=== PATIENT | female | born 1965 | race African-American/Black ===

== ENCOUNTER 2018-02-03 11:15 | Outpatient (RCR) | payer MEDICAID, SELFPAY | END 2018-02-03 19:00 | disposition home or self-care (01) | LOC: PT 11:15 | PROVIDERS: Family Provider Family Medicine; PCP Family Medicine | DX: M17.0 Bilateral primary osteoarthritis of knee (principal) ==

== ENCOUNTER → 2019-03-26 11:33 | Outpatient (CLI) | payer MEDICAID, SELFPAY ==
[2019-03-26 10:36] VITALS: BMI 48.2
[2019-03-26 13:12] LABS: T4 Free Direct 1.53 ng/dL (0.76-1.46)
[2019-03-28 11:30] LABS: Thyroid Peroxidase AB > 600 IU/mL (0-34)
== END ==
PROVIDERS: Family Provider Family Medicine; PCP Family Medicine; Referring Provider Internal Medicine Endocrinology, Diabetes & Metabolism; Visit Provider Internal Medicine Endocrinology, Diabetes & Metabolism
DX: E03.9 Hypothyroidism, unspecified (principal)
CPT/HCPCS: 36415; 84439; 84443; 86376

== ENCOUNTER → 2019-05-05 10:05 | Outpatient (CLI) | payer MEDICAID, SELFPAY ==
[2019-03-26 10:36] VITALS: BMI 48.2
--- NOTE | 2019-05-05 10:11 | ECHOCS_ITS ---
Reason For Study: MURMUR Procedure This was a 2D Doppler, Color Flow transthoracic echocardiogram. The study was technically difficult. Due to body habitus and inability to ambulate, Exam performed in supine position. Contrast injection was performed. Exam performed in department. Left Ventricle Normal size and thickness. The estimated ejection fraction is 65 %. Stage 1 diastolic dysfunction. No regional wall motion abnormalities noted. Right Ventricle Normal size and thickness. Normal systolic function. Atria Normal left atrium. Normal right atrium. Normal atrial septum. Mitral Valve The mitral valve is structurally normal. No prolapse or stenosis seen. Tricuspid Valve Normal tricuspid valve. Trivial tricuspid valve insufficiency. Right ventricular systolic pressure estimated to be 47 mmHg. Moderate pulmonary hypertension. Aortic Valve Normal aortic valve. Trisinus/trileaflet aortic valve. Pulmonic Valve The pulmonic valve is not well visualized. Great Vessels Normal aortic root. Normal arch. Normal inferior vena cava. No collapse of the inferior vena cava. Pericardium/Pleural No pericardial effusion. Medication 22 gauge I.V. with prn adaptor inserted into right arm. Diluted definity 2.0ml given slow IV push to enhance endocardial definition. MMode/2D Measurements & Calculations LVIDd: 4.3 cm IVSd: 1.0 cm Ao root diam: 2.5 cm LVIDs: 2.6 cm LVPWd: 1.00 cm RVDd: 2.8 cm FS: 39.7 % LAV(MOD-bp): 51.8 ml LA A4 area: 13.9 cm2 LA dimension(2D): 3.2 cm LAV(MOD-bp) Indexed: 21.9 ml/m2 LAV(MOD-sp2): 47.1 ml LAV(MOD-sp4): 42.0 ml RA A4 area: 10.1 cm2 Time Measurements MV dec time: 0.16 sec Doppler Measurements & Calculations MV E max todd: 95.7 cm/sec Lat Peak E' Todd: 11.2 cm/sec Med Peak E' Todd: 10.4 cm/sec MV A max todd: 127.6 cm/sec E/E' lat: 8.6 E/E' med: 9.2 MV E/A: 0.75 Ao V2 max: 150.3 cm/sec LV V1 max: 120.2 cm/sec PA V2 max: 128.9 cm/sec Ao max P.0 mmHg LV V1 max P.8 mmHg TR max todd: 323.7 cm/sec TR max P.9 mmHg Interpretation Summary The estimated ejection fraction is 65 %. Stage 1 diastolic dysfunction. Trivial tricuspid valve insufficiency. Right ventricular systolic pressure estimated to be 47 mmHg, but may be over estimated. Consider right heart cath to confirm pulmonary HTN. Moderate pulmonary hypertension. The study was technically difficult. Contrast injection was performed. There is no comparison study available. Ordering Physician: Arun Stringer Referring Physician: Arun Stringer Performed By: Felicity Perez, KRISTEN, RVT
== END ==
PROVIDERS: Family Provider Family Medicine; PCP Family Medicine; Referring Provider Family Medicine; Visit Provider Family Medicine
DX: R01.1 Cardiac murmur, unspecified (principal)
CPT/HCPCS: 93306; Q9957; A4216; C8929

== ENCOUNTER → 2019-08-27 10:22 | Outpatient (CLI) | payer MEDICAID, SELFPAY ==
[2019-03-26 10:36] VITALS: BMI 48.2
[2019-08-27 12:14] LABS: T4 Free Direct 1.39 ng/dL (0.76-1.46); Thyroid Stim Hormone (TSH) 2.99 uIU/mL (0.358-3.74)
== END ==
PROVIDERS: PCP Family Medicine; Referring Provider Internal Medicine Endocrinology, Diabetes & Metabolism; Visit Provider Internal Medicine Endocrinology, Diabetes & Metabolism
DX: E03.9 Hypothyroidism, unspecified (principal)
CPT/HCPCS: 36415; 84439; 84443

== ENCOUNTER → 2021-10-30 | Outpatient (CLI) | payer MEDICAID, SELFPAY ==
[2021-10-30 12:55] LABS: T4 Free Direct 1.34 ng/dL (0.76-1.46); Thyroid Stim Hormone (TSH) 3.16 uIU/mL (0.358-3.74)
== END | disposition home or self-care (01) ==
LOC: BIMLAB 11:36
PROVIDERS: PCP Family Medicine; Visit Provider Internal Medicine Endocrinology, Diabetes & Metabolism
DX: E03.9 Hypothyroidism, unspecified (principal)
CPT/HCPCS: 36415; 84439; 84443

== ENCOUNTER → 2021-12-04 | Outpatient (CLI) | payer MEDICAID, SELFPAY ==
[2021-12-04 12:18] LABS: Absolute Lymphocyte Count 2.73 X10^3/uL (0.83-4.51); Absolute Neutrophil Count 3.8 X10^3/uL (2.0-7.7); Basophil# 0.02 X10^3/uL; Basophil% 0.2 % (0-1); Eosinophil# 1.11 X10^3/uL; Eosinophils% 13.4 % (0-5); Hemoglobin 12.7 g/dL (12.0-15.0); Lymphocyte # 2.73 X10^3/ul (0.83-4.51); Mean Corp Hgb Conc 32.6 g/dL (32-36); Mean Corpuscular Volume 95.1 fL (81-99); Mean Platelet Vol. 10.5 fl (6.2-12.0); Monocyte# 0.59 X10^3/uL; Monocyte% 7.1 % (0-10); NRBC Flagged by Analyzer 0 % (0-5); Neutrophil # 3.81 X10^3/uL (2.7-7.7); Neutrophil % 46.1 % (47-70); Platelet Count 298 K/mm3 (150-450); RBC Distribution Width CV 14.3 % (11.6-14.6); RBC Distribution Width SD 50.2 fl (35.1-43.9); White Blood Count 8.3 K/mm3 (4.4-11.0)
[2021-12-04 13:09] LABS: ALB/GLOB Ratio 0.7 RATIO (0.9-2.4); AST(SGOT) 17 U/L (15-37); Alanine Aminotransfer ALT/SGPT 21 U/L (13-56); Albumin, Serum 3.5 g/dL (3.2-5.0); Alkaline Phosphatase 98 U/L (45-117); Anion Gap 6 (5-15); BUN 17 mg/dL (7-18); BUN/Creat Ratio 14.8 RATIO (10-20); Calcium,Total 9.6 mg/dL (8.5-10.1); Chloride 109 mmol/L (98-107); Cholesterol 156 mg/dL (200); Creatinine, Serum 1.15 mg/dL (0.55-1.02); EST Glomerular Filtration Rate 51 mL/min (>60); Est Glom Filt Rate - Afr Amer 62 mL/min (>60); Globulin 5.1 g/dL (2.2-4.2); Glucose 92 mg/dL (74-106); High Density Lipoprotein 44 mg/dL; Potassium 4.1 mmol/L (3.5-5.1); Protein, Total 8.6 g/dL (6.4-8.2); Sodium Level 141 mmol/L (136-145); Triglycerides 68 mg/dL; Very Low Density Lipoprotein 14 mg/dL (5-40)
== END | disposition home or self-care (01) ==
LOC: BIMLAB 10:12
PROVIDERS: PCP Internal Medicine; Referring Provider Internal Medicine; Visit Provider Internal Medicine
DX: I10 Essential (primary) hypertension (principal)
CPT/HCPCS: 36415; 80053; 80061; 85025

== ENCOUNTER → 2021-12-24 | Outpatient (CLI) | payer MEDICAID, SELFPAY ==
--- NOTE | 2021-12-24 12:19 | US_ITS ---
EXAM: US LEFT UPPER EXTREMITY NON-VASCULAR, COMPLETE CLINICAL INDICATION: Left Upper Extremity- 3 LUMPS ON ELBOW TECHNIQUE: Real-time ultrasound scan of the left upper extremity with image documentation. This report was created using [employer] report [employer] technology. COMPARISON: None. FINDINGS: SOFT TISSUES: Ultrasound images of the soft tissues of the left elbow demonstrate 3 soft tissue nodules measuring 1.2, 0.9 and 0.9 cm located within subcutaneous tissues. Lesions contain no significant vascularity. No foreign body. US/Ext Non Vasc Limited/Soft Tiss IMPRESSION: Nonspecific soft tissue nodules of the elbow which may represent lipomas. Electronically Signed: Kiet Reynoso MD at 9:32 EDT ,
== END | disposition home or self-care (01) ==
LOC: US 12:18
PROVIDERS: PCP Internal Medicine; Referring Provider Internal Medicine; Visit Provider Internal Medicine
DX: R60.0 Localized edema (principal)
CPT/HCPCS: 76882

== ENCOUNTER → 2022-05-17 | Outpatient (CLI) | payer MEDICAID, SELFPAY ==
--- NOTE | 2022-05-17 09:56 | BI_ITS ---
MAMMOGRAPHY - BILATERAL SCREENING REASON FOR EXAM: Female, 57 years old. Routine annual screening examination. PERTINENT HISTORY: Non-contributory. TECHNIQUE: Digital bilateral breast ed (3D mammographic acquisition) in the CC and MLO projections. 2-D mediolateral oblique (MLO) and craniocaudad (CC) views of both breasts were obtained. CAD: Full Field Digital Mammography with Computer Added Detection was performed. COMPARISON: Comparison is made with prior study dated 01/10/2017 and 10/03/2015. FINDINGS: Breast Composition: The breasts are almost entirely fatty. There are no dominant masses or suspicious calcifications. Small benign-appearing bilateral axillary lymph nodes. No other significant abnormalities are identified. There has been no significant change since the prior study. BI/SCRN MAMM (CAD)W/ED BILAT IMPRESSION: Stable bilateral screening mammogram. Yearly follow-up mammogram recommended. (A) ASSESSMENT CATEGORY: BIRADS Category 2: Benign. A letter regarding these results will be sent to the patient by the facility within 30 days. Approximately 10% of breast cancers are not detected by mammography. A normal mammogram should not delay biopsy of a clinically suspicious abnormality. [id number] Electronically Signed: Malachi Vela MD at 10:55 EST ,
== END | disposition home or self-care (01) ==
LOC: OPBI 09:55
PROVIDERS: PCP Internal Medicine; Referring Provider Internal Medicine; Visit Provider Internal Medicine
DX: Z12.31 Encounter for screening mammogram for malignant neoplasm of breast (principal)
CPT/HCPCS: 77063; 77067

== ENCOUNTER → 2022-09-13 | Outpatient (CLI) | payer MEDICAID, SELFPAY ==
[2022-09-13 12:38] LABS: Absolute Lymphocyte Count 2.46 X10^3/uL (0.83-4.51); Absolute Neutrophil Count 3.9 X10^3/uL (2.0-7.7); Basophil# 0.02 X10^3/uL; Basophil% 0.3 % (0-1); Eosinophil# 0.74 X10^3/uL; Eosinophils% 9.4 % (0-5); Hematocrit 39.6 % (37-47); Hemoglobin 12.4 g/dL (12.0-15.0); Lymphocyte # 2.46 X10^3/ul (0.83-4.51); Lymphocyte % 31.3 % (19-41); Mean Corp Hgb Conc 31.3 g/dL (32-36); Mean Corpuscular Hgb 29.6 pg (27.0-32.0); Mean Corpuscular Volume 94.5 fL (81-99); Mean Platelet Vol. 10.4 fl (6.2-12.0); Monocyte# 0.71 X10^3/uL; NRBC Flagged by Analyzer 0 % (0-5); Neutrophil # 3.92 X10^3/uL (2.7-7.7); Neutrophil % 49.9 % (47-70); Platelet Count 300 K/mm3 (150-450); RBC Distribution Width CV 14.2 % (11.6-14.6); RBC Distribution Width SD 49.3 fl (35.1-43.9); Red Blood Count 4.19 M/mm3 (4.2-5.4); White Blood Count 7.9 K/mm3 (4.4-11.0)
[2022-09-13 13:14] LABS: ALB/GLOB Ratio 0.6 RATIO (0.9-2.4); AST(SGOT) 23 U/L (15-37); Alanine Aminotransfer ALT/SGPT 27 U/L (13-56); Albumin, Serum 3.1 g/dL (3.2-5.0); Alkaline Phosphatase 90 U/L (45-117); Anion Gap 8 (5-15); BUN 12 mg/dL (7-18); BUN/Creat Ratio 10.5 RATIO (10-20); Calcium,Total 9.3 mg/dL (8.5-10.1); Chloride 108 mmol/L (98-107); Cholesterol 132 mg/dL (200); Creatinine, Serum 1.14 mg/dL (0.55-1.02); EST Glomerular Filtration Rate 52 mL/min (>60); Est Glom Filt Rate - Afr Amer 63 mL/min (>60); Globulin 5.5 g/dL (2.2-4.2); Glucose 104 mg/dL (74-106); High Density Lipoprotein 39 mg/dL; Protein, Total 8.6 g/dL (6.4-8.2); Sodium Level 139 mmol/L (136-145); Triglycerides 65 mg/dL; Very Low Density Lipoprotein 13 mg/dL (5-40)
== END | disposition home or self-care (01) ==
LOC: BIMLAB 09:51
PROVIDERS: PCP Internal Medicine; Visit Provider Internal Medicine
DX: I10 Essential (primary) hypertension (principal); E03.9 Hypothyroidism, unspecified
CPT/HCPCS: 36415; 80053; 80061; 84443; 85025

== ENCOUNTER → 2023-06-16 | Outpatient (CLI) | payer OTHER, SELFPAY ==
--- OUTSIDE RECORDS SUMMARY | 2023-06-16 11:42 | XMS RPT_ITS | CCD ---
Author Name Unknown Address [address] [place] [address] Organization [facility] Care Team Providers Care Glue Drier Operator Name Role Phone Arun Stringer DO Primary Care Provider Allergies Allergy Classification Reported Allergen(s) Allergy Type Date of Onset Reaction(s) Facility (1 source) Acetaminophen / Codeine Drug Allergy 4 Other: See Comments [facility] Medications Current Medications Medication Drug Class(es) Dates Sig (Normalized) Sig (Original) ibuprofen 800 mg oral tablet (2 sources) Nonsteroidal Anti-inflammatory Drug Start: 09-26-2021 End: 10-26-2021 take 1 tablet by mouth every eight hours as needed ibuprofen (MOTRIN) 800 mg tablet Take 1 tablet by mouth every 8 hours as needed for pain. 90 tablet 1 09/26/2021 10/26/2021 Active Completed/Discontinued Medications Medication Drug Class(es) Dates Sig (Normalized) Sig (Original) amLODIPine 10 mg oral tablet (1 source) Dihydropyridine Calcium Channel Son take 10 mg by mouth once daily AMLODIPINE BESYLATE (AMLODIPINE ORAL) Take 10 mg by mouth once daily. 0 Active Problems Active Problems Problem Classification Problem Date Documented Date Episodic/Chronic Acquired foot deformities (1 source) Hammer toe; Translations: [Other hammer toe(s) (acquired), right foot] Chronic Acquired foot deformities (2 sources) Talipes planus; Translations: [Flat foot [pes planus] (acquired), right foot] Onset: 01-25-2015 Episodic Anxiety disorders (1 source) Anxiety; Translations: [Anxiety disorder, unspecified] 11-08-2013 Chronic Disorders of lipid metabolism (1 source) Dyslipidemia; Translations: [Hyperlipidemia, unspecified] Onset: 11-08-2013 12-09-2013 Chronic Essential hypertension (1 source) Hypertensive disorder; Translations: [Essential (primary) hypertension] 11-08-2013 Chronic Osteoarthritis (1 source) Osteoarthritis; Translations: [Unspecified osteoarthritis, unspecified site] Onset: 07-07-2013 04-09-2021 Chronic Other diseases of veins and lymphatics (1 source) Vascular insufficiency; Translations: [Venous insufficiency (chronic) (peripheral)] Episodic Other nutritional; endocrine; and metabolic disorders (1 source) Morbid obesity; Translations: [Morbid (severe) obesity due to excess calories] Onset: 11-08-2013 12-09-2013 Chronic Thyroid disorders (1 source) Hypothyroidism; Translations: [Hypothyroidism, unspecified] 11-08-2013 Chronic Unclassified (1 source) NO SHOW Onset: 08-03-2013 08-03-2013 Past or Other Problems Problem Classification Problem Date Documented Da te Episodic/Chronic Blindness and vision defects (1 source) Amblyopia of left eye; Translations: [Unspecified amblyopia, left eye] Onset: 07-07-2013 04-09-2021 Episodic Results Test Name Value Interpretation Reference Range Facil ity Encounters Encounter Date Encounter Type Care Provider Facility Start: 09-26-2021 End: 09-26-2021 Patient encounter procedure Kenneth Hubbard Work Phone: Podiatry Plan of Treatment Date Care Activity Detail Author Start: 12-13-2021 Influenza vaccination INFLUENZA (Sea son Ended) [facility] Start: 07-14-2021 COVID-19 VACCINE (4 - Booster for Moderna series) COVID-19 VACCINE (4 - Booster for Moderna series) [facility] Start: 11-08-2018 LIPID SCREEN LIPID SCREEN [facility] Start: 07-09-2016 DIABETES SCREEN DIABETES SCREEN [facility] Start: 2013 SHINGRIX VACCINE (1 of 2) SHINGRIX V ACCINE (1 of 2) [facility] Start: 03-09-2009 PAP TESTING PAP TESTING [facility] Start: 2008 COLOGUARD (FIT-DNA) COLOGUARD (FIT-D NA) [facility] Start: 2008 Colonoscopy COLONOSCOPY [facility] Start: 2008 COLORECTAL CANCER SCREENING COLORECTAL CANCER SCREENING [facility] Start: [address] COLONOGRAPHY [facility] Start: 2008 FECAL OCCULT BLOOD FECAL OCCULT BLOO D [facility] Start: 2008 SIGMOIDOSCOPY SIGMOIDOSCOPY [facility] Start: 2003 Mammography MAMMOGRAM [facility] Start: 1993 HPV TESTING HPV TESTING [facility] Start: 1982 Urine microalbumin profile DTAP,TDAP ,TD (1 - Tdap) [facility] Start: 1981 ANNUAL PCP TEAM PATIENT RESOURCE COORDINATOR BARTOLOME DISEASE VISIT ANNUAL PCP TEAM CHRONIC DISEASE VISIT [facility] Start: 1981 BP CONTROLLED (<130/80) BP CONTROLLE D (<130/80) [facility] Start: 1981 HEPATITIS C SCREENING HEPATITIS C SC REENING [facility] Start: 1981 HIV SCREENING HIV SCREENING [facility] Start: 1975 Adult depression scr eening assessment DEPRESSION SCREENING [facility] Payers Date Payer Category [place]ayer Medicaid [place] [id number] 2021-Present [phone] [address] [place] [address] Medicaid [id number] Social History Date Type Detail Facility [facility] Start: 09-26-2021 Alcohol intake Current non-dr project officer of alcohol (finding) [facility] Start: 1965 Sex Assigned At Not on file [facility] Start: 09-16-2021 End: 09-26-2021 Exposure to SARS-CoV-2 (event) Not sure [facility] Progress note 09-26-2021 Note Date & Type Note Facility 09-26-2021 Note HNO ID: [id number] Author: Kenneth Hubbard Service: ? Author Type: Physician Type: Progress Notes Filed: 09/26/2021 12:18 PM Note Text: Initial Podiatric Office Visit: Chief Complaint: This 56 year old female who presents with chief complaint:swelling of b/l feet and deformity of b/l 2nd toe HPI Patient presents to clinic for evaluation of b/l feet. Her primary complaint is deformity of b/l 2nd toe. She states the toes started to deviate laterally about one year ago when her daughter stepped on her toe. She states that she heard a crunch but she never had pain because she was on pain medication for pain related to recent knee surgery. Patient now has pain in her toes, especially with a lot of walking. She also reports swelling in her foot. PAIN EVALUATION 09/26/2021 1120 Pain Level: 7 Pain Location: Toe Description: Stabbing Duration Amount of Time: 1 Duration Units: Years Frequency: Intermittent Intervention/Comfort measure: Reposition;Relaxation No results found for: HBA1C PCP: Arun Stringer DO PAST MEDICAL HISTORY Diagnosis Date - Anxiety - HTN (hypertension) - Hypothyroidism Current Outpatient Medications Medication Sig - ibuprofen (MOTRIN) 800 mg tablet Take 1 tablet by mouth every 6 hours as needed. - diazepam (VALIUM) 5 mg tablet Take 5 mg by mouth once daily. - AMLODIPINE BESYLATE (AMLODIPINE ORAL) Take 10 mg by mouth once daily. - levothyroxine (LEVOXYL) 100 mcg tablet Take 1 tablet by mouth once daily. Take on empty stomach. For Thyroid. (Patient taking differently: Take 150 mcg by mouth once daily. Take on empty stomach. For Thyroid. ) - losartan 100 mg tablet Take 1 tablet by mouth once daily. - hydrochlorothiazide (HYDRODIURIL, ESIDRIX) 25 mg tablet Take 25 mg by mouth once daily. (Patient not taking: Reported on 09/26/2021 ) No current facility-administered medications for this visit. ALLERGIES Allergen Reactions - Acetaminophen-Codei* Other: See Comments Ears ring PAST SURGICAL HISTORY Procedure Laterality Date - DELIVERY ONLY 04/14/1998 , low transverse - DELIVERY ONLY 04/14/2004 , low transverse - DELIVERY ONLY 04/14/2013 , low transverse - TOTAL KNEE REPLACEMENT Bilateral June,November 2020 FAMILY HISTORY Problem Relation Age of Onset - Diabetes Mother - Stroke Father - Hypertension Sister - Hypertension Sister Social History Tobacco Use - Smoking status: Never Smoker - Smokeless tobacco: Never Used Substance Use Topics - Alcohol use: No - Drug use: No REVIEW OF SYSTEMS GENERAL: Negative for Malaise, significant weight loss, fever RESPIRATORY: Negative for cough, wheezing and shortness of breath CARDIOVASCULAR: Negative for chest pain, leg swelling and palpitations GI: Negative for abdominal discomfort, blood in stools or black stools and change in bowel habits : Negative for dysuria, frequency and incontinence MUSCULOSKELETAL: Negative for joint pain or swelling, back pain, and muscle pain. SKIN: Negative for lesions, rash, and itching. HEMATOLOGY/LYMPHOLOGY Negative for prolonged bleeding, bruising easily, and swollen nodes. ENDOCRINE: Negative for cold or heat intolerance, polyuria, polydipsia and goiter. NEURO: negative Physical Exam: Constitutional: Pt is a well developed 56 year old female who is alert, oriented and cooperative Eyes: Following during examination. No redness or drainage. Respiratory: RR normal and nonlabored. Even breathing. No evidence of distress or shortness of breath. Psychology: Patient is engaged during conversation. Normal affect and mood. Does not appear depressed or anxious during encounter. Vascular: Dorsalis pedis and posterior tibial pulses palpable as b/l Capillary Fill time < 5 seconds to digits 1-5 b/l Skin temperature warm to warm proximal to distal b/l Hair growth present to digits + swelling of b/l feet Neurological: intact light touch/epicritic sensation b/l intact protective sensation no significant neurological deficits Dermatological: Nails 1-5 b/l appear normal. Webspaces clean and dry 1-4 b/l. Skin appears well hydrated and supple. good color, texture, turgor. No open lesions present. No callosities present. Musculoskeletal/Orthopaedic: Patient has no pain to palpation of b/l feet Foot type is pronated structurally Hammertoes present to 2-5 b/l with lateral deviation of b/l 2nd dipj AJ ROM is decreased with knee extended and flexed 1st MPJ is full when loaded and no pain or crepitus are noted with ROM. MTJ, STJ are full and free of pain and crepitus. +5/5 muscle strength dorsiflexion, plantarflexion, inversion, eversion b/l Radiographs: ordered ASSESSMENT: (M21.41, M21.42) Pes planus of both feet (primary encounter diagnosis) (M20.41, M20.42) Hammer toes of both feet (I87.2) Venous insufficiency PLAN: 1. History and physical examina (more content not included)... [facility] Progress note 09-26-2021 Note Date & Type Note Facility 09-26-2021 Note HNO ID: [id number] Author: Wendy Zhao RN Service: ? Author Type: ? Type: Progress Notes Filed: 09/26/2021 12:18 PM Note Text: AMB ROOMING INTAKE FLOWSHEET DATA Risk Screening Do you have concerns about personal safety or safety in the home?: No Pain Pain Level: 7 Pain Location: Toe Description: Stabbing Duration Amount of Time: 1 Duration Units: Years Frequency: Intermittent Intervention/Comfort measure: Reposition, Relaxation Patient presents with: Right 2nd Toe - New Patient, Pain Left 2nd Toe - New Patient, Pain Patient c/o pain to B/L 2nd toes. [facility] History of Present illness Narrative 09-26-2021 Kenneth Gordonsachin - 09/26/2021 11:39 AM EDTTmichelle Zhao RN - 09/26/2021 11:19 AM EDT Note Date & Type Note Facility 09-26-2021 History of Presen t illness Narrative Initial Podiatric Office Visit: Chief Complaint: This 56 year old female who presents with chief complaint:swelling of b/l feet and deformity of b/l 2nd toe HPI Patient presents to clinic for evaluation of b/l feet. Her primary complaint is deformity of b/l 2nd toe. She states the toes started to deviate laterally about one year ago when her daughter stepped on her toe. She states that she heard a crunch but she never had pain because she was on pain medication for pain related to recent knee surgery. Patient now has pain in her toes, especially with a lot of walking. She also reports swelling in her foot. PAIN EVALUATION 09/26/2021 1120 Pain Level: 7 Pain Location: Toe Description: Stabbing Duration Amount of Time: 1 Duration Units: Years Frequency: Intermittent Intervention/Comfort measure: Reposition;Relaxation No results found for: HBA1C PCP: Arun Stringer DO PAST MEDICAL HISTORY Diagnosis Date Anxiety HTN (hypertension) Hypothyroidism Current Outpatient Medications Medication Sig ibuprofen (MOTRIN) 800 mg tablet Take 1 tablet by mouth every 6 hours as needed. diazepam (VALIUM) 5 mg tablet Take 5 mg by mouth once daily. AMLODIPINE BESYLATE (AMLODIPINE ORAL) Take 10 mg by mouth once daily. levothyroxine (LEVOXYL) 100 mcg tablet Take 1 tablet by mouth once daily. Take on empty stomach. For Thyroid. (Patient taking differently: Take 150 mcg by mouth once daily. Take on empty stomach. For Thyroid. ) losartan 100 mg tablet Take 1 tablet by mouth once daily. hydrochlorothiazide (HYDRODIURIL, ESIDRIX) 25 mg tablet Take 25 mg by mouth once daily. (Patient not taking: Reported on 09/26/2021 ) No current facility-administered medications for this visit. ALLERGIES Allergen Reactions Acetaminophen-Codei* Other: See Comments Ears ring PAST SURGICAL HISTORY Procedure Laterality Date DELIVERY ONLY 04/14/1998 , low transverse DELIVERY ONLY 04/14/2004 , low transverse DELIVERY ONLY 04/14/2013 , low transverse TOTAL KNEE REPLACEMENT Bilateral June,November 2020 FAMILY HISTORY Problem Relation Age of Onset Diabetes Mother Stroke Father Hypertension Sister Hypertension Sister Social History Tobacco Use Smoking status: Never Smoker Smokeless tobacco: Never Used Substance Use Topics Alcohol use: No Drug use: No REVIEW OF SYSTEMS GENERAL: Negative for Malaise, significant weight loss, fever RESPIRATORY: Negative for cough, wheezing and shortness of breath CARDIOVASCULAR: Negative for chest pain, leg swelling and palpitations GI: Negative for abdominal discomfort, blood in stools or black stools and change in bowel habits : Negative for dysuria, frequency and incontinence MUSCULOSKELETAL: Negative for joint pain or swelling, back pain, and muscle pain. SKIN: Negative for lesions, rash, and itching. HEMATOLOGY/LYMPHOLOGY Negative for prolonged bleeding, bruising easily, and swollen nodes. ENDOCRINE: Negative for cold or heat intolerance, polyuria, polydipsia and goiter. NEURO: negative Physical Exam: Constitutional: Pt is a well developed 56 year old female who is alert, oriented and cooperative Eyes: Following during examination. No redness or drainage. Respiratory: RR normal and nonlabored. Even breathing. No evidence of distress or shortness of breath. Psychology: Patient is engaged during conversation. Normal affect and mood. Does not appear depressed or anxious during encounter. Vascular: Dorsalis pedis and posterior tibial pulses palpable as b/l Capillary Fill time < 5 seconds to digits 1-5 b/l Skin temperature warm to warm proximal to distal b/l Hair growth present to digits + swelling of b/l feet Neurological: intact light touch/epicritic sensation b/l intact protective sensation no significant neurological deficits Dermatological: Nails 1-5 b/l appear normal. Webspaces clean and dry 1-4 b/l. Skin appears well hydrated and supple. good color, texture, turgor. No open lesions present. No callosities present. Musculoskeletal/Orthopaedic: Patient has no pain to palpation of b/l feet Foot type is pronated structurally Hammertoes present to 2-5 b/l with lateral deviation of b/l 2nd dipj AJ ROM is decreased with knee extended and flexed 1st MPJ is full when loaded and no pain or crepitus are noted with ROM. MTJ, STJ are full and free of pain and crepitus. +5/5 muscle strength dorsiflexion, plantarflexion, inversion, eversion b/l Radiographs: ordered ASSESSMENT: (M21.41, M21.42) Pes planus of both feet (primary encounter diagnosis) (M20.41, M20.42) Hammer toes of both feet (I87.2) Venous insufficiency PLAN: 1. History and physical examination performed. 2. Reviewed xrays of b/l feet from 2014. She had hammertoe of b/l feet back in 2014. Will repeat xrays today. 3. Discussed flatfoot. Will order custom orthotics. Unfortuantely, her flatfoot seems rigid so the use of afo could lead to rubbing and creation of sores. For this reason, will order custom orthotics. 4. rx compression stockings. 5. Gel toe cap was dispensed for hammertoe 6. Could consider hammertoe correction but given severe edema, she would be at high risk of slow healing so for this reason, will treat conservatively for now Kenneth Hubbard DPM Podiatry [address] [facility] [address] Dept: [phone] Dept AMB ROOMING INTAKE FLOWSHEET DATA Risk Screening Do you have concerns about personal safety or safety in the home?: No Pain Pain Level: 7 Pain Location: Toe Description: Stabbing Duration Amount of Time: 1 Duration Units: Years Frequency: Intermittent Intervention/Comfort measure: Reposition, Relaxation Patient presents with: Right 2nd Toe - New Patient, Pain Left 2nd Toe - New Patient, Pain Patient c/o pain to B/L 2nd toes. documented in this encounter [facility] Evaluation note Note Date & Type Note Facility documented in this encounter [facility] Summary Purpose Family History No Family History Records Found Advance Directives No Advanced Directives Records Found Additional Source Comments Source Comments (unrecognize d section and content) In the event this informatio n is protected by the Federal Confidentiality of Alcohol and Drug Abuse Patient Records regulations: The Federal rules restrict any use of the information to criminally investigate or prosecute any alcohol or drug abuse patient.[facility] Reason for Visit (unrecogniz ed section and content) Care Teams (unrecognized sec tion and content) INFORMATION SOURCE (unrecogn ized section and content) FOR RECORDS PERTAINING TO PATIENTS WHO ARE OR HAVE BEEN ENROLLED IN A CHEMICAL DEPENDENCY/SUBSTANCEABUSE PROGRAM, SOME INFORMATION MAY BE OMITTED. This clinical summary was aggregated from multiple sources. Caution should be exercised in using it in the provision of clinical care. This summary normalizes information from multiple sources, and as a consequence, information in this document may materially change the coding, format and clinical context of patient data. In addition, data may be omitted in some cases. CLINICAL DECISIONS SHOULD BE BASED ON THE PRIMARY CLINICAL RECORDS. [facility] [email or web address] [facility]. provides no warranty or guarantee of the accuracy or completeness of information in this document.
[2023-06-16 12:48] LABS: Absolute Lymphocyte Count 2.64 X10^3/uL (0.83-4.51); Absolute Neutrophil Count 3.6 X10^3/uL (2.0-7.7); Basophil# 0.03 X10^3/uL; Basophil% 0.4 % (0-1); Eosinophil# 0.73 X10^3/uL; Eosinophils% 9.6 % (0-5); Hematocrit 40.6 % (37-47); Hemoglobin 13.1 g/dL (12.0-15.0); Lymphocyte # 2.64 X10^3/ul (0.83-4.51); Lymphocyte % 34.6 % (19-41); Mean Corp Hgb Conc 32.3 g/dL (32-36); Mean Corpuscular Hgb 29.4 pg (27.0-32.0); Mean Platelet Vol. 10.2 fl (6.2-12.0); Monocyte# 0.63 X10^3/uL; Monocyte% 8.3 % (0-10); NRBC Flagged by Analyzer 0 % (0-5); Neutrophil # 3.57 X10^3/uL (2.7-7.7); Neutrophil % 46.8 % (47-70); Platelet Count 358 K/mm3 (150-450); RBC Distribution Width CV 14.3 % (11.6-14.6); RBC Distribution Width SD 48.2 fl (35.1-43.9); Red Blood Count 4.46 M/mm3 (4.2-5.4); White Blood Count 7.6 K/mm3 (4.4-11.0)
[2023-06-16 13:25] LABS: ALB/GLOB Ratio 0.6 RATIO (0.9-2.4); AST(SGOT) 17 U/L (15-37); Alanine Aminotransfer ALT/SGPT 19 U/L (13-56); Albumin, Serum 3.5 g/dL (3.2-5.0); Alkaline Phosphatase 107 U/L (45-117); Anion Gap 7 (5-15); BUN 21 mg/dL (7-18); BUN/Creat Ratio 18.3 RATIO (10-20); Calcium,Total 9.5 mg/dL (8.5-10.1); Chloride 107 mmol/L (98-107); Cholesterol 164 mg/dL (200); Creatinine, Serum 1.15 mg/dL (0.55-1.02); EST Glomerular Filtration Rate 51 mL/min (>60); Est Glom Filt Rate - Afr Amer 62 mL/min (>60); Globulin 5.5 g/dL (2.2-4.2); Glucose 96 mg/dL (74-106); High Density Lipoprotein 45 mg/dL; Potassium 4.2 mmol/L (3.5-5.1); Sodium Level 138 mmol/L (136-145); Triglycerides 72 mg/dL; Very Low Density Lipoprotein 14 mg/dL (5-40)
== END | disposition home or self-care (01) ==
LOC: BIMLAB 11:22
PROVIDERS: PCP Internal Medicine; Visit Provider Internal Medicine
DX: I10 Essential (primary) hypertension (principal); E03.9 Hypothyroidism, unspecified
CPT/HCPCS: 36415; 80053; 80061; 84443; 85025

== ENCOUNTER → 2023-07-17 | Outpatient (CLI) | payer OTHER, SELFPAY ==
--- NOTE | 2023-07-17 08:57 | BI_ITS ---
MAMMOGRAPHY - BILATERAL SCREENING REASON FOR EXAM: Female, 58 years old. Routine annual screening examination. PERTINENT HISTORY: Non-contributory. TECHNIQUE: Digital bilateral breast ed (3D mammographic acquisition) in the CC and MLO projections. 2-D mediolateral oblique (MLO) and craniocaudad (CC) views of both breasts were obtained. CAD: Full Field Digital Mammography with Computer Added Detection was performed. COMPARISON: Comparison is made with prior study dated May 17, 2022 and January 10, 2017. FINDINGS: Breast Composition: The breasts are almost entirely fatty. There are no dominant masses or suspicious calcifications. No other significant abnormalities are identified. There has been no significant change since the prior study. BI/SCRN MAMM (CAD)W/ED BILAT IMPRESSION: Stable bilateral screening mammogram. Yearly follow-up mammogram recommended. (A) ASSESSMENT CATEGORY: BIRADS Category 1: Negative. A letter regarding these results will be sent to the patient by the facility within 30 days. Approximately 10% of breast cancers are not detected by mammography. A normal mammogram should not delay biopsy of a clinically suspicious abnormality. [id number] Electronically Signed: Malachi Vela MD at 10:17 EDT ,
--- NOTE | 2023-07-17 08:57 | BD_ITS ---
STUDY: DUAL ENERGY X-RAY ABSORPTIOMETRY / DXA REASON FOR EXAM: Female, 58 years old. Post Menopausal TECHNIQUE: Bone Mineral Density (BMD) measurements of left forearm was obtained. COMPARISON: None. FINDINGS: Left Forearm: g/cm2 (0.455) / T-score (-2.3) / Z-score (-1.1) BD/Dexa Bone Density Study IMPRESSION: The patient is considered osteopenic as outlined below according to World [employer] (WHO) criteria with a high fracture risk. Reference Information: The T-score is the number of standard deviations above or below the standard which is normal for young adults at their peak bone mineral density. The World Health Organization (WHO) interprets the T-scores as follows: Above -1 Normal bone density Between -1 and -2.5 Osteopenia Equal to / or below -2.5 Osteoporosis As a practical clinical guideline, osteopenia may be graded as follows: Mild -1 through -1.5 Moderate -1.6 through -2.0 Severe -2.1 through -2.4 The Z-score is the number of standard deviations above or below age-matched controls. A Z-score of less than -1.5 would be considered abnormal. References: 1. NIH Osteoporosis and Related Bone Diseases www osteo.org 2. International Society for Clinical Densitometry www iscd.org 3. National Osteoporosis Foundation www nof.org Electronically Signed: Malachi Vela MD at 10:02 EDT ,
== END | disposition home or self-care (01) ==
PROVIDERS: PCP Internal Medicine; Referring Provider Internal Medicine; Visit Provider Internal Medicine
DX: Z12.31 Encounter for screening mammogram for malignant neoplasm of breast (principal); Z78.0 Asymptomatic menopausal state
CPT/HCPCS: 77063; 77067; 77080

== ENCOUNTER → 2023-10-27 | Outpatient (CLI) | payer MEDICAID, SELFPAY ==
[2023-10-27 16:46] LABS: Absolute Lymphocyte Count 2.58 X10^3/uL (0.83-4.51); Absolute Neutrophil Count 3.4 X10^3/uL (2.0-7.7); Basophil# 0.03 X10^3/uL; Basophil% 0.4 % (0-1); Eosinophil# 0.83 X10^3/uL; Eosinophils% 10.9 % (0-5); Hematocrit 37.2 % (37-47); Hemoglobin 11.9 g/dL (12.0-15.0); Lymphocyte # 2.58 X10^3/ul (0.83-4.51); Lymphocyte % 33.8 % (19-41); Mean Corpuscular Hgb 29.6 pg (27.0-32.0); Mean Corpuscular Volume 92.5 fL (81-99); Mean Platelet Vol. 10.3 fl (6.2-12.0); Monocyte% 10.5 % (0-10); NRBC Flagged by Analyzer 0 % (0-5); Neutrophil # 3.38 X10^3/uL (2.7-7.7); Neutrophil % 44.1 % (47-70); Platelet Count 297 K/mm3 (150-450); RBC Distribution Width CV 14.3 % (11.6-14.6); RBC Distribution Width SD 48.5 fl (35.1-43.9); Red Blood Count 4.02 M/mm3 (4.2-5.4); White Blood Count 7.6 K/mm3 (4.4-11.0)
[2023-10-27 17:24] LABS: ALB/GLOB Ratio 0.6 RATIO (0.9-2.4); AST(SGOT) 15 U/L (15-37); Alanine Aminotransfer ALT/SGPT 19 U/L (13-56); Albumin, Serum 3.4 g/dL (3.2-5.0); Alkaline Phosphatase 115 U/L (45-117); Anion Gap 7 (5-15); BUN 17 mg/dL (7-18); Calcium,Total 9.4 mg/dL (8.5-10.1); Chloride 109 mmol/L (98-107); Creatinine, Serum 1.06 mg/dL (0.55-1.02); EST Glomerular Filtration Rate 56 mL/min (>60); Est Glom Filt Rate - Afr Amer 68 mL/min (>60); Globulin 5.3 g/dL (2.2-4.2); Glucose 91 mg/dL (74-106); Protein, Total 8.7 g/dL (6.4-8.2); Sodium Level 140 mmol/L (136-145)
[2023-10-27 17:53] LABS: Vitamin D,25 Hydroxy 30.4 ng/mL
== END | disposition home or self-care (01) ==
LOC: BIMLAB 15:33
PROVIDERS: PCP Internal Medicine; Referring Provider Internal Medicine; Visit Provider Internal Medicine
DX: M85.80 Other specified disorders of bone density and structure, unspecified site (principal); I10 Essential (primary) hypertension
CPT/HCPCS: 36415; 80053; 82306; 83970; 85025

== ENCOUNTER → 2023-12-29 | Outpatient (CLI) | payer MEDICAID, SELFPAY ==
--- NOTE | 2023-12-29 10:22 | VDLE_ITS ---
Reason For Study: RLE Swelling RIGHT CFV is compressible, spontaneous, phasic, competent and demonstrates normal augmentation. FV is compressible, spontaneous, phasic, competent and demonstrates normal augmentation. POP V is compressible, spontaneous, phasic, competent and demonstrates normal augmentation. T/P Trunk is compressible. PTV is compressible. Unable to visualize mid/dist FV and Horacio V. SFJ is competent and measures 0.69 cm. GSV proximal thigh measures 0.42 x 0.43 cm. GSV at knee measures 0.16 x 0.22 cm. GSV is competent throughout. SSV proximal calf is competent and measures 0.38 x 0.33 cm. Procedure This is a venous duplex using B-mode, color flow and spectral Doppler. Exam performed in department. The study was technically difficult due to body habitus. Limited views were obtained. VL/Venous Duplex US, Unilateral Interpretation Summary Deep veins of the right lower extremity are patent and compressible segmentally . There is no evidence of right lower extremity deep vein thrombosis. The right [place] us vein appears patent and compressible segmentally. Negative for reflux Ordering Physician: Marie Lagunas Referring Physician: Harper Genao Performed By: Abdon See RVT
== END | disposition home or self-care (01) ==
LOC: CVS 10:17
PROVIDERS: PCP Internal Medicine; Referring Provider Physician Assistant; Visit Provider Physician Assistant
DX: R60.0 Localized edema (principal); M79.89 Other specified soft tissue disorders
CPT/HCPCS: 93971

== ENCOUNTER 2024-01-05 10:18 | Outpatient (RCR) | payer MEDICAID, SELFPAY ==
--- NOTE | 2024-01-05 18:48 | HP.OTEVAL_ITS ---
Patient's Visit Information Visit Information Visit Information: RONALD HUTCHINS is a 58 year old F, referred to Occupational Therapy by YOCASTA Juarez, with a diagnosis of lymphedema. Date of Evaluation: 01/05/24 Occupational Therapist: Joy Ayoub, ABRIL/Heide, CHT Subjective Subjective: This 58 year old female was seen for OT eval with dx of lymphedema. Pt states she has had swelling for about 5 years or more. Pt states she had swelling since a right TKR in 2019, she has had swelling. pt states she feels the swelling has been increasing last few months- ankle and calf area. pt states she has been wearing a tubigrip. pt states she started chester that and feels this has helped. pt does state legs are less swollen when she first gets up in the AM. pt would like to know what she can do to mtg. her lymphedema. Lymphedema (Circumferential Measure) Mid-foot: right 24cm left 22cm Ankle: right 32cm left 27cm Lower calf: right 28cm left 26cm Largest calf: right 52cm left 53cm Below knee: right 67cm left 46cm Above knee: right 69cm left 69cm Lower Limb Functional Index Lower Extremity Functional Score: 12 Goals Goal: Patient will demonstrate a 20% reduction in edema by discharge: Yes Goal: Patient will demonstrate adequate knowledge of self-massage by the end of the second week.: Yes Goal: Patient will demonstrate adequate knowledge of skin care and precautions by the end of the first week.: Yes Goal: Patient will select an appropriate compression garment and demonstrate adequate knowledge of correct donning technique, care and wearing schedule by discharge.: Yes Goal: Patient will voice understanding of need to replace compression garment every four to six months by discharge.: Yes Rehabilitation General Assessment: pt demo with increase edema in LE, more proximal to knees- with tissue folds more excessive on right vs left, tissue folds soft supple vs fibrotic tissue. noted right foot pitting edema- did not arrive with tubigrip on. pt states she is unable to put compression socks on and since her knee tao jhonatan she is less active. pt demo need for skilled OT services 2-4 visits to ed pt and family ex. on life long lymphedema mtg, and use of compression alternatives ( Velcro closure compression garment ) 20-30 mmHg, skin care and exercise to stimulate lymph fluid circulation. pt and spouse demo understanding- pt did ask about pumps for her legs- ed, pt that she would still need to perform lymph stimulation above to get fluid circulating as to not push fluid into abdomen region. pt and pts spouse demo understanding. pt to return for further ed. on life long mtg of lymphedema. pt demo understanding and agree to POC. Both agree to initiate getting up and walking every 45 min for (about 10 min) walk to kitchen for drink and back to recliner- or walk to bathroom and back to recliner to increase mobility and circulation. pt also given handout of lymph stim ex. that can be performed laying, sitting or standing. pt agree and demo understanding of POC. Rehabilitation Potential: Questionable Anticipated Interventions Anticipated Interventions: Education re Diagnosis, Education re Life-long lymphedema Management, Education re Self-Bandaging Techniques, Education re Skin Care and Precautions, Education re Self Massage Techniques, Education re Correct Donning Tech,Care&Wearing Sched Comp Garments, Caregiver Training and Home Program Visit Plan Frequency: 1-2x /Week Duration: 2-4 Weeks TEXT: Thank you for the opportunity to evaluate your patient. For Medicare and Medicare HMO plans, please review the plan of care and approve it. It will need to be FAXED BACK to us at [phone] for Medicare purposes. Please let me know if there are questions or concerns regarding this plan of care. Physician Signature: Date:
== END 2024-01-05 19:00 | disposition home or self-care (01) ==
LOC: OT 10:18
PROVIDERS: PCP Internal Medicine; Referring Provider Physician Assistant; Visit Provider Physician Assistant
DX: I89.0 Lymphedema, not elsewhere classified (principal)
CPT/HCPCS: 97165; 97166

== ENCOUNTER → 2024-04-30 | Outpatient (CLI) | payer MEDICAID, SELFPAY ==
[2024-04-30 12:03] LABS: Absolute Lymphocyte Count 2.33 X10^3/uL (0.83-4.51); Absolute Neutrophil Count 3.1 X10^3/uL (2.0-7.7); Basophil# 0.03 X10^3/uL; Basophil% 0.4 % (0-1); Eosinophil# 1.07 X10^3/uL; Eosinophils% 14.7 % (0-5); Hematocrit 40.2 % (37-47); Hemoglobin 12.6 g/dL (12.0-15.0); Lymphocyte # 2.33 X10^3/ul (0.83-4.51); Lymphocyte % 31.9 % (19-41); Mean Corp Hgb Conc 31.3 g/dL (32-36); Mean Corpuscular Hgb 29.2 pg (27.0-32.0); Mean Corpuscular Volume 93.3 fL (81-99); Mean Platelet Vol. 10.2 fl (6.2-12.0); Monocyte# 0.74 X10^3/uL; Monocyte% 10.1 % (0-10); NRBC Flagged by Analyzer 0 % (0-5); Neutrophil # 3.12 X10^3/uL (2.7-7.7); Neutrophil % 42.8 % (47-70); Platelet Count 338 K/mm3 (150-450); RBC Distribution Width CV 15.3 % (11.6-14.6); RBC Distribution Width SD 52.5 fl (35.1-43.9); Red Blood Count 4.31 M/mm3 (4.2-5.4); White Blood Count 7.3 K/mm3 (4.4-11.0)
[2024-04-30 12:35] LABS: ALB/GLOB Ratio 0.7 RATIO (0.9-2.4); AST(SGOT) 20 U/L (15-37); Alanine Aminotransfer ALT/SGPT 17 U/L (13-56); Albumin, Serum 3.4 g/dL (3.2-5.0); Alkaline Phosphatase 93 U/L (45-117); Anion Gap 9 (5-15); BUN 21 mg/dL (7-18); BUN/Creat Ratio 16.4 RATIO (10-20); Calcium,Total 9.5 mg/dL (8.5-10.1); Chloride 109 mmol/L (98-107); Creatinine, Serum 1.28 mg/dL (0.55-1.02); EST Glomerular Filtration Rate 45 mL/min (>60); Est Glom Filt Rate - Afr Amer 55 mL/min (>60); Globulin 5.1 g/dL (2.2-4.2); Glucose 95 mg/dL (74-106); Potassium 4.3 mmol/L (3.5-5.1); Protein, Total 8.5 g/dL (6.4-8.2); Sodium Level 140 mmol/L (136-145)
== END | disposition home or self-care (01) ==
LOC: BIMLAB 10:25
PROVIDERS: PCP Internal Medicine; Referring Provider Internal Medicine; Visit Provider Internal Medicine
DX: I10 Essential (primary) hypertension (principal); E03.9 Hypothyroidism, unspecified
CPT/HCPCS: 36415; 80053; 84443; 85025

== ENCOUNTER → 2024-07-26 | Outpatient (CLI) | payer MEDICAID, SELFPAY ==
--- NOTE | 2024-07-26 10:58 | BI_ITS ---
EXAM: SCRN MAMM (CAD)W/ED BILAT DATE: 07/26/2024 CLINICAL HISTORY: F, Age 59 y/o , BREAST CANCER SCREENING BREAST CANCER RISK ASSESSMENT: Has not been calculated. TECHNIQUE: Bilateral screening digital breast tomosynthesis with 2D and 3D images. Computer aided detection. COMPARISON: Prior exam(s) dated 07/17/2023 and 05/17/2022. FINDINGS: TISSUE DENSITY: The breast tissue is almost entirely fatty. Bilateral Breast Mammographic Findings: There are no suspicious masses, suspicious microcalcifications, architectural distortion or secondary sign of malignancy identified in either breast. Benign round microcalcifications are seen in the breast. BI/SCRN MAMM (CAD)W/ED BILAT IMPRESSION: Right Breast: BIRADS 2 BENIGN FINDING. Left Breast: BIRADS 2 BENIGN FINDING. OVERALL FINAL ASSESSMENT: BIRADS 2 BENIGN FINDING RECOMMENDATION: Routine annual follow-up in 1 Year A letter with findings and recommendations will be mailed to the patient. Reading Location: [id number]
== END | disposition home or self-care (01) ==
LOC: OPBI 10:57
PROVIDERS: PCP Internal Medicine; Referring Provider Internal Medicine; Visit Provider Internal Medicine
DX: Z12.31 Encounter for screening mammogram for malignant neoplasm of breast (principal)
CPT/HCPCS: 77063; 77067

== ENCOUNTER → 2024-12-15 | Outpatient (CLI) | payer MEDICAID, SELFPAY ==
[2024-12-15 13:07] LABS: Hematocrit 35.8 % (37-47); Hemoglobin 11.8 g/dL (12.0-15.0); Immature Granulocytes Count 0.020 X10^3/uL (0.0-0.0); Mean Corp Hgb Conc 33.0 g/dL (32-36); Mean Corpuscular Volume 92.0 fL (81-99); Mean Platelet Vol. 10.3 fl (6.2-12.0); NRBC Flagged by Analyzer 0 % (0-5); Platelet Count 303 K/mm3 (150-450); RBC Distribution Width CV 13.9 % (11.6-14.6); RBC Distribution Width SD 47.6 fl (35.1-43.9); Red Blood Count 3.89 M/mm3 (4.2-5.4); White Blood Count 7.3 K/mm3 (4.4-11.0)
[2024-12-15 14:46] LABS: Cholesterol 130 mg/dL (<=200); Low Density Lipoprotein Calc. 78 mg/dL; Triglycerides 48 mg/dL; Very Low Density Lipoprotein 10 mg/dL (5-40); Vitamin D,25 Hydroxy 23.1 ng/mL (30-100); cholesterol:hdl ratio screen 3.10
[2024-12-15 15:53] LABS: AST(SGOT) 25 U/L (<=31); Alanine Aminotransfer ALT/SGPT 20 U/L (<=34); Albumin, Serum 3.8 g/dL (3.4-4.8); Alkaline Phosphatase 82 U/L (35-104); Anion Gap 15 (5-15); BUN 20 mg/dL (4-19); BUN/Creat Ratio 18.2 RATIO (10-20); Calcium,Total 9.4 mg/dL (7.6-11.0); Carbon Dioxide 19.9 mmol/L (21.0-32.0); Chloride 105 mmol/L (98-108); Globulin 4.3 g/dL (2.2-4.2); Glucose 76 mg/dL (70-99); Potassium 4.5 mmol/L (3.3-5.1)
== END | disposition home or self-care (01) ==
LOC: LAB 11:59
PROVIDERS: PCP Internal Medicine; Referring Provider Internal Medicine; Visit Provider Internal Medicine
DX: I10 Essential (primary) hypertension (principal); E03.9 Hypothyroidism, unspecified; M85.80 Other specified disorders of bone density and structure, unspecified site
CPT/HCPCS: 36415; 80053; 80061; 82306; 84443; 85025

== ENCOUNTER → 2025-01-14 | Outpatient (CLI) | payer MEDICAID, SELFPAY ==
--- OUTSIDE RECORDS SUMMARY | 2025-01-14 19:58 | XMS RPT_ITS | CCD ---
Author Organization [facility] Care Team Providers Care See Wheeler Name Role Phone Arun Stringer DO Primary Care Provider Dr. Arun Stringer Primary Care Provider [phone] Dr. Arun Stringer Referring Provider Dr. Fernandez Zabala Attending Provider [phone] Harper Genao Attending Provider [phone] Chadwick, Dr. Saleem Primary Care Provider 1(33 0) Chadwick, Dr. Saleem Attending Provider [phone] Dr. Harper Genao Referring Provider [phone] Dr. Harper Genao Primary Care Provider 1(33 0) Dr. Harper Genao Attending Provider [phone] Dr. Harper Genao Referring Provider [phone] Dr. Harper Genao Primary Care Provider 1(33 0) Dr. Harper Genao Attending Provider [phone] Dr. Harper Genao Referring Provider [phone] Dr. Harper Genao Primary Care Provider 1(33 0) Dr. Harper Genao Attending Provider [phone] Chadwick, Dr. Saleem Referring Provider [phone] Dr. Fernandez Zabala Attending Provider Dr. Harper Genao MD Primary Care Provider Chadwick MELGOZA, Dr. Saleem Attending Provider 1(33 0) Chadwick MELGOZA, Dr. Saleem Referring Provider 1(33 0) King ABAD, Dr. Presley Attending Provider Sherly MELGOZA, Kilo Merida Unavailable Harper Genao MD Primary Care Provider [phone] Chadwick MELGOZA, Dr. Saleem Primary Care Provider Chadwick MELGOZA, Dr. Saleem Referring Provider 1(33 0) Chadwick MELGOZA, Dr. Saleem Attending Provider 1(33 0) Filemon CHAMBERLAINCMckenna Attending Provider [phone] SANDHYA, BABS Attending Unavailable SANDHYA, BABS Referring Unavailable OLEGHE, EFEWONGBE B Primary Care Unavailable SANDHYA, BABS Referring Unavailable OLEGHE, EFEWONGBE B Primary Care Unavailable JOSE C COSME Attending Unavailable SANDHYA, BABS Referring Unavailable OLEGHE, EFEWONGBE B Primary Care Unavailable JOSE C COSME Referring Unavailable OLEGHE, EFEWONGBE B Primary Care Unavailable JOSE C COSME Attending Unavailable SANDHYA, BABS Referring Unavailable OLEGHE, EFEWONGBE B Primary Care Unavailable SANDHYA, BABS Attending Unavailable OLEGHE, EFEWONGBE B Primary Care Unavailable SANDHYA, BABS Referring Unavailable OLEGHE, EFEWONGBE B Primary Care Unavailable SANDHYA, BABS Referring Unavailable OLEGHE, EFEWONGBE B Primary Care Unavailable Chadwick MELGOZA, Dr. Saleem Primary Care Provider Dr. Harper Genao MD Referring Provider 1(33 0) Chadwick MELGOZA, Dr. Saleem Attending Provider 1(33 0) Oleghe, Efewongbe Primary Care Unavailable Lagunas, Marie Attending Unavailable Lagunas, Marie Referring Unavailable Oleghe, Efewongbe Primary Care Unavailable Lagunas, Marie Attending Unavailable Lagunas, Marie Referring Unavailable Oleghe, Efewongbe Primary Care Unavailable Oleghe, Efewongbe Referring Unavailable Oleghe, Efewongbe Attending Unavailable Oleghe, Efewongbe Attending Unavailable Oleghe, Efewongbe Referring Unavailable Oleghe, Efewongbe Primary Care Unavailable Oleghe, Efewongbe Primary Care Unavailable Wallace Lawson Referring Unavailable Wallace Lawson Attending Unavailable Oleghe, Efewongbe Primary Care Unavailable Oleghe, Efewongbe Referring Unavailable Oleghe, Efewongbe Attending Unavailable Oleghe, Efewongbe Primary Care Unavailable Oleghe, Efewongbe Referring Unavailable Kilo Dubois Attending Unavailable Oleghe, Efewongbe Primary Care Unavailable Oleghe, Efewongbe Referring Unavailable Oleghe, Efewongbe Attending Unavailable Oleghe, Efewongbe Primary Care Unavailable Harrison Leiva Attending Unavailable Bebo Marie Referring Unavailable Oleghe, Efewongbe Referring Unavailable Fernandez Zabala Attending Unavailable Oleghe, Efewongbe Primary Care Unavailable Mckenna Colbert Attending Unavailable Oleghe, Efewongbe Primary Care Unavailable Oleghe, Efewongbe Referring Unavailable Oleghe, Efewongbe Attending Unavailable Oleghe, Efewongbe Primary Care Unavailable Oleghe, Efewongbe Referring Unavailable Oleghe, Efewongbe Primary Care Unavailable Oleghe, Efewongbe Referring Unavailable LagunasReji marrison Attending Unavailable Oleghe, Efewongbe Attending Unavailable Oleghe, Efewongbe Primary Care Unavailable Oleghe, Efewongbe Referring Unavailable Allergies Allergy Classification Reported Allergen(s) Allergy Type Date of Onset Reaction(s) Facility (13 sources) Acetaminophen / Codeine; Translations: [ACETAMINOPHEN-CO DEINE] Drug Allergy 4 Other: See Comments [facility] (11 sources) Acetaminophen Drug Allergy 2 [facility] (11 sources) Codeine Drug Allergy 2 [facility] (1 source) Acetaminophen Drug Allergy 5 [facility] (1 source) Codeine Drug Allergy 5 [facility] Medications Current Medications Medication Drug Class(es) Dates Sig (Normalized) Sig (Original) alendronic acid 70 mg oral tablet (15 sources) Bisphosphonate Start: 024 take 1 tablet by mouth every week Alendronate (Fosamax) 70 mg tablet Active 70 mg PO EVERY WEEK 03 05January 26, 2024 12:00am amLODIPine 10 mg oral tablet (20 sources) Dihydropyridine Calcium Channel Son Start: 019 End: take 1 tablet by mouth once daily Amlodipine 10 mg tablet Active 0 .ROUTE .COMPLEX 90 December 15, 2024 4:38pm take 1 tablet by mouth daily Comment on above: Take 10 mg by mouth once daily. Calcium (6 sources) Phosphate Binder, Calcium Start: take 1 tablet by mouth twice daily calcium ilv-[id number]-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 60 tablet 3 10/05/2024 Active carboxymethylcellulose sodium 5 mg/ml ophthalmic solution (2 sources) Start: Carboxymethylcellulose Sodium (Refresh Tears) 0.5 % drops Active 1 NMA OPHTHALMIC THREE TIMES A DAY December 15, 2024 12:00am cholecalciferol 0.05 mg oral capsule (12 sources) Vitamin D Start: take 1 capsule by mouth once daily Cholecalciferol (Vitamin D3) 50 mcg (2,000 unit) capsule Active 50 ug PO daily December 16, 2024 12:00am Start: 04-15-2019 take 1 capsule by [facility] every week cholecalciferol, Vitamin D3, (VITAMIN D3) 1,250 mcg (50,000 unit) cap capsule 1 cap(s) orally once a week for 56 days 04/15/2019 Active diclofenac sodium 0.01 mg/mg topical gel (11 sources) Nonsteroidal Anti-inflammatory Drug Start: 04-30-2024 End: 09-22-2024 apply 2 g topically four times daily as needed for pain Diclofenac Sodium 1 % gel Active 2 g TOPICAL 4 times daily as needed for Knee Pain 100 3 September 22, 2024 4:55pm Start: 04-30-2024 End: 04-30-2024 Diclofenac Sodium 1 % gel Di scontinued TOPICAL 4 times daily April 30, 2024 1:00am April 30, 2024 12:47pm escitalopram 10 mg oral tablet (20 sources) Serotonin Reuptake Inhibitor Start: 12-04-2021 End: 12-15-2024 take 1 tablet by mouth once daily Escitalopram Oxalate 10 mg tablet Active 10 mg PO DAILY 90 December 15, 2024 4:38pm etodolac 500 mg oral tablet (3 sources) Nonsteroidal Anti-inflammatory Drug Start: 12-15-2024 take 1 tablet by mouth twice daily as needed Etodolac 500 mg tablet Active 500 mg PO TWICE A DAY as needed December 15, 2024 12:00am Start: 11-05-2024 take 1 tablet by cora th twice daily Etodolac 500 mg tablet Take 1 tablet by mouth two times a day. 60 tablet 11/05/2024 Active ferrous sulfate 325 mg oral tablet (1 source) Start: 12-16-2024 take 1 tablet by mouth every other day Ferrous Sulfate 325 mg (65 mg iron) tablet Active 325 mg PO every other day December 16, 2024 12:00am fluticasone propionate 0.05 mg/actuat metered dose nasal spray (12 sources) Corticosteroid Start: 01-08-2022 End: 10-30-2023 Fluticasone Propionate 50 mcg/actuation spray,suspension Active 1 NMA INTRANASAL TWICE A DAY 16 October 30, 2023 11:43am administer into each nostril Start: 01-08-2022 take 1 spray(s) nasa l route twice daily Fluticasone Propionate Active 1 SPRAY INTRANASAL TWICE A DAY January 08, 2022 12:00am administer into each nostril hydroxychloroquine sulfate 200 mg oral tablet (11 sources) Antimalarial, Antirheumatic Agent Start: 09-30-2024 take 1 tablet by mouth twice daily Hydroxychloroquine 200 mg tablet Active 200 mg PO TWICE A DAY October 08, 2024 12:00am losartan potassium 100 mg oral tablet (20 sources) Angiotensin 2 Receptor Son Start: 11-08-2013 End: 12-15-2024 take 1 tablet by mouth once daily Losartan 100 mg tablet Active 0 .ROUTE .COMPLEX 90 December 15, 2024 4:38pm take 1 tablet by mouth once daily Comment on above: Take 1 tablet by cora th once daily. tirzepatide, weight loss (ZEPBOUND) 10 mg/0.5 mL solution (11 sources) inject 10 mg by subcutaneous injection every week tirzepatide, weight loss (ZEPBOUND) 10 mg/0.5 mL solution Inject 10 mg subcutaneously one time a week. Active Walker (Ultra-Light Rollator) misc (20 sources) Start: 09-12-2023 Walker (Ultra-Light Rollator) misc Active 0 .Route 1 September 12, 2023 8:49am Osteoarthritis of both knees Debility Bilateral primary osteoarthritis of knee Other malaise As directed Start: 09-12-2023 Walker (Ultra- Light Rollator) misc Active 0 .Route September 12, 2023 8:49am As directed Start: 09-12-2023 End: 09-12-2023 Walker (Ultra-Light Rollator ) misc Discontinued 0 .Route 1 September 12, 2023 8:48am September 12, 2023 8:49am Osteoarthritis of both knees Debility Bilateral primary osteoarthritis of knee Other malaise As directed Start: 09-12-2023 End: 09-12-2023 Walker (Ultra-Light Rollator ) misc Discontinued 0 .Route September 12, 2023 8:48am September 12, 2023 8:49am As directed Start: 06-19-2023 End: 09-12-2023 Walker (Ultra-Light Rollator ) misc Discontinued 0 .Route 1 June 19, 2023 1:36pm September 12, 2023 8:48am Osteoarthritis of both knees Bilateral primary osteoarthritis of knee As directed Start: 06-19-2023 End: 09-12-2023 Walker (Ultra-Light Rollator ) misc Discontinued 0 .Route June 19, 2023 1:36pm September 12, 2023 8:48am As directed Start: 06-19-2023 Walker (Ultra- Light Rollator) misc Active 0 .Route June 19, 2023 1:36pm As directed Start: 06-19-2023 Walker (Ultra- Light Rollator) misc Active 0 .Route June 19, 2023 12:36pm As directed Start: 06-16-2023 End: 06-19-2023 Walker (Ultra-Light Rollator ) misc Discontinued 0 .Route 1 June 16, 2023 1:00am March 7th, 2024 1:36pm Osteoarthritis of both knees Bilateral primary osteoarthritis of knee As directed Start: 06-16-2023 End: 06-19-2023 Walker (Ultra-Light Rollator ) misc Discontinued 0 .Route 1 June 16, 2023 1:00am June 19, 2023 1:36pm As directed Start: 06-16-2023 End: 06-19-2023 Walker (Ultra-Light Rollator ) misc Discontinued 0 .Route 1 June 16, 2023 12:00am June 19, 2023 12:36pm As directed Completed/Discontinued Medications Medication Drug Class(es) Dates Sig (Normalized) Sig (Original) acetaminophen 325 mg oral tablet (8 sources) Start: 04-22-2022 End: 10-08-2024 take 1 tablet by mouth once as needed Acetaminophen (Tylenol) 325 mg tablet Discontinued 325 mg PO ONCE as needed April 22, 2022 1:00am October 08, 2024 10:36am [id number] actuat albuterol 0.09 mg/actuat metered dose inhaler (7 sources) beta2-Adrenergic Agonist Start: 09-16-2022 End: 10-22-2022 Albuterol Sulfate 90 mcg/actuation HFA aerosol inhaler Discontinued 2 NMA INHALATION EVERY 6 HOURS as needed for shortness of breath or wheezing 8.5 2 September 16, 2022 12:00am October 22, 2022 10:59am Start: 09-16-2022 End: 10-22-2022 take 1 puff(s) by inhalation every six hours Albuterol Sulfate Discontinued 2 PUFF INHALATION EVERY 6 HOURS 8.5 September 16, 2022 12:00am October 22, 2022 10:59am benzonatate 100 mg oral capsule (7 sources) Non-narcotic Antitussive Start: 09-13-2022 End: 10-22-2022 Benzonatate 100 mg capsule Discontinued 100 mg PO 2 to 3 times per day as needed for cough 90 0 September 13, 2022 12:00am October 22, 2022 10:59am buprenorphine 0.15 mg buccal film (11 sources) Partial Opioid Agonist Start: 03-26-2019 End: 12-04-2021 Buprenorphine Hcl (Belbuca) 150 mcg film Discontinued 150 ug BUCCAL Q12H March 26, 2019 1:00am December 04, 2021 9:17am Circaids/Juxta lite 30 - 40 mmHg (4 sources) Start: 11-20-2023 End: 12-03-2023 Circaids/Juxta lite 30 - 40 mmHg Discontinued 0 .Route .MEDSUPPLY 2 3 November 20, 2023 12:00am December 03, 2023 9:55am Venous insufficiency of both lower extremities Venous insufficiency (chronic) (peripheral) As directed Start: 11-20-2023 End: 12-03-2023 Circaids/Juxta lite 30 - 40 mmHg Discontinued 0 .Route .MEDSUPPLY 2 November 20, 2023 12:00am December 03, 2023 9:55am As directed Compress.Stocking,Knee,Reg,L rg misc (4 sources) Start: 10-27-2023 End: 12-03-2023 Compress.Stocking,Knee,Reg,L rg misc Discontinued 0 .MEDSUPPLY 2 1 October 27, 2023 12:00am December 03, 2023 9:49am Venous insufficiency (chronic) (peripheral) wear daily for venous insufficiency 20-30 mmHg Start: 10-27-2023 End: 12-03-2023 Compress.Stocking,Knee,Reg,L rg misc Discontinued 0 .MEDSUPPLY 2 October 27, 2023 12:00am December 03, 2023 9:49am wear daily for venous insufficiency 20-30 mmHg 1 ml denosumab 60 mg/ml prefilled syringe (4 sources) RANK Ligand Inhibitor Start: 10-27-2023 End: 01-26-2024 Denosumab (Prolia) 60 mg/mL syringe Discontinued 60 mg SC every 6 months 1 2 October 27, 2023 12:00am January 26, 2024 10:04am diazePAM 10 mg oral tablet (12 sources) Benzodiazepine Start: 12-04-2021 End: 10-27-2023 take 1 tablet by mouth at bedtime as needed Diazepam 10 mg tablet Discontinued 10 mg PO AT BEDTIME as needed December 04, 2021 12:00am October 27, 2023 2:53pm End: 09-23-2024 take 1 tablet by mouth once daily diazepam (VALIUM) 5 mg tablet Take 5 mg by mouth once daily. 09/23/2024 Discontinued Comment on above: Take 5 mg by mouth o nce daily. fluconazole 150 mg oral tablet (2 sources) Azole Antifungal Start : 10-08 End: 12-15 Fluconazole 150 mg tablet Discontinued 150 mg PO Every 3 Days 2 0 October 08, 2024 12:00am December 15, 2024 10:38am Candidal vulvovaginitis Acute candidiasis of vulva and vagina may repeat second dose 72 hrs after first dose if symptoms persist hydroCHLOROthiazide 25 mg oral tablet (2 sources) Thiazide Diuretic End: 09-23 take 1 tablet by mouth once daily hydrochlorothiazide (HYDRODIURIL, ESIDRIX) 25 mg tablet Take 25 mg by mouth once daily. 09/23/2024 Discontinued Comment on above: Take 25 mg by mouth once daily. hydrocortisone 25 mg/ml topical cream (6 sources) Corticosteroid Start : 06-15 End: 10-26 Hydrocortisone 2.5 % cream with perineal applicator Discontinued 1 NMA RC 2 to 4 times per day as needed for hemorrhoids 30 June 16, 2023 1:00am October 27, 2023 2:54pm ibuprofen 800 mg oral tablet (20 sources) Nonsteroidal Anti-inflammatory Drug Start : 01-08 End: 10-26 take 1 tablet by mouth once daily as needed Ibuprofen 800 mg tablet Discontinued 800 mg PO DAILY as needed January 08, 2022 11:05am October 27, 2023 3:13pm Start: 12-04-2021 End: 01-08-2022 take 1 tablet by mouth every eight hours Ibuprofen 800 mg tablet Discontinued 800 mg PO Q8H December 04, 2021 12:00am January 08, 2022 11:06am Start: 09-26-2021 End: 10-26-2021 take 1 tablet by mouth every eight hours as needed ibuprofen (MOTRIN) 800 mg tablet Take 1 tablet by mouth every 8 hours as needed for pain. 90 tablet 1 09/26/2021 10/26/2021 Active Start: 07-17-2015 End: 11-05-2024 take 1 tablet by mouth every six hours as needed ibuprofen (MOTRIN) 800 mg tablet Indications: Pes planus of both feet , Posterior tibial tendinitis of left leg , Posterior tibial tendinitis, right , Plantar fasciitis, bilateral Take 1 tablet by mouth every 6 hours as needed. 40 tablet 1 07/17/2015 11/05/2024 Discontinued (Course of therapy completed) Comment on above: Take 1 tablet by cora th every 8 hours as needed for pain. Take 1 tablet by cora th every 6 hours as needed. levothyroxine sodium 0.15 mg oral tablet (20 sources) l-Thyroxine Start: 3 End: take 1 tablet by mouth once daily Levothyroxine 150 mcg tablet Discontinued 150 ug PO DAILY 90 2 December 26, 2023 9:40am July 19, 2024 9:44am Start: 03-26-2019 End: 03-26-2019 take 1 capsule by mouth once daily Levothyroxine 100 mcg capsule Discontinued 100 ug PO DAILY March 26, 2019 1:00am March 26, 2019 2:56pm Start: 03-26-2019 End: 04-17-2022 take 1 capsule by mouth once daily Levothyroxine 150 mcg capsule Discontinued 150 ug PO DAILY 30 5 April 16, 2022 10:11am April 17, 2022 1:37pm Start: 11-08-2013 take 1 tablet by cora once daily for thyroid dysfunction levothyroxine (LEVOXYL) 100 mcg tablet Indications: Hypothyroidism Take 1 tablet by mouth once daily. Take on empty stomach. For Thyroid. 30 tablet 3 11/08/2013 Active Comment on above: Take 1 tablet by cora once daily. Take on empty stomach. For Thyroid. meloxicam 15 mg oral tablet (20 sources) Nonsteroidal Anti-inflammatory Drug Start: 4 End: take 1 tablet by mouth once daily as needed for pain Meloxicam 15 mg tablet Discontinued 15 mg PO DAILY as needed for pain 60 1 December 03, 2023 4:54pm October 08, 2024 10:37am Start: 10-27-2023 End: 10-27-2023 take 1 tablet by mouth twice daily Meloxicam 15 mg tablet Discontinued 15 mg PO TWICE A DAY October 27, 2023 12:00am October 27, 2023 3:14pm Start: 03-26-2019 End: 10-30-2021 take 15 mg by mouth once daily Meloxicam Discontinued 15 MG PO DAILY March 26, 2019 1:00am October 30, 2021 10:14am Start: 03-26-2019 End: 10-30-2021 take 15 mg by mouth once daily Meloxicam Discontinued 15 MG PO DAILY March 26, 2019 12:00am October 30, 2021 9:14am Meloxicam 15 mg tablet,disintegrating (4 sources) Start: 03-26-2019 End: 10-30-2021 take 1 tablet by mouth once daily Meloxicam 15 mg tablet,disintegrating Discontinued 15 mg PO DAILY March 26, 2019 1:00am October 30, 2021 10:14am Nirmatrelvir-Ritonavir (Paxlovid) 300 mg (150 mg x 2)-100 mg tablets,dose pack (4 sources) Start: 06-17-2024 End: 07-19-2024 Nirmatrelvir-Ritonavir (Paxlovid) 300 mg (150 mg x 2)-100 mg tablets,dose pack Discontinued 0 PO .COMPLEX 30 June 17, 2024 1:00am July 19, 2024 9:43am take TWO 150 mg tablets of nirmatrelvir with ONE 100 mg tablet of ritonavir twice daily for 5 days PO Start: 06-17-2024 End: 07-19-2024 Nirmatrelvir-Ritonavir (Paxl ovid) 300 mg (150 mg x 2)-100 mg tablets,dose pack Discontinued 0 PO .COMPLEX 30 June 17, 2024 1:00am July 19, 2024 9:43am take TWO 150 mg tablets of nirmatrelvir with ONE 100 mg tablet of ritonavir twice daily for 5 days PO predniSONE 10 mg oral tablet (14 sources) Start: 09-29-2024 End: 10-21-2024 take 2 tablets by mouth once daily, then take 1 tablet by mouth once daily, then take 0.5 tablet by mouth once daily predniSONE (DELTASONE) 10 mg tablet Take 2 tablets by mouth once daily for 7 days, THEN 1 tablet once daily for 7 days, THEN 0.5 tablets once daily for 7 days. 25 tablet 09/29/2024 09/30/2024 Discontinued Start: 09-13-2022 End: 10-22-2022 take 2 tablets by mouth once daily Prednisone 20 mg tablet Discontinued 40 mg PO DAILY 10 September 13, 2022 12:00am October 22, 2022 10:59am Start: 09-13-2022 End: 10-22-2022 take 40 mg by mouth once daily Prednisone Discontinued 40 MG PO DAILY September 13, 2022 12:00am October 22, 2022 10:59am Tirzepatide (Mounjaro) 10 mg/0.5 mL pen injector (3 sources) Start: 10-08-2024 End: 12-15-2024 Tirzepatide (Mounjaro) 10 mg /0.5 mL pen injector Discontinued 10 mg SC EVERY WEEK October 08, 2024 12:00am December 15, 2024 10:38am Start: 10-08-2024 Tirzepatide (M ounjaro) 10 mg/0.5 mL pen injector Active 10 mg SC EVERY WEEK October 08, 2024 12:00am Problems Active Problems Problem Classification Problem Date Documented Da te Episodic/Chronic Acquired foot deformities (1 source) Hammer toe; Translations: [Other hammer toe(s) (acquired), right foot] Chronic Anxiety disorders (20 sources) Anxiety; Translations: [Anxiety disorder, unspecified] 11-08-2013 Chronic Chronic kidney disease (5 sources) Chronic kidney disease; Translations: [Chronic kidney disease, unspecified] 06-25-2023 Chronic Chronic obstructive pulmonary disease and bronchiectasis (8 sources) Bronchitis; Translations: [Bronchitis, not specified as acute or chronic] 09-13-2022 Episodic Disorders of lipid metabolism (12 sources) Dyslipidemia; Translations: [Hyperlipidemia, unspecified] Onset: 11-08-2013 12-09-2013 Chronic Essential hypertension (20 sources) Hypertensive disorder; Translations: [Essential (primary) hypertension] Onset: 12-24-2024 11-08-2013 Chronic Hemorrhoids (8 sources) Hemorrhoids; Translations: [Unspecified hemorrhoids] 06-16-2023 Episodic Immunizations and screening for infectious disease (2 sources) Rheumatoid factor positive; Translations: [Other specified abnormal immunological findings in serum] 09-30-2024 Episodic Inflammation; infection of eye (except that caused by tuberculosis or sexually transmitteddisease) (1 source) Unspecified keratoconjunctivitis , left eye; Translations: [Keratoconjunctiviti s of left eye] Onset: 09-23-2024 Episodic Malaise and fatigue (6 sources) Asthenia; Translations: [Other malaise] 06-16-2023 Episodic Mycoses (4 sources) Candidal vulvovaginitis; Translations: [Candidal vulvovaginitis] 10-08-2024 Episodic Nutritional deficiencies (2 sources) Vitamin D deficiency; Translations: [Vitamin D deficiency, unspecified] Onset: 10-05-2024 10-05-2024 Chronic Osteoarthritis (20 sources) Osteoarthritis; Translations: [Unspecified osteoarthritis, unspecified site] Onset: 07-07-2013 04-09-2021 Chronic Osteoporosis (9 sources) Osteoporosis; Translations: [Age-related osteoporosis without current pathological fracture] Onset: 09-23-2024 09-23-2024 Chronic Other aftercare (1 source) Drug therapy finding; Translations: [Other adjunct faculty for medical terminology (current) drug therapy] 09-30-2024 Episodic Other bone disease and musculoskeletal deformities (4 sources) Osteopenia; Translations: [Other specified disorders of bone density and structure, unspecified site] 01-26-2024 Episodic Other bone disease and musculoskeletal deformities (1 source) Other specified disorders of bone density and structure, unspecified site; Translations: [Other specified disorders of bone density and structure, unspecified site] Onset: 12-15-2024 Episodic Other connective tissue disease (1 source) Artificial knee joint present; Translations: [Presence of artificial knee joint, bilateral] 10-05-2024 Chronic Other connective tissue disease (1 source) Presence of artificial knee joint, bilateral; Translations: [Presence of artificial knee joint, bilateral] Onset: 10-05-2024 Chronic Other connective tissue disease (2 sources) Hypermobility syndrome; Translations: [Hypermobility syndrome] 09-23-2024 Episodic Other connective tissue disease (1 source) Hypermobility syndrome; Translations: [Hypermobility syndrome] Onset: 09-30-2024 Episodic Other diseases of veins and lymphatics (4 sources) Lymphedema; Translations: [Lymphedema, not elsewhere classified] 12-03-2023 Chronic Other diseases of veins and lymphatics (1 source) Lymphedema, not elsewhere classified; Translations: [Lymphedema, not elsewhere classified] Onset: 06-09-2024 Chronic Other diseases of veins and lymphatics (1 source) Vascular insufficiency; Translations: [Venous insufficiency (chronic) (peripheral)] Episodic Other diseases of veins and lymphatics (10 sources) Venous insufficiency of leg; Translations: [Venous insufficiency (chronic) (peripheral)] 12-04-2021 Episodic Other diseases of veins and lymphatics (2 sources) Venous insufficiency (chronic) (peripheral); Translations: [Venous (peripheral) insufficiency, unspecified] Episodic Other eye disorders (1 source) Dry eyes; Translations: [Dry eye syndrome of left lacrimal gland] 09-23-2024 Episodic Other hematologic conditions (5 sources) Increased globulin; Translations: [Abnormality of globulin] 06-25-2023 Episodic Other injuries and conditions due to external causes (7 sources) H/O: fracture; Translations: [Personal history of (healed) traumatic fracture] 09-30-2024 Episodic Other injuries and conditions due to external causes (1 source) Personal history of (healed) traumatic fracture; Translations: [History of patellar fracture] Onset: 10-05-2024 Episodic Other nervous system disorders (4 sources) Chronic pain; Translations: [Other chronic pain] 01-26-2024 Chronic Other nervous system disorders (1 source) Other chronic pain; Translations: [Other chronic pain] Onset: 01-26-2024 Chronic Other non-traumatic joint disorders (6 sources) Ankle pain; Translations: [Pain in left ankle and joints of left foot] 06-16-2023 Episodic Other non-traumatic joint disorders (2 sources) Pain in left ankle and joints of left foot; Translations: [Pain in joint, ankle and foot] 06-16-2023 Episodic Other non-traumatic joint disorders (8 sources) Multiple joint pain; Translations: [Pain in unspecified joint] 09-23-2024 Episodic Other non-traumatic joint disorders (1 source) Pain in unspecified joint; Translations: [Pain in joint, multiple sites] Onset: 09-30-2024 Episodic Other nutritional; endocrine; and metabolic disorders (20 sources) Morbid obesity; Translations: [Morbid (severe) obesity due to excess calories] Onset: 11-08-2013 12-09-2013 Chronic Other nutritional; endocrine; and metabolic disorders (4 sources) Morbid (severe) obesity due to excess calories; Translations: [Morbid obesity] Onset: 12-09-2013 Chronic Other skin disorders (10 sources) Localized swelling of left upper limb; Translations: [Localized swelling, mass and lump, left upper limb] 12-04-2021 Episodic Other skin disorders (2 sources) Localized swelling, mass and lump, left upper limb; Translations: [Localized superficial swelling, mass, or lump] Episodic Other upper respiratory infections (8 sources) Sinusitis; Translations: [Chronic sinusitis, unspecified] 09-13-2022 Chronic Residual codes; unclassified (6 sources) Hypersomnia; Translations: [Hypersomnia, unspecified] 04-30-2024 Chronic Residual codes; unclassified (4 sources) Bilateral lower limb edema; Translations: [Localized edema] 12-03-2023 Episodic Residual codes; unclassified (4 sources) Lipedema; Translations: [Edema, unspecified] 12-03-2023 Episodic Residual codes; unclassified (1 source) Postmenopausal state; Translations: [Asymptomatic menopausal state] 09-30-2024 Episodic Rheumatoid arthritis and related disease (1 source) Jaccoud's syndrome; 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], unspecified site] 09-30-2024 Chronic Systemic lupus erythematosus and connective tissue disorders (1 source) Lupus erythematosus overlap syndrome; Translations: [Other forms of systemic lupus erythematosus] 09-30-2024 Chronic Thyroid disorders (20 sources) Hypothyroidism; Translations: [Hypothyroidism, unspecified] Onset: 12-15-2024 11-08-2013 Chronic Unclassified (12 sources) NO SHOW Onset: 08-03-2013 08-03-2013 Unclassified (1 source) Drug therapy finding 09-30-2024 Past or Other Problems Problem Classification Problem Date Documented Da te Episodic/Chronic Acquired foot deformities (13 sources) Talipes planus; Translations: [Flat foot [pes planus] (acquired), right foot] Onset: 01-25-2015 Episodic Blindness and vision defects (12 sources) Amblyopia of left eye; Translations: [Unspecified amblyopia, left eye] Onset: 07-07-2013 04-09-2021 Episodic Other screening for suspected conditions (not mental disorders or infectious disease) (9 sources) Patient encounter status; Translations: [Encounter for screening for malignant neoplasm of colon] Onset: 07-30-2024 04-22-2022 Episodic Residual codes; unclassified (5 sources) Localized edema; Translations: [Lipedema of lower extremity] Onset: 01-26-2024 02-06-2024 Episodic Results Test Name Value Interpretation Reference Range Facility Absolute lymphocyte countOrd ered By: Harper Genao on 12-15-2024 Lymphocytes Auto (Unsp spec) [#/Vol] 2.51 10*3/uL 0.83-4.51 [facility] Absolute neutrophil countOrd ered By: venessa Genao on 12-15-2024 Neutrophils (Bld) [#/Vol] 3.4 10*3/uL 2.0-7.7 [facility] Anion gap in Serum or Plasma Ordered By: Harper Genao on 12-15-2024 Anion gap [Moles/Vol] 15 mmol/L 5-15 [facility] Automated lymphocyte count a s percentage of total leukocytesOrdered By: Harper Genao on 12-15-2024 Lymphocytes/100 WBC Auto (Unsp spec) 34.4 % 19-41 [facility] BUN/creatinine ratioOrdered By: venessa Genao on 12-15-2024 Urea nitrogen/Creatinine [Mass ratio] 18.2 mg/mg 10-20 [facility] Basophil percentageOrdered B y: Harper Genao on 12-15-2024 Basophils/100 WBC (Bld) 0.4 % 0-1 [facility] Bilirubin, totalOrdered By: Harper Genao on 12-15-2024 Bilirubin [Mass/Vol] 0.30 mg/dL 0.00-1.[address] [facility] CBC W/Diff, Automatedon Absolute Lymph 2.51 X10 3/uL Normal 0.83-4.51 [facility] Comment on above: Performed By: #### L 506.1001, L100.0100, L501.9520, L500.4050, L500.4100 #### [facility] [address] [place], [place], [id number] Absolute Neut 3.4 X10 3/uL Normal 2.0-7.7 [facility] Comment on above: Performed By: #### L 506.1001, L100.0100, L501.9520, L500.4050, L500.4100 #### [facility] [address] [place], [address] Basophils/100 WBC (Bld) 0.4 % Normal 0-1 [facility] Comment on above: Performed By: #### L 506.1001, L100.0100, L501.9520, L500.4050, L500.4100 #### [facility] [address] [place], [address] Eosinophils/100 WBC (Bld) 8.0 % High 0-5 [facility] Comment on above: Performed By: #### L 506.1001, L100.0100, L501.9520, L500.4050, L500.4100 #### [facility] [address] [place], [address] Erythrocyte distribution width (RBC) [Ratio] 13.9 % Normal 11.6-14.6 [facility] Comment on above: Performed By: #### L 506.1001, L100.0100, L501.9520, L500.4050, L500.4100 #### [facility] [address] [place], [address] Hematocrit (Bld) [Volume fraction] 35.8 % Low 37-47 [facility] Comment on above: Performed By: #### L 506.1001, L100.0100, L501.9520, L500.4050, L500.4100 #### [facility] [address] [place], [address] Hemoglobin (Bld) [Mass/Vol] 11.8 g/dL Low 12.0-15.0 [facility] Comment on above: Performed By: #### L 506.1001, L100.0100, L501.9520, L500.4050, L500.4100 #### [facility] [address] [place], [address] IG% 0.300 Normal 0.0-0.9 [facility] Comment on above: Result Comment: IG% - Immature Granulocytes (promyelocytes, myelocytes and metamyelocytes) > 1% indicates that a LEFT SHIFT is Present. Performed By: #### L 506.1001, L100.0100, L501.9520, L500.4050, L500.4100 #### [facility] [address] [place], [address] Lymphocytes/100 WBC (Bld) 34.4 % Normal 19-41 [facility] Comment on above: Performed By: #### L 506.1001, L100.0100, L501.9520, L500.4050, L500.4100 #### [facility] [address] [place], [address] MCH (RBC) [Entitic mass] 30.3 pg Normal 27.0-32.0 [facility] Comment on above: Performed By: #### L 506.1001, L100.0100, L501.9520, L500.4050, L500.4100 #### [facility] [address] [place], [address] MCHC (RBC) [Mass/Vol] 33.0 g/dL Normal 32-36 [facility] Comment on above: Performed By: #### L 506.1001, L100.0100, L501.9520, L500.4050, L500.4100 #### [facility] [address] [place], [address] MCV (RBC) [Entitic vol] 92.0 fL Normal 81-99 [facility] Comment on above: Performed By: #### L 506.1001, L100.0100, L501.9520, L500.4050, L500.4100 #### [facility] [address] [place], [address] Monocytes/100 WBC (Bld) 10.8 % High 0-10 [facility] Comment on above: Performed By: #### L 506.1001, L100.0100, L501.9520, L500.4050, L500.4100 #### [facility] [address] [place], [address] Neutrophils/100 WBC (Bld) 46.1 % Low 47-70 [facility] Comment on above: Performed By: #### L 506.1001, L100.0100, L501.9520, L500.4050, L500.4100 #### [facility] [address] [place], [address] Nucleated RBC (Bld) [#/Vol] 0 10*3/uL Normal 0-5 [facility] Comment on above: Performed By: #### L 506.1001, L100.0100, L501.9520, L500.4050, L500.4100 #### [facility] [address] [place], [address] Platelet mean volume (Bld) [Entitic vol] 10.3 fL Normal 6.2-12.0 [facility] Comment on above: Performed By: #### L 506.1001, L100.0100, L501.9520, L500.4050, L500.4100 #### [facility] [address] [place], [address] Platelets (Bld) [#/Vol] 303 10*3/uL Normal 150-450 [facility] Comment on above: Performed By: #### L 506.1001, L100.0100, L501.9520, L500.4050, L500.4100 #### [facility] [address] [place], [address] RBC (Bld) [#/Vol] 3.89 10*6/uL Low 4.2-5.4 [facility] Comment on above: Performed By: #### L 506.1001, L100.0100, L501.9520, L500.4050, L500.4100 #### [facility] [address] [place], [place], [id number] RDW SD 47.6 fl High 35.1-43.9 [facility] Comment on above: Performed By: #### L 506.1001, L100.0100, L501.9520, L500.4050, L500.4100 #### [facility] [address] [place], [place], [id number] WBC (Bld) [#/Vol] 7.3 10*3/uL Normal 4.4-11.0 [facility] Comment on above: Performed By: #### L 506.1001, L100.0100, L501.9520, L500.4050, L500.4100 #### [facility] [address] [place], [place], [id number] Calculated very low density lipoprotein (VLDL) cholesterol measurementOrdered By: Harper Genao on 12-15-2024 Calculated very low density lipoprotein (VLDL) cholesterol measurement 10 mg/dL 5-40 [facility] Carbon dioxide, total [Moles /volume] in Central venous bloodOrdered By: Harper Genao on 12-15-2024 CO2 [Moles/Vol] 19.9 mmol/L Low 21.0-32.0 [facility] Chloride assayOrdered By: Crystal Genao on 12-15-2024 Chloride [Moles/Vol] 105 mmol/L 98-[address] [facility] Comprehensive Metabolic Prof ilon 12-15-2024 Albumin [Mass/Vol] 3.8 g/dL Normal 3.4-4.8 [facility] Comment on above: Performed By: #### L 506.1001, L100.0100, L501.9520, L500.4050, L500.4100 ####[facility] [address] [place], [address] Albumin/Globulin [Mass ratio] 0.9 {ratio} Normal 0.9-2.4 [facility] Comment on above: Performed By: #### L 506.1001, L100.0100, L501.9520, L500.4050, L500.4100 ####[facility] [address] [place], [address] ALK PHOS 82 U/L Normal 35-104 [facility] Comment on above: Performed By: #### L 506.1001, L100.0100, L501.9520, L500.4050, L500.4100 ####[facility] [address] [place], [address] ALT [Catalytic activity/Vol] 20 U/L Normal <=34 [facility] Comment on above: Performed By: #### L 506.1001, L100.0100, L501.9520, L500.4050, L500.4100 ####[facility] [address] [place], [address] AST [Catalytic activity/Vol] 25 U/L Normal <=31 [facility] Comment on above: Performed By: #### L 506.1001, L100.0100, L501.9520, L500.4050, L500.4100 ####[facility] [address] [place], [address] Bilirubin [Mass/Vol] 0.30 mg/dL Normal 0.00-1.[address] [facility] Comment on above: Performed By: #### L 506.1001, L100.0100, L501.9520, L500.4050, L500.4100 ####[facility] [address] [place], [address] BUN/CRE 18.2 RATIO Normal 10-20 [facility] Comment on above: Performed By: #### L 506.1001, L100.0100, L501.9520, L500.4050, L500.4100 ####[facility] [address] [place], [address] Calcium [Mass/Vol] 9.4 mg/dL Normal 7.6-11.0 [facility] Comment on above: Performed By: #### L 506.1001, L100.0100, L501.9520, L500.4050, L500.4100 ####[facility] [address] [place], [address] Chloride [Moles/Vol] 105 mmol/L Normal 98-[address] [facility] Comment on above: Performed By: #### L 506.1001, L100.0100, L501.9520, L500.4050, L500.4100 ####[facility] [address] [place], [address] CO2 [Moles/Vol] 19.9 mmol/L Low 21.0-32.0 [facility] Comment on above: Performed By: #### L 506.1001, L100.0100, L501.9520, L500.4050, L500.4100 ####[facility] [address] [place], [address] Creatinine [Mass/Vol] 1.11 mg/dL Normal 0.70-1.20 [facility] Comment on above: Performed By: #### L 506.1001, L100.0100, L501.9520, L500.4050, L500.4100 ####[facility] [address] [place], [address] GAP 15 Normal 5-15 [facility] Comment on above: Performed By: #### L 506.1001, L100.0100, L501.9520, L500.4050, L500.4100 ####[facility] [address] [place], [address] GFR/1.73 sq M.predicted among non-blacks MDRD (S/P/Bld) [Vol rate/Area] 57 mL/min/{1.73_m2} Low >60 [facility] Comment on above: Result Comment: mL/m in/1.73m2 CKD-EPI Creatinine Equation (2020) Performed By: #### L 506.1001, L100.0100, L501.9520, L500.4050, L500.4100 ####[facility] [address] [place], [address] Globulin (S) [Mass/Vol] 4.3 g/dL High 2.2-4.2 [facility] Comment on above: Performed By: #### L 506.1001, L100.0100, L501.9520, L500.4050, L500.4100 ####[facility] [address] [place], [address] Glucose [Mass/Vol] 76 mg/dL Normal 70-99 [facility] Comment on above: Performed By: #### L 506.1001, L100.0100, L501.9520, L500.4050, L500.4100 ####[facility] [address] [place], [address] Potassium [Moles/Vol] 4.5 mmol/L Normal 3.3-5.1 [facility] Comment on above: Performed By: #### L 506.1001, L100.0100, L501.9520, L500.4050, L500.4100 ####[facility] [address] [place], [address] Sodium [Moles/Vol] 140 mmol/L Normal 133-145 [facility] Comment on above: Performed By: #### L 506.1001, L100.0100, L501.9520, L500.4050, L500.4100 ####[facility] [address] [place], [place], [id number] T PROT 8.1 g/dL Normal 5.9-8.4 [facility] Comment on above: Performed By: #### L 506.1001, L100.0100, L501.9520, L500.4050, L500.4100 ####[facility] [address] [place], [address] Urea nitrogen [Mass/Vol] 20 mg/dL High 4-19 [facility] Comment on above: Performed By: #### L 506.1001, L100.0100, L501.9520, L500.4050, L500.4100 ####[facility] [address] [place], [place], [id number] Eosinophil percentageOrdered By: Harper Genao on 12-15-2024 Eosinophils/100 WBC (Bld) 8.0 % High 0-5 [facility] Erythrocyte distribution wid th ratioOrdered By: Harper Genao on 12-15-2024 Erythrocyte distribution width (RBC) [Ratio] 13.9 % 11.6-14.6 [facility] Erythrocyte distribution wid th standard deviationOrdered By: Harper Genao on 12-15-2024 Erythrocyte distribution width (RBC) [Ratio] 47.6 fl High 35.1-43.9 [facility] Glomerular filtration rate ( GFR) estimation/1.73 sq m using serum, plasma, or whole bOrdered By: Harper Genao on 12-15-2024 GFR/1.73 sq M.predicted among non-blacks MDRD (S/P/Bld) [Vol rate/Area] 57 mL/min/{1.73_m2} Low >60 [facility] Comment on above: mL/min/1.73m2 CKD-EP I Creatinine Equation (2020) Hematocrit Auto (Bld) [Volum e fraction]Ordered By: Harper Genao on 12-15-2024 Hematocrit (Bld) [Volume fraction] 35.8 % Low 37-47 [facility] Hemoglobin measurementOrdere d By: Harper Genao on 12-15-2024 Hemoglobin (Bld) [Mass/Vol] 11.8 g/dL Low 12.0-15.0 [facility] Immature granulocytes/100 WB C Auto (Bld)Ordered By: Harper Genao on 12-15-2024 Immature granulocytes/100 WBC (Bld) 0.300 % 0.0-0.9 [facility] Comment on above: IG% - Immature Granu locytes (promyelocytes, myelocytes and metamyelocytes) > 1% indicates that a LEFT SHIFT is Present. Internal Medicine Office Vis itoelliot 12-15-2024 Internal Medicine Office Visit [facility] [address] [place] [address] [place] [address] OFFICE VISIT Date of Service: 12/15/24 MR#: [id number] Acct: [id number] Name: RONALD HUTCHINS Rep #: [id number] : 1965 Provider: Dr. 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 Accompanied by: Is patient in pain?: No Allergies acetaminophen (From Tylenol-Codeine #3) Allergy (Intermediate, Verified 12/15/24 10:15) makes ears eing codeine (From Tylenol-Codeine #3) Allergy (Intermediate, Verified 12/15/24 10:15) makes ears eing Medications ???Medication ???Instructions ???Recorded ???Confirmed ???Type walker (Ultra-Light Rollator misc) #1 ea 09/12/23 12/15/24 Rx fluticasone propionate 50 1 spray intranasal BID #16 grams 0 10/30/23 12/15/24 Rx mcg/actuation nasal spray,suspension alendronate 70 mg tablet (Fosamax) 70 mg PO QWEEK #20 tabs 01/26/24 12/15/24 Rx levothyroxine 150 mcg tablet 150 mcg PO DAILY #90 tabs 07/19/24 12/15/24 Rx amlodipine 10 mg tablet See Rx Instructions .Route 5 12/15/24 Rx .COMPLEX #90 tabs losartan 100 mg tablet See Rx Instructions .Route 5 12/15/24 Rx .COMPLEX #90 tabs diclofenac sodium 1 % topical gel 2 g topical 4XD PRN Knee Pain #10 0 09/22/24 12/15/24 Rx grams escitalopram oxalate 10 mg tablet 10 mg PO DAILY #90 TABLETS 12/15/24 Rx hydroxychloroquine 200 mg tablet 200 mg PO BID 10/08/24 12/15/24 Hi story carboxymethylcellulose sodium 0.5 1 drp ophthalmic (eye) TID 12/15/24 History % eye drops (Refresh Tears) etodolac 500 mg tablet 500 mg PO BID PRN 12/15/24 5 History PFSH Medical History Hypersomnolence History of thyroid disease History of hypertension History of arthritis Chronic pain Osteopenia Elevated serum globulin level CKD (chronic kidney disease) Debility Hemorrhoids Left ankle pain Sinusitis Bronchitis Osteoarthritis of knees, bilateral Health care maintenance Colon cancer screening Generalized anxiety disorder Venous insufficiency of both lower extremities Hypertension Localized swelling of left upper extremity Morbid obesity Anxiety Benign essential hypertension Arthritis Hypothyroidism (acquired) Surgical History History of bilateral knee replacement History of Family History Father Heart disease Hypertension Sister Thyroid disorder Mother Diabetes Daughter ADHD Social History housing: assisted Smoking Status: Never smoker alcohol intake: never substance use type: does not use what type of physical activity do you participate in: bicycling frequency: 1-2 times per week additional social history: history of denies aspirin use and ibuprofen use, denies vaping, marijuana and edible use. denies family history of blood clots. HPI HPI Chief Complaint: Follow-up chronic conditions Details: RONALD HUTCHINS, is a 59-year-old female presenting with chronic condition management and prescription medication review. She reports a prior recommendation for a sleep study to evaluate potential obstructive sleep apnea, which was ordered in April; however, she has not yet received a call to schedule it and intends to follow up on the scheduling. The patient discussed her experience with compounding pharmacies for medication management but expressed concerns regarding the reliability of compounded medications. Referring to her prescription medication management, she is particularly considering alternatives such as Mounjaro or Zepbound for weight management, contingent upon insurance coverage. Currently at a BMI 57.9. High clinical suspicion for sleep apnea and as above, plans to get sleep study scheduled. History of hypertension, blood pressure today at 128/82 mmHg. Currently on losartan and amlodipine which she reports compliance with. Also history of anxiety and depression currently on Lexapro. Continues to find it helpful. Other chronic medical conditions are stable. Attestation: Documentation on this patient encounter was supported u (more content not included)... Normal [facility] LDL calc ser/plasOrdered By: Harper Genao on 12-15-2024 Cholesterol in LDL [Mass/Vol] 78 mg/dL [facility] Comment on above: Zijuehiysw=280-215 m g/dL & Higher Vlwe=171 mg/dL or greaterFriedwald Equation for LDL-C Laboratory - Chemistry and C hemistry - challengeOrdered By: Harper Genao on 12-15-2024 AST [Catalytic activity/Vol] 25 U/L <32 [facility] Lipid Profileon 12-15-2024 CHOL:HDL 3.10 Normal [facility] Comment on above: Performed By: #### L 506.1001, L100.0100, L501.9520, L500.4050, L500.4100 #### [facility] [address] [place], [address] Cholesterol [Mass/Vol] 130 mg/dL Normal <=200 [facility] Comment on above: Result Comment: Chol esterol level, Desirable <200 mg/dL Borderline high cholesterol 200-239 mg/dL High cholesterol >=240 mg/dL Recommendations of the NCEP Adult Treatment Panel for the following risk-cutoff thresholds for the [place] population. Performed By: #### L 506.1001, L100.0100, L501.9520, L500.4050, L500.4100 #### [facility] [address] [place], [address] Cholesterol in HDL [Mass/Vol] 42 mg/dL Normal [facility] Comment on above: Result Comment: Natalie onal Cholesterol Education Program (NCEP) guidelines: <40 mg/dL: Low HDL-cholesterol (major risk factor for CHD) >= 60 mg/dL: High HDL-cholesterol (negative risk factor for CHD) HDL-cholesterol is affected by a number of factors, e.g. smoking, exercise, hormones, sex and age. Performed By: #### L 506.1001, L100.0100, L501.9520, L500.4050, L500.4100 #### [facility] [address] [place], [address] Cholesterol in LDL [Mass/Vol] 78 mg/dL Normal [facility] Comment on above: Result Comment: Bord ovgdee=469-759 mg/dL Higher Xruc=541 mg/dL or greater Friedwald Equation for LDL-C Performed By: #### L 506.1001, L100.0100, L501.9520, L500.4050, L500.4100 #### [facility] [address] [place], [address] Cholesterol in VLDL [Mass/Vol] 10 mg/dL Normal 5-40 [facility] Comment on above: Performed By: #### L 506.1001, L100.0100, L501.9520, L500.4050, L500.4100 #### [facility] [address] [place], [place], [id number] Triglyceride [Mass/Vol] 48 mg/dL Normal [facility] Comment on above: Result Comment: The drugs N-Acetylcysteine and Metamizole may falsely depress this assay. Normal range: <150 mg/dL Borderline High: 150-199 mg/dL High: 200-499 mg/dL Very High: >500 mg/dL Performed By: #### L 506.1001, L100.0100, L501.9520, L500.4050, L500.4100 #### [facility] [address] [place], [place], [id number] MCV (mean corpuscular volume ) determinationOrdered By: Harper Genao on 12-15-2024 MCV (RBC) [Entitic vol] 92.0 fL 81-99 [facility] Mean corpuscular hemoglobin (MCH) determinationOrdered By: Harper Genao on 12-15-2024 MCH (RBC) [Entitic mass] 30.3 pg 27.0-32.0 [facility] Mean corpuscular hemoglobin concentration (MCHC) determinationOrdered By: Harper Genao on 12-15-2024 MCHC (RBC) [Mass/Vol] 33.0 g/dL 32-36 [facility] Mean platelet volume determi nationOrdered By: Harper Genao on 12-15-2024 Platelet mean volume (Bld) [Entitic vol] 10.3 fL 6.2-12.0 [facility] Monocyte percentageOrdered B y: Efvenessa Genao on 12-15-2024 Monocytes/100 WBC (Bld) 10.8 % High 0-10 [facility] Neutrophil percentageOrdered By: Harper Genao on 12-15-2024 Neutrophils/100 WBC (Bld) 46.1 % Low 47-70 [facility] Nucleated red blood cell per centageOrdered By: Harper Genao on 12-15-2024 Nucleated RBC/100 WBC (Bld) [Ratio] 0 % 0-5 [facility] Platelet countOrdered By: Crystal Genao on 12-15-2024 Platelets (Bld) [#/Vol] 303 10*3/uL 150-450 [facility] Potassium measurement (mass/ volume)Ordered By: Harper Genao on 12-15-2024 Potassium (Unsp spec) [Mass/Vol] 4.5 mmol/L 3.3-5.1 [facility] RBC Auto (Bld) [#/Vol]Ordere d By: Harper Genao on 12-15-2024 RBC (Bld) [#/Vol] 3.89 10*6/uL Low 4.2-5.4 [facility] Screening total cholesterol/ high density lipoprotein (HDL) cholesterol ratioOrdered By: Harper Genao on 12-15-2024 Cholesterol.total/Choles terol in HDL [Mass ratio] 3.10 {ratio} [facility] Serum creatinine measurement (mass/volume)Ordered By: Harper Genao on 12-15-2024 Creatinine [Mass/Vol] 1.11 mg/dL 0.70-1.20 [facility] Serum globulin measurementOr dered By: Harper Genao on 12-15-2024 Globulin (S) [Mass/Vol] 4.3 g/dL High 2.2-4.2 [facility] Serum glucose measurement (m ass/volume)Ordered By: Harper Genao on 12-15-2024 Glucose [Mass/Vol] 76 mg/dL 70-99 [facility] Serum or plasma alanine parker otransferase (ALT) measurementOrdered By: Harper Genao on 12-15-2024 ALT [Catalytic activity/Vol] 20 U/L <35 [facility] Serum or plasma albumin rachael urement (mass/volume)Ordered By: Harper Genao on 12-15-2024 Albumin [Mass/Vol] 3.8 g/dL 3.4-4.8 [facility] Serum or plasma albumin/glob ulin mass ratioOrdered By: Harper Genao on 12-15-2024 Albumin/Globulin [Mass ratio] 0.9 {ratio} 0.9-2.4 [facility] Serum or plasma alkaline stephie sphatase measurementOrdered By: Harper Genao on 12-15-2024 ALP [Catalytic activity/Vol] 82 U/L 35-104 [facility] Serum or plasma calcium rachael urement (mass/volume)Ordered By: Harper Genao on 12-15-2024 Calcium [Mass/Vol] 9.4 mg/dL 7.6-11.0 [facility] Serum or plasma cholesterol in HDL measurement (mass/volume)Ordered By: Harper Genao on 12-15-2024 Cholesterol in HDL [Mass/Vol] 42 mg/dL >40 [facility] Comment on above: National Cholesterol Education Program (NCEP) guidelines:<40 mg/dL: Low HDL-cholesterol (major risk factor for CHD)>= 60 mg/dL: High HDL-cholesterol (negative risk factor for CHD)HDL-cholesterol is affected by a number of factors, e.g. smoking, exercise, hormones, sex and age. Serum or plasma cholesterol measurement (mass/volume)Ordered By: Harper Genao on 12-15-2024 Cholesterol [Mass/Vol] 130 mg/dL <201 [facility] Comment on above: Cholesterol level, D esirable <200 mg/dLBorderline high cholesterol 200-239 mg/dLHigh cholesterol >=240 mg/dLRecommendations of the NCEP Adult Treatment Panel for the following risk-cutoff thresholds for the [place] population. Serum or plasma urea nitroge n measurement (mass/volume)Ordered By: Harper Genao on 12-15-2024 Urea nitrogen [Mass/Vol] 20 mg/dL High 4-19 [facility] Sodium levelOrdered By: Michael Genao on 12-15-2024 Sodium [Moles/Vol] 140 mmol/L 133-145 [facility] TSH DL <= 0.005 mIU/L QnOrde red By: Harper Genao on 12-15-2024 TSH Qn 3.790 uIU/mL 0.300-4.200 [facility] Thyroid Stim Hormone (TSH)on 12-15-2024 TSH 3.790 uIU/mL Normal 0.300-4.200 [facility] Comment on above: Performed By: #### L 506.1001, L100.0100, L501.9520, L500.4050, L500.4100 #### [facility] [address] [place], [place], [address] Total proteinOrdered By: Isaac joelpeggy Genao on 12-15-2024 Protein [Mass/Vol] 8.1 g/dL 5.9-8.4 [facility] Triglycerides measurementOrd ered By: Harper Genao on 12-15-2024 Triglyceride [Mass/Vol] 48 mg/dL <199 [facility] Comment on above: The drugs N-Acetylcy steine and Metamizole may falsely depress this assay. Normal range: <150 mg/dLBorderline High: 150-199 mg/dLHigh: 200-499 mg/dLVery High: >500 mg/dL Vitamin D,25 Hydroxyon 12-15 Vitamin D 25-OH 23.1 ng/mL Low 30-100 [facility] Comment on above: Result Comment: Aster min D Status Deficiency: <20 ng/mL (50nmol/L) Insufficiency: 20-30 ng/mL (50-75 nmol/L) Sufficiency: 30-100 ng/mL (75-250 nmol/L) Toxicity: >100 ng/mL (>250 nmol/L) Performed By: #### L 506.1001, L100.0100, L501.9520, L500.4050, L500.4100 #### [facility] [address] [place], [place], [id number] White blood cell (WBC) count Ordered By: Harper Genao on 12-15-2024 WBC (Bld) [#/Vol] 7.3 10*3/uL 4.4-11.0 [facility] CNOVon 11-05-2024 CNOV [facility] RONALD HUTCHINS ([id number]) 1965 F Date Time Provider Department 11/05/24 10:30 AM JOSE C COSMEWS During your visit today, we recorded the following information about you: Janet Brigitte DANO Aquino 11/05/2024 10:34 AM Signed AMB ROOMING INTAKE FLOWSHEET DATA Pain Pain Level: 6 Pain Location: Knee-Left Description: Sharp Duration Amount of Time: (ongoing) Frequency: Intermittent Intervention/Comfort measure: Medication Jose C Cosme V, DO 11/05/2024 10:34 AM Signed Subjective The patient is a 59-year-old female with a history of left knee pain, presenting for follow-up. Knee Pain: - Reports improvement in pain, but notes that medication wears off quickly, leading to recurrent pain throughout the day. - Experiences stiffness in the morning, making it difficult to get moving. - Continues to walk despite the pain. - Previously took Motrin 800 mg, but discontinued due to concerns about liver health. Musculoskeletal: (+) knee pain, (+) morning knee stiffness Objective Last menstrual period 05/15/2013. General: No acute distress. Labs: - Laboratory results: - Normal renal function - Normal liver function Imaging: - (Today) Knee X-ray: - Healing fracture near the patellar tendon insertion - Persistent arthritic changes and bone spurs under the patella - Knee X-ray: - Visible fracture line under the patella prior to healing Assessment AND Plan 1. History of patellar fracture (Z87.81) - Recent X-ray demonstrates healing of patellar fracture; persistent pain likely due to underlying patellar osteophytes. - Start etodolac 500 mg PO daily; discussed risks and benefits, including GI irritation, renal and hepatic effects, and importance of taking with food and adequate hydration; patient expressed understanding. - Advised daily low-resistance stationary cycling (start with 5 minutes, increase as tolerated) to improve mobility and reduce stiffness; explained rationale and patient expressed understanding. - Discussed physical therapy as an option if pain persists despite current measures. - Follow-up PRN based on symptom progression or if additional intervention is needed. Recording using adRise software for draft documentation of the visit was discussed with the patient/authorized employer relations representative; all questions welcomed and answered. Patient/authorized employer relations representative agreed to proceed Referring Provider: BABS ARTHUR [[id number]] Allergies As of Date: 11/05/2024 Noted Allergy Reaction ACETAMINOPHEN-CODEINE 07/07/2013 14 - Other: See Comments Comments: Ears ring Date Reviewed: 11/05/2024 Reviewed by: Brigitte Gonzales MA - Fully Assessed Reason for Visit: follw up left patella fx [Other] Primary Visit Diagnosis:History of patellar fracture [Z87.81] Order(s):Etodolac 500 mg tabletTake 1 tablet by mouth two times a day.Disp: 60 tabletRfl: 0 Prescriptions as of 11/05/2024 - Etodolac 500 mg tablet Take 1 tablet by mouth two times a day. - calcium iai-ody-Q6-Zn-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 - hydrOXYchloroQUINE (PLAQUENIL) 200 mg tablet Take 1 tablet by mouth two times a day. - tirzepatide, weight loss (ZEPBOUND) 10 mg/0.5 mL solution Inject 10 mg subcutaneously one time a week. - alendronate (FOSAMAX) 70 mg tablet Take 1 tablet by mouth one time a week. - cholecalciferol, Vitamin D3, (VITAMIN D3) 1,250 mcg (50,000 unit) cap capsule 1 cap(s) orally once a week for 56 days - escitalopram oxalate (LEXAPRO) 10 mg tablet Take 1 tablet by mouth once daily. - AMLODIPINE BESYLATE (AMLODIPINE ORAL) Take 10 mg by mouth once daily. - levothyroxine (LEVOXYL) 100 mcg tablet Take 1 tablet by mouth once daily. Take on empty stomach. For Thyroid. - losartan 100 mg tablet Take 1 tablet by mouth once daily. Problem List As Of Date 11/05/2024 Noted Resolved HTN (hypertension) [I10] Anxiety [F41.9] Hypothyroidism [E03.9] Amblyopia of left eye [H53.002] 07/07/2013 OA (osteoarthritis) [M19.90] 07/07/2013 NO SHOW [[id number]] 08/03/2013 Routine gynecological examination [Z01.419] 11/08/2013 Dyslipidemia [E78.5] 11/08/2013 Morbid obesity (HCC) [E66.01] 11/08/2013 Pes planus of both feet [M21.41, M21.42] 01/25/2015 Prescriptions ordered this encounter Disp Refills Start End ETODOLAC 500 MG TABLET 60 t* 0 11/05/2024 Route: PO Sig: Take 1 tablet by mouth two times a day. Medications Discontinued During This Encounter Prescriptions - ibuprofen (MOTRIN) 800 mg tablet (Discontinued) Take 1 tablet by mouth every 6 hours as needed. Encounter Status:Closed by JOSE C COSEM V on 11/05/24 [facility] XR KNEE 2V AP/LAT LTon 11-05 XR KNEE 2V AP/LAT LT * * *Final Report* * * DATE OF EXAM: Nov 05 2024 10:13AM WRX [id number] - XR KNEE 2V AP/LAT LT / PROCEDURE REASON: History of patellar fracture * * * * Physician Interpretation * * * * PROCEDURE: Left knee INDICATION: History of patellar fracture .PT STATES LEFT KNEE PATELLA FX FOLLOW UP TECHNIQUE: XR KNEE 2V AP/LAT LT COMPARISON: 09/23/2024 FINDINGS/ IMPRESSION: The total knee arthroplasty remains in satisfactory position. Stable position of the minimally displaced inferior pole patellar fracture. No acute fracture or joint effusion. Disaster Recovery Coordinator: ULISESB Transcribe Date/Time: Nov 10 2024 10:00A Dictated by : ANDRES ALFRED MD This examination was interpreted and the report reviewed and electronically signed by: ANDRES ALFRED MD on Nov 10 2024 10:02AM EST [id number] [facility] CNPSteffi 10-11-2024 CNPN Telephone (ORTHWS) RONALD HUTCHINS ([id number]) 1965 F Date Time Provider Department 10/11/24 JOSE C COSME V ORTHWS During your visit today, we recorded the following information about you: Mary Goyal MA 10/11/2024 1:54 PM Signed Andreas, Pharmacist calling from [facility] pharmacy and wanting to know if you could change patient's Rx to Calcium and Vitamin D instead of the Calcium Citrate? Jose C Cosme V, DO 10/11/2024 2:47 PM Signed Rx sent to [facility] pharmacy Jose C Cosme DO Allergies As of Date: 10/11/2024 Noted Allergy Reaction ACETAMINOPHEN-CODEINE 07/07/2013 14 - Other: See Comments Comments: Ears ring Date Reviewed: 10/05/2024 Reviewed by: Mary Goyal MA - Fully Assessed Reason for Visit: Med Change Request [3823] Prescriptions as of 10/11/2024 - calcium bkw-jwu-M5-Zn-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 - hydrOXYchloroQUINE (PLAQUENIL) 200 mg tablet Take 1 tablet by mouth two times a day. - predniSONE (DELTASONE) 10 mg tablet Take 2 tablets by mouth once daily for 7 days, THEN 1 tablet once daily for 7 days, THEN 0.5 tablets once daily for 7 days. - tirzepatide, weight loss (ZEPBOUND) 10 mg/0.5 mL solution Inject 10 mg subcutaneously one time a week. - alendronate (FOSAMAX) 70 mg tablet Take 1 tablet by mouth one time a week. - cholecalciferol, Vitamin D3, (VITAMIN D3) 1,250 mcg (50,000 unit) cap capsule 1 cap(s) orally once a week for 56 days - escitalopram oxalate (LEXAPRO) 10 mg tablet Take 1 tablet by mouth once daily. - ibuprofen (MOTRIN) 800 mg tablet Take 1 tablet by mouth every 6 hours as needed. - AMLODIPINE BESYLATE (AMLODIPINE ORAL) Take 10 mg by mouth once daily. - levothyroxine (LEVOXYL) 100 mcg tablet Take 1 tablet by mouth once daily. Take on empty stomach. For Thyroid. - losartan 100 mg tablet Take 1 tablet by mouth once daily. Problem List As Of Date 10/11/2024 Noted Resolved HTN (hypertension) [I10] Anxiety [F41.9] Hypothyroidism [E03.9] Amblyopia of left eye [H53.002] 07/07/2013 OA (osteoarthritis) [M19.90] 07/07/2013 NO SHOW [[id number]] 08/03/2013 Routine gynecological examination [Z01.419] 11/08/2013 Dyslipidemia [E78.5] 11/08/2013 Morbid obesity (HCC) [E66.01] 11/08/2013 Pes planus of both feet [M21.41, M21.42] 01/25/2015 Encounter Status:Closed by JOSE C COSME V on 10/11/24 Normal [facility] Internal Medicine Office Vis itoelliot 10-08-2024 Internal Medicine Office Visit [facility] [address] [place], [place] [address] OFFICE VISIT Date of Service: 10/08/24 MR#: [id number] Acct: [id number] Name: RONALD HUTCHINS Rep #: [id number] : 1965 Provider: BRYCE ordonez Age/Sex: 59/F Location: [facility] Status: Signed Intake Vital Signs 07/19/24 09:34 10/08/24 08:40 10/08/24 10:30 Height 5 ft 3 in 5 ft 3 in 5 ft 3 in Weight: 335 lb BMI 59.3 BP 135/76 H 143/78 H Blood Pressure Location Rt brachial Rt brachial Position Sitting Sitting Respiration 18 Pulse 83 83 Pulse Source Monitor Monitor Temp 97.8 F Temp Source Temporal Pulse Oximetry (%) 96 94 Oxygen Delivery Method room air room air Intake Visit Reasons: ACUTE YEAST INFECTION Chief Complaint: ACUTE YEAST INFECTION Is patient in pain?: No Allergies acetaminophen (From Tylenol-Codeine #3) Allergy (Intermediate, Verified 10/08/24 10:29) makes ears eing codeine (From Tylenol-Codeine #3) Allergy (Intermediate, Verified 10/08/24 10:29) makes ears eing Medications ???Medication ???Instructions ???Recorded ???Confirmed ???Type walker (Ultra-Light Rollator misc) #1 ea 09/12/23 10/08/24 Rx fluticasone propionate 50 1 spray intranasal BID #16 grams 0 10/30/23 10/08/24 Rx mcg/actuation nasal spray,suspension alendronate 70 mg tablet (Fosamax) 70 mg PO QWEEK #20 tabs 01/26/24 10/08/24 Rx levothyroxine 150 mcg tablet 150 mcg PO DAILY #90 tabs 07/19/24 10/08/24 Rx amlodipine 10 mg tablet See Rx Instructions .Route 5 10/08/24 Rx .COMPLEX #90 tabs losartan 100 mg tablet See Rx Instructions .Route 5 10/08/24 Rx .COMPLEX #90 tabs diclofenac sodium 1 % topical gel 2 g topical 4XD PRN Knee Pain #10 0 09/22/24 10/08/24 Rx grams escitalopram oxalate 10 mg tablet 10 mg PO DAILY #90 TABLETS 10/08/24 Rx fluconazole 150 mg tablet 150 mg PO Q3D 2 doses #2 tabs 09/1310/08/24 Rx hydroxychloroquine 200 mg tablet 200 mg PO BID 10/08/24 10/08/24 Hi story tirzepatide 10 mg/0.5 mL 10 mg subcut QWEEK 10/08/24 History subcutaneous pen injector (Law) Have you fallen in the past year?: No Nurse's Note: pt reports that she has burning with urination. states that she saw her [facility] doctor 2-3 days ago and they tested her urine. report it was positive for yeast. and was told to seek tx with [facility] Medical History Hypersomnolence History of thyroid disease History of hypertension History of arthritis Chronic pain Osteopenia Elevated serum globulin level CKD (chronic kidney disease) Debility Hemorrhoids Left ankle pain Sinusitis Bronchitis Osteoarthritis of knees, bilateral Health care maintenance Colon cancer screening Generalized anxiety disorder Venous insufficiency of both lower extremities Hypertension Localized swelling of left upper extremity Morbid obesity Anxiety Benign essential hypertension Arthritis Hypothyroidism (acquired) Surgical History History of bilateral knee replacement History of Family History Father Heart disease Hypertension Sister Thyroid disorder Mother Diabetes Daughter ADHD Social History (Reviewed 10/08/24 @ 10:39 by YEVGENIY Alfaro housing: assisted Smoking Status: Never smoker alcohol intake: never substance use type: does not use what type of physical activity do you participate in: bicycling frequency: 1-2 times per week additional social history: history of denies aspirin use and ibuprofen use, denies vaping, marijuana and edible use. denies family history of blood clots. HPI HPI Chief Complaint: ACUTE YEAST INFECTION Details: RONALD HUTCHINS, is a 59 F who presents to the office today for concerns of yeast infection. States she was at her bone doctor where they did blood work and urine test and found yeast in her urine. She complains of some burning with urination. Denies any vaginal drainage. ROS Const Constitutional: No body ache, chills, excessive sweating, fatigue, fever(s), frequent falls, headache(s), snoring, weight change, sleep problems, abnormal sleep pattern or change in appetite Eyes Eyes: No blurry vision, change in vision, eye pain or Light sensitivity ENT ENT: No abnormal hearing, ear or mastoid pain, tinnitus, nasal congestion, headache(s), neck pain or sore throat Resp Respiratory: No cough, shortness of breath, snoring or wheezing Cardio Cardiology: No chest pain at rest, chest pain with exertion, excessive sweating, shortness of breath, dyspnea on exertion, lightheadedness, orthopnea or palpitations Gastro GI: No abdominal pain, change in bowel (more content not included)... Normal [facility] 10-05-2024 [facility] Office Visit ([facility] ) LISETRONALD Aquino ([id number]) 1965 F Date Time Provider Department 10/05/24 10:00 AM JOSE C COSME V [facility] During your visit today, we recorded the following information about you: Mary Goyal MA 10/05/2024 10:34 AM Signed Patient presents with: Left Knee Pain: Referred by Babs Arthur AMB ROOMING INTAKE FLOWSHEET DATA Patient denies any pain today. Currently on Prednisone given by Jose C Ulloa V, DO 10/05/2024 10:34 AM Signed Subjective The patient is a 59-year-old female with a history of bilateral TKA, presenting for left knee pain. Left Knee Pain: - Onset several weeks ago. - Described as a little pain, localized to the area beneath the patella. - Denies known trauma. - Able to ambulate with a walker; cautious to avoid falls. - Recent x-ray showed a small crack beneath the patella. - Taking vitamin D 1,000 IU daily. Constitutional: (+) weight loss, (+) increased energy Musculoskeletal: (+) left knee pain Objective Last menstrual period 05/15/2013. General: No acute distress. MSK/Ext: Surgical scars on knees, tenderness over left patella. Labs: - Vitamin D: Low Imaging: - X-ray of the left knee: Subacute fracture involving the patella with intact total knee replacement hardware and no radiographic evidence of loosening. Appears to be healing. Assessment AND Plan 1. History of patellar fracture (Z87.81) - Radiographic evidence of a stress fracture beneath the left patella; no signs of hardware loosening. - Fracture appears to be healing; advised to continue ambulation with a walker and avoid falls to prevent further displacement. - No need for a brace at this time. - Follow-up in 3-4 weeks with repeat X-ray to assess healing progress. 2. Vitamin D deficiency (E55.9) - Current supplementation with Vitamin D 1000 IU daily. - Initiated Calcium Citrate 1000 mg daily, divided into two doses of 500 mg each, to enhance calcium absorption. - Prescription for Calcium Citrate with Vitamin D sent to [facility] in [place]. - Discussed the synergistic role of Vitamin D and calcium in bone health. - Magnesium supplementation discussed; advised that additional magnesium intake is safe and may be beneficial. 3. Morbid obesity (HCC) (E66.01) - Significant impact on joint health and fracture healing. - Discussed the benefits of weight reduction on joint stress and overall health. - Referral note to Dr. Zabala, district court judge, for evaluation and management of weight loss medication. 4. Presence of artificial knee joint, bilateral (Z96.653) - Bilateral total knee arthroplasties performed approximately 5 years ago; current hardware remains intact and stable. - No signs of loosening or malfunction in the prosthetic components. Recording using adRise software for draft documentation of the visit was discussed with the patient/authorized employer relations representative; all questions welcomed and answered. Patient/authorized employer relations representative agreed to proceed Referring Provider: BABS ARTHUR [[id number]] Allergies As of Date: 10/05/2024 Noted Allergy Reaction ACETAMINOPHEN-CODEINE 07/07/2013 14 - Other: See Comments Comments: Ears ring Date Reviewed: 10/05/2024 Reviewed by: Mary Goyal MA - Fully Assessed Reason for Visit: Left Knee Pain [1208] Cmt: Referred by Babs Arthur Primary Visit Diagnosis:Vitamin D deficiency [E55.9] Other Visit Diagnoses:History of patellar fracture [Z87.81] Morbid obesity (HCC) [E66.01] Presence of artificial knee joint, bilateral [Z96.653] Order(s):CONSULT TO ORTHOPAEDICS [9011] Order #: [id number]: 1 calcium trk-flz-K8-Zn-telescope operator-enrique (CALCIUM CITRATE PLUS) 250 mg-40 mg- 125 unit-3.75mg tabTake 1 tablet by mouth two times a day.Disp: 60 tabletRfl: 3 Prescriptions as of 10/05/2024 - calcium luk-gqn-G5-Zn-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 - hydrOXYchloroQUINE (PLAQUENIL) 200 mg tablet Take 1 tablet by mouth two times a day. - predniSONE (DELTASONE) 10 mg tablet Take 2 tablets by mouth once daily for 7 days, THEN 1 tablet once daily for 7 days, THEN 0.5 tablets once daily for 7 days. - tirzepatide, weight loss (ZEPBOUND) 10 mg/0.5 mL solution Inject 10 mg subcutaneously one time a week. - alendronate (FOSAMAX) 70 mg tablet Take 1 tablet by mouth one time a week. - cholecalciferol, Vitamin D3, (VITAMIN D3) 1,250 mcg (50,000 unit) cap capsule 1 cap(s) orally once a week for 56 days - escitalopram oxalate (LEXAPRO) 10 mg tablet Take 1 tablet by mouth once daily. - ibuprofen (MOTRIN) 800 mg tablet Take 1 tablet by mouth every 6 hours as needed. - AMLODIPINE BESYLATE (AMLODIPINE ORAL) Take 10 mg by mouth once daily. - levothyroxine (LEVOXYL) 100 mcg tablet Take 1 tablet by mouth once daily. Take on empty stomach. For Th (more content not included)... Normal [facility] C3 COMPLEMENTon 10-01-2024 Complement C3 [Mass/Vol] 168 mg/dL High 86 - 166 mg/dL [facility] C4 COMPLEMENTon 10-01-2024 Complement C4 [Mass/Vol] 30 mg/dL 13 - 46 mg/dL [facility] Complement C3 [Mass/Vol]on 0 10-01-2024 Interpretation and review of laboratory results Abnormal [facility] Complement C4 [Mass/Vol]on 0 10-01-2024 Interpretation and review of laboratory results Normal [facility] No Panel Informationon 10-01 [facility] C3 SerPl-mCncon 09-30-2024 Complement C3 [Mass/Vol] 168 mg/dL High 86-166 [facility] Comment on above: Order Comment: Speci men Type: BLOOD SPECIMENOrdering Facility: [facility] Address: [address] [place] [address] Performed By: #### 4 485-9, 4498-2 ####[facility] [id number] [address] [place] C4 SerPl-mCncon 09-30-2024 Complement C4 [Mass/Vol] 30 mg/dL Normal 13-46 [facility] Comment on above: Order Comment: Speci men Type: BLOOD SPECIMENOrdering Facility: [facility] Address: [address] [place] [address] Performed By: #### 4 485-9, 4498-2 ####[facility] [id number] [address] [place] CNOVon 09-30-2024 CNOV Office Visit (RHWSTR ) LISETRONALD M ([id number]) 1965 F Date Time Provider Department 09/30/24 2:00 PM BABS ARTHURWSGABRIELA During your visit today, we recorded the following information about you: Pulse Respiration Blood pressure 81/minute 17/minute 132/78 Babs Arthur PA-C 09/30/2024 4:51 PM Addendum We will start 2 medications. Plaquenil (hydroxychloroquine ) - this is a disease modifying medication to treat Rheumatoid arthritis and Lupus. Take 1 tablet twice daily Prednisone - this is a steroid anti-inflammatory pill. We will do a tapering dose as on the bottle over 3 weeks. This will help treat symptoms short term, but not good chcf. Get Eye exam for hydroxychloroquine - please have them fax it to our office. [phone] Schedule follow up in 2 months. BONE MINERAL DENSITY PATIENT INSTRUCTIONS Bone mineral density testing measures the amount of calcium in certain parts of your bones. This information determines how strong your bones are. The test is used to detect osteoporosis, a disease in which the bone's mineral content and density are low, increasing a person's risk of fractures. The lumbar spine (lower back) and the hip are the skeletal sites usually examined. For the test, remember that: 1. You cannot take this test if you are . 2. Eat a normal diet on the day of the test. 3. Take your medications as you normally would. 4. DO NOT take calcium supplements (such as Tums) for 24 hours before the test. 5. On the day of the test, leave valuables (jewelry or credit cards) at home. 6. The test should be performed prior to oral, rectal or IV contrast studies, or at least 7 days after any of these studies. For the test, you may be asked to wear a hospital gown. You will lie on your back, on a padded table, in a comfortable position. Generally, you can resume your usual activities immediately. Babs Arthur PA-C 09/30/2024 4:51 PM Signed Rheumatology FOLLOW UP VISIT Date of Service: 09/30/2024 Patient: Ronald Hutchins Medical Record: [id number] Primary Care Physician: Harper Genao MD Last Rheumatology visit: None at [facility] History of Present Illness Ronald Hutchins is a 59 year old Black female who presents on 09/30/2024 for an in-person visit for evaluation of Follow Up. She is currently taking hydroxychloroquine sulfate, ibuprofen, prednisone. Ronald reports a current pain level of 6 (Ankle-Right). She describes the pain as Sharp, Aching. The pain is Continuous . Ronald is both RF - 715 (09/23/2024) and CCP - 275 (09/23/2024) positive. Her most recent UDAY was positive (09/23/2024). Rheum history: - Patient presented 09/23/2024 with 1 year of worsening joint pain in the right ankle bilateral elbows left knee. She had bilateral elbow contractures and swelling, wrist and hypermobility, as well as Jaccouds arthropathy. - Labs were notable for rheumatoid factor greater than 650, CCP antibody greater than 250, UDAY antibody + 1:1280 (Cytoplasmic fine speckled), SARAH negative, Sed rate 69, CRP 0.6, - uric acid 8.1, - Vit D 25.5 - CMP with mildly elevated Creat (stable from previously 1.01) - X-ray of foot and ankle show severe degenerative changes including ankylosis in multiple different joints joints. Narrowing of the IP joints. Bilateral elbows show severe degenerative changes. Patient here today to discuss results. is here with her as well. Overall joint pain symptoms persist and are significant. She has not yet started prednisone as via phone call. She is inquiring whether or not she should continue compounded weight loss medications. I advised her to follow-up with her primary care provider regarding these questions. Her is inquiring whether her weight has caused these issues. Pain Evaluation 12/01/2014 01/25/2015 09/26/2021 09/23/2024 09/30/2024 Pain Evaluation Pain Score 8 9 7 6 6 Location Knee-Left Foot-Right Toe -- Ankle-Right Location Comment right ankle, left knee and bilateral elbows Description Aching;Throbbing Burning;Sore;Stabbing; Sharp Stabbing Sharp Sharp;Aching Duration (#) 3 5 1 1 Duration (Timeframe) Months Months Years Years Frequency Continuous Intermittent Intermittent Continuous Intervention Medication Reposition;Relaxation Medication Patient-Entered Data No data to review today Review of Systems Completed less than 1 week ago at last office visit Past Medical History PAST MEDICAL HISTORY Diagnosis Date Anxiety HTN (hypertension) Hypothyroidism Past Surgical History PAST SURGICAL HISTORY Procedure Laterality Date DELIVERY ONLY 04/14/1998 , low transverse DELIVERY ONLY 04/14/2004 , low transverse DELIVERY ONLY 04/14/2013 , low transverse TOTAL KNEE REPLACEMENT Bilateral (more content not included)... Normal [facility] RONALD HUTCHINS ([id number]) 1965 F Date Time Provider Department 09/30/24 BABS ARTHUR [facility] During your visit today, we recorded the following information about you: Rosa Isela Gasca RN 09/30/2024 5:03 PM Signed Patient returning phone call by Babs. Per Babs Patient informed of fracture in knee and that ortho consult is ordered. Patient states that she was never aware of fracture. Patient reports understanding for reason of consult and will call to schedule. Rosa Isela Gasca RN Allergies As of Date: 09/30/2024 Noted Allergy Reaction ACETAMINOPHEN-CODEINE 07/07/2013 14 - Other: See Comments Comments: Ears ring Date Reviewed: 09/30/2024 Reviewed by: Rosa Isela Gasca, RN - Fully Assessed Reason for Visit: Results [95] Prescriptions as of 09/30/2024 - hydrOXYchloroQUINE (PLAQUENIL) 200 mg tablet Take 1 tablet by mouth two times a day. - predniSONE (DELTASONE) 10 mg tablet Take 2 tablets by mouth once daily for 7 days, THEN 1 tablet once daily for 7 days, THEN 0.5 tablets once daily for 7 days. - tirzepatide, weight loss (ZEPBOUND) 10 mg/0.5 mL solution Inject 10 mg subcutaneously one time a week. - alendronate (FOSAMAX) 70 mg tablet Take 1 tablet by mouth one time a week. - cholecalciferol, Vitamin D3, (VITAMIN D3) 1,250 mcg (50,000 unit) cap capsule 1 cap(s) orally once a week for 56 days - escitalopram oxalate (LEXAPRO) 10 mg tablet Take 1 tablet by mouth once daily. - ibuprofen (MOTRIN) 800 mg tablet Take 1 tablet by mouth every 6 hours as needed. - AMLODIPINE BESYLATE (AMLODIPINE ORAL) Take 10 mg by mouth once daily. - levothyroxine (LEVOXYL) 100 mcg tablet Take 1 tablet by mouth once daily. Take on empty stomach. For Thyroid. - losartan 100 mg tablet Take 1 tablet by mouth once daily. Problem List As Of Date 09/30/2024 Noted Resolved HTN (hypertension) [I10] Anxiety [F41.9] Hypothyroidism [E03.9] Amblyopia of left eye [H53.002] 07/07/2013 OA (osteoarthritis) [M19.90] 07/07/2013 NO SHOW [136840] 08/03/2013 Routine gynecological examination [Z01.419] 11/08/2013 Dyslipidemia [E78.5] 11/08/2013 Morbid obesity (HCC) [E66.01] 11/08/2013 Pes planus of both feet [M21.41, M21.42] 01/25/2015 Encounter Status:Closed by ROSA ISELA GASCA on 09/30/24 Normal [facility] PROTEIN / CREATININE RATIOon 09-30-2024 Protein/Creatinine (U) [Mass ratio] 0.1 mg/mg NINF - 0.15 mg/mg [facility] Comment on above: Adult Proteinuria Ca tegories: <0.15 mg/mg is considered normal to mildly increased 0.15 - 0.50 mg/mg is considered moderately increased >0.50 mg/mg is considered severely increased KDIGO. (2013). KDIGO 2012 Clinical Practice Guideline for the Evaluation and Management of Chronic Kidney Disease. Official Journal of the International Society of Nephrology, 3(1), 1-150. Prot/Creat Uron 09-30-2024 Protein/Creatinine (U) [Mass ratio] 0.10 mg/mg Normal <0.15 [facility] Comment on above: Order Comment: Speci men Type: URINE SPECIMENOrdering Facility: [facility] Address: [address] [place] [address] Result Comment: Adul t Proteinuria Categories: <0.15 mg/mg is considered normal to mildly increased 0.15 - 0.50 mg/mg is considered moderately increased >0.50 mg/mg is considered severely increased KDIGO. (2013). KDIGO 2012 Clinical Practice Guideline for the Evaluation and Management of Chronic Kidney Disease. Official Journal of the International Society of Nephrology, 3(1), 1-150. Performed By: #### 2 890-2 ####[facility] LABIA [id number] [place] [id number] [place] Protein/Creatinine (U) [Mass ratio]on 09-30-2024 Creatinine (U) [Mass/Vol] 125.4 mg/dL 20.0 - 300.0 mg/dL [facility] Interpretation and review of laboratory results Normal [facility] Protein (U) [Mass/Vol] 13 mg/dL 0 - 20 mg/dL [facility] Creatinine (U) [Mass/Vol] 125.4 mg/dL Normal 20.0-300.0 [facility] Comment on above: Order Comment: Speci men Type: URINE SPECIMENOrdering Facility: [facility] Address: [address] [place] [address] Performed By: #### 2 890-2 ####[facility] LABIA [id number] [place] [id number] [place] Protein (U) [Mass/Vol] 13 mg/dL Normal 0-20 [facility] Comment on above: Order Comment: Speci men Type: URINE SPECIMENOrdering Facility: [facility] Address: [address] [place] [address] Performed By: #### 2 890-2 ####[facility] LABCLIA [id number] [place] [address] [place] Urinalysis complete panel (U )on 09-30-2024 Bacteria uL 7413.4 uL High - 941 uL [facility] Bilirubin Ql (U) Negative Negative [facility] Clarity (Unsp spec) Cloudy Abnormal Clear [facility] Color (U) Yellow Yellow [facility] Epithelial cells LM.HPF (Urine sed) [#/Area] Few /HPF [facility] Glucose Test strip (U) [Mass/Vol] Negative Negative [facility] Hemoglobin Ql (U) Negative Negative [facility] Hyaline casts (Urine sed) [#/Area] 4-10 /LPF Abnormal 0 /LPF [facility] Interpretation and review of laboratory results Abnormal [facility] Ketones Ql (U) Negative Negative [facility] Leukocyte esterase Test strip Ql (U) 2+ Abnormal Negative [facility] Nitrite Ql (U) Negative Negative [facility] pH (U) 6 [pH] NINF - 8.5 [facility] Protein (U) [Mass/Vol] Negative Negative [facility] RBC LM.HPF (Urine sed) [#/Area] 0-2 /HPF 0-2 /HPF [facility] Specific gravity (U) [Rel density] 1.017 1.005 - 1.030 [facility] Urobilinogen Ql (U) 0.2 EU/dL 0.2-1.0 EU/dL [facility] WBC LM.HPF (Urine sed) [#/Area] /[HPF] Abnormal 0-5 /HPF [facility] Rechecked by light microscopy Result rechecked This test was developed and its performance characteristics determined by [facility]'s [employer] [employer] [place] ([facility]). It has not been cleared or approved by the FDA. [facility] is regulated under CLIA as qualified to perform high-complexity testing. This test is used for clinical purposes. It should not be regarded as investigational or for research. [facility] BACTERIA UL 7413.4 uL High Negative [facility] Comment on above: Order Comment: Speci men Type: URINE SPECIMENOrdering Facility: [facility] Address: [address] [place] [address] Performed By: #### 2 4356-8 ####[facility] LABCLIA [id number] [address], [facility] [place] Bilirubin Ql (U) Negative Normal Negative [facility] Comment on above: Order Comment: Speci men Type: URINE SPECIMENOrdering Facility: [facility] Address: [address] [place] [address] Performed By: #### 2 4356-8 ####[facility] LABCLIA [id number] [address], [facility] [place] Clarity (Unsp spec) Cloudy Abnormal Clear [facility] Comment on above: Order Comment: Speci men Type: URINE SPECIMENOrdering Facility: [facility] Address: [address] [place] [address] Performed By: #### 2 4356-8 ####[facility] LABCLIA [id number] [address], [facility] [place] [facility] Color (U) Yellow Normal Yellow [facility] Comment on above: Order Comment: Speci men Type: URINE SPECIMENOrdering Facility: [facility] Address: [address] [place] [address] Performed By: #### 2 4356-8 ####[facility] LABCLIA [id number] [place] [id number] [place] Epithelial cells LM.HPF (Urine sed) [#/Area] Few Normal [facility] Comment on above: Order Comment: Speci men Type: URINE SPECIMENOrdering Facility: [facility] Address: [address] [place] [address] Performed By: #### 2 4356-8 ####[facility] LABCLIA [id number] [address], [facility] [place] Glucose Test strip (U) [Mass/Vol] Negative Normal Negative [facility] Comment on above: Order Comment: Speci men Type: URINE SPECIMENOrdering Facility: [facility] Address: [address] [place] [address] Performed By: #### 2 4356-8 ####[facility] LABCLIA [id number] [address] [place] [address] [place] Hemoglobin Ql (U) Negative Normal Negative [facility] Comment on above: Order Comment: Speci men Type: URINE SPECIMENOrdering Facility: [facility] Address: [address] [place] [address] Performed By: #### 2 4356-8 ####[facility] LABCLIA [id number] [place] [address] [place] Hyaline casts (Urine sed) [#/Area] 4-10 /LPF Abnormal 0 /LPF [facility] Comment on above: Order Comment: Speci men Type: URINE SPECIMENOrdering Facility: [facility] Address: [address] [place] [address] Performed By: #### 2 4356-8 ####[facility] LABCLIA [id number] [place] [address] [place] Ketones Ql (U) Negative Normal Negative [facility] Comment on above: Order Comment: Speci men Type: URINE SPECIMENOrdering Facility: [facility] Address: [address] [place] [address] Performed By: #### 2 4356-8 ####[facility] LABCLIA [id number] [place] [id number] [place] Leukocyte esterase Test strip Ql (U) 2+ Abnormal Negative [facility] Comment on above: Order Comment: Speci men Type: URINE SPECIMENOrdering Facility: [facility] Address: [address] [place] [address] Performed By: #### 2 4356-8 ####[facility] LABCLIA [id number] [place] [id number] [place] Nitrite Ql (U) Negative Normal Negative [facility] Comment on above: Order Comment: Speci men Type: URINE SPECIMENOrdering Facility: [facility] Address: [address] [place] [address] Performed By: #### 2 4356-8 ####[facility] LABIA [id number] [place] [id number] [place] pH (U) 6.0 [pH] Normal <8.5 [facility] Comment on above: Order Comment: Speci men Type: URINE SPECIMENOrdering Facility: [facility] Address: [address] [place] [address] Performed By: #### 2 4356-8 ####[facility] LABIA [id number] [place] [address] [place] Protein (U) [Mass/Vol] Negative Normal Negative [facility] Comment on above: Order Comment: Speci men Type: URINE SPECIMENOrdering Facility: [facility] Address: [address] [place] [address] Performed By: #### 2 4356-8 ####[facility] LABIA [id number] [place] [address] [place] RBC LM.HPF (Urine sed) [#/Area] 0-2 /HPF Normal 0-2 /HPF [facility] Comment on above: Order Comment: Speci men Type: URINE SPECIMENOrdering Facility: [facility] Address: [address] [place] [address] Performed By: #### 2 4356-8 ####[facility] LABIA [id number] [place] [id number] [place] Specific gravity (U) [Rel density] 1.017 Normal 1.005-1.030 [facility] Comment on above: Order Comment: Speci men Type: URINE SPECIMENOrdering Facility: [facility] Address: [address] [place] [address] Performed By: #### 2 4356-8 ####[facility] LABIA [id number] [place] [address] [place] Urobilinogen Ql (U) 0.2 EU/dL Normal 0.2-1.0 EU/dL [facility] Comment on above: Order Comment: Speci men Type: URINE SPECIMENOrdering Facility: [facility] Address: [address] [place] [address] Performed By: #### 2 4356-8 ####[facility] LABIA [id number] [place] [address] [place] WBC LM.HPF (Urine sed) [#/Area] /[HPF] Abnormal 0-5 /HPF [facility] Comment on above: Order Comment: Speci men Type: URINE SPECIMENOrdering Facility: [facility] Address: [address] [place] [address] Performed By: #### 2 4356-8 ####[facility] LABIA [id number] [address] [place] CNPNon 09-28-2024 CNPN Telephone (WSTR) RONALD HUTCHINS ([id number]) 1965 F Date Time Provider Department 09/28/24 BABS ARTHUR [facility] During your visit today, we recorded the following information about you: Brigitte Gonzales MA 09/28/2024 9:13 AM Signed Patient called in stating she is having increased pain in her ankles. She is currently using ice and ibuprofen with a small amount of relief. She is asking if there is something that can be prescribed to help with her pain? Confirmed [facility] in [place]. Babs Arthur PA-C 09/28/2024 2:13 PM Signed Please advise the patient her labs show several markers of autoimmune disease including lupus antibodies and rheumatoid antibodies. Kidney function labs are very mildly elevated. We can review in more detail at our visit. Feel free to offer sooner appointment if available. I need her to do a blood test and a urine test prior to starting the medication below. Please confirm she has no diagnosis of diabetes. If not, then we can prescribe a steroid trial (prednisone). 20 mg daily x 1 week, 10 mg daily x 1 week, then 5 mg daily x 1 week. 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 Vitamin D is also low. Have her start 1000 international unit(s) daily OTC. SAUMYA Rea Amy M, MA 09/28/2024 3:43 PM Signed I called and spoke with the patient. Message from provider given. The patient verbalized understanding and will have lab work completed tomorrow. No sooner appointments available before where patient is already scheduled on 10/14/2024. Patient was added to wait list for sooner appointment should one become available. Rosa Isela Gasca RN 09/29/2024 9:03 AM Signed Patient rescheduled for 09/30/24. Patient aware of urine and blood orders and to have them done. EMBER Everett Kaitlyn, PA-C 09/29/2024 2:29 PM Signed Prescription sent, but prefer labs and urine to be done prior to starting the med. 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 - hydrOXYchloroQUINE (PLAQUENIL) 200 mg tablet Take 1 tablet by mouth two times a day. - predniSONE (DELTASONE) 10 mg tablet Take 2 tablets by mouth once daily for 7 days, THEN 1 tablet once daily for 7 days, THEN 0.5 tablets once daily for 7 days. - tirzepatide, weight loss (ZEPBOUND) 10 mg/0.5 mL solution Inject 10 mg subcutaneously one time a week. - alendronate (FOSAMAX) 70 mg tablet Take 1 tablet by mouth one time a week. - cholecalciferol, Vitamin D3, (VITAMIN D3) 1,250 mcg (50,000 unit) cap capsule 1 cap(s) orally once a week for 56 days - escitalopram oxalate (LEXAPRO) 10 mg tablet Take 1 tablet by mouth once daily. - ibuprofen (MOTRIN) 800 mg tablet Take 1 tablet by mouth every 6 hours as needed. - AMLODIPINE BESYLATE (AMLODIPINE ORAL) Take 10 mg by mouth once daily. - levothyroxine (LEVOXYL) 100 mcg tablet Take 1 tablet by mouth once daily. Take on empty stomach. For Thyroid. - losartan 100 mg tablet Take 1 tablet by mouth once daily. Problem List As Of Date 09/28/2024 Noted Resolved HTN (hypertension) [I10] Anxiety [F41.9] Hypothyroidism [E03.9] Amblyopia of left eye [H53.002] 07/07/2013 OA (osteoarthritis) [M19.90] 07/07/2013 NO SHOW [304659] 08/03/2013 Routine gynecological examination [Z01.419] 11/08/2013 Dyslipidemia [E78.5] 11/08/2013 Morbid obesity (HCC) [E66.01] 11/08/2013 Pes planus of both feet [M21.41, M21.42] 01/25/2015 Prescriptions ordered this encounter Disp Refills Start End PREDNISONE 10 MG TABLET 25 t* 0 09/29/2024 09/30/2024 Route: PO Sig: Take 2 tablets by mouth once daily for 7 days, THEN 1 tablet once daily for 7 days, THEN 0.5 tablets once daily for 7 days. Encounter Status:Closed by BRIGITTE GONZALES on 10/13/24 Normal [facility] 25(OH)D3 SerPl-mCncon 2024 25-hydroxyvitamin D3 [Mass/Vol] 25.5 ng/mL Low 31.0-80.0 [facility] Comment on above: Order Comment: Speci men Type: BLOOD SPECIMENOrdering Facility: [facility] Address: [address] [place] [address] Result Comment: Clas sification of 25 [place] Vitamin D status: Deficiency/Insufficiency: < or = 30 ng/ml. Sufficiency/Optimal Levels: 31-80 ng/mL Toxicity: > 100 ng/mL. Test performed by chemiluminescent immunoassay. Performed By: #### 1 989-3 ####[facility] LABCLIA [id number] [place] [address] [place] 25-hydroxyvitamin D3 [Mass/V ol]on 09-23-2024 Interpretation and review of laboratory results Abnormal [facility] The reference range interval was based on an analysis of samples from healthy adults and may not pertain to children from 0-18 years old. [facility] UDAY BY IFA WITH REFLEXon UDAY PATTERN 2 Nuclear fine speckled Normal [facility] Comment on above: Order Comment: Terry forbes Type: BLOOD SPECIMENOrdering Facility: [facility] Address: [address] [place] [address] Performed By: #### 2 9374-6, 51977-5, 47053-8, 17802-9, 28325-2, 29996-5, 03395-7, 16195-8, 60476-3, ANAIFR ####[facility] LABIA [id number] [place] [address] [place] UDAY TITER 2 1:160 Normal [facility] Comment on above: Order Comment: Terry forbes Type: BLOOD SPECIMENOrdering Facility: [facility] Address: [address] [place] [address] Performed By: #### 2 9374-6, 48350-4, 48241-5, 64359-4, 84397-5, 33048-4, 32513-5, 05519-9, 13173-8, ANAIFR ####[facility] LABCLIA [id number] [place] [address] [place] Nuclear Ab pattern (S) [Interp] Cytoplasmic fine speckled Normal [facility] Comment on above: Order Comment: Speci men Type: BLOOD SPECIMENOrdering Facility: [facility] Address: [address] [place] [address] Performed By: #### 2 9374-6, 77526-3, 88110-3, 92792-8, 67342-7, 15435-3, 26551-7, 21230-8, 47828-2, ANAIFR ####[facility]ENTER[facility] [id number] [place] [address] [place] Nuclear Ab Ql (S) Positive Abnormal Negative [facility] Comment on above: Order Comment: Speci men Type: BLOOD SPECIMENOrdering Facility: [facility] Address: [address] [place] [address] Result Comment: Anti -nuclear antibody test is used as an aid in diagnosis of systemic autoimmune diseases. Where positive and clinically warranted, follow-up using disease-specific testing is recommended. Low positive titers are not uncommon with advanced age, certain chronic infections, and malignancies among others. Test methodology: Indirect fluorescence immunoassay (IFA) using HEp-2 cells. 1:1280 Performed By: #### 2 9374-6, 12144-7, 98096-3, 42226-8, 93326-2, 57223-0, 04976-0, 85279-2, 93066-1, ANAIFR ####[facility] LABIA [id number] [address] [address] [place] CBC W Auto Differential pane l (Bld)on 09-23-2024 Basophils (Bld) [#/Vol] 0.03 10*3/uL [facility] Basophils/100 WBC (Bld) 0.4 % C [facility] Differential cell count method Nom (Bld) Auto [facility] Eosinophils (Bld) [#/Vol] 0.74 10*3/uL High [facility] Eosinophils/100 WBC (Bld) 10.3 % [facility] Erythrocyte distribution width (RBC) [Ratio] 14.6 % 11.5 - 15.0 % [facility] Hematocrit (Bld) [Volume fraction] 37.4 % 36.0 - 46.0 % [facility] Hemoglobin (Bld) [Mass/Vol] 12.1 g/dL 11.5 - 15.5 g/dL [facility] Immature granulocytes (Bld) [#/Vol] [facility] Immature granulocytes/100 WBC (Bld) 0 % [facility] Interpretation and review of laboratory results Abnormal [facility] Lymphocytes (Bld) [#/Vol] 2.43 10*3/uL [facility] Lymphocytes/100 WBC (Bld) 33.9 % [facility] MCH (RBC) [Entitic mass] 29.7 pg 26. 0 - 34.0 pg [facility] MCHC (RBC) [Mass/Vol] 32.4 g/dL 30.5 - 36.0 g/dL [facility] MCV (RBC) [Entitic vol] 91.9 fL 80.0 - 100.0 fL [facility] Monocytes (Bld) [#/Vol] 0.72 10*3/uL [facility] Monocytes/100 WBC (Bld) 10.1 % [facility] Neutrophils (Bld) [#/Vol] 3.24 10*3/uL [facility] Neutrophils/100 WBC (Bld) 45.3 % [facility] Nucleated RBC (Bld) [#/Vol] [facility] Nucleated RBC/100 WBC (Bld) [Ratio] 0 % /100 WBC [facility] Platelet mean volume (Bld) [Entitic vol] 9.9 fL 9.0 - 12.7 fL [facility] Platelets (Bld) [#/Vol] 290 10*3/uL [facility] RBC (Bld) [#/Vol] 4.07 10*6/uL 3.90 - 5.2 0 m/uL [facility] WBC (Bld) [#/Vol] 7.16 10*3/uL [facility] Basophils (Bld) [#/Vol] 0.03 10*3/uL Normal <0.11 [facility] Comment on above: Order Comment: Speci men Type: BLOOD SPECIMENOrdering Facility: [facility] Address: [address] [place] [address] Performed By: #### 5 7021-8 ####[facility] ERWRILIA [id number] [place] [address] [place] Basophils/100 WBC (Bld) 0.4 % Normal [facility] Comment on above: Order Comment: Speci men Type: BLOOD SPECIMENOrdering Facility: [facility] Address: [address] [place] [address] Performed By: #### 5 7021-8 ####[facility] ERA [id number] [place] [address] [place] Differential cell count method Nom (Bld) Auto Normal [facility] Comment on above: Order Comment: Speci men Type: BLOOD SPECIMENOrdering Facility: [facility] Address: [address] [place] [address] Performed By: #### 5 7021-8 ####[facility] CENTERLIA [id number] [place] [address] [place] Eosinophils (Bld) [#/Vol] 0.74 10*3/uL High <0.46 [facility] Comment on above: Order Comment: Speci men Type: BLOOD SPECIMENOrdering Facility: [facility] Address: [address] [place] [address] Performed By: #### 5 7021-8 ####[facility] [id number] [place] [address] [place] Eosinophils/100 WBC (Bld) 10.3 % Normal [facility] Comment on above: Order Comment: Speci men Type: BLOOD SPECIMENOrdering Facility: [facility] Address: [address] [place] [address] Performed By: #### 5 7021-8 ####[facility] ARMANDONCMARY KAY [id number] [place] [address] [place] Erythrocyte distribution width (RBC) [Ratio] 14.6 % Normal 11.5-15.0 [facility] Comment on above: Order Comment: Speci men Type: BLOOD SPECIMENOrdering Facility: [facility] Address: [address] [place] [address] Performed By: #### 5 7021-8 ####[facility] [id number] [place] [address] [place] Hematocrit (Bld) [Volume fraction] 37.4 % Normal 36.0-46.0 [facility] Comment on above: Order Comment: Speci men Type: BLOOD SPECIMENOrdering Facility: [facility] Address: [address] [place] [address] Performed By: #### 5 7021-8 ####[facility] CENTERLIA [id number] [place] [address] [place] Hemoglobin (Bld) [Mass/Vol] 12.1 g/dL Normal 11.5-15.5 [facility] Comment on above: Order Comment: Speci men Type: BLOOD SPECIMENOrdering Facility: [facility] Address: [address] [place] [address] Performed By: #### 5 7021-8 ####[facility] [id number] [place] [address] [place] Immature granulocytes (Bld) [#/Vol] 10*3/uL Normal <0.10 [facility] Comment on above: Order Comment: Speci men Type: BLOOD SPECIMENOrdering Facility: [facility] Address: [address] [place] [address] Performed By: #### 5 7021-8 ####[facility] MARITADYSARTAUGUSTUSLIA [id number] [address] [place] [facility] Immature granulocytes/100 WBC (Bld) 0.0 % Normal [facility] Comment on above: Order Comment: Speci men Type: BLOOD SPECIMENOrdering Facility: [facility] Address: [address] [place] [address] Performed By: #### 5 7021-8 ####[facility] ERA [id number] [place] [address] [place] Lymphocytes (Bld) [#/Vol] 2.43 10*3/uL Normal 1.00-4.00 [facility] Comment on above: Order Comment: Speci men Type: BLOOD SPECIMENOrdering Facility: [facility] Address: [address] [place] [address] Performed By: #### 5 7021-8 ####[facility] [id number] [place] [address] [place] Lymphocytes/100 WBC (Bld) 33.9 % Normal [facility] Comment on above: Order Comment: Speci men Type: BLOOD SPECIMENOrdering Facility: [facility] Address: [address] [place] [address] Performed By: #### 5 7021-8 ####[facility] CENTERLIA [id number] [place] [address] [place] MCH (RBC) [Entitic mass] 29.7 pg Normal 26.0-34.0 [facility] Comment on above: Order Comment: Speci men Type: BLOOD SPECIMENOrdering Facility: [facility] Address: [address] [place] [address] Performed By: #### 5 7021-8 ####[facility] [id number] [place] [address] [place] MCHC (RBC) [Mass/Vol] 32.4 g/dL Normal 30.5-36.0 [facility] Comment on above: Order Comment: Speci men Type: BLOOD SPECIMENOrdering Facility: [facility] Address: [address] [place] [address] Performed By: #### 5 7021-8 ####[facility] MARITADYSARTAUGUSTUSLIA [id number] [place] [address] [place] MCV (RBC) [Entitic vol] 91.9 fL Normal 80.0-100.0 [facility] Comment on above: Order Comment: Speci men Type: BLOOD SPECIMENOrdering Facility: [facility] Address: [address] [place] [address] Performed By: #### 5 7021-8 ####[facility] WALESNCATIFA [id number] [place] [address] [place] Monocytes (Bld) [#/Vol] 0.72 10*3/uL Normal <0.87 [facility] Comment on above: Order Comment: Speci men Type: BLOOD SPECIMENOrdering Facility: [facility] Address: [address] [place] [address] Performed By: #### 5 7021-8 ####[facility]ESAUGUSTUSLIA [id number] [place] [address] [place] Monocytes/100 WBC (Bld) 10.1 % Normal [facility] Comment on above: Order Comment: Speci men Type: BLOOD SPECIMENOrdering Facility: [facility] Address: [address] [place] [address] Performed By: #### 5 7021-8 ####[facility]CL[facility] [id number] [place] [address] [place] Neutrophils (Bld) [#/Vol] 3.24 10*3/uL Normal 1.45-7.50 [facility] Comment on above: Order Comment: Speci men Type: BLOOD SPECIMENOrdering Facility: [facility] Address: [address] [place] [address] Performed By: #### 5 7021-8 ####[facility] [id number] [place] [address] [place] Neutrophils/100 WBC (Bld) 45.3 % Normal [facility] Comment on above: Order Comment: Speci men Type: BLOOD SPECIMENOrdering Facility: [facility] Address: [address] [place] [address] Performed By: #### 5 7021-8 ####[facility] [id number] [place] [address] [place] Nucleated RBC (Bld) [#/Vol] 10*3/uL Normal <0.01 [facility] Comment on above: Order Comment: Speci men Type: BLOOD SPECIMENOrdering Facility: [facility] Address: [address] [place] [address] Performed By: #### 5 7021-8 ####[facility] [id number] [place] [address] [place] Nucleated RBC/100 WBC (Bld) [Ratio] 0.0 /100 WBC Normal [facility] Comment on above: Order Comment: Speci men Type: BLOOD SPECIMENOrdering Facility: [facility] Address: [address] [place] [address] Performed By: #### 5 7021-8 ####[facility] [id number] [place] [address] [place] Platelet mean volume (Bld) [Entitic vol] 9.9 fL Normal 9.0-12.7 [facility] Comment on above: Order Comment: Speci men Type: BLOOD SPECIMENOrdering Facility: [facility] Address: [address] [place] [address] Performed By: #### 5 7021-8 ####[facility] TRANGWNCLIA [id number] [place] [address] [place] Platelets (Bld) [#/Vol] 290 10*3/uL Normal 150-400 [facility] Comment on above: Order Comment: Speci men Type: BLOOD SPECIMENOrdering Facility: [facility] Address: [address] [place], [place] [address] [id number] Performed By: #### 5 7021-8 ####[facility] [id number] [address] RBC (Bld) [#/Vol] 4.07 10*6/uL Normal 3.90-5.20 [facility] Comment on above: Order Comment: Speci men Type: BLOOD SPECIMENOrdering Facility: [facility] Address: [address] [place], [place] [address] Performed By: #### 5 7021-8 ####[facility] [id number] [place] [address] [place] [facility] [place] WBC (Bld) [#/Vol] 7.16 10*3/uL Normal 3.70-11.00 [facility] Comment on above: Order Comment: Speci men Type: BLOOD SPECIMENOrdering Facility: [facility] Address: [address] [place], [place] [address] Performed By: #### 5 7021-8 ####[facility] [id number] [address] [place] CNOVon 09-23-2024 CNOV Office Visit (WSTR ) RONALD HUTCHINS ([id number]) 1965 F Date Time Provider Department 09/23/24 9:00 AM BABS ARTHUR During your visit today, we recorded the following information about you: Pulse Blood pressure Weight Height 96/minute 134/86 148.9 kg 1.651 mo Babs Arthur PA-C 09/23/2024 4:34 PM Signed Rheumatology CONSULTATION Date of Service: 09/23/2024 Patient: Ronald Hutchins Medical Record: [id number] Primary Care Physician: Arun Stringer DO Last Rheumatology visit: None at [facility] Referring Provider: Dr. Genao Ronald Hutchins is here today at request of Dr. Genao specifically for consultation of my opinion in regards to the chief complaint listed below. Correspondence will be shared today via the [employer] electronic health record or through regular mail, where applicable. Recording using adRise software for draft documentation of the visit was discussed with the patient/authorized employer relations representative; all questions welcomed and answered. Patient/authorized employer relations representative agreed to proceed History of Present Illness Ronald Hutchins is a 59-year-old female with a history of osteoarthritis, presenting for evaluation of joint pain. Ronald reports a current pain level of 6 . She describes the pain as Sharp. The pain is Intermittent, and has lasted for 1 Years. Interventions tried include Medication (voltaren gel). She is currently taking ibuprofen. Ronald reports worsening joint pain over the past year, primarily affecting the right ankle, both elbows, and left knee. She describes the right ankle pain as sharp and intermittent, occurring in the mornings, while driving, and during ambulation. The pain began approximately one year ago and is associated with mild swelling. She uses diclofenac gel and 400 mg of ibuprofen as needed for pain relief, which provides temporary relief. She notes that the pain in her right ankle has worsened recently, causing significant stiffness and difficulty ambulating yesterday. She also experiences pain in both elbows, particularly when bending or reaching, such as when putting dishes away. The pain is alleviated temporarily by applying diclofenac gel. Additionally, she reports pain in her left knee, which was replaced in 2019 at [facility]. The right knee, also replaced, feels normal without pain. Ronald experiences morning stiffness lasting approximately one hour, which improves with a shower and movement. Stiffness and pain worsen with prolonged sitting and activity. She also reports occasional paresthesia in her feet during sleep, but denies being diabetic. She denies oral or nasal ulcers, photosensitivity, history of blood clots, Raynaud's phenomenon, unexplained fevers, ocular pain, dry mouth, dyspnea, cough, diarrhea, constipation, back pain, psoriasis, or unintentional weight loss. She notes dry eyes, particularly in the left eye, and plans to schedule an ophthalmology appointment. She denies any family history of rheumatoid arthritis, lupus, Crohn's disease, ulcerative colitis, or psoriasis. Her current medications include losartan, amlodipine, Fosamax, and vitamin D 5000 IU daily. She recently resumed Lexapro after a period of discontinuation due to a lost bottle. She discontinued meloxicam due to concerns about potential renal effects. She denies use of diazepam or hydrochlorothiazide. She is a nonsmoker and denies alcohol or drug use. She is with two adult daughters, one in the and the other studying to be a psychiatrist. 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 She has a history of two first-trimester miscarriages but subsequently had two normal pregnancies. HPI per me: Had arthritis in ankles Had knees replaced, L knee still hurts, R knee feels normal. In the morning she gets a sharp pain when she get's up. 1 year ago she first noticed her R ankle pain. Swelled a little bit. She takes ibuprofen 800 mg The pain limits her ability to get around She also has pain in bilateral elbows. Worse with flexion while doing dishes Voltaren gel helps some. AM Stiffness: 1 hour Pain worsened with activity. Pain Evaluation 09/27/2014 12/01/2014 01/25/2015 09/26/2021 09/23/2024 Pain Evaluation Pain Score 9 8 9 7 6 Location Other: See Comment Knee-Left Foot-Right Toe -- Location Comment bilateral knees right ankle, left knee and bilateral elbows Description Aching Aching;Throbbing Burning;Sore;Stabbing; Sharp Stabbing Sharp Duration (#) 1 3 5 1 1 Duration (Timeframe) Months Months Months Years Years Frequency Continuous Intermittent Intermittent Intervention Medication Medication Reposition;Relaxation Medication Patient-Entered Data None to review Review of Systems Review of Systems CONSTITUTION: Negative for: Fever and Recent weight change HEENT: Negative for: Nosebleeds, Mouth sores, Trouble swallowing (more content not included)... Normal [facility] CRP SerPl-mCncon 09-23-2024 CRP [Mass/Vol] 0.6 mg/dL Normal <0.9 [facility] Comment on above: Order Comment: Speci men Type: BLOOD SPECIMENOrdering Facility: [facility] Address: [address] [place] [address] Performed By: #### 1 988-5, 55587-7 ####[facility] LABCLIA [id number] [place] [address] [place] Calcium.ionized [Moles/Vol]o n 09-23-2024 Calcium.ionized (Bld) [Mass/Vol] 1.24 mmol/L 1.08 - 1.30 mmol/L [facility] Calcium.ionized adjusted to pH 7.4 (Bld) [Moles/Vol] 1.21 mmol/L 1.08 - 1.30 mmol/L [facility] Interpretation and review of laboratory results Normal [facility] Calcium.ionized (Bld) [Mass/Vol] 1.24 mmol/L Normal 1.08-1.30 [facility] Comment on above: Order Comment: Speci men Type: BLOOD SPECIMENOrdering Facility: [facility] Address: [address] [place] [address] Performed By: #### 1 995-0 ####[facility] LABCLIA [id number] [address] [place] Calcium.ionized adjusted to pH 7.4 (Bld) [Moles/Vol] 1.21 mmol/L Normal 1.08-1.30 [facility] Comment on above: Order Comment: Speci men Type: BLOOD SPECIMENOrdering Facility: [facility] Address: [address] [place] [address] Performed By: #### 1 995-0 ####[facility] LABCLIA [id number] [address] [place] Centromere Ab IF Ql (S)on Centromere Ab Qn (S) <0.2 Normal <1.0 [facility] Comment on above: Order Comment: Terry forbes Type: BLOOD SPECIMENOrdering Facility: [facility] Address: [address] [place] [address] Result Comment: Anti -centromere antibody is used as in aid in diagnosis of systemic sclerosis. Clinical correlation is required. Test Methodology: Multiplex flow immunoassay. Performed By: #### 2 9374-6, 69124-9, 22993-0, 33744-7, 32137-5, 09416-9, 15956-4, 55641-1, 82959-4, ANAIFR ####[facility] LABCLIA [id number] [address] STATES [facility] CENTROMERE AB QUAL Negative Normal Negative [facility] Comment on above: Order Comment: Terry forbes Type: BLOOD SPECIMENOrdering Facility: [facility] Address: [address] [place] [address] Performed By: #### 2 9374-6, 94948-8, 45762-2, 38599-9, 45651-3, 10700-4, 38828-8, 72431-2, 61422-3, ANAIFR ####[facility] LABCLIA [id number] [place] [id number] [place] Chromatin Ab Qnon 09-23-2024 CHROMATIN AB QUAL Negative Normal Negative [facility] Comment on above: Order Comment: Speci andrei Type: BLOOD SPECIMENOrdering Facility: [facility] Address: [address] [place] [address] Performed By: #### 2 9374-6, 49831-4, 86837-3, 38987-9, 16677-4, 17195-5, 37118-3, 51154-4, 77196-8, ANAIFR ####[facility] LABCLIA [id number] [address] [address] [place] Chromatin Ab SerPl-aCncon Chromatin Ab Qn 0.4 AI Normal <1.0 [facility] Comment on above: Order Comment: Speci men Type: BLOOD SPECIMENOrdering Facility: [facility] Address: [address] [place] [address] Result Comment: Test Methodology: Multiplex flow immunoassay. Performed By: #### 2 9374-6, 60219-0, 69958-2, 44375-9, 16697-1, 29849-1, 86563-9, 58952-9, 61759-7, ANAIFR ####[facility] LABCLIA [id number] [address] Comprehensive metabolic 2000 panelon 09-23-2024 Albumin [Mass/Vol] 3.8 g/dL Low 3.9 - 4.9 g/dL [facility] ALP [Catalytic activity/Vol] 83 U/L 34 - 123 U/L [facility] ALT [Catalytic activity/Vol] 10 U/L 7 - 38 U/L [facility] Anion gap [Moles/Vol] 16 mmol/L High 8 - 15 mmol/L [facility] AST [Catalytic activity/Vol] 15 U/L 13 - 35 U/L [facility] Bilirubin [Mass/Vol] 0.3 mg/dL 0.2 - 1 .3 mg/dL [facility] Calcium [Mass/Vol] 8.8 mg/dL 8.5 - 10. 2 mg/dL [facility] Chloride [Moles/Vol] 104 mmol/L 98 - 10 7 mmol/L [facility] CO2 [Moles/Vol] 19 mmol/L Low 22 - 30 mmol/L [facility] Creatinine [Mass/Vol] 1.01 mg/dL High 0.58 - 0.96 mg/dL [facility] GFR/1.73 sq M.predicted among non-blacks MDRD (S/P/Bld) [Vol rate/Area] 63 mL/min/{1.73_m2} - PINF [facility] Comment on above: Estimated Glomerular Filtration Rate (eGFR) is calculated using the 2020 CKD-EPI creatinine equation. This equation utilizes serum creatinine, sex, and age as parameters. The creatinine assay has traceable calibration to isotope dilution-mass spectrometry. Refer to KDIGO guidelines for clinical interpretation. In patients with unstable renal function, e.g. those with acute kidney injury, the eGFR may not accurately reflect actual GFR. Glucose [Mass/Vol] 94 mg/dL 74 - 99 mg/dL [facility] Comment on above: The [place] Di[employer] Association (ADA) provides guidance for cutoff values for fasting glucose and random glucose. The ADA defines fasting as no caloric intake for at least 8 hours. Fasting plasma glucose results between 100 to 125 mg/dL indicate increased risk for diabetes (prediabetes). Fasting plasma glucose results greater than or equal to 126 mg/dL meet the criteria for diagnosis of diabetes. In the absence of unequivocal hyperglycemia, results should be confirmed by repeat testing. In a patient with classic symptoms of hyperglycemia or hyperglycemic crisis, random plasma glucose results greater than or equal to 200 mg/dL meet the criteria for diagnosis of diabetes. Reference: Standards of Medical Care in Diabetes 2016, [place] [employer]. Diabetes Care. 2016.39(Suppl 1). Potassium [Moles/Vol] 3.9 mmol/L 3.7 - 5.1 mmol/L [facility] Protein [Mass/Vol] 7.7 g/dL 6.3 - 8.0 g/dL [facility] Sodium [Moles/Vol] 139 mmol/L 136 - 144 mmol/L [facility] Urea nitrogen [Mass/Vol] 18 mg/dL 7 - 21 mg/d L [facility] Albumin [Mass/Vol] 3.8 g/dL Low 3.9-4.9 [facility] Comment on above: Order Comment: Abbiei andrei Type: BLOOD SPECIMENOrdering Facility: [facility] Address: [address] [place] [address] Performed By: #### 2 4323-8, 3083-04 ####[facility] [id number] [place] [address] [place] ALP [Catalytic activity/Vol] 83 U/L Normal 34-123 [facility] Comment on above: Order Comment: Abbiei men Type: BLOOD SPECIMENOrdering Facility: [facility] Address: [address] [place] [address] Performed By: #### 2 4323-8, 3083-04 ####[facility] JOSHUA MILLTOWNCLIA [id number] [place] [address] [place] ALT [Catalytic activity/Vol] 10 U/L Normal 7-38 [facility] Comment on above: Order Comment: Speci men Type: BLOOD SPECIMENOrdering Facility: [facility] Address: [address] [place] [address] Performed By: #### 2 4323-8, 3083-04 ####[facility] MILLTOWNCLIA [id number] [place] [address] [place] Anion gap [Moles/Vol] 16 mmol/L High 8-15 [facility] Comment on above: Order Comment: Speci men Type: BLOOD SPECIMENOrdering Facility: [facility] Address: [address] [place] [address] Performed By: #### 2 4328, 3083-04 ####[facility]ENTER[facility] [id number] [place] [address] [place] AST [Catalytic activity/Vol] 15 U/L Normal 13-35 [facility] Comment on above: Order Comment: Speci men Type: BLOOD SPECIMENOrdering Facility: [facility] Address: [address] [place] [address] Performed By: #### 2 4323-8, 3083-04 ####[facility] MILLTOWNCLIA [id number] [place] [address] [place] Bilirubin [Mass/Vol] 0.3 mg/dL Normal 0.2-1.3 [facility] Comment on above: Order Comment: Speci men Type: BLOOD SPECIMENOrdering Facility: [facility] Address: [address] [place] [address] Performed By: #### 2 4323-8, 3083-04 ####[facility] MILLDYSARTAUGUSTUSLIA [id number] [place] [address] [place] Calcium [Mass/Vol] 8.8 mg/dL Normal 8.5-10.2 [facility] Comment on above: Order Comment: Speci men Type: BLOOD SPECIMENOrdering Facility: [facility] Address: [address] [place] [address] Performed By: #### 2 4323-8, 3084-1 ####[facility] MILLWJESSENIAA [id number] [place] [address] [place] Chloride [Moles/Vol] 104 mmol/L Normal 98-107 [facility] Comment on above: Order Comment: Speci men Type: BLOOD SPECIMENOrdering Facility: [facility] Address: [address] [place] [address] Performed By: #### 2 4323-8, 308-1 ####[facility] [id number] [place] [address] [place] CO2 [Moles/Vol] 19 mmol/L Low 22-30 [facility] Comment on above: Order Comment: Speci men Type: BLOOD SPECIMENOrdering Facility: [facility] Address: [address] [place] [address] Performed By: #### 2 4323-8, 3083-1 ####[facility] ERWAUGUSTUSLIA [id number] [place] [address] [place] Creatinine [Mass/Vol] 1.01 mg/dL High 0.58-0.96 [facility] Comment on above: Order Comment: Speci men Type: BLOOD SPECIMENOrdering Facility: [facility] Address: [address] [place] [address] Performed By: #### 2 4323-8, 3084-1 ####[facility] MILLWNCLIA [id number] [place] [address] [place] Creatinine and Glomerular filtration rate.predicted panel (S/P/Bld) 63 mL/min/1.73m??? Normal >=60 [facility] Comment on above: Order Comment: Terry forbes Type: BLOOD SPECIMENOrdering Facility: [facility] Address: [address] [place] [address] Result Comment: Iad mated Glomerular Filtration Rate (eGFR) is calculated using the 2020 CKD-EPI creatinine equation. This equation utilizes serum creatinine, sex, and age as parameters. The creatinine assay has traceable calibration to isotope dilution-mass spectrometry. Refer to KDIGO guidelines for clinical interpretation. In patients with unstable renal function, e.g. those with acute kidney injury, the eGFR may not accurately reflect actual GFR. Performed By: #### 2 4323-8, 308-1 ####[facility] [id number] [place] [address] [place] Glucose [Mass/Vol] 94 mg/dL Normal 74-99 [facility] Comment on above: Order Comment: Terry forbes Type: BLOOD SPECIMENOrdering Facility: [facility] Address: [address] [place] [address] Result Comment: The [place] Diabetes Association (ADA) provides guidance for cutoff values for fasting glucose and random glucose. The ADA defines fasting as no caloric intake for at least 8 hours. Fasting plasma glucose results between 100 to 125 mg/dL indicate increased risk for diabetes (prediabetes). Fasting plasma glucose results greater than or equal to 126 mg/dL meet the criteria for diagnosis of diabetes. In the absence of unequivocal hyperglycemia, results should be confirmed by repeat testing. In a patient with classic symptoms of hyperglycemia or hyperglycemic crisis, random plasma glucose results greater than or equal to 200 mg/dL meet the criteria for diagnosis of diabetes. Reference: Standards of Medical Care in Diabetes 2016, [place] [employer]. Diabetes Care. 2016.39(Suppl 1). Performed By: #### 2 4323-8, 308-1 ####[facility] [id number] [place] [address] [place] Potassium [Moles/Vol] 3.9 mmol/L Normal 3.7-5.1 [facility] Comment on above: Order Comment: Speci men Type: BLOOD SPECIMENOrdering Facility: [facility] Address: [address] [place] [address] Performed By: #### 2 4323-8, 3083- ####[facility] ARMANDONCATIFA [id number] [place] [address] [place] Protein [Mass/Vol] 7.7 g/dL Normal 6.3-8.0 [facility] Comment on above: Order Comment: Speci men Type: BLOOD SPECIMENOrdering Facility: [facility] Address: [address] [place] [address] Performed By: #### 2 4323-8, 3083-04 ####[facility] [id number] [place] [address] [place] Sodium [Moles/Vol] 139 mmol/L Normal 136-144 [facility] Comment on above: Order Comment: Speci men Type: BLOOD SPECIMENOrdering Facility: [facility] Address: [address] [place] [address] Performed By: #### 2 4323-8, 3083-04 ####[facility] [id number] [place] [address] [place] Urea nitrogen [Mass/Vol] 18 mg/dL Normal 7-21 [facility] Comment on above: Order Comment: Speci men Type: BLOOD SPECIMENOrdering Facility: [facility] Address: [address] [place] [address] Performed By: #### 2 4323-8, 3083-04 ####[facility]CL[facility] [id number] [place] [address] [place] Cyclic citrullinated peptide IgG Qnon 09-23-2024 CCP ANTIBODY IGG QUALITATIVE Positive Abnormal Negative [facility] Comment on above: Order Comment: Speci men Type: BLOOD SPECIMENOrdering Facility: [facility] Address: [address] [place] [address] Performed By: #### 3 3935-8 ####[facility] LABIA [id number] [place] [address] [place] DNA double strand Ab IA Qn ( S)on 09-23-2024 DNA ANTIBODY 61 IU/mL Normal <=200 [facility] Comment on above: Order Comment: Speci men Type: BLOOD SPECIMENOrdering Facility: [facility] Address: [address] [place] [address] Result Comment: Nega tive: <200 IU/mL Equivocal: 201-300 IU/mL Moderate Positive: 301-800 IU/mL Strong Positive: >801 IU/mL Performed By: #### 2 9374-6, 80635-0, 98789-5, 46402-7, 15060-3, 54852-0, 74931-1, 50071-6, 42058-4, ANAIFR ####[facility] [id number] [place] [address] [place] DNA ANTIBODY QUALITATIVE INTERPRETATION Negative Normal Negative [facility] Comment on above: Order Comment: Speci men Type: BLOOD SPECIMENOrdering Facility: [facility] Address: [address] [place] [address] Performed By: #### 2 9374-6, 77219-1, 55151-2, 73273-9, 23936-8, 73116-5, 65384-4, 89675-2, 12434-2, ANAIFR ####[facility] LABIA [id number] [place] [address] [place] SARAH Jo1 Ab Ser-aCncon 2024 Shivani-1 extractable nuclear Ab Qn (S) <0.2 Normal <1.0 [facility] Comment on above: Order Comment: Speci men Type: BLOOD SPECIMENOrdering Facility: [facility] Address: [address] [place] [address] Performed By: #### 2 9374-6, 31494-4, 86641-3, 37283-6, 02892-2, 93945-7, 88015-0, 40570-9, 79699-8, ANAIFR ####[facility] LABIA [id number] [place] [address] [place] SARAH REPORT MANAGER Ab Ser-aCncon 2024 Ribonucleoprotein extractable nuclear Ab Qn (S) <0.2 Normal <1.0 [facility] Comment on above: Order Comment: Speci men Type: BLOOD SPECIMENOrdering Facility: [facility] Address: [address] [place] [address] Performed By: #### 2 9374-6, 34778-3, 33810-3, 53811-1, 19989-1, 34846-9, 31920-8, 62581-3, 34525-0, ANAIFR ####[facility] [id number] [place] [address] [place] Ribonucleoprotein extractable nuclear Ab Qn (S) 0.3 AI Normal <1.0 [facility] Comment on above: Order Comment: Speci men Type: BLOOD SPECIMENOrdering Facility: [facility] Address: [address] [place] [address] Performed By: #### 2 9374-6, 56435-2, 51326-5, 42632-6, 85124-8, 36927-4, 15858-3, 05507-9, 64703-8, ANAIFR ####[facility] [id number] [place] [address] [place] SARAH SM IgG Ser-aCncon 2024 Estrella extractable nuclear IgG Qn (S) <0.2 Normal <1.0 [facility] Comment on above: Order Comment: Speci men Type: BLOOD SPECIMENOrdering Facility: [facility] Address: [address] [place] [address] Performed By: #### 2 9374-6, 94984-1, 96035-2, 39317-5, 54228-1, 92268-5, 26050-4, 26556-0, 34379-3, ANAIFR ####[facility] LABCLIA [id number] [address] [place] SARAH SS-A Ab Ser-aCncon 09-23 Sjogrens syndrome-A extractable nuclear Ab Qn (S) 0.3 AI Normal <1.0 [facility] Comment on above: Order Comment: Speci men Type: BLOOD SPECIMENOrdering Facility: [facility] Address: [address] [place] [address] Result Comment: Test Methodology: Multiplex flow immunoassay. Performed By: #### 2 9374-6, 95673-6, 98589-2, 94795-7, 60877-9, 44573-7, 38041-4, 69987-9, 78831-9, ANAIFR ####[facility] LABCLIA [id number] [address] [place] SARAH SS-B Ab Ser-aCncon 09-23 Sjogrens syndrome-B extractable nuclear Ab Qn (S) <0.2 Normal <1.0 [facility] Comment on above: Order Comment: Speci men Type: BLOOD SPECIMENOrdering Facility: [facility] Address: [address] [place] [address] Result Comment: Anti -SSB (anti-La) antibody is used as an aid in diagnosis of a variety of systemic autoimmune diseases, especially for Sjogren's syndrome and systemic lupus erythematosus. Clinical correlation is required. Test Methodology: Multiplex flow immunoassay. Performed By: #### 2 9374-6, 29041-1, 62527-3, 09183-1, 97685-3, 80047-6, 02755-6, 18920-8, 98881-1, ANAIFR ####[facility] LABCLIA [id number] [place] [address] [place] ESR Westergren method (Bld) [Velocity]on 09-23-2024 ESR (Bld) [Velocity] 69 mm/h High [facility] Interpretation and review of laboratory results Abnormal [facility] ESR (Bld) [Velocity] 69 mm/h High 0-20 [facility] Comment on above: Order Comment: Speci men Type: BLOOD SPECIMENOrdering Facility: [facility] Address: [address] [place] [address] Performed By: #### 4 537-7 ####[facility] LABIA [id number] [place] [address] [place] Shivani-1 extractable nuclear Ab Qn (S)on 09-23-2024 SHIVANI 1 ANTIBODY QUAL Negative Normal Negative [facility] Comment on above: Order Comment: Speci men Type: BLOOD SPECIMENOrdering Facility: [facility] Address: [address] [place] [address] Result Comment: Anti -SHIVANI-1 antibody is used as an aid in diagnosis of polymyositis and dermatomyositis especially with pulmonary involvement. A negative result cannot rule out polymyositis or dermatomyositis. Clinical correlation is required. Test Methodology: Multiplex flow immunoassay. Performed By: #### 2 9374-6, 25298-7, 92847-8, 00242-9, 46359-0, 88346-2, 98799-4, 88403-9, 51182-5, ANAIFR ####[facility] LABCLIA [id number] [place] [address] [place] No Panel InformationOrdered By: Isatu Arenas on 09-23-2024 Interpretation and review of laboratory results Abnormal [facility] Rheumatoid fact SerPl-aCncon 09-23-2024 Rheumatoid factor Qn [IU]/mL High <16 [facility] Comment on above: Order Comment: Speci men Type: BLOOD SPECIMENOrdering Facility: [facility] Address: [address] [place] [address] Performed By: #### 1 988-5, 60307-8 ####[facility] LABCLIA [id number] [place] [address] [place] Ribonucleoprotein extractabl e nuclear Ab Qn (S)on 09-23-2024 ANTI-REPORT MANAGER QUAL Negative Normal Negative [facility] Comment on above: Order Comment: Speci men Type: BLOOD SPECIMENOrdering Facility: [facility] Address: [address] [place] [address] Performed By: #### 2 9374-6, 63155-9, 05786-7, 68407-8, 78631-9, 03897-1, 19376-9, 89075-0, 42133-6, ANAIFR ####[facility] LABIA [id number] [place] [address] [place] RIBOSOMAL REPORT MANAGER QUAL Negative Normal Negative [facility] Comment on above: Order Comment: Speci andrei Type: BLOOD SPECIMENOrdering Facility: [facility] Address: [address] [place] [address] Result Comment: Anti -Ribosomal RNA (Ribosomal P) antibody is used as an aid in diagnosis of systemic autoimmune diseases especially systemic lupus erythematosus and mixed connective tissue disease. Cross-reactivity with Anti-estrella antibody is not uncommon. Clinical correlation is required. Test Methodology: Multiplex flow immunoassay. Performed By: #### 2 9374-6, 62169-0, 49410-9, 87114-9, 25345-7, 24149-3, 60974-3, 55703-1, 19080-1, ANAIFR ####[facility] LABIA [id number] [place] [id number] [place] SCL-70 extractable nuclear I gG IA Qn (S)on 09-23-2024 SCLERODERMA AB QUAL Negative Normal Negative [facility] Comment on above: Order Comment: Speci men Type: BLOOD SPECIMENOrdering Facility: [facility] Address: [address] [place] [address] Performed By: #### 2 9374-6, 31144-4, 42877-9, 86834-9, 20427-5, 39639-9, 87458-8, 99662-8, 21524-7, ANAIFR ####[facility] LABIA [id number] [place] [address] [place] SCLERODERMA IGG AB <0.2 Normal <1.0 [facility] Comment on above: Order Comment: Speci men Type: BLOOD SPECIMENOrdering Facility: [facility] Address: [address] [place] [address] Result Comment: Scl- 70/Scleroderma antibody test is used as an aid in diagnosis of systemic sclerosis especially the diffuse cutaneous form. A negative result cannot rule out systemic sclerosis. The final interpretation should consider clinical picture and other test results such as anti-centromere antibody. Test Methodology: Multiplex flow immunoassay. Performed By: #### 2 9374-6, 83039-8, 47796-5, 83666-7, 65305-5, 94176-7, 02723-4, 56086-8, 64691-9, ANAIFR ####[facility] LABIA [id number] [place] [address] [place] Sjogrens syndrome-A extracta ble nuclear Ab Qn (S)on 09-23-2024 SSA ANTIBODY QUAL Negative Normal Negative [facility] Comment on above: Order Comment: Speci men Type: BLOOD SPECIMENOrdering Facility: [facility] Address: [address] [place] [address] Performed By: #### 2 9374-6, 08596-2, 66764-0, 81541-8, 62280-2, 14890-1, 78045-4, 11401-8, 97120-7, ANAIFR ####[facility] LABIA [id number] [place] [address] [place] Sjogrens syndrome-B extracta ble nuclear Ab Qn (S)on 09-23-2024 SSB ANTIBODY QUAL Negative Normal Negative [facility] Comment on above: Order Comment: Speci men Type: BLOOD SPECIMENOrdering Facility: [facility] Address: [address] [place] [address] Performed By: #### 2 9374-6, 45355-6, 62071-4, 89994-5, 83266-0, 89893-9, 53532-5, 00160-4, 23702-4, ANAIFR ####[facility] LABCLIA [id number] [address] [address] [place] Estrella extractable nuclear Ig G Qn (S)on 09-23-2024 SM ANTIBODY QUAL Negative Normal Negative [facility] Comment on above: Order Comment: Speci men Type: BLOOD SPECIMENOrdering Facility: [facility] Address: [address] [place] [address] Result Comment: Anti -Sm (Estrella) antibody is used as an aid in diagnosis of systemic lupus erythematosus and its presence is associated with renal disease. A negative result cannot rule out systemic lupus erythematosus. Clinical correlation is required. Test Methodology: Multiplex flow immunoassay. Performed By: #### 2 9374-6, 89028-1, 30924-0, 37358-7, 65724-7, 42066-7, 02909-0, 85413-7, 58587-5, ANAIFR ####[facility] LABCLIA [id number] [place] [id number] [place] URIC ACIDOrdered By: Danuta Arenas on 09-23-2024 Urate [Mass/Vol] 8.1 mg/dL High 2.5 - 6.6 mg/dL [facility] Urate [facility] Urate [Mass/Vol] 8.1 mg/dL High 2.5-6.6 [facility] Comment on above: Order Comment: Abbiei men Type: BLOOD SPECIMENOrdering Facility: [facility] Address: [address] [place] [id number] Performed By: #### 2 4323-8, 3084-1 ####[facility] [id number] [place] [address] [place] VITAMIN D 25 HYDROXYon 09-23 25-hydroxyvitamin D3 [Mass/Vol] 25.5 ng/mL Low 31.0 - 80.0 ng/mL [facility] Comment on above: Classification of 25 [place] Vitamin D status: Deficiency/Insufficiency: < or = 30 ng/ml. Sufficiency/Optimal Levels: 31-80 ng/mL Toxicity: > 100 ng/mL. Test performed by chemiluminescent immunoassay. XR ANKLE 3V AP/LAT/OBL RTon 09-23-2024 XR ANKLE 3V AP/LAT/OBL RT * * *Final Report* * * DATE OF EXAM: Sep 23 2024 11:02AM WRX [id number] - XR ANKLE 3V AP/LAT/OBL RT / PROCEDURE REASON: multiple diagnoses * * * * Physician Interpretation * * * * EXAMINATION: XR ANKLE 3V AP/LAT/OBL RT, XR FOOT 3V AP/LAT/OBL GENNY, XR ELBOW 2V AP/LAT LT, XR ELBOW 2V AP/LAT RT TECHNOLOGIST PROVIDED HISTORY: osteoporosis. Chronic joint pain. best images possible due to pt body habitus and poor mobility. Pt unable to stand. CLINICAL INFORMATION: 59 years old Female with Pain in joint, multiple sites Osteoporosis, unspecified osteoporosis type, unspecified pathological fracture presence TECHNIQUE: XR ANKLE 3V AP/LAT/OBL RT, XR FOOT 3V AP/LAT/OBL GENNY, XR ELBOW 2V AP/LAT LT, XR ELBOW 2V AP/LAT RT Laterality: See below. Number of different views (projections): 2 views of each elbow, 3 views of the RIGHT ankle and 3 views of each foot. COMPARISON: Foot radiographs 01/25/2015 RESULT: Right elbow: No acute fracture. Severe degenerative changes with joint space narrowing subchondral sclerosis, subchondral cystic changes and marginal osteophyte formation at the radiocapitellar and ulnotrochlear joints with associated moderate-large joint effusion. Left elbow: No acute fracture. Severe degenerative changes with joint space narrowing subchondral sclerosis, subchondral cystic changes and marginal osteophyte formation at the radiocapitellar and ulnotrochlear joints with associated moderate-large joint effusion. Right ankle and right foot: No acute fracture. Soft tissue swelling about the ankle. Suboptimal positioning of the ankle radiographs. Significant bony hypertrophic changes about the lateral ankle joint with probable ankylosis between the lateral malleolus and the adjacent talus. Moderate degenerative change at the tibiotalar joint and subtalar joints. Moderate-severe degenerative change at the talonavicular joint. Mild-moderate degenerative change calcaneocuboid joint. Mild degenerative change naviculocuneiform joint, 1st CMC joint and 1st MTP joint. Ankylosis of the 2nd and 3rd PIP joints. Nonspecific chronic appearing erosions 5th metatarsal head and and probably at the base of the 4th distal phalanx. Pes planus. Left foot: No acute fracture. Severe pes planus. Moderate-severe degenerative change talonavicular, calcaneocuboid and naviculocuneiform joints. Moderate degenerative change 1st and 2nd TMT joints. Ankylosis of the 2nd PIP joint and partial ankylosis of the 3rd PIP joint. Joint space narrowing with degenerative cystic changes great toe IP joint. Mild degenerative change 1st MTP joint. IMPRESSION: Severe degenerative changes as described. Disaster Recovery Coordinator: NIR Transcribe Date/Time: Sep 29 2024 10:48A Dictated by : NAA ESCALANTE DO This examination was interpreted and the report reviewed and electronically signed by: NAA ESCALANTE DO on Sep 29 2024 11:08AM EST [id number] Normal [facility] XR ELBOW 2V AP/LAT LTon 09-12 XR ELBOW 2V AP/LAT LT * * *Final Report* * * DATE OF EXAM: Sep 23 2024 11:02AM [id number] - XR ELBOW 2V AP/LAT LT / PROCEDURE REASON: multiple diagnoses * * * * Physician Interpretation * * * * EXAMINATION: XR ANKLE 3V AP/LAT/OBL RT, XR FOOT 3V AP/LAT/OBL GENNY, XR ELBOW 2V AP/LAT LT, XR ELBOW 2V AP/LAT RT TECHNOLOGIST PROVIDED HISTORY: osteoporosis. Chronic joint pain. best images possible due to pt body habitus and poor mobility. Pt unable to stand. CLINICAL INFORMATION: 59 years old Female with Pain in joint, multiple sites Osteoporosis, unspecified osteoporosis type, unspecified pathological fracture presence TECHNIQUE: XR ANKLE 3V AP/LAT/OBL RT, XR FOOT 3V AP/LAT/OBL GENNY, XR ELBOW 2V AP/LAT LT, XR ELBOW 2V AP/LAT RT Laterality: See below. Number of different views (projections): 2 views of each elbow, 3 views of the RIGHT ankle and 3 views of each foot. COMPARISON: Foot radiographs 01/25/2015 RESULT: Right elbow: No acute fracture. Severe degenerative changes with joint space narrowing subchondral sclerosis, subchondral cystic changes and marginal osteophyte formation at the radiocapitellar and ulnotrochlear joints with associated moderate-large joint effusion. Left elbow: No acute fracture. Severe degenerative changes with joint space narrowing subchondral sclerosis, subchondral cystic changes and marginal osteophyte formation at the radiocapitellar and ulnotrochlear joints with associated moderate-large joint effusion. Right ankle and right foot: No acute fracture. Soft tissue swelling about the ankle. Suboptimal positioning of the ankle radiographs. Significant bony hypertrophic changes about the lateral ankle joint with probable ankylosis between the lateral malleolus and the adjacent talus. Moderate degenerative change at the tibiotalar joint and subtalar joints. Moderate-severe degenerative change at the talonavicular joint. Mild-moderate degenerative change calcaneocuboid joint. Mild degenerative change naviculocuneiform joint, 1st CMC joint and 1st MTP joint. Ankylosis of the 2nd and 3rd PIP joints. Nonspecific chronic appearing erosions 5th metatarsal head and and probably at the base of the 4th distal phalanx. Pes planus. Left foot: No acute fracture. Severe pes planus. Moderate-severe degenerative change talonavicular, calcaneocuboid and naviculocuneiform joints. Moderate degenerative change 1st and 2nd TMT joints. Ankylosis of the 2nd PIP joint and partial ankylosis of the 3rd PIP joint. Joint space narrowing with degenerative cystic changes great toe IP joint. Mild degenerative change 1st MTP joint. IMPRESSION: Severe degenerative changes as described. Disaster Recovery Coordinator: NIR Transcribe Date/Time: Sep 29 2024 10:48A Dictated by : NAA ESCALANTE DO This examination was interpreted and the report reviewed and electronically signed by: NAA ESCALANTE DO on Sep 29 2024 11:08AM EST [id number] Normal [facility] XR ELBOW 2V AP/LAT RTon 09-12 XR ELBOW 2V AP/LAT RT * * *Final Report* * * DATE OF EXAM: Sep 23 2024 11:02AM [id number] - XR ELBOW 2V AP/LAT RT / PROCEDURE REASON: multiple diagnoses * * * * Physician Interpretation * * * * EXAMINATION: XR ANKLE 3V AP/LAT/OBL RT, XR FOOT 3V AP/LAT/OBL GENNY, XR ELBOW 2V AP/LAT LT, XR ELBOW 2V AP/LAT RT TECHNOLOGIST PROVIDED HISTORY: osteoporosis. Chronic joint pain. best images possible due to pt body habitus and poor mobility. Pt unable to stand. CLINICAL INFORMATION: 59 years old Female with Pain in joint, multiple sites Osteoporosis, unspecified osteoporosis type, unspecified pathological fracture presence TECHNIQUE: XR ANKLE 3V AP/LAT/OBL RT, XR FOOT 3V AP/LAT/OBL GENNY, XR ELBOW 2V AP/LAT LT, XR ELBOW 2V AP/LAT RT Laterality: See below. Number of different views (projections): 2 views of each elbow, 3 views of the RIGHT ankle and 3 views of each foot. COMPARISON: Foot radiographs 01/25/2015 RESULT: Right elbow: No acute fracture. Severe degenerative changes with joint space narrowing subchondral sclerosis, subchondral cystic changes and marginal osteophyte formation at the radiocapitellar and ulnotrochlear joints with associated moderate-large joint effusion. Left elbow: No acute fracture. Severe degenerative changes with joint space narrowing subchondral sclerosis, subchondral cystic changes and marginal osteophyte formation at the radiocapitellar and ulnotrochlear joints with associated moderate-large joint effusion. Right ankle and right foot: No acute fracture. Soft tissue swelling about the ankle. Suboptimal positioning of the ankle radiographs. Significant bony hypertrophic changes about the lateral ankle joint with probable ankylosis between the lateral malleolus and the adjacent talus. Moderate degenerative change at the tibiotalar joint and subtalar joints. Moderate-severe degenerative change at the talonavicular joint. Mild-moderate degenerative change calcaneocuboid joint. Mild degenerative change naviculocuneiform joint, 1st CMC joint and 1st MTP joint. Ankylosis of the 2nd and 3rd PIP joints. Nonspecific chronic appearing erosions 5th metatarsal head and and probably at the base of the 4th distal phalanx. Pes planus. Left foot: No acute fracture. Severe pes planus. Moderate-severe degenerative change talonavicular, calcaneocuboid and naviculocuneiform joints. Moderate degenerative change 1st and 2nd TMT joints. Ankylosis of the 2nd PIP joint and partial ankylosis of the 3rd PIP joint. Joint space narrowing with degenerative cystic changes great toe IP joint. Mild degenerative change 1st MTP joint. IMPRESSION: Severe degenerative changes as described. Disaster Recovery Coordinator: NIR Transcribe Date/Time: Sep 29 2024 10:48A Dictated by : NAA ESCALANTE DO This examination was interpreted and the report reviewed and electronically signed by: NAA ESCALANTE DO on Sep 29 2024 11:08AM EST [id number] Normal [facility] XR FOOT 3V AP/LAT/OBL BILon 09-23-2024 XR FOOT 3V AP/LAT/OBL GENNY * * *Final Report* * * DATE OF EXAM: Sep 23 2024 11:02AM [id number] - XR FOOT 3V AP/LAT/OBL GENNY / PROCEDURE REASON: multiple diagnoses * * * * Physician Interpretation * * * * EXAMINATION: XR ANKLE 3V AP/LAT/OBL RT, XR FOOT 3V AP/LAT/OBL GENNY, XR ELBOW 2V AP/LAT LT, XR ELBOW 2V AP/LAT RT TECHNOLOGIST PROVIDED HISTORY: osteoporosis. Chronic joint pain. best images possible due to pt body habitus and poor mobility. Pt unable to stand. CLINICAL INFORMATION: 59 years old Female with Pain in joint, multiple sites Osteoporosis, unspecified osteoporosis type, unspecified pathological fracture presence TECHNIQUE: XR ANKLE 3V AP/LAT/OBL RT, XR FOOT 3V AP/LAT/OBL GENNY, XR ELBOW 2V AP/LAT LT, XR ELBOW 2V AP/LAT RT Laterality: See below. Number of different views (projections): 2 views of each elbow, 3 views of the RIGHT ankle and 3 views of each foot. COMPARISON: Foot radiographs 01/25/2015 RESULT: Right elbow: No acute fracture. Severe degenerative changes with joint space narrowing subchondral sclerosis, subchondral cystic changes and marginal osteophyte formation at the radiocapitellar and ulnotrochlear joints with associated moderate-large joint effusion. Left elbow: No acute fracture. Severe degenerative changes with joint space narrowing subchondral sclerosis, subchondral cystic changes and marginal osteophyte formation at the radiocapitellar and ulnotrochlear joints with associated moderate-large joint effusion. Right ankle and right foot: No acute fracture. Soft tissue swelling about the ankle. Suboptimal positioning of the ankle radiographs. Significant bony hypertrophic changes about the lateral ankle joint with probable ankylosis between the lateral malleolus and the adjacent talus. Moderate degenerative change at the tibiotalar joint and subtalar joints. Moderate-severe degenerative change at the talonavicular joint. Mild-moderate degenerative change calcaneocuboid joint. Mild degenerative change naviculocuneiform joint, 1st CMC joint and 1st MTP joint. Ankylosis of the 2nd and 3rd PIP joints. Nonspecific chronic appearing erosions 5th metatarsal head and and probably at the base of the 4th distal phalanx. Pes planus. Left foot: No acute fracture. Severe pes planus. Moderate-severe degenerative change talonavicular, calcaneocuboid and naviculocuneiform joints. Moderate degenerative change 1st and 2nd TMT joints. Ankylosis of the 2nd PIP joint and partial ankylosis of the 3rd PIP joint. Joint space narrowing with degenerative cystic changes great toe IP joint. Mild degenerative change 1st MTP joint. IMPRESSION: Severe degenerative changes as described. Disaster Recovery Coordinator: NIR Transcribe Date/Time: Sep 29 2024 10:48A Dictated by : NAA ESCALANTE DO This examination was interpreted and the report reviewed and electronically signed by: NAA ESCALANTE DO on Sep 29 2024 11:08AM EST [id number] Normal [facility] XR KNEE 3V AP/LAT/MERCHANT L Ton 09-23-2024 XR KNEE 3V AP/LAT/MERCHANT LT * * *Final Report* * * DATE OF EXAM: Sep 23 2024 11:02AM [id number] - XR KNEE 3V AP/LAT/MERCHANT LT / PROCEDURE REASON: multiple diagnoses * * * * Physician Interpretation * * * * EXAMINATION: XR KNEE 3V AP/LAT/MERCHANT LT TECHNOLOGIST PROVIDED HISTORY: osteoporosis. Chronic joint pain. best images possible due to pt body habitus and poor mobility. Pt unable to stand. CLINICAL INFORMATION: 59 years old Female with Pain in joint, multiple sites. Osteoporosis, unspecified osteoporosis type, unspecified pathological fracture presence. TECHNIQUE: XR KNEE 3V AP/LAT/MERCHANT LT Laterality: LEFT Number of different views (projections): 3 COMPARISON: Radiographs 09/01/2014 RESULT: Status post LEFT total knee arthroplasty with patellar resurfacing in satisfactory alignment and position new compared to radiographs 09/01/2014. No periprosthetic lucency. Lucency in the lower pole of the patella may represent healing subacute-chronic fracture. No acute fracture identified. Small heterotopic ossification in the distal quadriceps tendon. IMPRESSION: Status post LEFT total knee arthroplasty with probable subacute-chronic healing patellar fracture. Disaster Recovery Coordinator: PSCB Transcribe Date/Time: Sep 29 2024 10:00A Dictated by : NAA ESCALANTE DO This examination was interpreted and the report reviewed and electronically signed by: NAA ESCALANTE DO on Sep 29 2024 10:04AM EST [id number] Normal [facility] cCP IgG SerPl-aCncon 025 Cyclic citrullinated peptide IgG Qn >250 High <20 [facility] Comment on above: Order Comment: Speci men Type: BLOOD SPECIMENOrdering Facility: [facility] Address: [address] [place] [address] Performed By: #### 3 [id number] ####[facility] LABCLIA [id number] [address] Breast imaging reportOrdered By: Tamiko Perez on 07-26-2024 Study report [facility] Imaging Services [address] [place], [place] [id number] SCRN MAMM (CAD)W/ED BILAT MR#: [id number] Acct: [id number] Name: RONALD HUTCHINS Rep #: [id number] : 1965 F 59 From: Josse Perez DO PCP: Dr. Harper Genao MD Status: R EG CLI Study:SCRN MAMM (CAD)W/ED BILAT Date of Exa m: 07/26/24 Exam# [id number] Ordering Dr: Melchor Genao MD EXAM: SCRN MAMM (CAD)W/ED BILAT DATE: 07/26/2024 CLINICAL HISTORY: F, Age 59 y/o , BREAST CANCER SCREENING BREAST CANCER RISK ASSESSMENT: Has not been calculated. TECHNIQUE: Bilateral screening digital breast tomosynthesis with 2D and 3D images. Computeraided detection. COMPARISON: Prior exam(s) dated 07/17/2023 and 05/17/2022. FINDINGS: TISSUE DENSITY: The breast tissue is almost entirely fatty. Bilateral Breast Mammographic Findings: There are no suspicious masses, suspicious microcalcifications, architectural distortion or secondary sign of malignancy identified in either breast. Benign round microcalcifications are seen in the breast. BI/SCRN MAMM (CAD)W/ED BILAT IMPRESSION: Right Breast: BIRADS 2 BENIGN FINDING. Left Breast: BIRADS 2 BENIGN FINDING. OVERALL FINAL ASSESSMENT: BIRADS 2 BENIGN FINDING RECOMMENDATION: Routine annual follow-up in 1 Year A letter with findings and recommendations will be mailed to the patient. Reading Location: [id number] CC: Dr. Harper Genao MD ~ Disaster Recovery Coordinator: Signed [facility] SCRN MAMM (CAD)W/ED BILATo n 07-26-2024 SCRN MAMM (CAD)W/ED BILAT [facility] Imaging Services [address] [place] [id number] SCRN MAMM (CAD)W/ED BILAT MR#: [id number] Acct: [id number] Name: RONALD HUTCHINS Rep #: [id number] : 1965 F 59 From: Tamiko Golver PCP: Dr. Harper Genao MD Status: [facility] Study: SCRN MAMM (CAD)W/ED BILAT Date of Exam: 07/13 08/06 Exam# [id number] Ordering Dr: Harper Genao MD EXAM: SCRN MAMM (CAD)W/ED BILAT DATE: 07/26/2024 CLINICAL HISTORY: F, Age 59 y/o , BREAST CANCER SCREENING BREAST CANCER RISK ASSESSMENT: Has not been calculated. TECHNIQUE: Bilateral screening digital breast tomosynthesis with 2D and 3D images. Computer aided detection. COMPARISON: Prior exam(s) dated 07/17/2023 and 05/17/2022. FINDINGS: TISSUE DENSITY: The breast tissue is almost entirely fatty. Bilateral Breast Mammographic Findings: There are no suspicious masses, suspicious microcalcifications, architectural distortion or secondary sign of malignancy identified in either breast. Benign round microcalcifications are seen in the breast. BI/SCRN MAMM (CAD)W/ED BILAT IMPRESSION: Right Breast: BIRADS 2 BENIGN FINDING. Left Breast: BIRADS 2 BENIGN FINDING. OVERALL FINAL ASSESSMENT: BIRADS 2 BENIGN FINDING RECOMMENDATION: Routine annual follow-up in 1 Year A letter with findings and recommendations will be mailed to the patient. Reading Location: [id number] CC: Dr. Harper Genao MD Disaster Recovery Coordinator: Signed Normal [facility] Endocrinology Visit Reporton 07-19-2024 Endocrinology Visit Report [facility] [address] [place] [address] OFFICE VISIT Date of Service: 07/19/24 MR#: [id number] Acct: [id number] Name: RONALD HUTCHINS Rep #: [id number] : 1965 Provider: Mo Quezada Age/Sex: 59/F [facility] Status: Signed Intake Vital Signs 10/27/23 14:57 04/30/24 09:51 07/19/24 09:34 Height 5 ft 3 in 5 ft 3 in 5 ft 3 in Weight: 335 lb BMI 59.3 BP 135/76 H Blood Pressure Location Rt brachial Position Sitting Pulse 83 Pulse Source Monitor Pulse Oximetry (%) 96 Oxygen Delivery Method room air Intake Visit Reasons: 1 Y FU Chief Complaint: thyroid Is patient in pain?: No Allergies acetaminophen (From Tylenol-Codeine #3) Allergy (Intermediate, Verified 07/19/24 09:47) makes ears eing codeine (From Tylenol-Codeine #3) Allergy (Intermediate, Verified 07/19/24 09:47) makes ears eing Medications ???Medication ???Instructions ???Recorded ???Confirmed ???Type acetaminophen 325 mg tablet 325 mg PO ONCE PRN 04/22/22 History (Tylenol) reji (Ultra-Light Rollator misc) #1 ea 09/12/23 04/30/24 Rx fluticasone propionate 50 1 spray intranasal BID #16 grams 0 10/30/23 07/19/24 Rx mcg/actuation nasal spray,suspension meloxicam 15 mg tablet 15 mg PO DAILY PRN pain #60 tabs 0 12/03/23 07/19/24 Rx alendronate 70 mg tablet (Fosamax) 70 mg PO QWEEK #20 tabs 01/26/24 07/19/24 Rx amlodipine 10 mg tablet See Rx Instructions .Route 4 07/19/24 Rx .COMPLEX #90 tabs losartan 100 mg tablet See Rx Instructions .Route 4 07/19/24 Rx .COMPLEX #90 tabs diclofenac sodium 1 % topical gel 2 g topical 4XD PRN Knee Pain #10 0 04/30/24 07/19/24 Rx grams escitalopram oxalate 10 mg tablet 10 mg PO DAILY #90 TABLETS 07/19/24 Rx levothyroxine 150 mcg tablet 150 mcg PO DAILY #90 tabs 07/19/24 07/19/24 Rx PFSH Medical History Hypersomnolence History of thyroid disease History of hypertension History of arthritis Chronic pain Osteopenia Elevated serum globulin level CKD (chronic kidney disease) Debility Hemorrhoids Left ankle pain Sinusitis Bronchitis Osteoarthritis of knees, bilateral Health care maintenance Colon cancer screening Generalized anxiety disorder Venous insufficiency of both lower extremities Hypertension Localized swelling of left upper extremity Morbid obesity Anxiety Benign essential hypertension Arthritis Hypothyroidism (acquired) Surgical History History of bilateral knee replacement History of Family History Father Heart disease Hypertension Sister Thyroid disorder Mother Diabetes Daughter ADHD Social History housing: assisted Smoking Status: Never smoker alcohol intake: never substance use type: does not use what type of physical activity do you participate in: bicycling frequency: 1-2 times per week additional social history: history of denies aspirin use and ibuprofen use, denies vaping, marijuana and edible use. denies family history of blood clots. HPI HPI Chief Complaint: thyroid Details: RONALD HUTCHINS, is a 59 F who presents to the office today for follow up. She has hypothyroidism and is taking levothyroxine. TSH is 1.9 She complains of ankle pain. Internal medicine is working on getting her into ortho. is concerned she may have sleep apnea. Her morbid obesity is negatively impacting her health. ROS Const Constitutional: No fatigue or weight change ENT ENT: No dizziness/vertigo Cardio Cardiology: No chest pain at rest, chest pain with exertion, shortness of breath or palpitations Musc Musculoskeletal: Positive for joint pain and myalgias Skin Skin: No wounds Endo Endocrine: No fatigue or weight change Exam Const General: cooperative, healthy appearing, comfortable, no acute distress, well developed and not cushingoid Nutritional Appearance: well nourished and obese Orientation: alert, awake and oriented x3 HENMT Head: normal to inspection Ears: hearing grossly normal bilaterally Nose: external nose normal Mouth: oral mucosae normal Eyes General: appearance normal, both eyes and all related structures Alignment and Position: alignment normal Periorbital: periorbital findings normal Eyelids: eyelids normal Conjunctivae: conjunctivae normal Neck Neck: normal visual inspection Neck mass: No Thyroid: thyroid normal (difficult exam) Chest Chest palpation inspection: normal inspection of the chest Resp Effort Inspection: normal respirat (more content not included)... Normal [facility] Absolute neutrophil countOrd ered By: Harper Genao on 04-30-2024 Neutrophils (Bld) [#/Vol] 3.1 10*3/uL 2.0-7.7 [facility] Albumin to globulin ratioOrd ered By: Harper Genao on 04-30-2024 Albumin/Globulin [Mass ratio] 0.7 {ratio} Low 0.9-2.4 [facility] Basophil percentageOrdered B y: Harper Genao on 04-30-2024 Basophils/100 WBC (Bld) 0.4 % 0-1 [facility] Bilirubin, totalOrdered By: Harper Genao on 04-30-2024 Bilirubin [Mass/Vol] 0.40 mg/dL 0.20-1.[address] [facility] Comment on above: For patients on eltr ombopag therapy, use of Dimension [place] TBIL is not recommended. Blood urea nitrogen (BUN)/cr eatinine ratioOrdered By: Harper Genao on 04-30-2024 Urea nitrogen/Creatinine [Mass ratio] 16.4 mg/mg 10-20 [facility] CBC W/Diff, Automatedon - Absolute Lymph 2.33 X10 3/uL Normal 0.83-4.51 [facility] Comment on above: Performed By: #### L 100.0100, L501.9520, L500.4050 #### [facility] [address] [place], [address] Absolute Neut 3.1 X10 3/uL Normal 2.0-7.7 [facility] Comment on above: Performed By: #### L 100.0100, L501.9520, L500.4050 #### [facility] [address] [place], [address] Basophils/100 WBC (Bld) 0.4 % Normal 0-1 [facility] Comment on above: Performed By: #### L 100.0100, L501.9520, L500.4050 #### [facility] [address] [place], [address] Eosinophils/100 WBC (Bld) 14.7 % High 0-5 [facility] Comment on above: Performed By: #### L 100.0100, L501.9520, L500.4050 #### [facility] [address] [place], [address] Erythrocyte distribution width (RBC) [Ratio] 15.3 % High 11.6-14.6 [facility] Comment on above: Performed By: #### L 100.0100, L501.9520, L500.4050 #### [facility] [address] [place], [address] Hematocrit (Bld) [Volume fraction] 40.2 % Normal 37-47 [facility] Comment on above: Performed By: #### L 100.0100, L501.9520, L500.4050 #### [facility] [address] [place], [address] Hemoglobin (Bld) [Mass/Vol] 12.6 g/dL Normal 12.0-15.0 [facility] Comment on above: Performed By: #### L 100.0100, L501.9520, L500.4050 #### [facility] [address] [place], [address] IG% 0.100 Normal 0.0-0.9 [facility] Comment on above: Result Comment: IG% - Immature Granulocytes (promyelocytes, myelocytes and metamyelocytes) > 1% indicates that a LEFT SHIFT is Present. Performed By: #### L 100.0100, L501.9520, L500.4050 #### [facility] [address] [place], [address] Lymphocytes/100 WBC (Bld) 31.9 % Normal 19-41 [facility] Comment on above: Performed By: #### L 100.0100, L501.9520, L500.4050 #### [facility] [address] [place], [address] MCH (RBC) [Entitic mass] 29.2 pg Normal 27.0-32.0 [facility] Comment on above: Performed By: #### L 100.0100, L501.9520, L500.4050 #### [facility] [address] [place], [address] MCHC (RBC) [Mass/Vol] 31.3 g/dL Low 32-36 [facility] Comment on above: Performed By: #### L 100.0100, L501.9520, L500.4050 #### [facility] [address] [place], [address] MCV (RBC) [Entitic vol] 93.3 fL Normal 81-99 [facility] Comment on above: Performed By: #### L 100.0100, L501.9520, L500.4050 #### [facility] [address] [place], [address] Monocytes/100 WBC (Bld) 10.1 % High 0-10 [facility] Comment on above: Performed By: #### L 100.0100, L501.9520, L500.4050 #### [facility] [address] [place], [address] Neutrophils/100 WBC (Bld) 42.8 % Low 47-70 [facility] Comment on above: Performed By: #### L 100.0100, L501.9520, L500.4050 #### [facility] [address] [place], [address] Nucleated RBC (Bld) [#/Vol] 0 10*3/uL Normal 0-5 [facility] Comment on above: Performed By: #### L 100.0100, L501.9520, L500.4050 #### [facility] [address] [place], [address] Platelet mean volume (Bld) [Entitic vol] 10.2 fL Normal 6.2-12.0 [facility] Comment on above: Performed By: #### L 100.0100, L501.9520, L500.4050 #### [facility] [address] [place], [address] Platelets (Bld) [#/Vol] 338 10*3/uL Normal 150-450 [facility] Comment on above: Performed By: #### L 100.0100, L501.9520, L500.4050 #### [facility] [address] [place], [address] RBC (Bld) [#/Vol] 4.31 10*6/uL Normal 4.2-5.4 [facility] Comment on above: Performed By: #### L 100.0100, L501.9520, L500.4050 #### [facility] [address] [place], [address] RDW SD 52.5 fl High 35.1-43.9 [facility] Comment on above: Performed By: #### L 100.0100, L501.9520, L500.4050 #### [facility] [address] [place], [address] WBC (Bld) [#/Vol] 7.3 10*3/uL Normal 4.4-11.0 [facility] Comment on above: Performed By: #### L 100.0100, L501.9520, L500.4050 #### [facility] [address] [place], [address] Carbon dioxide measurementOr dered By: Harper Genao on 04-30-2024 CO2 [Moles/Vol] 22.0 mmol/L 21.0-32.0 [facility] Chloride measurementOrdered By: Harper Genao on 04-30-2024 Chloride [Moles/Vol] 109 mmol/L High 98-[address] [facility] Comprehensive Metabolic Prof ilon 04-30-2024 Albumin [Mass/Vol] 3.4 g/dL Normal 3.2-5.0 [facility] Comment on above: Performed By: #### L 100.0100, L501.9520, L500.4050 #### [facility] [address] [place], [address] Albumin/Globulin [Mass ratio] 0.7 {ratio} Low 0.9-2.4 [facility] Comment on above: Performed By: #### L 100.0100, L501.9520, L500.4050 #### [facility] [address] [place], [address] ALK P 93 U/L Normal 45-117 [facility] Comment on above: Performed By: #### L 100.0100, L501.9520, L500.4050 #### [facility] [address] [place], [address] ALT [Catalytic activity/Vol] 17 U/L Normal 13-56 [facility] Comment on above: Performed By: #### L 100.0100, L501.9520, L500.4050 #### [facility] [address] [place], [address] AST [Catalytic activity/Vol] 20 U/L Normal 15-37 [facility] Comment on above: Performed By: #### L 100.0100, L501.9520, L500.4050 #### [facility] [address] [place], [address] Bilirubin [Mass/Vol] 0.40 mg/dL Normal 0.20-1.[address] [facility] Comment on above: Result Comment: For patients on eltrombopag therapy, use of Dimension [place] TBIL is not recommended. Performed By: #### L 100.0100, L501.9520, L500.4050 #### [facility] [address] [place], [address] BUN/CRE 16.4 RATIO Normal 10-20 [facility] Comment on above: Performed By: #### L 100.0100, L501.9520, L500.4050 #### [facility] [address] [place], [address] CA,Total 9.5 mg/dL Normal 8.5-10.1 [facility] Comment on above: Performed By: #### L 100.0100, L501.9520, L500.4050 #### [facility] [address] [place], [address] Chloride [Moles/Vol] 109 mmol/L High 98-[address] [facility] Comment on above: Performed By: #### L 100.0100, L501.9520, L500.4050 #### [facility] [address] [place], [address] CO2 [Moles/Vol] 22.0 mmol/L Normal 21.0-32.0 [facility] Comment on above: Performed By: #### L 100.0100, L501.9520, L500.4050 #### [facility] [address] [place], [address] Creatinine [Mass/Vol] 1.28 mg/dL High 0.55-1.02 [facility] Comment on above: Result Comment: The validity of the calculated GFR GFRAA in patients over 70 years has not been determined. Clinical correlation is essential. Performed By: #### L 100.0100, L501.9520, L500.4050 #### [facility] [address] [place], [address] EST GFR - AA 55 mL/min Low >60 [facility] Comment on above: Result Comment: Afri can [place] GFR Calc Performed By: #### L 100.0100, L501.9520, L500.4050 #### [facility] [address] [place], [address] GAP 9 Normal 5-15 [facility] Comment on above: Performed By: #### L 100.0100, L501.9520, L500.4050 #### [facility] [address] [place], [address] GFR/1.73 sq M.predicted among non-blacks MDRD (S/P/Bld) [Vol rate/Area] 45 mL/min/{1.73_m2} Low >60 [facility] Comment on above: Result Comment: Non- GFR Calc Performed By: #### L 100.0100, L501.9520, L500.4050 #### [facility] [address] [place], [address] Globulin (S) [Mass/Vol] 5.1 g/dL High 2.2-4.2 [facility] Comment on above: Performed By: #### L 100.0100, L501.9520, L500.4050 #### [facility] [address] [place], [address] Glucose [Mass/Vol] 95 mg/dL Normal 74-106 [facility] Comment on above: Performed By: #### L 100.0100, L501.9520, L500.4050 #### [facility] [address] [place], [address] Potassium [Moles/Vol] 4.3 mmol/L Normal 3.5-5.1 [facility] Comment on above: Performed By: #### L 100.0100, L501.9520, L500.4050 #### [facility] [address] [place], [address] Sodium [Moles/Vol] 140 mmol/L Normal 136-145 [facility] Comment on above: Performed By: #### L 100.0100, L501.9520, L500.4050 #### [facility] [address] [place], [address] T PROT 8.5 g/dL High 6.4-8.2 [facility] Comment on above: Performed By: #### L 100.0100, L501.9520, L500.4050 #### [facility] [address] [place], [address] Urea nitrogen [Mass/Vol] 21 mg/dL High 7-18 [facility] Comment on above: Performed By: #### L 100.0100, L501.9520, L500.4050 #### [facility] [address] [place], [address] Eosinophil percentageOrdered By: Harper Genao on 04-30-2024 Eosinophils/100 WBC (Bld) 14.7 % High 0-5 [facility] Erythrocyte distribution wid th (RBC) [Ratio]Ordered By: Crystalmilliejohnpeggy Echolsstarrmelchor on 04-30-2024 Erythrocyte distribution width (RBC) [Entitic vol] 52.5 fL High 35.1-43.9 [facility] Erythrocyte distribution wid th ratioOrdered By: milliejohnpeggy Echolsstarrmelchor on 04-30-2024 Erythrocyte distribution width (RBC) [Ratio] 15.3 % High 11.6-14.6 [facility] Estimated glomerular filtrat ion rate (GFR) AmericanOrdered By: venessa Genao on 04-30-2024 Estimated GFR (MDRD) Amer 55 mL/min Low >60 [facility] Comment on above: GFR Calc Glomerular filtration rate ( GFR) estimationOrdered By: venessa Genao on 04-30-2024 Estimated GFR (MDRD) Non-Af Amer 45 mL/min Low >60 [facility] Comment on above: Non- GFR Calc Glucose measurementOrdered B y: Crystalmilliejohnpeggy Genao on 04-30-2024 Glucose [Mass/Vol] 95 mg/dL 74-106 [facility] Hematocrit Auto (Bld) [Volum e fraction]Ordered By: Harper Genao on 04-30-2024 Hematocrit (Bld) [Volume fraction] 40.2 % 37-47 [facility] Hemoglobin measurementOrdere d By: Harper Genao on 04-30-2024 Hemoglobin (Bld) [Mass/Vol] 12.6 g/dL 12.0-15.0 [facility] Immature granulocytes/100 WB C Auto (Bld)Ordered By: milliecoatsburgpeggy Genao on 04-30-2024 Immature granulocytes/100 WBC (Bld) 0.100 % 0.0-0.9 [facility] Comment on above: IG% - Immature Granu locytes (promyelocytes, myelocytes and metamyelocytes) > 1% indicates that a LEFT SHIFT is Present. Internal Medicine Office Vis haris 04-30-2024 Internal Medicine Office Visit [facility] [address] [place] [address] [address] [place], [place] [id number] OFFICE VISIT Date of Service: 04/30/24 MR#: [id number] Acct: [id number] Name: RONALD HUTCHINS Rep #: [id number] : 1965 Provider: Dr. Harper rubin MD Age/Sex: 59/F Location: [facility] Status: Signed Intake Vital Signs 01/26/24 09:48 02/06/24 10:22 04/30/24 09:51 Height 5 ft 3 in 5 ft 3 in 5 ft 3 in Weight: 332 lb BMI 58.8 BP 128/62 H Blood Pressure Location Lt brachial Position Sitting Respiration 16 Pulse 108 H Pulse Source Monitor Temp 97.6 F L Temp Source Temporal Pulse Oximetry (%) 98 Oxygen Delivery Method room air Intake Visit Reasons: 3 m fu Chief Complaint: 3m f/u Dentistry Professor Required: No Accompanied by: Is patient in pain?: No Allergies acetaminophen (From Tylenol-Codeine #3) Allergy (Intermediate, Verified 04/30/24 09:41) makes ears eing codeine (From Tylenol-Codeine #3) Allergy (Intermediate, Verified 04/30/24 09:41) makes ears eing Medications ???Medication ???Instructions ???Recorded ???Confirmed ???Type acetaminophen 325 mg tablet 325 mg PO ONCE PRN 04/22/22 04/30/24 History (Tylenol) reji (Ultra-Light Rollator misc) #1 ea 09/12/23 04/30/24 Rx fluticasone propionate 50 1 spray intranasal BID #16 grams 10/30/23 04/30/24 Rx mcg/actuation nasal spray,suspension meloxicam 15 mg tablet 15 mg PO DAILY PRN pain #60 tabs 12/03/23 04/30/24 Rx levothyroxine 150 mcg tablet 150 mcg PO DAILY #90 tabs 12/26/23 04/30/24 Rx alendronate 70 mg tablet (Fosamax) 70 mg PO QWEEK #20 tabs 01/26/24 04/30/24 Rx escitalopram oxalate 10 mg tablet See Rx Instructions .Route 02/27/24 04/30/24 Rx .COMPLEX #90 tabs amlodipine 10 mg tablet See Rx Instructions .Route 03/16/24 04/30/24 Rx .COMPLEX #90 tabs losartan 100 mg tablet See Rx Instructions .Route 03/16/24 04/30/24 Rx .COMPLEX #90 tabs diclofenac sodium 1 % topical gel 2 g topical 4XD PRN Knee Pain #100 04/30/24 04/30/24 Rx grams PFSH Medical History History of thyroid disease History of hypertension History of arthritis Chronic pain Osteopenia Elevated serum globulin level CKD (chronic kidney disease) Debility Hemorrhoids Left ankle pain Sinusitis Bronchitis Osteoarthritis of knees, bilateral Health care maintenance Colon cancer screening Generalized anxiety disorder Venous insufficiency of both lower extremities Hypertension Localized swelling of left upper extremity Morbid obesity Anxiety Benign essential hypertension Arthritis Hypothyroidism (acquired) Surgical History History of bilateral knee replacement History of Family History Father Heart disease Hypertension Sister Thyroid disorder Mother Diabetes Daughter ADHD Social History housing: assisted Smoking Status: Never smoker alcohol intake: never substance use type: does not use what type of physical activity do you participate in: bicycling frequency: 1-2 times per week additional social history: history of denies aspirin use and ibuprofen use, denies vaping, marijuana and edible use. denies family history of blood clots. HPI HPI Chief Complaint: 3m f/u Details: RONALD HUTCHINS, is a 59 F who presents to the office today for follow-up of her chronic conditions. Also has some concerns. She reports intermittent knee pain. History of knee replacement surgery a few years ago. Following exertion, there is more pain and swelling. Topical NSAIDs have been helpful, she would like a refill on diclofenac. Concern for sleep apnea. reports significant daytime somnolence and very loud snoring. Currently at BMI 58.8, history of hypertension. Has not been screened for sleep apnea. Other chronic medical conditions are largely stable. History of hypothyroidism on levothyroxine, no heat or cold intolerance or unintentional weight changes. ROS Const Constitutional: No body ache, chills, excessive sweating, fatigue, fever(s), frequent falls, headache(s), snoring, weakness, weight change or change in appetite Eyes Eyes: No blurry vision, change in vision, bulging eyes, floaters, visual disturbances, eye pain or Light sensitivity ENT ENT: No abnormal hearing, ear or mastoid pain, tinnitus, balance problems, nosebleed/epistaxis, nasal congestion, headache(s), neck pain or sore throat Resp Respiratory: No cough, excessive phlegm production, pain on inspiration, shortness of breath, snoring or wheezing Cardio Cardiology: No chest pain at rest, chest pain with exertion, excessive sweating, dyspnea on exertion, lightheadednes (more content not included)... Normal [facility] - Chemistry and C hemistry - challengeOrdered By: Harper Genao on 04-30-2024 AST [Catalytic activity/Vol] 20 U/L 15-37 [facility] Lymphocytes Auto (Unsp spec) [#/Vol]Ordered By: Harper Genao on 04-30-2024 Lymphocytes (Bld) [#/Vol] 2.33 10*3/uL 0.83-4.51 [facility] Lymphocytes/100 WBC Auto (Un sp spec)Ordered By: Harper Genao on 04-30-2024 Lymphocytes/100 WBC (Bld) 31.9 % 19-41 [facility] MCV (mean corpuscular volume ) determinationOrdered By: Harper Genao on 04-30-2024 MCV (RBC) [Entitic vol] 93.3 fL 81-99 [facility] Mean corpuscular hemoglobin (MCH) determinationOrdered By: Harper Genao on 04-30-2024 MCH (RBC) [Entitic mass] 29.2 pg 27.0-32.0 [facility] Mean corpuscular hemoglobin concentration (MCHC) determinationOrdered By: Harper Genao on 04-30-2024 MCHC (RBC) [Mass/Vol] 31.3 g/dL Low 32-36 [facility] Mean platelet volume determi nationOrdered By: Harper Genao on 04-30-2024 Platelet mean volume (Bld) [Entitic vol] 10.2 fL 6.2-12.0 [facility] Monocyte percentageOrdered B y: Harper Genao on 04-30-2024 Monocytes/100 WBC (Bld) 10.1 % High 0-10 [facility] Neutrophil percentageOrdered By: Harper Genao on 04-30-2024 Neutrophils/100 WBC (Bld) 42.8 % Low 47-70 [facility] Nucleated red blood cell per centageOrdered By: Harper Genao on 04-30-2024 Nucleated RBC/100 WBC (Bld) [Ratio] 0 % 0-5 [facility] Platelet countOrdered By: Crystal Genao on 04-30-2024 Platelets (Bld) [#/Vol] 338 10*3/uL 150-450 [facility] Potassium measurementOrdered By: Harper Genao on 04-30-2024 Potassium [Moles/Vol] 4.3 mmol/L 3.5-5.1 [facility] RBC Auto (Bld) [#/Vol]Ordere d By: Harper Genao on 04-30-2024 RBC (Bld) [#/Vol] 4.31 10*6/uL 4.2-5.4 [facility] Serum anion gap measurementO rdered By: Harper Genao on 04-30-2024 Anion gap [Moles/Vol] 9 mmol/L 5-15 [facility] Serum globulin measurementOr dered By: Harper Genao on 04-30-2024 Globulin (S) [Mass/Vol] 5.1 g/dL High 2.2-4.2 [facility] Serum or plasma alanine parker otransferase (ALT) measurementOrdered By: Harper Genao on 04-30-2024 ALT [Catalytic activity/Vol] 17 U/L 13-56 [facility] Serum or plasma albumin rachael urement (mass/volume)Ordered By: Harper Genao on 04-30-2024 Albumin [Mass/Vol] 3.4 g/dL 3.2-5.0 [facility] Serum or plasma alkaline stephie sphatase measurementOrdered By: Harper Genao on 04-30-2024 ALP [Catalytic activity/Vol] 93 U/L 45-117 [facility] Serum or plasma calcium rachael urement (mass/volume)Ordered By: Harper Genao on 04-30-2024 Calcium [Mass/Vol] 9.5 mg/dL 8.5-10.1 [facility] Serum or plasma creatinine m easurement (mass/volume)Ordered By: Harper Genao on 04-30-2024 Creatinine [Mass/Vol] 1.28 mg/dL High 0.55-1.02 [facility] Comment on above: The validity of the calculated GFR & GFRAA in patients over 70 years has not been determined. Clinical correlation is essential. Serum or plasma urea nitroge n measurement (mass/volume)Ordered By: Harper Genao on 04-30-2024 Urea nitrogen [Mass/Vol] 21 mg/dL High 7-18 [facility] Sodium levelOrdered By: Michael Genao on 04-30-2024 Sodium [Moles/Vol] 140 mmol/L 136-145 [facility] TSH QnOrdered By: Harper Genao on 04-30-2024 Thyroid Stimulating Hormone (TSH) 1.990 uIU/mL 0.358-3.740 [facility] Thyroid Stim Hormone (TSH)on 04-30-2024 TSH 1.990 uIU/mL Normal 0.358-3.740 [facility] Comment on above: Performed By: #### L 100.0100, L501.9520, L500.4050 #### [facility] [address] [place], [address] Total proteinOrdered By: Isaac Genao on 04-30-2024 Protein [Mass/Vol] 8.5 g/dL High 6.4-8.2 [facility] White blood cell (WBC) count Ordered By: Harper Genao on 04-30-2024 WBC (Bld) [#/Vol] 7.3 10*3/uL 4.4-11.0 [facility] Plastic Surgery Visit Report on 02-06-2024 Plastic Surgery Visit Report [facility] [address], [address] [place] [address] OFFICE VISIT Date of Service: 02/06/24 MR#: [id number] Acct: [id number] Name: RONALD HUTCHINS Rep #: [id number] : 1965 Provider: Dr. Kilo Dubois MD Age/Sex: 58/F Location: [facility] Status: Signed Intake Vital Signs 3 01/02/24 10:16 01/26/24 09:48 02/06/24 10:22 Height 5 ft 3 in 5 ft 3 in 5 ft 3 in Weight: 300 lb 323 lb 323 lb BMI 53.1 57.2 57.2 BP 156/82 H 128/84 H 166/79 H Blood Pressure Location Lt brachial Lt brachial Rt radial Position Sitting Sitting Sitting Respiration 16 16 16 Pulse 90 69 83 Pulse Source Monitor Monitor Temp 98.0 F 97 F L 98.0 F Temp Source Temporal Temporal Oral Pulse Oximetry (%) 100 99 96 Oxygen Delivery Method room air room air room air Comment pt uses wheelchair Intake Visit Reasons: LIPEDEMA Chief Complaint: lipedema consult lower legs Accompanied by: Is patient in pain?: No Allergies acetaminophen (From Tylenol-Codeine #3) Allergy (Intermediate, Verified 02/06/24 10:25) makes ears eing codeine (From Tylenol-Codeine #3) Allergy (Intermediate, Verified 02/06/24 10:25) makes ears eing Medications 3 ???Medication ???Instructions ???Recorded ???Confirmed ???Type acetaminophen 325 mg tablet 325 mg PO ONCE PRN 04/22/22 01/26/24 History (Tylenol) escitalopram oxalate 10 mg tablet See Rx Instructions .Route 06/16/23 02/06/24 Rx .COMPLEX #90 tabs walker (Ultra-Light Rollator misc) #1 ea 09/12/23 01/26/24 Rx amlodipine 10 mg tablet See Rx Instructions .Route 10/30/23 02/06/24 Rx .COMPLEX #90 tabs fluticasone propionate 50 1 spray intranasal BID #16 grams 10/30/23 02/06/24 Rx mcg/actuation nasal spray,suspension losartan 100 mg tablet See Rx Instructions .Route 10/30/23 02/06/24 Rx .COMPLEX #90 tabs meloxicam 15 mg tablet 15 mg PO DAILY PRN pain #60 tabs 12/03/23 02/06/24 Rx levothyroxine 150 mcg tablet 150 mcg PO DAILY #90 tabs 12/26/23 02/06/24 Rx alendronate 70 mg tablet (Fosamax) 70 mg PO QWEEK #20 tabs 01/26/24 02/06/24 Rx Have you fallen in the past year?: No Nurse's Note: pt here with for lipedema in lower extremity PFSH Medical History History of thyroid disease History of hypertension History of arthritis Chronic pain Osteopenia Elevated serum globulin level CKD (chronic kidney disease) Debility Hemorrhoids Left ankle pain Sinusitis Bronchitis Osteoarthritis of knees, bilateral Health care maintenance Colon cancer screening Generalized anxiety disorder Venous insufficiency of both lower extremities Hypertension Localized swelling of left upper extremity Morbid obesity Anxiety Benign essential hypertension Arthritis Hypothyroidism (acquired) Surgical History History of bilateral knee replacement History of Family History Father Heart disease Hypertension Sister Thyroid disorder Mother Diabetes Daughter ADHD Social History housing: assisted Smoking Status: Never smoker alcohol intake: never substance use type: does not use what type of physical activity do you participate in: bicycling frequency: 1-2 times per week additional social history: history of denies aspirin use and ibuprofen use, denies vaping, marijuana and edible use. denies family history of blood clots. HPI LIPEDEMA Details: Ronald Hutchins is a delightful 58-year-old female with past medical history of hypertension who presents today for right lower extremity lipedema. She was diagnosed by lipedema through the vascular surgery department here (Dr. Leiva) while he was working her up for lower extremity swelling. He deemed appropriate that she see me for potential treatment. The right lower extremity is what is bothering her particularly, as there is a painful fat deposit around the right knee and distal thigh medially. She recently had venous ultrasound of the right lower extremity by Dr. Leiva and his team and they did not see any thromboses or any significant venous insufficiency. Patient reports that the fat distribution that she currently has has been occurring over the past several years and is worsening around her legs and her knees. She is having trouble cleaning the tissues between the fat deposits because of deep skin folds. She is also reporting that her feet are never swollen. She has tried compression, elevation, and exercises with the physical therapist without any help. She has a history of bilateral knee replacements. She currently ambulates with a walke (more content not included)... Normal [facility] Internal Medicine Office Vis haris 01-26-2024 Internal Medicine Office Visit [facility] [address] [place], [place] [address] OFFICE VISIT Date of Service: 01/26/24 MR#: [id number] Acct: [id number] Name: RONALD HUTCHINS Rep #: [id number] : 1965 Provider: Dr. Harper rubin MD Age/Sex: 58/F Location: [facility] Status: Signed Intake Vital Signs 10/27/23 14:57 01/02/24 10:16 01/26/24 09:48 Height 5 ft 3 in 5 ft 3 in 5 ft 3 in Weight: 323 lb BMI 57.2 BP 128/84 H Blood Pressure Location Lt brachial Position Sitting Respiration 16 Pulse 69 Pulse Source Monitor Temp 97 F L Temp Source Temporal Pulse Oximetry (%) 99 Oxygen Delivery Method room air Intake Visit Reasons: 3 M FU Chief Complaint: Follow-up chronic conditions Dentistry Professor Required: No Accompanied by: Is patient in pain?: No Allergies acetaminophen (From Tylenol-Codeine #3) Allergy (Intermediate, Verified 01/26/24 09:35) makes ears eing codeine (From Tylenol-Codeine #3) Allergy (Intermediate, Verified 01/26/24 09:35) makes ears eing Medications ???Medication ???Instructions ???Recorded ???Confirmed ???Type acetaminophen 325 mg tablet 325 mg PO ONCE PRN 04/22/22 01/26/24 History (Tylenol) escitalopram oxalate 10 mg tablet See Rx Instructions .Route 06/16/23 01/26/24 Rx .COMPLEX #90 tabs walker (Ultra-Light Rollator misc) #1 ea 09/12/23 01/26/24 Rx amlodipine 10 mg tablet See Rx Instructions .Route 10/30/23 01/26/24 Rx .COMPLEX #90 tabs fluticasone propionate 50 1 spray intranasal BID #16 grams 10/30/23 01/26/24 Rx mcg/actuation nasal spray,suspension losartan 100 mg tablet See Rx Instructions .Route 10/30/23 01/26/24 Rx .COMPLEX #90 tabs meloxicam 15 mg tablet 15 mg PO DAILY PRN pain #60 tabs 12/03/23 01/26/24 Rx levothyroxine 150 mcg tablet 150 mcg PO DAILY #90 tabs 12/26/23 01/26/24 Rx alendronate 70 mg tablet (Fosamax) 70 mg PO QWEEK #20 tabs 01/26/24 01/26/24 Rx PFSH Medical History (Updated 01/26/24 @ 12:[address] Harper Genao MD) Chronic pain Osteopenia Elevated serum globulin level CKD (chronic kidney disease) Debility Hemorrhoids Left ankle pain Sinusitis Bronchitis Osteoarthritis of knees, bilateral Health care maintenance Colon cancer screening Generalized anxiety disorder Venous insufficiency of both lower extremities Hypertension Localized swelling of left upper extremity Morbid obesity Anxiety Benign essential hypertension Arthritis Hypothyroidism (acquired) Surgical History History of bilateral knee replacement History of Family History Father Heart disease Hypertension Sister Thyroid disorder Mother Diabetes Daughter ADHD Social History Smoking Status: Never smoker alcohol intake: never substance use type: does not use what type of physical activity do you participate in: bicycling frequency: 1-2 times per week HPI HPI Chief Complaint: Follow-up chronic conditions Details: RONALD HUTCHINS, is a 58 F who presents to the office today for follow-up of her chronic medical conditions. Also has some concerns. Currently at a BMI of 57.2. She would like a medication for weight loss. Has not really tried anything. She is open to a referral. Also history of arthritis. Has been taking meloxicam as needed which she occasionally finds helpful. Not very mobile largely due to pain. She would like to see pain management. History of osteopenia with high fracture risk. Prescription for Prolia was sent however this was not approved by insurance. She would like to try Fosamax. Other chronic medical conditions are stable. ROS Const Constitutional: No body ache, chills, excessive sweating, fatigue, fever(s), frequent falls, headache(s), snoring, weakness or change in appetite Eyes Eyes: No blurry vision, change in vision, floaters, eye pain or Light sensitivity ENT ENT: No abnormal hearing, ear or mastoid pain, tinnitus, balance problems, nasal congestion, headache(s), neck pain or sore throat Resp Respiratory: No cough, excessive phlegm production, pain on inspiration, shortness of breath, snoring or wheezing Cardio Cardiology: No chest pain at rest, chest pain with exertion, excessive sweating, dyspnea on exertion, lightheadedness, orthopnea or palpitations Gastro GI: No abdominal pain, change in bowel habits, constipation, cramping, diarrhea, nausea/dyspepsia or vomiting Genitourinary-Female: No burning urination, painful urination, urinary incontinence or urinary frequency Musc Musculoskeletal: No abnormal gait, joint pain, back pain, limited range of motion, muscle weakness, neck pain or numbness Skin Skin: No dry skin, redness (more content not included)... Normal [facility] OT General Evaluationon 12-14 OT General Evaluation [facility] Occupational Therapy [address] [place] [id number] / REHABILITATION SERVICES INITIAL EVALUATION MR#: [id number] Acct: [id number] Name: RONALD HUTCHINS Rep #: [id number] : 1965 58 From: Joy SAMUELS/MAGDALENO Jaeger Referring Dr.: YOCASTA Juarez Status: REG [facility] Insurance: [facility] Date: SELF PAY INSURANCE Patient's Visit Information Visit Information Visit Information: RONALD HUTCHINS is a 58 year old F, referred to Occupational Therapy by YOCASTA Juarez, with a diagnosis of lymphedema. Date of Evaluation: 01/05/24 Occupational Therapist: ABRIL Malhotra/L, CHT Subjective Subjective: This 58 year old female was seen for OT eval with dx of lymphedema. Pt states she has had swelling for about 5 years or more. Pt states she had swelling since a right TKR in 2019, she has had swelling. pt states she feels the swelling has been increasing last few months- ankle and calf area. pt states she has been wearing a tubigrip. pt states she started chester that and feels this has helped. pt does state legs are less swollen when she first gets up in the AM. pt would like to know what she can do to mtg. her lymphedema. Lymphedema (Circumferential Measure) Mid-foot: right 24cm left 22cm Ankle: right 32cm left 27cm Lower calf: right 28cm left 26cm Largest calf: right 52cm left 53cm Below knee: right 67cm left 46cm Above knee: right 69cm left 69cm Lower Limb Functional Index Lower Extremity Functional Score: 12 Goals Goal: Patient will demonstrate a 20% reduction in edema by discharge: Yes Goal: Patient will demonstrate adequate knowledge of self-massage by the end of the second week.: Yes Goal: Patient will demonstrate adequate knowledge of skin care and precautions by the end of the first week.: Yes Goal: Patient will select an appropriate compression garment and demonstrate adequate knowledge of correct donning technique, care and wearing schedule by discharge.: Yes Goal: Patient will voice understanding of need to replace compression garment every four to six months by discharge.: Yes Rehabilitation General Assessment: pt demo with increase edema in LE, more proximal to knees- with tissue folds more excessive on right vs left, tissue folds soft supple vs fibrotic tissue. noted right foot pitting edema- did not arrive with tubigrip on. pt states she is unable to put compression socks on and since her knee surgery she is less active. pt demo need for skilled OT services 2-4 visits to ed pt and family ex. on life long lymphedema mtg, and use of compression alternatives ( Velcro closure compression garment ) 20-30 mmHg, skin care and exercise to stimulate lymph fluid circulation. pt and spouse demo understanding- pt did ask about pumps for her legs- ed, pt that she would still need to perform lymph stimulation above to get fluid circulating as to not push fluid into abdomen region. pt and pts spouse demo understanding. pt to return for further ed. on life long mtg of lymphedema. pt demo understanding and agree to POC. Both agree to initiate getting up and walking every 45 min for (about 10 min) walk to kitchen for drink and back to recliner- or walk to bathroom and back to recliner to increase mobility and circulation. pt also given handout of lymph stim ex. that can be performed laying, sitting or standing. pt agree and demo understanding of POC. Rehabilitation Potential: Questionable Anticipated Interventions Anticipated Interventions: Education re Diagnosis, Education re Life-long lymphedema Management, Education re Self-Bandaging Techniques, Education re Skin Care and Precautions, Education re Self Massage Techniques, Education re Correct Donning Tech,Care Wearing Sched Comp Garments, Caregiver Training and Home Program Visit Plan Frequency: 1-2x /Week Duration: 2-4 Weeks TEXT: Thank you for the opportunity to evaluate your patient. For Medicare and Medicare HMO plans, please review the plan of care and approve it. It will need to be FAXED BACK to us at [phone] for Medicare purposes. Please let me know if there are questions or concerns regarding this plan of care. Physician Signature: Date:__ 01/05/24 1848 CC: YOCASTA Juarez; Dr. Harper Genao MD MK Signed For Medicare only, by signing this I certify the plan of care. Physicians Signature Date Normal [facility] /Norma 01-02-2024 /[facility] Vascular Surgery [facility] [address] [place] [address] OFFICE VISIT Date of Service: 01/02/24 MR#: [id number] Acct: [id number] Name: RONALD HUTCHINS Rep #: [id number] : 1965 Provider: YOCASTA Juarez Age/Sex: 58/F Location: [facility] Status: Signed Intake Vital Signs 10/27/23 14:57 01/02/24 10:16 Height 5 ft 3 in 5 ft 3 in Weight: 300 lb BMI 53.1 BP 156/82 H Blood Pressure Location Lt brachial Position Sitting Respiration 16 Pulse 90 Pulse Source Monitor Temp 98.0 F Temp Source Temporal Pulse Oximetry (%) 100 Oxygen Delivery Method room air Intake Visit Reasons: 4 W FU Accompanied by: Is patient in pain?: No Allergies acetaminophen (From Tylenol-Codeine #3) Allergy (Intermediate, Verified 01/02/24 10:15) makes ears eing codeine (From Tylenol-Codeine #3) Allergy (Intermediate, Verified 01/02/24 10:15) makes ears eing Medications ???Medication ???Instructions ???Recorded ???Confirmed ???Type acetaminophen 325 mg tablet 325 mg PO ONCE PRN 04/22/22 01/02/24 History (Tylenol) escitalopram oxalate 10 mg tablet See Rx Instructions .Route 06/16/23 01/02/24 Rx .COMPLEX #90 tabs walker (Ultra-Light Rollator misc) #1 ea 09/12/23 01/02/24 Rx denosumab 60 mg/mL subcutaneous 60 mg subcut [id number] #1 mL 10/27/23 01/02/24 Rx syringe (Prolia) amlodipine 10 mg tablet See Rx Instructions .Route 10/30/23 01/02/24 Rx .COMPLEX #90 tabs fluticasone propionate 50 1 spray intranasal BID #16 grams 10/30/23 01/02/24 Rx mcg/actuation nasal spray,suspension losartan 100 mg tablet See Rx Instructions .Route 10/30/23 01/02/24 Rx .COMPLEX #90 tabs meloxicam 15 mg tablet 15 mg PO DAILY PRN pain #60 tabs 12/03/23 01/02/24 Rx levothyroxine 150 mcg tablet 150 mcg PO DAILY #90 tabs 12/26/23 01/02/24 Rx Have you fallen in the past year?: Yes (3 wk ago rolled out of bed) [facility] Osteopenia Elevated serum globulin level CKD (chronic kidney disease) Debility Hemorrhoids Left ankle pain Sinusitis Bronchitis Osteoarthritis of knees, bilateral Health care maintenance Colon cancer screening Generalized anxiety disorder Venous insufficiency of both lower extremities Hypertension Localized swelling of left upper extremity Morbid obesity Anxiety Benign essential hypertension Arthritis Hypothyroidism (acquired) Surgical History History of bilateral knee replacement History of Family History Father Heart disease Hypertension Sister Thyroid disorder Mother Diabetes Daughter ADHD Social History Smoking Status: Never smoker alcohol intake: never substance use type: does not use what type of physical activity do you participate in: bicycling frequency: 1-2 times per week HPI HPI HPI: RONALD HUTCHINS, is a 58 F who presents to the office today for follow-up of lower extremity edema and to discuss recent venous reflux study results. Recall that she has had baseline bilateral lower extremity swelling/growth for many years at least since the 90s after her but possibly before that as well; however she has noticed increased swelling and discomfort/aching pain in her right lower extremity for the last 4 to 5 years particularly after she had a knee replacement. In addition to the discomfort and aching pain she also has significantly limited mobility due to her edema. Her venous study was negative for any reflux. At last office visit, had also referred her to plastic surgery for further evaluation for potential component of lipedema. She reports the office did call her but she has not yet scheduled an appointment. ROS General General: No weight change, appetite, fatigue, colon cancer, breast cancer or weakness HEENT HEENT: No difficulty swallowing, eye injury, eye surgery, swollen glands or hoarseness Endo Endocrine: Yes thyroid disease; No diabetes mellitus, thyroid cancer, Hair loss, heat intolerance or cold intolerance Skin Skin: No rash or changing moles Musc Musculoskeletal: Yes arthritis and rheumatoid arthritis; No back problems, gout or joint pain Cardio Cardiovascular: Yes high blood pressure; No murmur, pacemaker, heart disease, atrial fibrillation, heart attack, heart stent, palpitations, shortness of breat with exertion or chest pain Psych Psychiatric: Yes anxiety; No depression or hearing voices Resp Respiratory: No shortness of breath, No sleep apnea, No cough, No COPD, No asthma, No emphysema and No wheezing Gastro Gastrointestinal: No abdominal pain, No n (more content not included)... Normal [facility] Venous Duplex US, Unilateral on 12-29-2023 Venous Duplex US, Unilateral [facility] Cardiovascular Services [address] [place] [address] Venous Duplex US, Unilateral 12/29/23 1040 MR#: [id number] Acct: [id number] Name: RONALD HUTCHINS Rep #: [id number] : 1965 58 From: Harrison Leiva MD Attending Dr: YOCASTA Juarez Status: REG CLI Ordering Dr: Marie Lagunas Date: 12/29/23 Location: [facility] Sex: F AA Admitted: Reason For Study: RLE Swelling RIGHT CFV is compressible, spontaneous, phasic, competent and demonstrates normal augmentation. FV is compressible, spontaneous, phasic, competent and demonstrates normal augmentation. POP V is compressible, spontaneous, phasic, competent and demonstrates normal augmentation. T/P Trunk is compressible. PTV is compressible. Unable to visualize mid/dist FV and Horacio V. SFJ is competent and measures 0.69 cm. GSV proximal thigh measures 0.42 x 0.43 cm. GSV at knee measures 0.16 x 0.22 cm. GSV is competent throughout. SSV proximal calf is competent and measures 0.38 x 0.33 cm. Procedure This is a venous duplex using B-mode, color flow and spectral Doppler. Exam performed in department. The study was technically difficult due to body habitus. Limited views were obtained. VL/Venous Duplex US, Unilateral Interpretation Summary Deep veins of the right lower extremity are patent and compressible segmentally. There is no evidence of right lower extremity deep vein thrombosis. The right great saphenous vein appears patent and compressible segmentally. Negative for reflux Ordering Physician: Marie Lagunas Referring Physician: Harper Genao Performed By: Abdon See, T 12/29/23 1313 Date Harrison Leiva MD CC: Marie Lagunas PA; Dr. Harper Genao MD Date Dictated: 12/29/23 1040 Date Transcribed: 12/29/23 1313 Disaster Recovery Coordinator: Signed Normal [facility] Absolute lymphocyte countOrd ered By: Harper Genao on 06-16-2023 Lymphocytes Auto (Unsp spec) [#/Vol] 2.64 10*3/uL 0.83-4.51 [facility] Automated lymphocyte count a s percentage of total leukocytesOrdered By: Harper Genao on 06-16-2023 Lymphocytes/100 WBC Auto (Unsp spec) 34.6 % 19-41 [facility] Basophil percentageOrdered B y: Harper Genao on 06-16-2023 Basophils/100 WBC (Bld) 0.4 % 0-1 [facility] Bilirubin [Mass/Vol] 0.50 mg/dL 0.20-1.[address] [facility] Comment on above: For patients on eltr ombopag therapy, use of Dimension [place] TBIL is not recommended. Chloride [Moles/Vol] 107 mmol/L 98-[address] [facility] Cholesterol [Mass/Vol] 164 mg/dL <200 [facility] Comment on above: <200 mg/dL Desirable 200-240 mg/dL Borderline >240 mg/dL High Risk Eosinophils/100 WBC (Bld) 9.6 % 0-5 [facility] Glucose [Mass/Vol] 96 mg/dL 74-106 [facility] Hemoglobin (Bld) [Mass/Vol] 13.1 g/dL 12.0-15.0 [facility] Monocytes/100 WBC (Bld) 8.3 % 0-10 [facility] Neutrophils (Bld) [#/Vol] 3.6 10*3/uL 2.0-7.7 [facility] Neutrophils/100 WBC (Bld) 46.8 % 47-70 [facility] Potassium [Moles/Vol] 4.2 mmol/L 3.5-5.1 [facility] Protein [Mass/Vol] 9.0 g/dL 6.4-8.2 [facility] Sodium [Moles/Vol] 138 mmol/L 136-145 [facility] Triglyceride [Mass/Vol] 72 mg/dL <199 [facility] Comment on above: The drugs N-Acetylcy steine and Metamizole may falsely depress this assay.Serum Triglycerides Reference Interval Normal <150 mg/dL Borderline high 150 - 199 mg/dL High 200 - 499 mg/dL Very High > or = 500 mg/dL WBC (Bld) [#/Vol] 7.6 10*3/uL 4.4-11.0 [facility] Determination of erythrocyte mean corpuscular volume (MCV)Ordered By: Harper Genao on 06-16-2023 MCV (RBC) [Entitic vol] 91.0 fL 81-99 [facility] Erythrocyte distribution wid th ratioOrdered By: [facility] Centerpeggy cEholsmelchor on 06-16-2023 Erythrocyte distribution width (RBC) [Ratio] 14.3 % 11.6-14.6 [facility] Erythrocyte distribution wid th standard deviationOrdered By: [facility] Onesimomelchor on 06-16-2023 Erythrocyte distribution width (RBC) [Entitic vol] 48.2 fL 35.1-43.9 [facility] Hematocrit Auto (Bld) [Volum e fraction]Ordered By: Harper Genao on 06-16-2023 Hematocrit (Bld) [Volume fraction] 40.6 % 37-47 [facility] Immature granulocytes/100 WB C Auto (Bld)Ordered By: [facility] Centerpeggy Genao on 06-16-2023 Immature granulocytes/100 WBC (Bld) 0.300 % 0.0-0.9 [facility] Comment on above: IG% - Immature Granu locytes (promyelocytes, myelocytes and metamyelocytes) > 1% indicates that a LEFT SHIFT is Present. Laboratory - Chemistry and C hemistry - challengeOrdered By: Harper Genao on 06-16-2023 Albumin/Globulin [Mass ratio] 0.6 {ratio} 0.9-2.4 [facility] ALP [Catalytic activity/Vol] 107 U/L 45-117 [facility] ALT [Catalytic activity/Vol] 19 U/L 13-56 [facility] Cholesterol in HDL [Mass/Vol] 45 mg/dL >40 [facility] Comment on above: The drugs N-Acetylcy steine and Metamizole may falsely depress this assay. Reference Range HDL <40 mg/dL Low HDL Cholesterol HDL >or= 60 mg/dL High HDL Cholesterol Cholesterol in LDL [Mass/Vol] 105 mg/dL 0-130 [facility] CO2 [Moles/Vol] 24.0 mmol/L 21.0-32.0 [facility] Globulin (S) [Mass/Vol] 5.5 g/dL 2.2-4.2 [facility] Urea nitrogen/Creatinine [Mass ratio] 18.3 mg/mg 10-20 [facility] Laboratory - Hematology and Cell countsOrdered By: Harper Genao on 06-16-2023 MCH (RBC) [Entitic mass] 29.4 pg 27.0-32.0 [facility] MCHC (RBC) [Mass/Vol] 32.3 g/dL 32-36 [facility] Nucleated RBC/100 WBC (Bld) [Ratio] 0 % 0-5 [facility] Platelet mean volume (Bld) [Entitic vol] 10.2 fL 6.2-12.0 [facility] Platelets (Bld) [#/Vol] 358 10*3/uL 150-450 [facility] No Panel InformationOrdered By: Harper Genao on 06-16-2023 Estimated GFR (MDRD) Amer 62 mL/min >60 [facility] Comment on above: GFR Calc Estimated GFR (MDRD) Non-Af Amer 51 mL/min >60 [facility] Comment on above: Non- GFR Calc VLDL Cholesterol 14 mg/dL 5-40 [facility] RBC Auto (Bld) [#/Vol]Ordere d By: Harper Genao on 06-16-2023 RBC (Bld) [#/Vol] 4.46 10*6/uL 4.2-5.4 [facility] Serum or plasma calcium rachael urement (mass/volume)Ordered By: Harper Genao on 06-16-2023 Calcium [Mass/Vol] 9.5 mg/dL 8.5-10.1 [facility] Serum or plasma creatinine m easurement (mass/volume)Ordered By: Harper Genao on 06-16-2023 Creatinine [Mass/Vol] 1.15 mg/dL 0.55-1.02 [facility] Comment on above: The validity of the calculated GFR & GFRAA in patients over 70 years has not been determined. Clinical correlation is essential. Serum or plasma thyroid stim ulating hormone (TSH) measurement (units/volume)Ordered By: Harper Genao on 06-16-2023 TSH Qn 2.50 uIU/mL 0.358-3.74 [facility] Serum or plasma urea nitroge n measurement (mass/volume)Ordered By: Harper Genao on 06-16-2023 Urea nitrogen [Mass/Vol] 21 mg/dL 7-18 [facility] Thin prep Papanicolaou smear with manual screeningOrdered By: Harper Genao on 06-16-2023 Thin prep Papanicolaou smear with manual screening 3.5 g/dL 3.2-5.0 [facility] Thin prep Papanicolaou smear with manual screening 17 U/L 15-37 [facility] Thin prep Papanicolaou smear with manual screening 7 5-15 [facility] Absolute lymphocyte countOrd ered By: Dr. Genao on 09-13-2022 Lymphocytes Auto (Unsp spec) [#/Vol] 2.46 10*3/uL 0.83-4.51 [facility] Basophil percentageOrdered B y: Dr. Genao on 09-13-2022 Basophils/100 WBC (Bld) 0.3 % 0-1 [facility] Bilirubin [Mass/Vol] 0.40 mg/dL 0.20-1.[address] [facility] Comment on above: For patients on eltr ombopag therapy, use of Dimension [place] TBIL is not recommended. Chloride [Moles/Vol] 108 mmol/L 98-[address] [facility] Cholesterol [Mass/Vol] 132 mg/dL <200 [facility] Comment on above: <200 mg/dL Desirable 200-240 mg/dL Borderline >240 mg/dL High Risk Eosinophils/100 WBC (Bld) 9.4 % 0-5 [facility] Glucose [Mass/Vol] 104 mg/dL 74-106 [facility] Comment on above: Fasting Glucose resu lt from 100 to 125 mg/dL suggests IMPAIRED HOMEOSTASIS per A.D.A. criteria. Neutrophils (Bld) [#/Vol] 3.9 10*3/uL 2.0-7.7 [facility] Neutrophils/100 WBC (Bld) 49.9 % 47-70 [facility] Potassium [Moles/Vol] 4.0 mmol/L 3.5-5.1 [facility] Protein [Mass/Vol] 8.6 g/dL 6.4-8.2 [facility] Sodium [Moles/Vol] 139 mmol/L 136-145 [facility] Triglyceride [Mass/Vol] 65 mg/dL <199 [facility] Comment on above: The drugs N-Acetylcy steine and Metamizole may falsely depress this assay.Serum Triglycerides Reference Interval Normal <150 mg/dL Borderline high 150 - 199 mg/dL High 200 - 499 mg/dL Very High > or = 500 mg/dL WBC (Bld) [#/Vol] 7.9 10*3/uL 4.4-11.0 [facility] Blood erythrocytes count (nu mber/volume)Ordered By: Dr. Genao on 09-13-2022 RBC (Bld) [#/Vol] 4.19 10*6/uL 4.2-5.4 [facility] Blood hemoglobin measurement (mass/volume)Ordered By: Dr. Genao on 09-13-2022 Hemoglobin (Bld) [Mass/Vol] 12.4 g/dL 12.0-15.0 [facility] Blood lymphocytes/100 leukoc ytesOrdered By: Dr. Genao on 09-13-2022 Lymphocytes/100 WBC (Bld) 31.3 % 19-41 [facility] Blood monocytes/100 leukocyt esOrdered By: Dr. Genao on 09-13-2022 Monocytes/100 WBC (Bld) 9.0 % 0-10 [facility] Blood platelet mean volumeOr dered By: Dr. Genao on 09-13-2022 Platelet mean volume (Bld) [Entitic vol] 10.4 fL 6.2-12.0 [facility] Determination of erythrocyte mean corpuscular volume (MCV)Ordered By: Dr. Genao on 09-13-2022 MCV (RBC) [Entitic vol] 94.5 fL 81-99 [facility] Hematocrit Auto (Bld) [Volum e fraction]Ordered By: Dr. Genao on 09-13-2022 Hematocrit (Bld) [Volume fraction] 39.6 % 37-47 [facility] Laboratory - Chemistry and C hemistry - challengeOrdered By: Dr. Genao on 09-13-2022 ALP [Catalytic activity/Vol] 90 U/L 45-117 [facility] ALT [Catalytic activity/Vol] 27 U/L 13-56 [facility] CO2 [Moles/Vol] 23.0 mmol/L 21.0-32.0 [facility] Globulin (S) [Mass/Vol] 5.5 g/dL 2.2-4.2 [facility] Urea nitrogen/Creatinine [Mass ratio] 10.5 mg/mg 10-20 [facility] Laboratory - Hematology and Cell countsOrdered By: Dr. Genao on 09-13-2022 Erythrocyte distribution width (RBC) [Entitic vol] 49.3 fL 35.1-43.9 [facility] Erythrocyte distribution width (RBC) [Ratio] 14.2 % 11.6-14.6 [facility] Immature granulocytes/100 WBC (Bld) 0.100 % 0.0-0.9 [facility] Comment on above: IG% - Immature Granu locytes (promyelocytes, myelocytes and metamyelocytes) > 1% indicates that a LEFT SHIFT is Present. MCH (RBC) [Entitic mass] 29.6 pg 27.0-32.0 [facility] Nucleated RBC/100 WBC (Bld) [Ratio] 0 % 0-5 [facility] Auto (RBC) [Mass/Vol]Or dered By: Dr. Genao on 09-13-2022 MCHC (RBC) [Mass/Vol] 31.3 g/dL 32-36 [facility] No Panel InformationOrdered By: Dr. Genao on 09-13-2022 Estimated GFR (MDRD) Amer 63 mL/min >60 [facility] Comment on above: GFR Calc Estimated GFR (MDRD) Non-Af Amer 52 mL/min >60 [facility] Comment on above: Non- GFR Calc Thyroid Stimulating Hormone (TSH) 1.90 uIU/mL 0.358-3.74 [facility] Platelets bldOrdered By: Dr. Genao on 09-13-2022 Platelets (Bld) [#/Vol] 300 10*3/uL 150-450 [facility] Serum or plasma albumin rachael urement (mass/volume)Ordered By: Dr. Genao on 09-13-2022 Albumin [Mass/Vol] 3.1 g/dL 3.2-5.0 [facility] Serum or plasma albumin/glob ulin mass ratioOrdered By: Dr. Genao on 09-13-2022 Albumin/Globulin [Mass ratio] 0.6 {ratio} 0.9-2.4 [facility] Serum or plasma calcium rachael urement (mass/volume)Ordered By: Dr. Genao on 09-13-2022 Calcium [Mass/Vol] 9.3 mg/dL 8.5-10.1 [facility] Serum or plasma cholesterol in HDL measurement (mass/volume)Ordered By: Dr. Genao on 09-13-2022 Cholesterol in HDL [Mass/Vol] 39 mg/dL >40 [facility] Comment on above: The drugs N-Acetylcy steine and Metamizole may falsely depress this assay. Reference Range HDL <40 mg/dL Low HDL Cholesterol HDL >or= 60 mg/dL High HDL Cholesterol Serum or plasma cholesterol in VLDL measurement (mass/volume)Ordered By: Dr. Genao on 09-13-2022 Cholesterol in VLDL [Mass/Vol] 13 mg/dL 5-40 [facility] Serum or plasma creatinine m easurement (mass/volume)Ordered By: Dr. Genao on 09-13-2022 Creatinine [Mass/Vol] 1.14 mg/dL 0.55-1.02 [facility] Comment on above: The validity of the calculated GFR & GFRAA in patients over 70 years has not been determined. Clinical correlation is essential. Serum or plasma low density lipoprotein (LDL) cholesterol measurement (mass/volume)Ordered By: Dr. Genao on 09-13-2022 Cholesterol in LDL [Mass/Vol] 80 mg/dL 0-130 [facility] Serum or plasma urea nitroge n measurement (mass/volume)Ordered By: Dr. Genao on 09-13-2022 Urea nitrogen [Mass/Vol] 12 mg/dL 7-18 [facility] Thin prep Papanicolaou smear with manual screeningOrdered By: Dr. Genao on 09-13-2022 Thin prep Papanicolaou smear with manual screening 23 U/L 15-37 [facility] Thin prep Papanicolaou smear with manual screening 8 5-15 [facility] Absolute lymphocyte counton 12-04-2021 Lymphocytes Auto (Unsp spec) [#/Vol] 2.73 10*3/uL 0.83-4.51 [facility] Work Phone: Basophil percentageon 2021 Basophils/100 WBC (Bld) 0.2 % 0-1 [facility] Work Phone: Bilirubin [Mass/Vol] 0.40 mg/dL 0.20-1.[address] [facility] Work Phone: Comment on above: For patients on eltr ombopag therapy, use of Dimension [place] TBIL is not recommended. Chloride [Moles/Vol] 109 mmol/L 98-[address] [facility] Work Phone: Cholesterol [Mass/Vol] 156 mg/dL <200 [facility] Work Phone: Comment on above: <200 mg/dL Desirable 200-240 mg/dL Borderline >240 mg/dL High Risk Eosinophils/100 WBC (Bld) 13.4 % 0-5 [facility] Work Phone: Glucose [Mass/Vol] 92 mg/dL 74-106 [facility] Work Phone: Neutrophils (Bld) [#/Vol] 3.8 10*3/uL 2.0-7.7 [facility] Work Phone: Neutrophils/100 WBC (Bld) 46.1 % 47-70 [facility] Work Phone: Potassium [Moles/Vol] 4.1 mmol/L 3.5-5.1 [facility] Work Phone: Protein [Mass/Vol] 8.6 g/dL 6.4-8.2 [facility] Work Phone: Sodium [Moles/Vol] 141 mmol/L 136-145 [facility] Work Phone: Triglyceride [Mass/Vol] 68 mg/dL <199 [facility] Work Phone: Comment on above: The drugs N-Acetylcy steine and Metamizole may falsely depress this assay.Serum Triglycerides Reference Interval Normal <150 mg/dL Borderline high 150 - 199 mg/dL High 200 - 499 mg/dL Very High > or = 500 mg/dL WBC (Bld) [#/Vol] 8.3 10*3/uL 4.4-11.0 [facility] Work Phone: Blood erythrocytes count (nu mber/volume)on 12-04-2021 RBC (Bld) [#/Vol] 4.10 10*6/uL 4.2-5.4 [facility] Work Phone: Blood hemoglobin measurement (mass/volume)on 12-04-2021 Hemoglobin (Bld) [Mass/Vol] 12.7 g/dL 12.0-15.0 [facility] Work Phone: Blood lymphocytes/100 leukoc yteson 12-04-2021 Lymphocytes/100 WBC (Bld) 33.0 % 19-41 [facility] Work Phone: Blood monocytes/100 leukocyt eson 12-04-2021 Monocytes/100 WBC (Bld) 7.1 % 0-10 [facility] Work Phone: [phone] Blood platelet mean volumeon 12-04-2021 Platelet mean volume (Bld) [Entitic vol] 10.5 fL 6.2-12.0 [facility] Work Phone: [phone] Determination of erythrocyte mean corpuscular volume (MCV)on 12-04-2021 MCV (RBC) [Entitic vol] 95.1 fL 81-99 [facility] Work Phone: [phone] Hematocrit Auto (Bld) [Volum e fraction]on 12-04-2021 Hematocrit (Bld) [Volume fraction] 39.0 % 37-47 [facility] Work Phone: [phone] Laboratory - Chemistry and C hemistry - challengeon 12-04-2021 ALP [Catalytic activity/Vol] 98 U/L 45-117 [facility] Work Phone: [phone] ALT [Catalytic activity/Vol] 21 U/L 13-56 [facility] Work Phone: [phone] CO2 [Moles/Vol] 26.0 mmol/L 21.0-32.0 [facility] Work Phone: [phone] Globulin (S) [Mass/Vol] 5.1 g/dL 2.2-4.2 [facility] Work Phone: [phone] Urea nitrogen/Creatinine [Mass ratio] 14.8 mg/mg 10-20 [facility] Work Phone: [phone] Laboratory - Hematology and Cell countson 12-04-2021 Erythrocyte distribution width (RBC) [Entitic vol] 50.2 fL 35.1-43.9 [facility] Work Phone: [phone] Erythrocyte distribution width (RBC) [Ratio] 14.3 % 11.6-14.6 [facility] Work Phone: [phone] Immature granulocytes/100 WBC (Bld) 0.200 % 0.0-0.9 [facility] Work Phone: [phone] Comment on above: IG% - Immature Granu locytes (promyelocytes, myelocytes and metamyelocytes) > 1% indicates that a LEFT SHIFT is Present. MCH (RBC) [Entitic mass] 31.0 pg 27.0-32.0 [facility] Work Phone: [phone] Nucleated RBC/100 WBC (Bld) [Ratio] 0 % 0-5 [facility] Work Phone: [phone] MCHC Auto (RBC) [Mass/Vol]on 12-04-2021 MCHC (RBC) [Mass/Vol] 32.6 g/dL 32-36 [facility] Work Phone: No Panel Informationon 12-04 Estimated GFR (MDRD) Amer 62 mL/min >60 [facility] Work Phone: Comment on above: GFR Calc Estimated GFR (MDRD) Non-Af Amer 51 mL/min >60 [facility] Work Phone: [phone] Comment on above: Non- GFR Calc Platelets bldon 12-04-2021 Platelets (Bld) [#/Vol] 298 10*3/uL 150-450 [facility] Work Phone: [phone] Serum or plasma albumin rachael urement (mass/volume)on 12-04-2021 Albumin [Mass/Vol] 3.5 g/dL 3.2-5.0 [facility] Work Phone: [phone] Serum or plasma albumin/glob ulin mass ratioon 12-04-2021 Albumin/Globulin [Mass ratio] 0.7 {ratio} 0.9-2.4 [facility] Work Phone: [phone] Serum or plasma calcium rachael urement (mass/volume)on 12-04-2021 Calcium [Mass/Vol] 9.6 mg/dL 8.5-10.1 [facility] Work Phone: [phone] Serum or plasma cholesterol in HDL measurement (mass/volume)on 12-04-2021 Cholesterol in HDL [Mass/Vol] 44 mg/dL >40 [facility] Work Phone: [phone] Comment on above: The drugs N-Acetylcy steine and Metamizole may falsely depress this assay. Reference Range HDL <40 mg/dL Low HDL Cholesterol HDL >or= 60 mg/dL High HDL Cholesterol Serum or plasma cholesterol in VLDL measurement (mass/volume)on 12-04-2021 Cholesterol in VLDL [Mass/Vol] 14 mg/dL 5-40 [facility] Work Phone: Serum or plasma creatinine m easurement (mass/volume)on 12-04-2021 Creatinine [Mass/Vol] 1.15 mg/dL 0.55-1.02 [facility] Work Phone: Comment on above: The validity of the calculated GFR & GFRAA in patients over 70 years has not been determined. Clinical correlation is essential. Serum or plasma low density lipoprotein (LDL) cholesterol measurement (mass/volume)on 12-04-2021 Cholesterol in LDL [Mass/Vol] 98 mg/dL 0-130 [facility] Work Phone: Serum or plasma urea nitroge n measurement (mass/volume)on 12-04-2021 Urea nitrogen [Mass/Vol] 17 mg/dL 7-18 [facility] Work Phone: Thin prep Papanicolaou smear with manual screeningon 12-04-2021 Thin prep Papanicolaou smear with manual screening 17 U/L 15-37 [facility] Work Phone: Thin prep Papanicolaou smear with manual screening 6 5-15 [facility] Work Phone: Laboratory - Chemistry and C hemistry - challengeon 10-30-2021 Free T4 [Mass/Vol] 1.34 ng/dL 0.76-1.46 [facility] Work Phone: No Panel Informationon 10-30 Thyroid Stimulating Hormone (TSH) 3.16 uIU/mL 0.358-3.74 [facility] Work Phone: Vital Signs Date Time Vital Sign Value Performing Clinician Arsenio barragan 12-15-2024 10:40-0400 Body height 160.[address] Harper Genao MD Work Phone: [facility] 12-15-2024 10:40-0400 Body mass index (BMI) [Ratio] 57.9 kg/m2 Dr. Harper Genao MD Work Phone: [facility] 12-15-2024 10:40-0400 Body temperature 99.9 [degF] Dr. Harper Genao MD Work Phone: [facility] 12-15-2024 10:40-0400 Body weight 148.[address] Harper Genao MD Work Phone: [facility] 12-15-2024 10:40-0400 Diastolic blood pressure 82 mm[Hg] Dr. Harper Genao MD Work Phone: [facility] 12-15-2024 10:40-0400 Heart rate 76 /min Dr. Harper Genao MD Work Phone: [facility] 12-15-2024 10:40-0400 Respiratory rate 16 /min Dr. Harper Genao MD Work Phone: [facility] 12-15-2024 10:40-0400 SaO2% (BldA) [Mass fraction] 95 % Dr. Harper Genao MD Work Phone: [facility] 12-15-2024 10:40-0400 Systolic blood pressure 128 mm[Hg] Dr. Harper Genao MD Work Phone: [facility] 10-08-2024 10:30-0400 Body height 160.[address] Harper Genao MD Work Phone: [facility] 10-08-2024 10:30-0400 Body temperature 97.8 [degF] Dr. Harper Genao MD Work Phone: [facility] 10-08-2024 10:30-0400 Diastolic blood pressure 78 mm[Hg] Dr. Harper Genao MD Work Phone: [facility] 10-08-2024 10:30-0400 Heart rate 83 /min Dr. Harper Genao MD Work Phone: [facility] 10-08-2024 10:30-0400 Respiratory rate 18 /min Dr. Harper Genao MD Work Phone: [facility] 10-08-2024 10:30-0400 SaO2% (BldA) [Mass fraction] 94 % Dr. Harper Genao MD Work Phone: [facility] 10-08-2024 10:30-0400 Systolic blood pressure 143 mm[Hg] Dr. Harper Genao MD Work Phone: [facility] 09-30-2024 13:58-0400 Diastolic blood pressure 78 mm[Hg] Babs Sandhya PA-C Work Phone: [facility] 09-30-2024 13:58-0400 Heart rate 81 /min Babs Sandhya PA-C Work Phone: [facility] 09-30-2024 13:58-0400 Respiratory rate 17 /min Babs Sandhya PA-C Work Phone: [facility] 09-30-2024 13:58-0400 SaO2% (BldA) [Mass fraction] 99 % Babs Sandhya PA-C Work Phone: [facility] 09-30-2024 13:58-0400 Systolic blood pressure 132 mm[Hg] Babs Sandhya PA-C Work Phone: [facility] 09-23-2024 09:23-0400 Body height 165.1 cm Babs Sandhya PA-C Work Phone: [facility] 09-23-2024 09:23-0400 Body mass index (BMI) [Ratio] 54.62 kg/m2 Babs Sandhya PA-C Work Phone: [facility] 09-23-2024 09:23-0400 Body weight 148.87 kg Babs Sandhya PA-C Work Phone: [facility] 09-23-2024 09:23-0400 Diastolic blood pressure 86 mm[Hg] Babs Sandhya PA-C Work Phone: [facility] 09-23-2024 09:23-0400 Heart rate 96 /min Babs Sandhya PA-C Work Phone: [facility] 09-23-2024 09:23-0400 SaO2% (BldA) [Mass fraction] 100 % Babs Sandhya PA-C Work Phone: [facility] 09-23-2024 09:23-0400 Systolic blood pressure 134 mm[Hg] Babs Sandhya PA-C Work Phone: [facility] 07-19-2024 09:34-0400 Body height 160.[address] Harper Genao MD Work Phone: [facility] 07-19-2024 09:34-0400 Body mass index (BMI) [Ratio] 59.3 kg/m2 Dr. Harper Genao MD Work Phone: [facility] 07-19-2024 09:34-0400 Body weight 151.[address] Harper Genao MD Work Phone: [facility] 07-19-2024 09:34-0400 Diastolic blood pressure 76 mm[Hg] Dr. Harper Genao MD Work Phone: [facility] 07-19-2024 09:34-0400 Heart rate 83 /min Dr. Harper Genao MD Work Phone: [facility] 07-19-2024 09:34-0400 SaO2% (BldA) [Mass fraction] 96 % Dr. Harper Genao MD Work Phone: [facility] 07-19-2024 09:34-0400 Systolic blood pressure 135 mm[Hg] Dr. Harper Genao MD Work Phone: [facility] 04-30-2024 09:51-0500 Body mass index (BMI) [Ratio] 58.8 kg/m2 Dr. Harper Genao MD Work Phone: [facility] 04-30-2024 09:51-0500 Body temperature 97.6 [degF] Dr. Harper Genao MD Work Phone: [facility] 04-30-2024 09:51-0500 Body weight 150.[address] Harper Genao MD Work Phone: [facility] 04-30-2024 09:51-0500 Diastolic blood pressure 62 mm[Hg] Dr. Harper Genao MD Work Phone: [facility] 04-30-2024 09:51-0500 Heart rate 108 /min Dr. Harper Genao MD Work Phone: [facility] 04-30-2024 09:51-0500 Respiratory rate 16 /min Dr. Harper Genao MD Work Phone: [facility] 04-30-2024 09:51-0500 SaO2% (BldA) [Mass fraction] 98 % Dr. Harper Genao MD Work Phone: [facility] 04-30-2024 09:51-0500 Systolic blood pressure 128 mm[Hg] Dr. Harper Genao MD Work Phone: [facility] 06-24-2023 10:54-0400 Body height 160.[address] Harper Genao Work Phone: [facility] 06-24-2023 10:54-0400 Body mass index (BMI) [Ratio] 56.8 kg/m2 Dr. Harper Genao Work Phone: [facility] 06-24-2023 10:54-0400 Body temperature 98.4 [degF] Dr. Harper Genao Work Phone: [facility] 06-24-2023 10:54-0400 Body weight 145.[address] Harper Genao Work Phone: [facility] 06-24-2023 10:54-0400 Diastolic blood pressure 72 mm[Hg] Dr. Harper Genao Work Phone: [facility] 06-24-2023 10:54-0400 Heart rate 70 /min Dr. Harper Genao Work Phone: [facility] 06-24-2023 10:54-0400 Respiratory rate 16 /min Dr. Harper Genao Work Phone: [facility] 06-24-2023 10:54-0400 SaO2% (BldA) [Mass fraction] 96 % Dr. Harper Genao Work Phone: [facility] 06-24-2023 10:54-0400 Systolic blood pressure 118 mm[Hg] Dr. Harper Genao Work Phone: [facility] 06-16-2023 10:55-0500 Body height 160.[address] Harper Genao Work Phone: [facility] 06-16-2023 10:55-0500 Body mass index (BMI) [Ratio] 56.3 kg/m2 Dr. Harper Genao Work Phone: [facility] 06-16-2023 10:55-0500 Body temperature 97 [degF] Dr. Harper Genao Work Phone: [facility] 06-16-2023 10:55-0500 Body weight 144.[address] Harper Genao Work Phone: [facility] 06-16-2023 10:55-0500 Diastolic blood pressure 80 mm[Hg] Dr. Harper Genao Work Phone: [facility] 06-16-2023 10:55-0500 Heart rate 95 /min Dr. Harper Genao Work Phone: [facility] 06-16-2023 10:55-0500 Respiratory rate 16 /min Dr. Harper Genao Work Phone: [facility] 06-16-2023 10:55-0500 SaO2% (BldA) [Mass fraction] 97 % Dr. Harper Genao Work Phone: [facility] 06-16-2023 10:55-0500 Systolic blood pressure 136 mm[Hg] Dr. Harper Genao Work Phone: [facility] 09-13-2022 09:18-0400 Body height 160.[address] Harper Genao Work Phone: [facility] 09-13-2022 09:18-0400 Body mass index (BMI) [Ratio] 61 kg/m2 Dr. Harper Genao Work Phone: [facility] 09-13-2022 09:18-0400 Body temperature 95.1 [degF] Dr. Harper Genao Work Phone: [facility] 09-13-2022 09:18-0400 Body weight 156.[address] Harper Genao Work Phone: [facility] 09-13-2022 09:18-0400 Diastolic blood pressure 76 mm[Hg] Dr. Harper Genao Work Phone: [facility] 09-13-2022 09:18-0400 Heart rate 97 /min Dr. Harper Genao Work Phone: [facility] 09-13-2022 09:18-0400 Respiratory rate 18 /min Dr. Harper Genao Work Phone: [facility] 09-13-2022 09:18-0400 SaO2% (BldA) [Mass fraction] 95 % Dr. Harper Genao Work Phone: [facility] 09-13-2022 09:18-0400 Systolic blood pressure 138 mm[Hg] Dr. Harper Genao Work Phone: [facility] 04-22-2022 09:25-0500 Body height 160.[address] Harper Genao Work Phone: [facility] 04-22-2022 09:25-0500 Body mass index (BMI) [Ratio] 43.5 kg/m2 Dr. Harper Genao Work Phone: [facility] 04-22-2022 09:25-0500 Body temperature 97.6 [degF] Dr. Harper Genao Work Phone: [facility] 04-22-2022 09:25-0500 Body weight 111.[address] Harper Genao Work Phone: [facility] 04-22-2022 09:25-0500 Diastolic blood pressure 84 mm[Hg] Dr. Harper Genao Work Phone: [facility] 04-22-2022 09:25-0500 Heart rate 88 /min Dr. Harper Genao Work Phone: [facility] 04-22-2022 09:25-0500 Respiratory rate 14 /min Dr. Harper Genao Work Phone: [facility] 04-22-2022 09:25-0500 SaO2% (BldA) [Mass fraction] 97 % Dr. Harper Genao Work Phone: [facility] 04-22-2022 09:25-0500 Systolic blood pressure 146 mm[Hg] Dr. Harper Genao Work Phone: [facility] 12-04-2021 09:13-0400 Body height 160.[address] Arun Stringer Work Phone: [facility] Work Phone: 12-04-2021 09:13-0400 Body mass index (BMI) [Ratio] 60.4 kg/m2 Dr. Arun Stringer Work Phone: [facility] Work Phone: 12-04-2021 09:13-0400 Body temperature 98.3 [degF] Dr. Arun Stringer Work Phone: [facility] Work Phone: 12-04-2021 09:13-0400 Body weight 154.[address] Arun Stringer Work Phone: [facility] Work Phone: 12-04-2021 09:13-0400 Diastolic blood pressure 80 mm[Hg] Dr. Arun Stringer Work Phone: [facility] Work Phone: 12-04-2021 09:13-0400 Heart rate 85 /min Dr. Arun Stringer Work Phone: [facility] Work Phone: 12-04-2021 09:13-0400 Respiratory rate 18 /min Dr. Arun Stringer Work Phone: [facility] Work Phone: 12-04-2021 09:13-0400 SaO2% (BldA) [Mass fraction] 100 % Dr. Arun Stringer Work Phone: [facility] Work Phone: 12-04-2021 09:13-0400 Systolic blood pressure 130 mm[Hg] Dr. Arun Stringer Work Phone: [facility] Work Phone: 10-30-2021 10:13-0400 Body height 160.[address] Arun Stringer Work Phone: [facility] Work Phone: 10-30-2021 10:13-0400 Body mass index (BMI) [Ratio] 60.7 kg/m2 Dr. Arun Stringer Work Phone: [facility] Work Phone: 10-30-2021 10:13-0400 Body temperature 96.5 [degF] Dr. Arun Stringer Work Phone: [facility] Work Phone: 10-30-2021 10:13-0400 Body weight 155.[address] Arun Stringer Work Phone: [facility] Work Phone: 10-30-2021 10:13-0400 Diastolic blood pressure 92 mm[Hg] Dr. Arun Stringer Work Phone: [facility] Work Phone: 10-30-2021 10:13-0400 Heart rate 84 /min Dr. Arun Stringer Work Phone: [facility] Work Phone: 10-30-2021 10:13-0400 Respiratory rate 18 /min Dr. Arun tSringer Work Phone: [facility] Work Phone: 10-30-2021 10:13-0400 SaO2% (BldA) [Mass fraction] 97 % Dr. Arun Stringer Work Phone: [facility] Work Phone: 10-30-2021 10:13-0400 Systolic blood pressure 160 mm[Hg] Dr. Arun Stringer Work Phone: [facility] Work Phone: Encounters Encounter Date Encounter Type Care Provider Facility Start: 12-15-2024 End: 12-15-[address] Harper Genao MD Work Phone: -Laboratory Start: 12-15-2024 End: 12-15-[address] Harper Genao MD -Laboratory Work Phone: Start: 12-15-2024 End: 12-15-[address] Harper Genao MD -[facility] Work Phone: Start: 12-15-2024 End: 12-15-[address] Harper Genao MD Work Phone: -[facility] Start: 12-15-2024 End: 12-15-2024 ambulatory Harper Genao Facility:[facility] Start: 11-05-2024 End: 11-05-2024 Patient encounter procedure Jose C Ba SPICER Work Phone: [facility] Comment on above: History of patellar fracture (Primary Dx) Start: 11-05-2024 End: 11-05-2024 ambulatory JOSE C COSME Facility:[facility] Start: 11-05-2024 End: 11-05-2024 Subsequent hospital visit by physician [facility] Work Phone: Radiology Comment on above: History of patellar fracture [Z87.81] Start: 11-02-2024 End: 11-02-2024 Orders Only Jose C Cosme Work Phone: Orthopaedics Comment on above: History of patellar fracture (Primary Dx) Start: 10-11-2024 End: 10-11-2024 Telephone encounter Jose C Ba SPICER Work Phone: Orthopaedics Comment on above: Med Change Request Start: 10-08-2024 End: 10-08-2024 Patient encounter procedure Mckenna WU -[facility] Work Phone: Start: 10-08-2024 End: 10-08-[address] Harper Genao MD Work Phone: -[facility] Start: 10-07-2024 End: 10-07-2024 Follow-up encounter Babs Arthur PA-C Work Phone: Rheumatology Comment on above: Results Start: 10-05-2024 End: 10-05-2024 Patient encounter procedure Jose C Ba SPICER Work Phone: [facility] Comment on above: Vitamin D deficiency (Primary Dx); History of patellar fracture; Morbid obesity (HCC); Presence of artificial knee joint, bilateral Start: 10-05-2024 End: 10-05-2024 ambulatory JOSE C COSME Facility:[facility] Start: 09-30-2024 End: 09-30-2024 ambulatory BABS ARTHUR Facility:[facility] Start: 09-30-2024 End: 09-30-2024 Patient encounter procedure Babs Kingser PA-C Work Phone: Rheumatology Comment on above: Lupus erythematosus overlap syndrome (HCC) (Primary Dx); Rheumatoid factor positive; Cyclic citrullinated peptide (CCP) antibody positive; Jaccoud's arthropathy (HCC); History of patellar fracture; Asymptomatic age-related postmenopausal state; Osteoporosis, unspecified osteoporosis type, unspecified pathological fracture presence; Long-term use of Plaquenil Start: 09-30-2024 End: 09-30-2024 Telephone encounter Babs Arthur PA-C Work Phone: Rheumatology Comment on above: Results Start: 09-30-2024 End: 09-30-2024 ambulatory BABS KINGSER Facility:[facility] Start: 09-28-2024 End: 10-13-2024 Telephone encounter Babs Kingser PA-C Work Phone: Rheumatology Comment on above: Patient Question Start: 09-23-2024 End: 09-23-2024 ambulatory BABS ARTHUR Facility:[facility] Start: 09-23-2024 End: 09-23-2024 Subsequent hospital visit by physician Kendall [facility] Joshua Subramanian Work Phone: Radiology Comment on above: Pain in joint, multi ple sites [M25.50] Start: 09-23-2024 End: 09-23-2024 ambulatory BABS KINGSER Facility:[facility] Start: 09-23-2024 End: 09-23-2024 Patient encounter procedure Babs Sandhya PA-C Work Phone: Rheumatology Comment on above: Pain in joint, multi ple sites (Primary Dx); Hypermobility syndrome; Osteoporosis, unspecified osteoporosis type, unspecified pathological fracture presence; Dry eye of left side; Morbid obesity (HCC) Start: 07-26-2024 End: 07-26-[address] Harper Genao MD Work Phone: [facility] Work Phone: Start: 07-26-2024 End: 07-26-[address] Harper Genao MD -Outpatient Breast Imaging Work Phone: Start: 07-26-2024 End: 07-26-2024 ambulatory Efewongbe Oleghe Facility:[facility] Start: 07-19-2024 End: 07-19-[address] Fernandez Zabala MD -[facility] Work Phone: Start: 07-19-2024 End: 07-19-2024 ambulatory Efewongbe Oleghe Facility:[facility] Start: 04-30-2024 End: 04-30-[address] Harper Genao MD -[facility] Work Phone: Start: 04-30-2024 End: 04-30-2024 ambulatory Efewongbe Oleghe Facility:[facility] Start: 04-30-2024 End: 04-30-2024 ambulatory Efewcoatsburgbe Oleghe Facility:[facility] Start: 03-09-2024 ambulatory Efewongbe Oleghe Facili ty:[facility] Start: 02-06-2024 End: 02-06-2024 ambulatory Efewongbe Oleghe Facility:[facility] Start: 01-26-2024 End: 01-26-2024 ambulatory Efewongbe Oleghe Facility:[facility] Start: 01-05-2024 End: 01-05-2024 [facility] Start: 01-02-2024 End: 01-02-2024 ambulatory Efewongbe Oleghe Facility:[facility] Start: 12-29-2023 ambulatory Efewongbe Oleghe Facili ty:[facility] Start: 12-29-2023 End: 12-29-2023 ambulatory Efewongbe Olee Facility:[facility] Start: 07-17-2023 End: 07-17-[address] Harper Genao Work Phone: [facility] Work Phone: Start: 07-17-2023 End: 07-17-[address] Harper Genao Work Phone: [facility]-Outpatient Bone Densitometry Work Phone: Start: 06-24-2023 End: 06-24-[address] Harper Genao Work Phone: [facility] Work Phone: Start: 06-16-2023 End: 06-16-[address] Harper Genao Work Phone: [facility] Work Phone: Start: 06-16-2023 End: 06-16-2023 Encounter for general adult medical examination without abnormal findings Dr. Harper Genao Work Phone: [facility] Start: 06-16-2023 End: 06-16-[address] Harper Genao Work Phone: [facility] Work Phone: Start: 09-13-2022 End: 09-13-[address] Harper Genao Work Phone: [facility] Work Phone: Start: 09-13-2022 End: 09-13-[address] Harper Genao Work Phone: [facility] Internal Medicine Start: 05-17-2022 End: 05-17-[address] Harper Genao Work Phone: [facility] Work Phone: Start: 05-17-2022 End: 05-17-[address] Harper Genao Work Phone: [facility]-Outpatient Breast Imaging Start: 04-22-[address] Melchor Genao Work Phone: [facility] Start: 04-22-2022 End: 04-22-2022 Encounter for general adult medical examination without abnormal findings Dr. Harper Genao Work Phone: [facility] Start: 04-22-2022 End: 04-22-[address] Harper Genao Work Phone: [facility] Internal Medicine Start: 12-24-2021 End: 12-24-[address] Arun Stringer Work Phone: [facility] Work Phone: Start: 12-24-2021 End: 12-24-[address] Arun Stringer Work Phone: [facility]-Ultrasound, [facility] Start: 12-04-2021 End: 12-04-[address] Arun Stringer Work Phone: [facility] Work Phone: Start: 12-04-2021 End: 12-04-[address] Arun Stringer Work Phone: [facility]-Laboratory, [facility] Start: 12-04-2021 End: 12-04-[address] Arun Stringer Work Phone: [facility] Internal Medicine Start: 10-30-2021 End: 10-30-[address] [facility] Start: 10-30-2021 End: 10-30-[address] Arun Stringer Work Phone: [facility] Endocrinology Start: 09-26-2021 End: 09-26-2021 Patient encounter procedure Kenneth Hubbard Work Phone: Podiatry Comment on above: Pes planus of both f eet (Primary Dx); Hammer toes of both feet; Venous insufficiency Start: 11-08-2013 Patient encounter status Vern Hubbard Work Phone: [facility] Work Phone: Procedures Date Procedure Procedure Detail Performing Clinician Start: 12-15-2024 Vitamin D, 25-hydrox y measurement Dr. Harper Genao MD Work Phone: Comment on above: Vitamin D StatusDefi ciency: <20 ng/mL (50nmol/L)Insufficiency: 20-30 ng/mL (50-75 nmol/L)Sufficiency: 30-100 ng/mL (75-250 nmol/L)Toxicity: >100 ng/mL (>250 nmol/L) Start: 09-30-2024 Follow-up visit Follow Up BABS ARTHUR Start: 07-26-2024 Screening mammography Velma Genao MD Work Phone: Start: 07-17-2023 Dual energy X-ray absorptiometry Dr. Harper Genao Work Phone: Start: 07-17-2023 Screening mammography Velma Genao Work Phone: Start: 05-17-2022 Screening mammography Velma Geano Work Phone: Start: 12-24-[address] Arun Stringer Work Phone: Start: 11-08-2013 Lipid 1996 panel - S rajwinder or Plasma Babs Arthur PA-C Work Phone: History of operative procedure on knee History of bilateral knee replacement Dr. Arun Stringer Work Phone: Comment on above: 2019 History of operative procedure on knee History of knee replacement Dr. Harper Genao MD Work Phone: Plan of Treatment Date Care Activity Detail Author Start: 09-24-2027 Diabetes Screening Diabetes Screenin g [facility] Start: 12-13-2024 Influenza vaccination [facility] Start: 11-24-2024 End: 11-24-2024 Patient encounter procedure 11/24/2024 10:00 AM EDT Office Visit Rheumatology [address] [place] [address] Babs Arthur PA-C [address] [place] [address] 2 MONTH FOLLOW UP Rheumatology Comment on above: 2 MONTH FOLLOW UP Start: 11-05-2024 End: 11-05-2024 Patient encounter procedure 11/05/2024 10:30 AM EDT Office Visit [facility] [place] [address] [place] [address] Jose C Cosme V, DO [address] [facility] [place] [address] Left knee pain [facility] [place] Comment on above: Left knee pain Start: 10-14-2024 End: 10-14-2024 Patient encounter procedure 10/14/2024 10:00 AM EDT Office Visit Rheumatology [address] [place] [address] Babs Arthur PA-C [address] [place] [address] 2 week follow up Rheumatology Comment on above: 2 week follow up Start: 09-23-2024 End: 12-23-2024 UDAY BY IFA WITH REFLEX [facility] Comment on above: Expected: 09/23/2024 , Expires: 12/23/2024 Start: 09-23-2024 End: 12-23-2024 C reactive protein [Mass/volume] in Serum or Plasma [facility] Comment on above: Expected: 09/23/2024 , Expires: 12/23/2024 Start: 09-23-2024 End: 12-23-2024 Cyclic citrullinated peptide IgG Ab [Units/volume] in Serum or Plasma [facility] Comment on above: Expected: 09/23/2024 , Expires: 12/23/2024 Start: 09-23-2024 End: 12-23-2024 Rheumatoid factor [Units/volume] in Serum or Plasma [facility] Comment on above: Expected: 09/23/2024 , Expires: 12/23/2024 Start: 12-14-2023 Covid-19 Vaccine ( season) Covid-19 Vaccine () [facility] Start: 06-16-2023 Patient referral [facility] Work Phone: Start: 2023 RSV Vaccine (1 - Ris k 60-74 years 1-dose series) RSV Vaccine (1 - Risk 60-74 years 1-dose series) [facility] Start: 09-13-2022 Patient referral [facility] Work Phone: Start: 04-22-2022 Patient referral [facility] Work Phone: Start: 12-13-2021 Influenza vaccination INFLUENZ A (Season Ended) [facility] Start: 12-04-2021 Patient referral [facility] Work Phone: Start: 07-14-2021 COVID-19 VACCINE (4 - Booster for Moderna series) COVID-19 VACCINE (4 - Booster for Moderna series) [facility] Start: 11-08-2018 Lipid panel Lipid Screening [facility] Start: 11-08-2018 LIPID SCREEN LIPID SCREEN [facility] Start: 07-09-2016 DIABETES SCREEN DIABETES SCREEN [facility] Start: 2013 Pneumococcal Vaccine : 50+ (1 of 1 - PCV) Pneumococcal Vaccine: 50+ (1 of 1 - PCV) [facility] Start: 2013 SHINGRIX VACCINE (1 of 2) PADILLA GRIX VACCINE (1 of 2) [facility] Start: 03-09-2009 PAP TESTING PAP TESTING [facility] Start: 2008 COLOGUARD (FIT-DNA) COLOGUARD (FIT-D NA) [facility] Start: 2008 Colonoscopy COLONOSCOPY [facility] Start: 2008 COLORECTAL CANCER SCREENING COLORECTAL CANCER SCREENING [facility] Start: [address] COLONOGRAPHY [facility] Start: 2008 FECAL OCCULT BLOOD FECAL OCCULT BLOO D [facility] Start: 2008 Screening for malign ant neoplasm of colon [facility] Start: 2008 SIGMOIDOSCOPY SIGMOIDOSCOPY [facility] Start: 03-09-2007 Screening for malign ant neoplasm of cervix Cervical Cancer Screening [facility] Start: 2003 Mammography MAMMOGRAM [facility] Start: 2003 Screening for malign ant neoplasm of breast Mammogram Screening [facility] Start: 1993 HPV TESTING HPV TESTING [facility] Start: 1982 Urine microalbumin profile [facility] Start: 1981 ANNUAL PCP TEAM GENERAL OFFICE WORKER BARTOLOME DISEASE VISIT ANNUAL PCP TEAM CHRONIC DISEASE VISIT [facility] Start: 1981 BP CONTROLLED (<130/80) BP CON TROLLED (<130/80) [facility] Start: 1981 Depression Screening Depression Scre ening [facility] Start: 1981 HEPATITIS C SCREENING HEPATITIS C [facility] Start: 1981 Hepatitis C screening Hepatitis C [facility] Start: 1981 HIV SCREENING HIV SCREENING [facility] Start: 1981 HIV screening HIV Screening [facility] Start: 1975 Adult depression screening assessment [facility] CBC W Auto Different ial panel - Blood [facility] Comprehensive metabo lic 1999 panel - Serum or Plasma [facility] DXA Bone [Mass/Area] Bone density [facility] Lipid 1996 panel - S rajwinder or Plasma [facility] MG Breast - bilatera l Screening [facility] Patient referral [facility] Work Phone: Polysomnography [facility] Thyroid stimulating hormone measurement [facility] Vitamin D, 25-hydrox y measurement [facility] End: 10-23-2025 XR Ankle - right AP and Lateral and oblique XR ANKLE GENERAL 3V AP/LAT/OBL RIGHT Radiology Routine Pain in joint, multiple sites Osteoporosis, unspecified osteoporosis type, unspecified pathological fracture presence 1 Occurrences starting 09/23/2024 until 10/23/2025 [facility] Work Phone: Comment on above: 1 Occurrences starti ng 09/23/2024 until 10/23/2025 XR Ankle - right AP and Lateral and oblique XR ANKLE GENERAL 3V AP/LAT/OBL RIGHT Radiology Routine Pain in joint, multiple sites Osteoporosis, unspecified osteoporosis type, unspecified pathological fracture presence 09/23/2024 11:02 AM T [facility] End: 10-23-2025 XR Elbow - left AP and Lateral XR ELBOW GENERAL 2V AP/LAT LEFT Radiology Routine Pain in joint, multiple sites Osteoporosis, unspecified osteoporosis type, unspecified pathological fracture presence 1 Occurrences starting 09/23/2024 until 10/23/2025 [facility] Comment on above: 1 Occurrences starti ng 09/23/2024 until 10/23/2025 XR Elbow - left AP a nd Lateral XR ELBOW GENERAL 2V AP/LAT LEFT Radiology Routine Pain in joint, multiple sites Osteoporosis, unspecified osteoporosis type, unspecified pathological fracture presence 09/23/2024 11:02 AM T [facility] End: 10-23-2025 XR Elbow - right AP and Lateral XR ELBOW GENERAL 2V AP/LAT RIGHT Radiology Routine Pain in joint, multiple sites Osteoporosis, unspecified osteoporosis type, unspecified pathological fracture presence 1 Occurrences starting 09/23/2024 until 10/23/2025 [facility] Comment on above: 1 Occurrences starti ng 09/23/2024 until 10/23/2025 XR Elbow - right AP and Lateral XR ELBOW GENERAL 2V AP/LAT RIGHT Radiology Routine Pain in joint, multiple sites Osteoporosis, unspecified osteoporosis type, unspecified pathological fracture presence 09/23/2024 11:02 AM [facility] End: 10-23-2025 XR Foot - bilateral AP and Lateral and oblique XR FOOT GENERAL 3V AP/LAT/OBL BILATERAL Radiology Routine Pain in joint, multiple sites Osteoporosis, unspecified osteoporosis type, unspecified pathological fracture presence 1 Occurrences starting 09/23/2024 until 10/23/2025 [facility] Comment on above: 1 Occurrences starti ng 09/23/2024 until 10/23/2025 XR Foot - bilateral AP and Lateral and oblique XR FOOT GENERAL 3V AP/LAT/OBL BILATERAL Radiology Routine Pain in joint, multiple sites Osteoporosis, unspecified osteoporosis type, unspecified pathological fracture presence 09/23/2024 11:02 AM [facility] End: 12-02-2025 XR Knee - left AP and Lateral XR KNEE LIMITED 2V AP/LAT LEFT Radiology Routine History of patellar fracture 1 Occurrences starting 11/02/2024 until 12/02/2025 [facility] Work Phone: Comment on above: 1 Occurrences starti ng 11/02/2024 until 12/02/2025 XR Knee - left AP an d Lateral XR KNEE LIMITED 2V AP/LAT LEFT Radiology Routine History of patellar fracture 11/05/2024 10:13 AM EDT [facility] Work Phone: End: 10-23-2025 XR Knee AP and Lateral and Merchants XR KNEE POST OP 3V AP/LAT/MERCHANT LEFT Radiology Routine Pain in joint, multiple sites Osteoporosis, unspecified osteoporosis type, unspecified pathological fracture presence 1 Occurrences starting 09/23/2024 until 10/23/2025 [facility] Comment on above: 1 Occurrences starti ng 09/23/2024 until 10/23/2025 XR Knee AP and Later al and Merchants XR KNEE POST OP 3V AP/LAT/MERCHANT LEFT Radiology Routine Pain in joint, multiple sites Osteoporosis, unspecified osteoporosis type, unspecified pathological fracture presence 09/23/2024 11:02 AM EDT [facility] Payers Date Payer Category Payer Self-pay [id number] 2023 Medicaid [facility] [id number] 2021 Medicaid MEDICAID [facility] MEDICAID [id number] 2021-Present [phone] [address] [place] [address] Medicaid [id number] 2016 Medicaid [id number] Unknown [id number] Unknown [id number] Unknown [id number] Unknown [id number] Unknown [id number] Unknown [id number] Unknown [id number] Unknown [id number] Unknown [id number] Unknown [id number] Unknown [id number] Unknown [id number] Unknown [id number] Unknown [id number] Unknown [id number] Social History Date Type Detail Facility Start: 02-06-2024 End: 10-08-2024 Tobacco smoking status [facility] Never smoked tobacco [facility] Start: 09-26-2021 End: 11-05-2024 Alcohol intake Current non-drinker of alcohol (finding) [facility] Start: 1965 Sex Assigned At Not on file [facility] Start: 09-16-2021 End: 09-26-2021 Exposure to SARS-CoV-2 (event) Not sure [facility] Start: 1965 Sex Assigned At Female [facility] Start: 12-04-2021 End: 06-24-2023 Tobacco smoking status NHIS Unknown if ever smoked [facility] Start: 07-30-2024 Sex Female (finding) [facility] Start: 09-27-2014 Tobacco use and exposure Smokeless tobacco non-user [facility] Start: 09-23-2024 End: 11-05-2024 History of Social function [facility] Start: 09-23-2024 End: 11-05-2024 Tobacco use panel [facility] National Score (1-100), lower number is lower risk 60 [facility] Functional Status Date Assessment Result Facility 09-27-2014 Are you deaf, or do you have serious difficulty hearing No 09/27/2014 11:03 AM Brigitte Vidal MA No [facility] 09-27-2014 Are you blind, or do you have serious difficulty seeing, even when wearing glasses No 09/27/2014 11:03 AM Brigitte Vidal MA No [facility] 09-27-2014 Do you have serious difficulty walking or climbing stairs Yes 09/27/2014 11:03 AM Brigitte Vidal MA Yes [facility] 09-27-2014 Do you have difficul ty dressing or bathing No 09/27/2014 11:03 AM Brigitte Vidal MA No [facility] 09-27-2014 Because of a physica l, mental, or emotional condition, do you have difficulty doing errands alone such as visiting a physician's office or shopping No 09/27/2014 11:03 AM Brigitte Vidal MA No [facility] Mental Status Date Assessment Result Facility 09-27-2014 Because of a physica l, mental, or emotional condition, do you have serious difficulty concentrating, remembering, or making decisions No 09/27/2014 11:03 AM EDT Brigitte Gonzales MA No [facility] Clinical Notes 09-26-2021 to 11-05-2024 Jose C Cosme V, DO - 11/05/2024 10:34 AM Brigitte Hadley MA - 11/05/2024 10:13 AM EDTTelephone Encounter - Jose C Cosme V, DO - 10/11/2024 2:47 PM EDT Note Date & Type Note Facility 11-05-2024 Note HNO ID: [id number] Author: JOSE C COSME DO Service: ? Author Type: Physician Type: Progress Notes Filed: 11/05/2024 10:34 Note Text: Subjective The patient is a 59-year-old female with a history of left knee pain, presenting for follow-up. Knee Pain: - Reports improvement in pain, but notes that medication wears off quickly, leading to recurrent pain throughout the day. - Experiences stiffness in the morning, making it difficult to get moving. - Continues to walk despite the pain. - Previously took Motrin 800 mg, but discontinued due to concerns about liver health. Musculoskeletal: (+) knee pain, (+) morning knee stiffness Objective Last menstrual period 05/15/2013. General: No acute distress. Labs: - Laboratory results: - Normal renal function - Normal liver function Imaging: - (Today) Knee X-ray: - Healing fracture near the patellar tendon insertion - Persistent arthritic changes and bone spurs under the patella - Knee X-ray: - Visible fracture line under the patella prior to healing Assessment AND Plan 1. History of patellar fracture (Z87.81) - Recent X-ray demonstrates healing of patellar fracture; persistent pain likely due to underlying patellar osteophytes. - Start etodolac 500 mg PO daily; discussed risks and benefits, including GI irritation, renal and hepatic effects, and importance of taking with food and adequate hydration; patient expressed understanding. - Advised daily low-resistance stationary cycling (start with 5 minutes, increase as tolerated) to improve mobility and reduce stiffness; explained rationale and patient expressed understanding. - Discussed physical therapy as an option if pain persists despite current measures. - Follow-up PRN based on symptom progression or if additional intervention is needed. Recording using ambient [employer] software for draft documentation of the visit was discussed with the patient/authorized employer relations representative; all questions welcomed and answered. Patient/authorized employer relations representative agreed to proceed [facility] 11-05-2024 History of Presen t illness Narrative Subjective The patient is a 59-year-old female with a history of left knee pain, presenting for follow-up. Knee Pain: - Reports improvement in pain, but notes that medication wears off quickly, leading to recurrent pain throughout the day. - Experiences stiffness in the morning, making it difficult to get moving. - Continues to walk despite the pain. - Previously took Motrin 800 mg, but discontinued due to concerns about liver health. Musculoskeletal: (+) knee pain, (+) morning knee stiffness Objective Last menstrual period 05/15/2013. General: No acute distress. Labs: - Laboratory results: - Normal renal function - Normal liver function Imaging: - (Today) Knee X-ray: - Healing fracture near the patellar tendon insertion - Persistent arthritic changes and bone spurs under the patella - Knee X-ray: - Visible fracture line under the patella prior to healing Assessment & Plan 1. History of patellar fracture (Z87.81) - Recent X-ray demonstrates healing of patellar fracture; persistent pain likely due to underlying patellar osteophytes. - Start etodolac 500 mg PO daily; discussed risks and benefits, including GI irritation, renal and hepatic effects, and importance of taking with food and adequate hydration; patient expressed understanding. - Advised daily low-resistance stationary cycling (start with 5 minutes, increase as tolerated) to improve mobility and reduce stiffness; explained rationale and patient expressed understanding. - Discussed physical therapy as an option if pain persists despite current measures. - Follow-up PRN based on symptom progression or if additional intervention is needed. Recording using adRise software for draft documentation of the visit was discussed with the patient/authorized employer relations representative; all questions welcomed and answered. Patient/authorized employer relations representative agreed to proceed AMB ROOMING INTAKE FLOWSHEET DATA Pain Pain Level: 6 Pain Location: Knee-Left Description: Sharp Duration Amount of Time: (ongoing) Frequency: Intermittent Intervention/Comfort measure: Medication documented in this encounter [facility] 11-05-2024 Note HNO ID: [id number] Author: BRIGITTE GONZALES MA Service: ? Author Type: Unhairer Type: Progress Notes Filed: 11/05/2024 10:34 Note Text: AMB ROOMING INTAKE FLOWSHEET DATA Pain Pain Level: 6 Pain Location: Knee-Left Description: Sharp Duration Amount of Time: (ongoing) Frequency: Intermittent Intervention/Comfort measure: Medication [facility] 10-11-2024 Telephone encount er Note Rx sent to [facility] Jose C Cosme DO [facility] 10-11-2024 Miscellaneous Notes Formattin g of this note might be different from the original. Rx sent to [facility] Jose C Cosme DO Andreas, Pharmacist calling from [facility] and wanting to know if you could change patient's Rx to Calcium and Vitamin D instead of the Calcium Citrate? documented in this encounter [facility] 10-11-2024 Telephone encount er Note Andreas, Pharmacist calling from [facility] pharmacy and wanting to know if you could change patient's Rx to Calcium and Vitamin D instead of the Calcium Citrate? [facility] 10-08-2024 Evaluation note Diagnosis Onset Date Resolution Vulvovaginal candidiasis acute October 08, 2024 10:25am [employer] Work Phone: 1(836) 869-523506-27-2025 Evaluation note* Diagnosis Onset Date Resolution Status Admit Date Vulvovaginal candidiasis acute October 08, 2024 10:25am Hypersomnolence acute December 15, 2024 9:53am Generalized anxiety disorder chronic December 15, 2024 9:53am Hypertension chronic December 9:53am Hypothyroidism (acquired) chronic December 15, 2024 9:53am Morbid obesity chronic December 15, 2024 9:53am [facility] Work Phone: 1(201) 629-433806-26-2025 Telephone encounter Note* Telephone Encounter - Rosa Isela Gasca RN - 10/07/2024 3:16 PM EDT Patient called and given the below results and recommendations. Rosa Isela Gasca RN [facility]06-26-2025 Miscellaneous Notes* Telephone Encounter - Rosa Isela Gasca RN - 10/07/2024 3:16 PM EDT Patient called and given the below results and recommendations. Rosa Isela Gasca RN * Telephone Encounter - Rosa Isela Gasca RN - 10/07/2024 3:15 PM EDT ----- Message from Babs Arthur PA-C sent at 10/07/2024 12:20 PM EDT ----- Please call patient Her urinalysis shows possible signs of infection. No lupus changes though. Other lab work looks OK. No concerns. If she has symptoms of UTI, please advise her to follow up with PCP/Urgent care for additional testing and management. [facility] Telephone encounter Note * Telephone Encounter - Rosa Isela Gasca RN - 10/07/2024 3:15 PM EDT ----- Message from Babs Arthur PA-C sent at 10/07/2024 12:20 PM EDT ----- Please call patient Her urinalysis shows possible signs of infection. No lupus changes though. Other lab work looks OK. No concerns. If she has symptoms of UTI, please advise her to follow up with PCP/Urgent care for additional testing and management. [facility]06-24-2025 NoteHNO ID: [id number] Author: JOSE C COSME, DO Service: ? Author Type: Physician Type: Progress Notes Filed: 10/05/2024 10:34 Note Text: Subjective The patient is a 59-year-old female with a history of bilateral TKA, presenting for left knee pain. Left Knee Pain: - Onset several weeks ago. - Described as a little pain, localized to the area beneath the patella. - Denies known trauma. - Able to ambulate with a walker; cautious to avoid falls. - Recent x-ray showed a small crack beneath the patella. - Taking vitamin D 1,000 IU daily. Constitutional: (+) weight loss, (+) increased energy Musculoskeletal: (+) left knee pain Objective Last menstrual period 05/15/2013. General: No acute distress. MSK/Ext: Surgical scars on knees, tenderness over left patella. Labs: - Vitamin D: Low Imaging: - X-ray of the left knee: Subacute fracture involving the patella with intact total knee replacement hardware and no radiographic evidence of loosening. Appears to be healing. Assessment AND Plan 1. History of patellar fracture (Z87.81) - Radiographic evidence of a stress fracture beneath the left patella; no signs of hardware loosening. - Fracture appears to be healing; advised to continue ambulation with a walker and avoid falls to prevent further displacement. - No need for a brace at this time. - Follow-up in 3-4 weeks with repeat X-ray to assess healing progress. 2. Vitamin D deficiency (E55.9) - Current supplementation with Vitamin D 1000 IU daily. - Initiated Calcium Citrate 1000 mg daily, divided into two doses of 500 mg each, to enhance calcium absorption. - Prescription for Calcium Citrate with Vitamin D sent to [facility] in [place]. - Discussed the synergistic role of Vitamin D and calcium in bone health. - Magnesium supplementation discussed; advised that additional magnesium intake is safe and may be beneficial. 3. Morbid obesity (HCC) (E66.01) - Significant impact on joint health and fracture healing. - Discussed the benefits of weight reduction on joint stress and overall health. - Referral note to Dr. Zabala, district court judge, for evaluation and management of weight loss medication. 4. Presence of artificial knee joint, bilateral (Z96.653) - Bilateral total knee arthroplasties performed approximately 5 years ago; current hardware remains intact and stable. - No signs of loosening or malfunction in the prosthetic components. Recording using adRise software for draft documentation of the visit was discussed with the patient/authorized employer relations representative; all questions welcomed and answered. Patient/authorized employer relations representative [facility] of Present illness Narrative* Jose C Cosme V, - 10/05/2024 10:33 AM EDT Subjective The patient is a 59-year-old female with a history of bilateral TKA, presenting for left knee pain. Left Knee Pain: - Onset several weeks ago. - Described as a little pain, localized to the area beneath the patella. - Denies known trauma. - Able to ambulate with a walker; cautious to avoid falls. - Recent x-ray showed a small crack beneath the patella. - Taking vitamin D 1,000 IU daily. Constitutional: (+) weight loss, (+) increased energy Musculoskeletal: (+) left knee pain Objective Last menstrual period 05/15/2013. General: No acute distress. MSK/Ext: Surgical scars on knees, tenderness over left patella. Labs: - Vitamin D: Low Imaging: - X-ray of the left knee: Subacute fracture involving the patella with intact total knee replacement hardware and no radiographic evidence of loosening. Appears to be healing. Assessment & Plan 1. History of patellar fracture (Z87.81) - Radiographic evidence of a stress fracture beneath the left patella; no signs of hardware loosening. - Fracture appears to be healing; advised to continue ambulation with a walker and avoid falls to prevent further displacement. - No need for a brace at this time. - Follow-up in 3-4 weeks with repeat X-ray to assess healing progress. 2. Vitamin D deficiency (E55.9) - Current supplementation with Vitamin D 1000 IU daily. - Initiated Calcium Citrate 1000 mg daily, divided into two doses of 500 mg each, to enhance calcium absorption. - Prescription for Calcium Citrate with Vitamin D sent to [facility] in [place]. - Discussed the synergistic role of Vitamin D and calcium in bone health. - Magnesium supplementation discussed; advised that additional magnesium intake is safe and may be beneficial. 3. Morbid obesity (HCC) (E66.01) - Significant impact on joint health and fracture healing. - Discussed the benefits of weight reduction on joint stress and overall health. - Referral note to Dr. Zabala, district court judge, for evaluation and management of weight loss medication. 4. Presence of artificial knee joint, bilateral (Z96.653) - Bilateral total knee arthroplasties performed approximately 5 years ago; current hardware remainsintact and stable. - No signs of loosening or malfunction in the prosthetic components. Recording using adRise software for draft documentation of the visit was discussed with the patient/authorized employer relations representative; all questions welcomed and answered. Patient/authorized employer relations representative agreed to proceed * Mary Goyal MA - 10/05/2024 10:08 AM EDT Patient presents with: Left Knee Pain: Referred by Babs Arthur AMB ROOMING INTAKE FLOWSHEET DATA Patient denies any pain today. Currently on Prednisone given by Babs Arthur [facility] NoteHNO ID: [id number] Author: MARY GOYAL MA Service: ? Author Type: Unhairer Type: Progress Notes Filed: 10/05/2024 10:34 Note Text: Patient presents with: Left Knee Pain: Referred by Babs Arthur AMB ROOMING INTAKE FLOWSHEET DATA Patient denies any pain today. Currently on Prednisone given by Babs Arthur [facility]06-19-2025 Telephone encounter Note* Telephone Encounter - Rosa Isela Gasca RN - 09/30/2024 4:59 PM EDT Patient returning phone call by Babs. Per Babs Patient informed of fracture in knee and that ortho consult is ordered. Patient states that she wasnever aware of fracture. Patient reports understanding for reason of consult and will call to schedule. Rosa Isela Gasca RN [facility]06-19-2025 Miscellaneous Notes* Telephone Encounter - Rosa Isela Gasca RN - 09/30/2024 4:59 PM EDT Patient returning phone call by Babs. Per Babs Patient informed of fracture in knee and that ortho consult is ordered. Patient states that she wasnever aware of fracture. Patient reports understanding for reason of consult and will call to schedule. Rosa Isela Gasca RN [facility]25 NoteHNO ID: [id number] Author: BABS ARTHUR PA-C Service: ? Author Type: Physician Internal Corrosion Specialist Type: Progress Notes Filed: 09/30/2024 16:51 Note Text: Rheumatology FOLLOW UP VISIT Date of Service: 09/30/2024 Patient: Ronald Hutchins Medical Record: [id number] Primary Care Physician: Harper Genao MD Last Rheumatology visit: None at [facility] History of Present Illness Ronald Hutchins is a 59 year old Black female who presents on 09/30/2024 for an in-person visit for evaluation of Follow Up. She is currently taking hydroxychloroquine sulfate, ibuprofen, prednisone. Ronald reports a current pain level of 6 (Ankle-Right). She describes the pain as Sharp, Aching. The pain is Continuous . Ronald is both RF - 715 (09/23/2024) and CCP - 275 (09/23/2024) positive. Her most recent UDAY was positive (09/23/2024). Rheum history: - Patient presented 09/23/2024 with 1 year of worsening joint pain in the right ankle bilateral elbows left knee. She had bilateral elbow contractures and swelling, wrist and hypermobility, as well as Jaccouds arthropathy. - Labs were notable for rheumatoid factor greater than 650, CCP antibody greater than 250, UDAY antibody + 1:1280 (Cytoplasmic fine speckled), SARAH negative, Sed rate 69, CRP 0.6, - uric acid 8.1, - Vit D 25.5 - CMP with mildly elevated Creat (stable from previously 1.01) - X-ray of foot and ankle show severe degenerative changes including ankylosis in multiple different joints joints. Narrowing of the IP joints. Bilateral elbows show severe degenerative changes. Patient here today to discuss results. is here with her as well. Overall joint pain symptoms persist and are significant. She has not yet started prednisone as via phone call. She is inquiring whether or not she should continue compounded weight loss medications. I advised her to follow-up with her primary care provider regarding these questions. Her is inquiring whether her weight has caused these issues. Pain Evaluation 12/01/2014 01/25/2015 09/26/2021 09/23/2024 09/30/2024 Pain Evaluation Pain Score 8 9 7 6 6 Location Knee-Left Foot-Right Toe -- Ankle-Right Location Comment right ankle, left knee and bilateral elbows Description Aching;Throbbing Burning;Sore;Stabbing;Sharp Stabbing Sharp Sharp;Aching Duration (#) 3 5 1 1 Duration (Timeframe) Months Months Years Years Frequency Continuous Intermittent Intermittent Continuous Intervention Medication Reposition;Relaxation Medication Patient-Entered Data No data to review today Review of Systems Completed less than 1 week ago at last office visit Past Medical History PAST MEDICAL HISTORY Diagnosis Date Anxiety HTN (hypertension) Hypothyroidism Past Surgical History PAST SURGICAL HISTORY Procedure Laterality Date DELIVERY ONLY 04/14/1998 , low transverse DELIVERY ONLY 04/14/2004 , low transverse DELIVERY ONLY 04/14/2013 , low transverse TOTAL KNEE REPLACEMENT Bilateral June,November 2020 Family History FAMILY HISTORY Problem Relation Age of Onset Diabetes Mother Stroke Father Hypertension Sister Hypertension Sister Social History Social History Tobacco Use Smoking status: Never Smokeless tobacco: Never Vaping Use Vaping status: Never Used Substance Use Topics Alcohol use: No Drug use: No Current Medications Current Outpatient Medications Medication Sig tirzepatide, weight loss (ZEPBOUND) 10 mg/0.5 mL solution Inject 10 mg subcutaneously one time a week. (Patient taking differently: 10 mg once daily. Route: SL) alendronate (FOSAMAX) 70 mg tablet Take 1 tablet by mouth one time a week. cholecalciferol, Vitamin D3, (VITAMIN D3) 1,250 mcg (50,000 unit) cap capsule 1 cap(s) orally once a week for 56 days escitalopram oxalate (LEXAPRO) 10 mg tablet Take 1 tablet by mouth once daily. ibuprofen (MOTRIN) 800 mg tablet Take 1 tablet by mouth every 6 hours as needed. AMLODIPINE BESYLATE (AMLODIPINE ORAL) Take 10 mg by mouth once daily. levothyroxine (LEVOXYL) 100 mcg tablet Take 1 tablet by mouth once daily. Take on empty stomach. For Thyroid. losartan 100 mg tablet Take 1 tablet by mouth once daily. hydrOXYchloroQUINE (PLAQUENIL) 200 mg tablet Take 1 tablet by mouth two times a day. predniSONE (DELTASONE) 10 mg tablet Take 2 tablets by mouth once daily for 7 days, THEN 1 tablet once daily for 7 days, THEN 0.5 tablets once daily for 7 days. Last Ophthalmology Check for Plaquenil (Hydroxychloroquine) Last OCT Macula Exam No resulted procedures found. Last Visual Field Exam No resulted procedures found. Labs Latest Ref Rng AND Units 03/09/2004 07/09/2013 09/23/2024 CBC WBC 3.70 - 11.00 k/uL 6.33 7.16 Hemoglobin 11.5 - 15.5 g/dL 12.7 12.1 Hemoglobin, [place] 12.0 - 16.0 g/dL 12.7 Hematocrit 36.0 - 46.0 % 39.5 37.4 Platelet Count 150 - 400 k/uL 327 290 Abs Neut (ANC) 1.45 - (more content not included)...[facility] 09-30-2024 History of Present illness Narrative* Babs Arthur PA-C - 09/30/2024 4:16 PM EDT Images from the original note were not included. Rheumatology FOLLOW UP VISIT Date of Service: 09/30/2024 Patient: Ronald Hutchins Medical Record: [id number] Primary Care Physician: Harper Genao MD Last Rheumatology visit: None at [facility] History of Present Illness Ronald Hutchins is a 59 year old Black female who presents on 09/30/2024 for an in-person visit for evaluation of Follow Up. She is currently taking hydroxychloroquine sulfate, ibuprofen, prednisone. Ronald reports a current pain level of 6 (Ankle-Right). She describes the pain as Sharp, Aching. The pain is Continuous . Ronald is both RF - 715 (09/23/2024) and CCP - 275 (09/23/2024) positive. Her most recent UDAY was positive (09/23/2024). Rheum history: - Patient presented 09/23/2024 with 1 year of worsening joint pain in the right ankle bilateral elbows left knee. She had bilateral elbow contractures and swelling, wrist and hypermobility, as well asJaccouds arthropathy. - Labs were notable for rheumatoid factor greater than 650, CCP antibody greater than 250, UDAY antibody + 1:1280 (Cytoplasmic fine speckled), SARAH negative, Sed rate 69, CRP 0.6, - uric acid 8.1, - Vit D 25.5 - CMP with mildly elevated Creat (stable from previously 1.01) - X-ray of foot and ankle show severe degenerative changes including ankylosis in multiple different joints joints. Narrowing of the IP joints. Bilateral elbows show severe degenerative changes. Patient here today to discuss results. is here with her as well. Overall joint pain symptoms persist and are significant. She has not yet started prednisone as via phone call. She is inquiring whether or not she should continue compounded weight loss medications. I advised her to follow-up with her primary care provider regarding these questions. Her is inquiring whether her weight has caused these issues. Pain Evaluation 12/01/2014 01/25/2015 09/26/2021 09/23/2024 09/30/2024 Pain Evaluation Pain Score 8 9 7 6 6 Location Knee-Left Foot-Right Toe -- Ankle-Right Location Comment right ankle, left knee and bilateral elbows Description Aching;Throbbing Burning;Sore;Stabbing;Sharp Stabbing Sharp Sharp;Aching Duration (#) 3 5 1 1 Duration (Timeframe) Months Months Years Years Frequency Continuous Intermittent Intermittent Continuous Intervention Medication Reposition;Relaxation Medication Patient-Entered Data No data to review today Review of Systems Completed less than 1 week ago at last office visit Past Medical History PAST MEDICAL HISTORY Diagnosis Date Anxiety HTN (hypertension) Hypothyroidism Past Surgical History PAST SURGICAL HISTORY Procedure Laterality Date DELIVERY ONLY 04/14/1998 , low transverse DELIVERY ONLY 04/14/2004 , low transverse DELIVERY ONLY 04/14/2013 , low transverse TOTAL KNEE REPLACEMENT Bilateral June,November 2020 Family History FAMILY HISTORY Problem Relation Age of Onset Diabetes Mother Stroke Father Hypertension Sister Hypertension Sister Social History Social History Tobacco Use Smoking status: Never Smokeless tobacco: Never Vaping Use Vaping status: Never Used Substance Use Topics Alcohol use: No Drug use: No Current Medications Current Outpatient Medications Medication Sig tirzepatide, weight loss (ZEPBOUND) 10 mg/0.5 mL solution Inject 10 mg subcutaneously one time a week. (Patient taking differently: 10 mg once daily. Route: SL) alendronate (FOSAMAX) 70 mg tablet Take 1 tablet by mouth one time a week. cholecalciferol, Vitamin D3, (VITAMIN D3) 1,250 mcg (50,000 unit) cap capsule 1 cap(s) orally once a week for 56 days escitalopram oxalate (LEXAPRO) 10 mg tablet Take 1 tablet by mouth once daily. ibuprofen (MOTRIN) 800 mg tablet Take 1 tablet by mouth every 6 hours as needed. AMLODIPINE BESYLATE (AMLODIPINE ORAL) Take 10 mg by mouth once daily. levothyroxine (LEVOXYL) 100 mcg tablet Take 1 tablet by mouth once daily. Take on empty stomach. For Thyroid. losartan 100 mg tablet Take 1 tablet by mouth once daily. hydrOXYchloroQUINE (PLAQUENIL) 200 mg tablet Take 1 tablet by mouth two times a day. predniSONE (DELTASONE) 10 mg tablet Take 2 tablets by mouth once daily for 7 days, THEN 1 tablet once daily for 7 days, THEN 0.5 tablets once daily for 7 days. Last Ophthalmology Check for Plaquenil (Hydroxychloroquine) Last OCT Macula Exam No resulted procedures found. Last Visual Field Exam No resulted procedures found. Labs Latest Ref Rng & Units 03/09/2004 07/09/2013 09/23/2024 CBC WBC 3.70 - 11.00 k/uL 6.33 7.16 Hemoglobin 11.5 - 15.5 g/dL 12.7 12.1 Hemoglobin, [place] 12.0 - 16.0 g/dL 12.7 Hematocrit 36.0 - 46.0 % 39.5 37.4 Platelet Count 150 - 400 k/uL 327 290 Abs Neut (ANC) 1.45 - 7.50 k/uL 2.72 3.24 Abs Neut, [place] 2.0 - 8.1 k/uL 5.1 Abs Lymp, [place] 1.0 - 5.5 k/uL 3.2 Abs Lymph 1.00 - 4.00 k/uL 2.54 2.43 Latest Ref Rng & Units 03/05/2011 10/09/2011 07/09/2013 09/23/2024 CMP Sodium 136 - 144 mmol/L 139 139 Sodium, Joshua 132 - 148 mmol/L 136 137 Potassium 3.7 - 5.1 mmol/L 3.9 3.9 Potassium, Joshua 3.5 - 5.0 mmol/L 4.0 4.0 Chloride 98 - 107 mmol/L 104 104 Chloride, Joshua 98 - 110 mmol/L 103 105 CO2 22 - 30 mmol/L 23 19 CO2, Joshua 23.0 - 32.0 mmol/L 27.4 23.5 Glucose 74 - 99 mg/dL 82 94 Glucose, Joshua 65 - 100 mg/dL 87 91 BUN 7 - 21 mg/dL 16 18 BUN, Joshua 10 - 25 mg/dL 11 14 Creatinine 0.58 - 0.96 mg/dL 1.03 1.01 Creatinine, [place] 0.7 - 1.4 mg/dL 0.9 1.0 Calcium, [place] 8.5 - 10.5 mg/dL 9.0 9.1 Calcium 8.5 - 10.2 mg/dL 9.4 8.8 AST 13 - 35 U/L 26 15 AST, Joshua 7 - 40 U/L 26 23 ALT 7 - 38 U/L 28 10 ALT, Joshua 0 - 45 U/L 24 23 Alkaline Phosphatase 34 - 123 U/L 65 83 Latest Ref Rng & Units 09/23/2024 Uric Acid Uric Acid 2.5 - 6.6 mg/dL 8.1 Latest Ref Rng & Units 09/23/2024 ESR, WSR WSR 0 - 20 mm/hr 69 Latest Ref Rng & Units 09/23/2024 CRP CRP <0.9 mg/dL 0.6 Latest Ref Rng & Units 09/23/2024 RF and CCP Rheumatoid Factor <16 IU/mL >650 CCP Antibody IgG Qualitative Negative Strong Positive CCP Antibody, IgG <20 Units >250 Latest Ref Rng & Units 09/23/2024 Antibodies UDAY Negative Positive UDAY Titer 1:1280 UDAY Pattern Cytoplasmic fine speckled UDAY PATTERN 2 Nuclear fine speckled DNA Antibody <=200 IU/mL 61 Anti-Sm <1.0 AI <0.2 Sm Antibody Negative Negative Ribosomal REPORT MANAGER Ab <1.0 AI <0.2 Ribosomal REPORT MANAGER Qualitative Negative Negative Chromatin Ab <1.0 AI 0.4 Chromatin Ab Qual Negative Negative SSA Antibody Qual Negative Negative Anti-SSA <1.0 AI 0.3 Anti-SSB <1.0 AI <0.2 REPORT MANAGER Antibody QUAL Negative Negative Scleroderma Ab Qual Negative Negative Scl-70 Abs, EIA <1.0 AI <0.2 Centromere Ab <1.0 AI <0.2 CENTROMERE AB QUAL Negative Negative SHIVANI-1 ANTIBODY, IGG <1.0 AI <0.2 SHIVANI 1 ANTIBODY QUAL Negative Negative Latest Ref Rng & Units 07/09/2013 Urinalysis Protein, Urine NEGAT mg/dL Negative RBC, Urine R03 /HPF 0-3 Imaging Last XR Elbow - Impression Only XR ELBOW GENERAL 2V AP/LAT LEFT Exam End: 09/23/2024 11:02 AM (Final result) Impression: IMPRESSION: Severe degenerative changes as described. Disaster Recovery Coordinator: NIR Transcribe Date/Time: Sep 29 2024 10:48A ... * * *Final Report* * * DATE OF EXAM: Sep 23 2024 11:02AM [id number] - XR ELBOW 2V AP/LAT LT / PROCEDURE REASON: multiple diagnoses * * * * Physician Interpretation * * * * EXAMINATION: XR ANKLE 3V AP/LAT/OBL RT, XR FOOT 3V AP/LAT/OBL GENNY, XR ELBOW 2V AP/LAT LT, XR ELBOW 2V AP/LAT RT TECHNOLOGIST PROVIDED HISTORY: osteoporosis. Chronic joint pain. best images possible due to pt body habitus and poor mobility. Pt unable to stand. CLINICAL INFORMATION: 59 years old Female with Pain in joint, multiple sites Osteoporosis, unspecified osteoporosis type, unspecified pathological fracture presence TECHNIQUE: XR ANKLE 3V AP/LAT/OBL RT, XR FOOT 3V AP/LAT/OBL GENNY, XR ELBOW 2V AP/LAT LT, XR ELBOW 2V AP/LAT RT Laterality: See below. Number of different views (projections): 2 views of each elbow, 3 views of the RIGHT ankle and 3 views of each foot. COMPARISON: Foot radiographs 01/25/2015 RESULT: Right elbow: No acute fracture. Severe degenerative changes with joint space narrowing subchondral sclerosis, subchondral cystic changes and marginal osteophyte formation at the radiocapitellar and ulnotrochlear joints with associated moderate-large joint effusion. Left elbow: No acute fracture. Severe degenerative changes with joint space narrowing subchondral sclerosis, subchondral cystic changes and marginal osteophyte formation at the radiocapitellar and ulnotrochlear joints with associated moderate-large joint effusion. Right ankle and right foot: No acute fracture. Soft tissue swelling about the ankle. Suboptimal positioning of the ankle radiographs. Significant bony hypertrophic changes about the lateral ankle joint with probable ankylosis between the lateral malleolus and the adjacent talus. Moderate degenerative change at the tibiotalar joint and subtalar joints. Moderate-severe degenerative change at the talonavicular joint. Mild-moderate degenerative change calcaneocuboid joint. Mild degenerative change naviculocuneiform joint, 1st CMC joint and 1st MTP joint. Ankylosis of the 2nd and 3rd PIP joints. Nonspecific chronic appearing erosions 5th metatarsal head and and probably at the base of the 4th distal phalanx. Pes planus. Left foot: No acute fracture. Severe pes planus. Moderate-severe degenerative change talonavicular, calcaneocuboid and naviculocuneiform joints. Moderate degenerative change 1st and 2nd TMT joints. Ankylosis of the 2nd PIP joint and partial ankylosis of the 3rd PIP joint. Joint space narrowing with degenerative cystic changes great toe IP joint. Mild degenerative change 1st MTP joint. Last XR Chest - Impression Only No resulted procedures found. Health Maintenance Current Immunizations Never Reviewed Name Date COVID-19 vaccine, monovalent (MODERNA) 03/15/2021, 07/20/2020, 06/21/2020 Physical Exam GENERAL APPEARANCE: Well groomed. Alert and oriented x 3. In no distress. Obese body habitus VITAL SIGNS: BP 132/78 Pulse 81 Resp 17 SpO2 99% LMP 05/15/2013 SKIN: No rash, thickening, nodules, discoloration. EYES: PERRL, EOMI MUSCULOSKELETAL EXAMINATION: Hands: Reducible [place] neck and boutonniere deformties noted in hands. No visible swelling or synovitis. 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 She had bilateral elbow contractures and swelling, wrist and hypermobility, as well asJaccouds arthropathy. - Labs were notable for rheumatoid factor greater than 650, CCP antibody greater than 250, UDAY antibody + 1:1280 (Cytoplasmic fine speckled), SARAH negative, Sed rate 69, CRP 0.6, - uric acid 8.1, - Vit D 25.5 - CMP with mildly elevated Creat (stable from previously 1.01) - X-ray of foot and ankle show severe degenerative changes including ankylosis in multiple different joints joints. Narrowing of the IP joints. Bilateral elbows show severe degenerative changes. Mixed clinical picture of lupus and rheumatoid arthritis. Suspect overlap syndrome. Discussed both diagnoses and their risk. Advised to avoid UV exposure and sun exposure. Will treat short-term with prednisone taper over 3 weeks. Discussed need for long-term use of hydroxychloroquine for lupus/rheumatoid arthritis maintenance. - Discussed risks of Plaquenil including risk of ocular toxicity. Advised to see eye doctor after starting medication, requested they fax the results to our office. - Discussed risk of prednisone including weight gain, increased glucose, irritability, difficulty sleeping. Of note a left acute chronic healing patellar fracture was noted in left knee. Will place orthopedics referral for this #osteoporosis Currently managed with Fosamax once weekly and Vitamin D 5000 IU daily. Recent bone density test performed. - Continue Fosamax and Vitamin D supplementation as per primary care - DEXA 07/17/2023 -shows T-score -2.3 in the left forearm with no comparison Plan Orders this visit: Office Visit on 09/30/24 hydrOXYchloroQUINE (PLAQUENIL) 200 mg tablet predniSONE (DELTASONE) 10 mg tablet Start hydroxychloroquine 200 mg BID Referral to ophthalmology Prednisone taper 20 mg x 1 week, 10 mg x 1 week, 5 mg x 1 week. Follow up 2 months, sooner PRN I spent a total of 30 minutes on the date of the service which included preparing to see the patient, [id number] patient care, completing clinical documentation, obtaining and/or reviewing separately obtained history, performing a medically appropriate examination, counseling and educating the pat ient/family/caregiver, ordering medications, tests, or procedures, and communicating results to thepatient/family/caregiver. Babs Arthur PA-C Rheumatology Date: September 30, 2024 Time: 4:17 PM documented [facility] [place] Instructions* Patient Instructions* Babs Arthur PA-C - 09/30/2024 2:37 PM EDT We will start 2 medications. Plaquenil (hydroxychloroquine ) - this is a disease modifying medication to treat Rheumatoid arthritis and Lupus. Take 1 tablet twice daily Prednisone - this is a steroid anti-inflammatory pill. We will do a tapering dose as on the bottle over 3 weeks. This will help treat symptoms short term, but not good adjunct faculty for medical terminology. Get Eye exam for hydroxychloroquine - please have them fax it to our office. [phone] Schedule follow up in 2 months. BONE MINERAL DENSITY PATIENT INSTRUCTIONS Bone mineral density testing measures the amount of calcium in certain parts of your bones. This information determines how strong your bones are. The test is used to detect osteoporosis, a disease in which the bone's mineral content and density are low, increasing a person's risk of fractures. Thelumbar spine (lower back) and the hip are the skeletal sites usually examined. For the test, remember that: 1. You cannot take this test if you are . 2. Eat a normal diet on the day of the test. 3. Take your medications as you normally would. 4. DO NOT take calcium supplements (such as Tums) for 24 hours before the test. 5. On the day of the test, leave valuables (jewelry or credit cards) at home. 6. The test should be performed prior to oral, rectal or IV contrast studies, or at least 7 days after any of these studies. For the test, you may be asked to wear a hospital gown. You will lie on your back, on a padded table, in a comfortable position. Generally, you can resume your usual activities immediately. documented in this encounterSelect [facility] [place] Telephone encounter Note * Telephone Encounter - Babs Arthur PA-C - 09/29/2024 2:29 PM EDT Prescription sent, but prefer labs and urine to be done prior to starting the med. Babs Arthur PA-C [facility] [place]06-18-[facility] Miscellaneous Notes* Telephone Encounter - Babs Arthur PA-C - 09/29/2024 2:29 PM EDT Prescription sent, but prefer labs and urine to be done prior to starting the med. Babs Arthur PA-C * Telephone Encounter - Rosa Isela Gasca RN - 09/29/2024 9:01 AM EDT Patient rescheduled for 09/30/24. Patient aware of urine and blood orders and to have them done. Rosa Isela Gasca, RN * Telephone Encounter - Brigitte Gonzales MA - 09/28/2024 3:41 PM EDT I called and spoke with the patient. Message from provider given. The patient verbalized understanding and will have lab work completed tomorrow. No sooner appointments available before where patient is already scheduled on 10/14/2024. Patient was added to wait list for sooner appointment should one become available. * Telephone Encounter - Babs Arthur PA-C - 09/28/2024 2:08 PM EDT Please advise the patient her labs show several markers of autoimmune disease including lupus antibodies and rheumatoid antibodies. Kidney function labs are very mildly elevated. We can review in more detail at our visit. Feel free to offer sooner appointment if available. I need her to do a blood test and a urine test prior to starting the medication below. Please confirm she has no diagnosis of diabetes. If not, then we can prescribe a steroid trial (prednisone). 20 mg daily x 1 week, 10 mg daily x 1 week, then 5 mg daily x 1 week. At our follow up, [facility] meds can be discussed in more detail. Vitamin D is also low. Have her start 1000 international unit(s) daily OTC. Babs Arthur PA-C * Telephone Encounter - Brigitte Gonzales MA - 09/28/2024 9:10 AM EDT Patient called in stating she is having increased pain in her ankles. She is currently using ice and ibuprofen with a small amount of relief. She is asking if there is something that can be prescribed to help with her pain? Confirmed [facility] in [place]. documented in this encounterSelect [facility] [place] Telephone encounter Note * Telephone Encounter - Rosa Isela Gasca RN - 09/29/2024 9:01 AM EDT Patient rescheduled for 09/30/24. Patient aware of urine and blood orders and to have them done. Rosa Isela Gasca, RN [facility] Telephone encounter Note* Telephone Encounter - Brigitte Gonzales MA - 09/28/2024 3:41 PM EDT I called and spoke with the patient. Message from provider given. The patient verbalized understanding and will have lab work completed tomorrow. No sooner appointments available before where patient is already scheduled on 10/14/2024. Patient was added to wait list for sooner appointment should one become available. [facility] Telephone encounter Note* Telephone Encounter - Babs Arthur PA-C - 09/28/2024 2:08 PM EDT Please advise the patient her labs show several markers of autoimmune disease including lupus antibodies and rheumatoid antibodies. Kidney function labs are very mildly elevated. We can review in more detail at our visit. Feel free to offer sooner appointment if available. I need her to do a blood test and a urine test prior to starting the medication below. Please confirm she has no diagnosis of diabetes. If not, then we can prescribe a steroid trial (prednisone). 20 mg daily x 1 week, 10 mg daily x 1 week, then 5 mg daily x 1 week. 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 Vitamin D is also low. Have her start 1000 international unit(s) daily OTC. Babs Arthur PA-C [facility] [place] Telephone encounter Note* Telephone Encounter - Brigitte Gonzales MA - 09/28/2024 9:10 AM EDT Patient called in stating she is having increased pain in her ankles. She is currently using ice and ibuprofen with a small amount of relief. She is asking if there is something that can be prescribed to help with her pain? Confirmed [facility] in [place]. [facility] History of Present illness Narrative* Radha Cardenas Tech - 09/23/2024 10:20 AM EDT Radiology Service Progress Note PATIENT NAME: Ronald Hutchins DATE OF SERVICE: September 23, 2024 TIME: 10:10 AM PATIENT IDENTITY VERIFICATION COMPLETED USING TWO (2) IDENTIFIERS: Name and Date of confirmedby patient verbally. FALL SCREENING: Has the patient had 2 falls in the last year or 1 fall with injury or currently using an Ambulatory Assistive Device (Walker, Cane, Wheelchair, Crutches, etc.)? No PATIENT GENDER DATA: Assigned female at . status: : No status:NO. PATIENT RELEVANT IMPLANT DATA REVIEWED: Not Applicable PATIENT PRESENTS WITH AN IMPLANTABLE OR ATTACHED DESK MONITOR: No RADIOLOGY DEPARTMENT: General X-ray: Exam(s) Completed: Lower Extremity X- Ray(s): Knee, AP / Lat / Merchant Left, Ankle, Right, and Foot, Bilateral Upper Extremity X-Ray(s): Elbow, bilateral PERIPHERAL IV DATA: Not applicable SIGNED BY: Ray Haro September 23, 2024 10:10 AM documented in this encounterSelect [facility] [place]25 NoteHNO ID: [id number] Author: RADHA CARDENAS Tech Service: ? Author Type: Technologist Type: Progress Notes Filed: 09/23/2024 11:06 Note Text: Radiology Service Progress Note PATIENT NAME: Ronald Hutchins DATE OF SERVICE: September 23, 2024 TIME: 10:10 AM PATIENT IDENTITY VERIFICATION COMPLETED USING TWO (2) IDENTIFIERS: Name and Date of confirmed by patient verbally. FALL SCREENING: Has the patient had 2 falls in the last year or 1 fall with injury or currently using an Ambulatory Assistive Device (Walker, Cane, Wheelchair, Crutches, etc.)? No PATIENT GENDER DATA: Assigned female at . status: : No status: NO. PATIENT RELEVANT IMPLANT DATA REVIEWED: Not Applicable PATIENT PRESENTS WITH AN IMPLANTABLE OR ATTACHED DESK MONITOR: No RADIOLOGY DEPARTMENT: General X-ray: Exam(s) Completed: Lower Extremity X-Ray(s): Knee, AP / Lat / Merchant Left, Ankle, Right, and Foot, Bilateral Upper Extremity X-Ray(s): Elbow, bilateral PERIPHERAL IV DATA: Not applicable SIGNED BY: Ray Haro September 23, 2024 10:10 [facility]06-12-2025 NoteHNO ID: [id number] Author: BABS ARTHUR PA-C Service: ? Author Type: Physician Internal Corrosion Specialist Type: Progress Notes Filed: 09/23/2024 16:34 Note Text: Rheumatology CONSULTATION Date of Service: 09/23/2024 Patient: Ronald Hutchins Medical Record: [id number] Primary Care Physician: Arun Stringer DO Last Rhe[facility] visit: [facility] Referring Provider: Dr. Genao Ronald Hutchins is here today at request of Dr. Genao specifically for consultation of my opinion in regards to the chief complaint listed below. Correspondence will be shared today via the [employer] electronic health record or through regular mail, where applicable. Recording using adRise software for draft documentation of the visit was discussed with the patient/authorized employer relations representative; all questions welcomed and answered. Patient/authorized employer relations representative agreed to proceed History of Present Illness Ronald Hutchins is a 59-year-old female with a history of osteoarthritis, presenting for evaluation of joint pain. Ronald reports a current pain level of 6 . She describes the pain as Sharp. The pain is Intermittent, and has lasted for 1 Years. Interventions tried include Medication (voltaren gel). She is currently taking ibuprofen. Ronald reports worsening joint pain over the past year, primarily affecting the right ankle, both elbows, and left knee. She describes the right ankle pain as sharp and intermittent, occurring in the mornings, while driving, and during ambulation. The pain began approximately one year ago and is associated with mild swelling. She uses diclofenac gel and 400 mg of ibuprofen as needed for pain relief, which provides temporary relief. She notes that the pain in her right ankle has worsened recently, causing significant stiffness and difficulty ambulating yesterday. She also experiences pain in both elbows, particularly when bending or reaching, such as when putting dishes away. The pain is alleviated temporarily by applying diclofenac gel. Additionally, she reports pain in her left knee, which was replaced in 2019 at [facility]. The right knee, also replaced, feels normal without pain. Ronald experiences morning stiffness lasting approximately one hour, which improves with a shower and movement. Stiffness and pain worsen with prolonged sitting and activity. She also reports occasional paresthesia in her feet during sleep, but denies being diabetic. She denies oral or nasal ulcers, photosensitivity, history of blood clots, Raynaud's phenomenon, unexplained fevers, ocular pain, dry mouth, dyspnea, cough, diarrhea, constipation, back pain, psoriasis, or unintentional weight loss. She notes dry eyes, particularly in the left eye, and plans to schedule an ophthalmology appointment. She denies any family history of rheumatoid arthritis, lupus, Crohn's disease, ulcerative colitis, or psoriasis. Her current medications include losartan, amlodipine, Fosamax, and vitamin D 5000 IU daily. She recently resumed Lexapro after a period of discontinuation due to a lost bottle. She discontinued meloxicam due to concerns about potential renal effects. She denies use of diazepam or hydrochlorothiazide. She is a nonsmoker and denies alcohol or drug use. She is with two adult daughters, one in the and the other studying to be a psychiatrist. 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 She has a history of two first-trimester miscarriages but subsequently had two normal pregnancies. HPI per me: Had arthritis in ankles Had knees replaced, L knee still hurts, R knee feels normal. In the morning she gets a sharp pain when she get's up. 1 year ago she first noticed her R ankle pain. Swelled a little bit. She takes ibuprofen 800 mg The pain limits her ability to get around She also has pain in bilateral elbows. Worse with flexion while doing dishes Voltaren gel helps some. AM Stiffness: 1 hour Pain worsened with activity. Pain Evaluation 09/27/2014 12/01/2014 01/25/2015 09/26/2021 09/23/2024 Pain Evaluation Pain Score 9 8 9 7 6 Location Other: See Comment Knee-Left Foot-Right Toe -- Location Comment bilateral knees right ankle, left knee and bilateral elbows Description Aching Aching;Throbbing Burning;Sore;Stabbing;Sharp Stabbing Sharp Duration (#) 1 3 5 1 1 Duration (Timeframe) Months Months Months Years Years Frequency Continuous Intermittent Intermittent Intervention Medication Medication Reposition;Relaxation Medication Patient-Entered Data None to review Review of Systems Review of Systems CONSTITUTION: Negative for: Fever and Recent weight change HEENT: Negative for: Nosebleeds, Mouth sores, Trouble swallowing and Dry mouth RESPIRATORY: Negative for: Cough and Shortness of breath GASTROINTESTINAL: Negative for: Melena and Diarrhea MUSCULOSKELETAL: Positive for: Arthralgias, Myalgias, Joint swelling and Morning Joint Stiffness Negative for: Muscle weakne (more content not included)... [facility]06-12-2025 History of Present illness Narrative* Babs Arthur PA-C - 09/23/2024 9:11 AM EDT Images from the original note were not included. Rheumatology CONSULTATION Date of Service: 09/23/2024 Patient: Ronald Hutchins Medical Record: [id number] Primary Care Physician: Arun Stringer DO Last Rhe[facility]ology visit: [facility] Referring Provider: Dr. Genao Ronald Hutchins is here today at request of Dr. Genao specifically for consultation of my opinion in regards to the chief complaint listed below. Correspondence will be shared today via the [employer] electronic health record or through regular mail, where applicable. Recording using adRise software for draft documentation of the visit was discussed with the patient/authorized employer relations representative; all questions welcomed and answered. Patient/authorized employer relations representative agreed to proceed History of Present Illness Ronald Hutchins is a 59-year-old female with a history of osteoarthritis, presenting for evaluationof joint pain. Ronald reports a current pain level of 6 . She describes the pain as Sharp. The pain is Intermittent, and has lasted for 1 Years. Interventions tried include Medication (voltaren gel). She is currently taking ibuprofen. Ronald reports worsening joint pain over the past year, primarily affecting the right ankle, bothelbows, and left knee. She describes the right ankle pain as sharp and intermittent, occurring in the mornings, while driving, and during ambulation. The pain began approximately one year ago and is associated with mild swelling. She uses diclofenac gel and 400 mg of ibuprofen as needed for pain relief, which provides temporary relief. She notes that the pain in her right ankle has worsened recently, causing significant stiffness and difficulty ambulating yesterday. She also experiences pain in both elbows, particularly when bending or reaching, such as when putting dishes away. The pain is alleviated temporarily by applying diclofenac gel. Additionally, she reports pain in her left knee, which was replaced in 2019 at [facility]. The right knee, also replaced, feels normal without pain. Ronald experiences morning stiffness lasting approximately one hour, which improves with a showerand movement. Stiffness and pain worsen with prolonged sitting and activity. She also reports occasional paresthesia in her feet during sleep, but denies being diabetic. She denies oral or nasal ulcers, photosensitivity, history of blood clots, Raynaud's phenomenon, unexplained fevers, ocular pain, dry mouth, dyspnea, cough, diarrhea, constipation, back pain, psoriasis, or unintentional weight loss. She notes dry eyes, particularly in the left eye, and plans to schedule an ophthalmology appointment. She denies any family history of rheumatoid arthritis, lupus, Crohn's disease, ulcerative colitis, or psoriasis. Her current medications include losartan, amlodipine, Fosamax, and vitamin D 5000 IU daily. She recently resumed Lexapro after a period of discontinuation due to a lost bottle. She discontinued meloxicam due to concerns about potential renal effects. She denies use of diazepam or hydrochlorothiazide. She is a nonsmoker and denies alcohol or drug use. She is with two adult daughters, one in the and the other studying to be a psychiatrist. 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 She has a history of two first-trimester miscarriages but subsequently had two normal pregnancies. HPI per me: Had arthritis in ankles Had knees replaced, L knee still hurts, R knee feels normal. In the morning she gets a sharp pain when she get's up. 1 year ago she first noticed her R ankle pain. Swelled a little bit. She takes ibuprofen 800 mg The pain limits her ability to get around She also has pain in bilateral elbows. Worse with flexion while doing dishes Voltaren gel helps some. AM Stiffness: 1 hour Pain worsened with activity. Pain Evaluation 09/27/2014 12/01/2014 01/25/2015 09/26/2021 09/23/2024 Pain Evaluation Pain Score 9 8 9 7 6 Location Other: See Comment Knee-Left Foot-Right Toe -- Location Comment bilateral knees right ankle, left knee and bilateral elbows Description Aching Aching;Throbbing Burning;Sore;Stabbing;Sharp Stabbing Sharp Duration (#) 1 3 5 1 1 Duration (Timeframe) Months Months Months Years Years Frequency Continuous Intermittent Intermittent Intervention Medication Medication Reposition;Relaxation Medication Patient-Entered Data None to review Review of Systems Review of Systems CONSTITUTION: Negative for: Fever and Recent weight change HEENT: Negative for: Nosebleeds, Mouth sores, Trouble swallowing and Dry mouth RESPIRATORY: Negative for: Cough and Shortness of breath GASTROINTESTINAL: Negative for: Melena and Diarrhea MUSCULOSKELETAL: Positive for: Arthralgias, Myalgias, Joint swelling and Morning Joint Stiffness Negative for: Muscle weakness NEUROLOGICAL: Negative for: Numbness SKIN: Negative for: Rash EYES: Positive for: Eye dryness CARDIOVASCULAR: Positive for: Leg swelling Negative for: Chest pain GENITOURINARY: HEMATOLOGIC/LYMPHATIC: RHEUMATOLOGIC REVIEW OF SYSTEMS: No ulcers in mouth or nose No photosensenitivity No history of blood clots 2 miscarriages - 3 months, 6 weeks. Then 2 normal pregnancies + Chronic fatigue No history of Raynaud's No fevers No bright red painful eyes + sicca eyes No sob No cough No diarrhea, no constipation No chronic back pain No history of psoriasis No weight loss Occasional neuropathy in both feet, wakes her at night. All other reviewed and negative other than HPI. Past Medical History PAST MEDICAL HISTORY Diagnosis Date Anxiety HTN (hypertension) Hypothyroidism Past Surgical History PAST SURGICAL HISTORY Procedure Laterality Date DELIVERY ONLY 04/14/1998 , low transverse DELIVERY ONLY 04/14/2004 , low transverse DELIVERY ONLY 04/14/2013 , low transverse TOTAL KNEE REPLACEMENT Bilateral June,November 2020 Family History FAMILY HISTORY Problem Relation Age of Onset Diabetes Mother Stroke Father Hypertension Sister Hypertension Sister No known RA, SLE, IBD, PsO Social History Social History Tobacco Use Smoking status: Never Smokeless tobacco: Never Vaping Use Vaping status: Never Used Substance Use Topics Alcohol use: No Drug use: No 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 alendronate (FOSAMAX) 70 mg tablet Take 1 tablet by mouth one time a week. cholecalciferol, Vitamin D3, (VITAMIN D3) 1,250 mcg (50,000 unit) cap capsule 1 cap(s) orally once a week for 56 days escitalopram oxalate (LEXAPRO) 10 mg tablet Take 1 tablet by mouth once daily. ibuprofen (MOTRIN) 800 mg tablet Take 1 tablet by mouth every 6 hours as needed. AMLODIPINE BESYLATE (AMLODIPINE ORAL) Take 10 mg by mouth once daily. levothyroxine (LEVOXYL) 100 mcg tablet Take 1 tablet by mouth once daily. Take on empty stomach. For Thyroid. losartan 100 mg tablet Take 1 tablet by mouth once daily. Labs Latest Ref Rng & Units 03/09/2004 07/09/2013 09/23/2024 CBC WBC 3.70 - 11.00 k/uL 6.33 7.16 Hemoglobin 11.5 - 15.5 g/dL 12.7 12.1 Hemoglobin, Beulah 12.0 - 16.0 g/dL 12.7 Hematocrit 36.0 - 46.0 % 39.5 37.4 Platelet Count 150 - 400 k/uL 327 290 Abs Neut (ANC) 1.45 - 7.50 k/uL 2.72 3.24 Abs Neut, Joshua 2.0 - 8.1 k/uL 5.1 Abs Lymp, Joshua 1.0 - 5.5 k/uL 3.2 Abs Lymph 1.00 - 4.00 k/uL 2.54 2.43 Latest Ref Rng & Units 03/05/2011 10/09/2011 07/09/2013 09/23/2024 CMP Sodium 136 - 144 mmol/L 139 139 Sodium, Joshua 132 - 148 mmol/L 136 137 Potassium 3.7 - 5.1 mmol/L 3.9 3.9 Potassium, Beulah 3.5 - 5.0 mmol/L 4.0 4.0 Chloride 98 - 107 mmol/L 104 104 Chloride, Joshua 98 - 110 mmol/L 103 105 CO2 22 - 30 mmol/L 23 19 CO2, Joshua 23.0 - 32.0 mmol/L 27.4 23.5 Glucose 74 - 99 mg/dL 82 94 Glucose, Beulah 65 - 100 mg/dL 87 91 BUN 7 - 21 mg/dL 16 18 BUN, Beulah 10 - 25 mg/dL 11 14 Creatinine 0.58 - 0.96 mg/dL 1.03 1.01 Creatinine, Joshua 0.7 - 1.4 mg/dL 0.9 1.0 Calcium, Joshua 8.5 - 10.5 mg/dL 9.0 9.1 Calcium 8.5 - 10.2 mg/dL 9.4 8.8 AST 13 - 35 U/L 26 15 AST, Joshua 7 - 40 U/L 26 23 ALT 7 - 38 U/L 28 10 ALT, Beulah 0 - 45 U/L 24 23 Alkaline Phosphatase 34 - 123 U/L 65 83 Latest Ref Rng & Units 09/23/2024 Uric Acid Uric Acid 2.5 - 6.6 mg/dL 8.1 Latest Ref Rng & Units 07/09/2013 Urinalysis Protein, Urine NEGAT mg/dL Negative RBC, Urine R03 /HPF 0-3 Imaging None done at [facility] to review Last XR Chest - Impression Only No resulted procedures found. Health Maintenance Current Immunizations Never Reviewed Name Date COVID-19 vaccine, monovalent (MODERNA) 03/15/2021, 07/20/2020, 06/21/2020 Physical Exam VITAL SIGNS: BP 134/86 Pulse 96 Ht 5' 5 (1.65m) Wt 328 lb 3.2 oz (148.9kg) SpO2 100% LMP05/15/2013 BMI 54.62 kg/(m^2). GENERAL APPEARANCE: Alert and oriented x 3. In no distress. Obese body habitus. Sitting in wheelchair SKIN: No rash, skin thickening, nodules, or discoloration. Skin hyperextensibility noted on dorsum of hand EYES: left eye with irritated conjunctiva, appears dry. Strabismus noted HENT: Normal external examination of the ears and nose, lips, oropharynx and tongue. No oropharyngeal lesions, exudate, or sores. Moist Mucous membranes NECK: No mass or asymmetry. RESPIRATORY: Normal respiratory effort. Clear to auscultation CARDIOVASCULAR: Heart RRR without gallop, murmur, or rub ABDOMEN: BS normal. No bruits, No tenderness. NEUROLOGIC: Sensory exam normal. MUSCULOSKELETAL EXAMINATION: Soft tissue tender points: None Motor exam: Normal bulk and tone. Spine: Cervical spine: No visible abnormalities. No tenderness to palpation. Thoracic spine: No visible abnormalities. No tenderness to palpation. Lumbar spine: No visible abnormalities. No tenderness to palpation SI Joints: No tenderness to palpation. Negative Julisa s Test Upper extremities: Shoulders: Full ROM in all kelly, no tenderness to palpation. No swelling or effusion. Elbows: Flexion contractures noted bilaterally left worse than right. There is swelling noted in the left elbow. Tenderness bilaterally. Wrists: Full ROM in all kelly. Left wrist is tender to palpation. Hypermobility of bilateral wrists noted Hands: Hypermobility of the finger joints noted. Able to make full fists bilaterally. full ROM in flexion and extension. Full multicut line operator strength. No swelling or synovitis along the MCPs, PIPs, and DIPs. No tenderness along the MCPs, PIPs, and DIPs. Lower extremities: Hips: No greater trochanter tenderness Knees: Full ROM in flexion and extension. Status post TKA bilaterally. No obvious swelling or effusion. Left knee is diffusely tender. Body habitus limits physical exam Ankles: Limited range of motion bilaterally right worse than left. Tenderness and mild swelling in both ankles noted Feet: There is tenderness of the right foot Impression # Pain in joint, multiple sites (M25.50) Chronic pain in multiple joints including right ankle, elbows, left knee, and MTP joints of the right foot. Of particular concern is bilateral elbow flexion contractures. Pain is exacerbated by activity and improves with movement. Patient has a history of knee replacements and uses diclofenac gel and ibuprofen for pain management. Recent worsening of symptoms over the past year. Differential is broad and includes inflammatory arthritis such as rheumatoid arthritis, CPPD, gout, osteoarthritis, SLE. I have no imaging or labs to review at this time. - Ordered X-rays of the right ankle, elbows, and left knee to assess for underlying pathology. - Ordered rheumatologic panel as below to assess for RA, SLE, CTD etc - Continue use of ibuprofen as needed for pain management, ensuring not to exceed recommended dosages to avoid renal complications. - Follow-up in 2 weeks to review X-ray and blood work results and discuss further treatment optionsbased on findings. # Hypermobility syndrome (M35.7) Exhibits significant joint hypermobility on physical examination, particularly in the hands and wrists. - Avoid putting joints in extreme # Osteoporosis, unspecified osteoporosis type, unspecified pathological fracture presence (M81.0) Currently managed with Fosamax once weekly and Vitamin D 5000 IU daily. Recent bone density test performed. - Continue Fosamax and Vitamin D supplementation as per primary care - DEXA 07/17/2023 -shows T-score -2.3 in the left forearm with no comparison # Dry eye of left side (H04.122) Noted redness and inflammation in the left eye on examination. Patient reports dryness in the left eye. - Advised patient to schedule an eye appointment for further evaluation and management. Plan As Explained to Patient via After visit Summary Orders this visit: Office Visit on 09/23/24 XR ANKLE GENERAL 3V AP/LAT/OBL RIGHT XR ELBOW GENERAL 2V AP/LAT RIGHT XR ELBOW GENERAL 2V AP/LAT LEFT XR KNEE POST OP 3V AP/LAT/MERCHANT LEFT XR FOOT GENERAL 3V AP/LAT/OBL BILATERAL RHEUMATOID FACTOR CCP ANTIBODY IGG UDAY BY IFA WITH REFLEX SEDIMENTATION RATE, WESTERGREN C-REACTIVE PROTEIN URIC ACID VITAMIN D 25 HYDROXY CALCIUM, IONIZED COMPLETE BLOOD COUNT AND DIFFERENTIAL COMPREHENSIVE METABOLIC PANEL tirzepatide, weight loss (ZEPBOUND) 10 mg/0.5 mL solution alendronate (FOSAMAX) 70 mg tablet cholecalciferol, Vitamin D3, (VITAMIN D3) 1,250 mcg (50,000 unit) cap capsule escitalopram oxalate (LEXAPRO) 10 mg tablet Follow up 2 weeks to review results and discuss possible treatment options I spent a total of 60 minutes on the date of the service which included preparing to see the patient, [id number] patient care, completing clinical documentation, obtaining and/or reviewing separately obtained history, performing a medically appropriate examination, counseling and educating the pat ient/family/caregiver, ordering medications, tests, or procedures. Babs Arthur PA-C Rheumatology Date: September 23, 2024 Time: 4:33 PM [facility]* Diagnosis Onset Date Resolution Status Admit Date Hypothyroidism (acquired) chronic July 19, 2024 9:32am Morbid obesity chronic July 19, 2024 9:32am [facility] Work Phone: [phone]) 882-972501-17-2025 Evaluation note* Diagnosis Onset Date Resolution Status Admit Date Hypersomnolence acute April 142024 9:30am Arthritis chronic April 30, 2024 9:30am Hypertension chronic April 9:30am Hypothyroidism (acquired) chronic April 30, 2024 9:30am Hypothyroidism (acquired) chronic July 19, 2024 9:32am Morbid obesity chronic July 19, 2024 9:32am [facility] Work Phone: [phone]) 612-103206-15-2022 History of Present illness Narrative* Kenneth Hubbard - 09/26/2021 11:39 AM EDT Initial Podiatric Office Visit: Chief Complaint: This 56 year old female who presents with chief complaint:swelling of b/l feet anddeformity of b/l 2nd toe HPI Patient presents to clinic for evaluation of b/l feet. Her primary complaint is deformity of b/l 2nd toe. She states the toes started to deviate laterally about one year ago when her daughter stepped on her toe. She states that she heard a crunch butshe never had pain because she was on [...] mouth once daily. Take on empty stomach. ForThyroid. ) losartan 100 mg tablet Take 1 [...] now Kenneth Hubbard DPM Podiatry [address] [facility] [address] Dept: [phone] Dept * Wendy Zhao RN - 09/26/2021 11:19 AM EDT AMB ROOMING INTAKE FLOWSHEET DATA Risk Screening [...] to B/L 2nd toes. [facility]* Diagnosis Pes planus of both feet- Primary Hammer toes of both feet Venous insufficiency Unspecified venous (peripheral) insufficiency [facility]* Diagnosis Onset Date Resolution Status Hypothyroidism (acquired) ch ronic [facility] Work Phone: Evaluation note* Diagnosis Onset Date Resolution Status Hypothyroidism (acquired) ch ronic Localized swelling of left upper extremity acute Generalized anxiety disorder chronic Hypertension chronic Hypothyroidism (acquired) ch ronic Morbid obesity chronic Venous insufficiency of both lower extremities chronic [facility] Work Phone: Evaluation note* Diagnosis Onset Date Resolution Status Health care maintenance acut e Generalized anxiety disorder chronic Hypertension chronic [facility] Work Phone: Evaluation note* Diagnosis Onset Date Resolution Status Bronchitis acute Sinusitis acute Anxiety chronic Hypertension chronic Osteoarthritis of knees, bilateral chronic [facility] Work Phone: Evaluation note* Diagnosis Onset Date Resolution Status Health care maintenance acut e Generalized anxiety disorder chronic Hemorrhoids chronic Hypertension chronic Hypothyroidism (acquired) ch ronic Left ankle pain chronic [facility] Work Phone: Evaluation note* Diagnosis Onset Date Resolution Status Health care maintenance acut e Generalized anxiety disorder chronic Hemorrhoids chronic Hypertension chronic Hypothyroidism (acquired) ch ronic Left ankle pain chronic Hypothyroidism (acquired) ch ronic [facility] Work Phone: Evaluation note* Diagnosis Pain in joint, multiple sites- Primary Hypermobility syndrome Osteoporosis, unspecified osteoporosis type, unspecified pathological fracture presence Dry eye of left side Morbid obesity (HCC) Morbid obesity documented in this encounter [facility]* Diagnosis Pain in joint, multiple sites Osteoporosis, unspecified osteoporosis type, unspecified pathological fracture presence [facility]* Diagnosis Lupus erythematosus overlap syndrome (HCC)- Primary Rheumatoid factor positive Other and unspecified nonspecific immunological findings Cyclic citrullinated peptide (CCP) antibody positive Jaccoud's arthropathy (HCC) History of patellar fracture Personal history of traumatic fracture Asymptomatic age-related postmenopausal state Osteoporosis, unspecified osteoporosis type, unspecified pathological fracture presence Long-term use of Plaquenil Encounter for long-term (current) use of other medications documented [facility] this [facility]* Diagnosis Vitamin D deficiency- Primary Unspecified vitamin D deficiency History of patellar fracture Personal history of traumatic fracture Morbid obesity (HCC) Morbid obesity Presence of artificial knee joint, bilateral documented [facility] this [facility]* Diagnosis Pain in joint, multiple sites- Primary Hypermobility syndrome [facility] this [facility]* Diagnosis History of patellar fracture- Primary Personal history of traumatic fracture documented [facility] this [facility]* Diagnosis History of patellar fracture- Primary Personal history of traumatic fracture [facility]* Diagnosis History of patellar fracture Personal history of traumatic fracture documented in this encounter [facility] Discharge instructionsAmbulatory Orders* General Surgery Location: None Selected [facility] Work Phone: Remgzu for referral (narrative)No reason for referral information availableWPeoples [facility] Work Phone: Reason for visit Narrative* Diagnostic Procedure Only (Routine) - Closed Specialty Diagnoses / Procedures Referred By Contac t Referred To Contact XR IMAGING Diagnoses Pain in joint, multiple sites Osteoporosis, unspecified osteoporosis type, unspecified pathological fracture presence Procedures XR FOOT GENERAL 3V AP/LAT/OBL BILATERAL RADEX FOOT COMPLETE MINIMUM 3 VIEWS Babs Arthur PA-C [address] [place] [address] Phone: tel: fax: [place] [id number] Referral ID Status Reason Start Date Expiration Date V isits Requested Visits Authorized [id number] Closed Auto-Generate d Referral 09/23/2024 10/23/2025 1 1 [facility] for visit Narrative* Diagnostic Procedure Only (Routine) - Closed Specialty Diagnoses / Procedures Referred By Contac t Referred To Contact XR IMAGING Diagnoses History of patellar fracture Procedures XR KNEE LIMITED 2V AP/LAT LEFT RADIOLOGIC EXAMINATION KNEE 1/2 VIEWS Jose C Cosme V DO [address] [place] [address] Phone: tel: fax: [place] [address] Referral ID Status Reason Start Date Expiration Date V isits Requested Visits Authorized [id number] Closed Auto-Generate d Referral 11/02/2024 12/02/2025 1 1 [facility] Chief Complaint and Reason for Visit Chief Complaint 2+ YEAR FU Reason for Visit Hypothyroidism (acqu ired) Chief Complaint 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 LEFT UPPER LIMB SWELLING Reason for Visit Hypothyroidism (acqu ired) Localized swelling of left upper extremity Generalized anxiety disorder Hypertension Hypothyroidism (acquired) Morbid obesity Venous insufficiency of both lower extremities Chief Complaint 3 M FU SCREENING Reason for Visit Health care maintena nce Generalized anxiety disorder Hypertension Chief Complaint 3 M FU Reason for Visit Bronchitis Sinusitis Anxiety Hypertension Osteoarthritis of knees, bilateral Chief Complaint 1 YR Reason for Visit Health care maintena nce Generalized anxiety disorder Hemorrhoids Hypertension Hypothyroidism (acquired) Left ankle pain Chief Complaint 1 YR 8 M FU SCREENING Reason for Visit Health care maintena nce Generalized anxiety disorder Hemorrhoids Hypertension Hypothyroidism (acquired) Left ankle pain Hypothyroidism (acquired) Chief Complaint Admit Date 3 m fu April 30, 2024 9 :30am 1 Y FU July 19, 2024 9:32 am SCREENING July 26, 2024 10: 31am Reason for Visit Admit Date Hypersomnolence April 30, 2024 9 :30am Arthritis April 30, 2024 9 :30am Hypertension April 30, 2024 9 :30am Hypothyroidism (acquired) April 30, 2024 9:30am Hypothyroidism (acquired) July 19 9:32am Morbid obesity July 19, 2024 9:32 am Chief Complaint Admit Date 1 Y FU July 19, 2024 9:32 am SCREENING July 26, 2024 10: 31am ACUTE YEAST INFECTION October 08, 2024 10 :25am Reason for Visit Admit Date Hypothyroidism (acquired) July 19 9:32am Morbid obesity July 19, 2024 9:32 am Chief Complaint Admit Date ACUTE YEAST INFECTION October 08, 2024 10 :25am MED FOLLOW UP December 15, 2024 9:53am Reason for Visit Admit Date Vulvovaginal candidiasis October 08, 2024 10:25am Chief Complaint Admit Date ACUTE YEAST INFECTION October 08, 2024 10 :25am MED FOLLOW UP December 15, 2024 9:53am E ORDER December 15, 2024 11:57am Reason for Visit Admit Date Vulvovaginal candidiasis October 08, 2024 10:25am Hypersomnolence December 15, 2024 9:53am Generalized anxiety disorder December 152024 9:53am Hypertension December 15, 2024 9:53am Hypothyroidism (acquired) December 15, 2024 9:53am Morbid obesity December 15, 2024 9:53am Family History No Family History Records Found Relationship Condition Age at Onset Recorded Date/T madeleine father Cardiac disease Unknown Hypertension Unknown sister Disorder of thyroid Unknown mother Diabetes mellitus Unknown Relationship Condition Age at Onset Recorded Date/T madeleine father Cardiac disease Unknown Hypertension Unknown sister Disorder of thyroid Unknown mother Diabetes mellitus Unknown daughter Attention deficit hy peractivity disorder (ADHD) Unknown Summary Purpose Advance Directives No Advanced Directives Records FoundNo Advanced Directives Records Found Additional Source Comments Source Comments (unrecognize d section and content) In the event this informatio n is protected by the Federal Confidentiality of Alcohol and Drug Abuse Patient Records regulations: The Federal rules restrict any use of the information to criminally investigate or prosecute any alcohol or drug abuse patient.[facility] the event this information is protected by the Federal Confidentiality of Alcohol and Drug Abuse Patient Records regulations: The Federal rules restrict any use of the information to criminally investigate or prosecute any alcohol or drug abuse patient.[facility] the event this information is protected by the Federal Confidentiality of Alcohol and Drug Abuse Patient Records regulations: The Federal rules restrict any use of the information to criminally investigate or prosecute any alcohol or drug abuse patient.[facility] the event this information is protected by the Federal Confidentiality of Alcohol and Drug Abuse Patient Records regulations: The Federal rules restrict any use of the information to criminally investigate or prosecute any alcohol or drug abuse patient.[facility] the event this information is protected by the Federal Confidentiality of Alcohol and Drug Abuse Patient Records regulations: The Federal rules restrict any use of the information to criminally investigate or prosecute any alcohol or drug abuse patient.[facility] the event this information is protected by the Federal Confidentiality of Alcohol and Drug Abuse Patient Records regulations: The Federal rules restrict any use of the information to criminally investigate or prosecute any alcohol or drug abuse patient.[facility] the event this information is protected by the Federal Confidentiality of Alcohol and Drug Abuse Patient Records regulations: The Federal rules restrict any use of the information to criminally investigate or prosecute any alcohol or drug abuse patient.[facility] the event this information is protected by the Federal Confidentiality of Alcohol and Drug Abuse Patient Records regulations: The Federal rules restrict any use of the information to criminally investigate or prosecute any alcohol or drug abuse patient.[facility] the event this information is protected by the Federal Confidentiality of Alcohol and Drug Abuse Patient Records regulations: The Federal rules restrict any use of the information to criminally investigate or prosecute any alcohol or drug abuse patient.[facility] the event this information is protected by the Federal Confidentiality of Alcohol and Drug Abuse Patient Records regulations: The Federal rules restrict any use of the information to criminally investigate or prosecute any alcohol or drug abuse patient.[facility] the event this information is protected by the Federal Confidentiality of Alcohol and Drug Abuse Patient Records regulations: The Federal rules restrict any use of the information to criminally investigate or prosecute any alcohol or drug abuse patient.[facility] the event this information is protected by the Federal Confidentiality of Alcohol and Drug Abuse Patient Records regulations: The Federal rules restrict any use of the information to criminally investigate or prosecute any alcohol or drug abuse patient.[facility] Reason for Visit (unrecogniz ed section and content) Reason Comments New Patient Pain Reason Comments new patient Reason Comments Follow Up Reason Comments Results Reason Comments Left Knee Pain Referred by Babs Arthur Specialty Diagnoses / Procedures Referred By Bandar roque Referred To Contact Orthopedics Diagnoses History of patellar fracture Procedures CONSULT TO ORTHOPAEDICS OFFICE/OUTPATIENT NEW HIGH MDM 60 MINUTES Babs Arthur PA-C [address] [place] [address] Phone: tel: fax: Referral ID Status Reason Start Date Expiration Date V isits Requested Visits Authorized [id number] Closed PCP Requested Referral 09/30/2024 09/30/2025 1 1 Reason Onset Date Comments Results 10/07/2024 Reason Comments Med Change Request Reason Comments Patient Question Reason Comments follw up left patella fx Care Teams (unrecognized sec tion and content) See Wheeler Relationship Specialty Start Date End Date Arun Stringer DO [address] [place] [id number] PCP - General Family Practice 01/25/15 Team Status: Active Member Role Status Dates Dr. Arun Stringer DO Family Provider Active Dr. Harper Genao MD Primary Care Provider Active Team Status: Inactive Member Role Status Dates Dr. Harper Genao MD Primary Care P rosarahder, Attending Provider, Referring Provider Active Team Status: Inactive Member Role Status Dates Dr. Harper Genao MD Primary Care Provider, Atten ding Provider Active Team Status: Inactive Member Role Status Dates Dr. Harper Genao MD Primary Care Provider, Refer ring Provider Active Dr. Fernandez Zabala MD Attending Provider Active Team Status: Active Member Role Status Dates Dr. Harper Genao MD Primary Care Provider Active Team Status: Inactive Member Role Status Dates Dr. Harper Genao MD Primary Care Provider Active Start: April 30, 2024 End: April 30, 2024 Dr. Harper Genao MD Attending Provider Active Start: April 30, 2024 End: April 30, 2024 Dr. Harper Genao MD Referring Provider Active Start: April 30, 2024 End: April 30, 2024 Team Status: Inactive Member Role Status Dates Dr. Harper Genao MD Primary Care Provider Active Start: July 19, 2024 End: July 19, 2024 Dr. Harper Genao MD Referring Provider Active Start: July 19, 2024 End: July 19, 2024 Dr. Fernandez Zabala MD Attending Provider Active Sta rt: July 19, 2024 End: July 19, 2024 Team Status: Inactive Member Role Status Dates Dr. Harper Genao MD Primary Care Provider Active Start: July 26, 2024 End: July 26, 2024 Dr. Harper Genao MD Attending Provider Active Start: July 26, 2024 End: July 26, 2024 Dr. Harper Genao MD Referring Provider Active Start: July 26, 2024 End: July 26, 2024 See Wheeler Relationship Specialty Start Date End Date Harper Genao MD [address] [place] [address] PCP - General Internal Medicine 09/23/24 Kilo Dubois MD [address] [place] [address] Referring Plastic Surgery 07/19/24 See Wheeler Relationship Specialty Start Date End Date Harper Genao MD [address] [place] [address] PCP - General Internal Medicine 09/23/24 Kilo Dubois MD [address] [place] [address] Referring Plastic Surgery 07/19/24 See Wheeler Relationship Specialty Start Date End Date Harper Genao MD [address] [place] [address] PCP - General Internal Medicine 09/23/24 Kilo Dubois MD [address] [place] [address] Referring Plastic Surgery 07/19/24 See Wheeler Relationship Specialty Start Date End Date Harper Genao MD [address] [place] [address] PCP - General Internal Medicine 09/23/24 Kilo Dubois MD [address] [place] [address] Referring Plastic Surgery 07/19/24 See Wheeler Relationship Specialty Start Date End Date Harper Genao MD [address] [place] [address] PCP - General Internal Medicine 09/23/24 Kilo Dubois MD [address] [place] [address] Referring Plastic Surgery 07/19/24 See Wheeler Relationship Specialty Start Date End Date Harper Genao MD [address] [place] [address] PCP - General Internal Medicine 09/23/24 Kilo Dubois MD [address] [place] [address] Referring Plastic Surgery 07/19/24 Team Status: Active Member Role/Relationship Status Dates Dr. Harper Genao MD Primary Care Provider Active Team Status: Inactive Member Role/Relationship Status Dates Dr. Harper Genao MD Primary Care Provider Active Start: July 19, 2024 End: July 19, 2024 Dr. Harper Genao MD Referring Provider Active Start: July 19, 2024 End: July 19, 2024 Dr. Fernandez Zabala MD Attending Provider Active Sta rt: July 19, 2024 End: July 19, 2024 Team Status: Inactive Member Role/Relationship Status Dates Dr. Harper Genao MD Primary Care Provider Active Start: July 26, 2024 End: July 26, 2024 Dr. Harper Genao MD Attending Provider Active Start: July 26, 2024 End: July 26, 2024 Dr. Harper Genao MD Referring Provider Active Start: July 26, 2024 End: July 26, 2024 Team Status: Inactive Member Role/Relationship Status Dates Dr. Harper Genao MD Primary Care Provider Active Start: October 08, 2024 End: October 08, 2024 Dr. Harper Genao MD Referring Provider Active Start: October 08, 2024 End: October 08, 2024 BULMARO LagunasC Attending Provider Active Start: October 08, 2024 End: October 08, 2024 See Wheeler Relationship Specialty Start Date End Date Harper Genao MD [address] [place] [address] PCP - General Internal Medicine 09/23/24 Kilo Dubois MD [address] [place] [address] Referring Plastic Surgery 07/19/24 See Wheeler Relationship Specialty Start Date End Date Harper Genao MD [address] [place] [address] PCP - General Internal Medicine 09/23/24 Kilo Dubois MD [address] [place] [address] Referring Plastic Surgery 07/19/24 See Wheeler Relationship Specialty Start Date End Date Harper Genao MD [address] [place] [address] PCP - General Internal Medicine 09/23/24 Kilo Dubois MD [address] [place] [address] Referring Plastic Surgery 07/19/24 Team Status: Inactive Member Role/Relationship Status Dates Dr. Harper Genao MD Primary Care Provider Active Start: October 08, 2024 End: October 08, 2024 Dr. Harper Genao MD Referring Provider Active Start: October 08, 2024 End: October 08, 2024 BRYCE Lagunas Attending Provider Active Start: October 08, 2024 End: October 08, 2024 Team Status: Inactive Member Role/Relationship Status Dates Dr. Harper Genao MD Primary Care Provider Active Start: December 15, 2024 End: December 15, 2024 Dr. Harper Genao MD Attending Provider Active Start: December 15, 2024 End: December 15, 2024 Dr. Harper Genao MD Referring Provider Active Start: December 15, 2024 End: December 15, 2024 Team Status: Inactive Member Role/Relationship Status Dates Dr. Harper Genao MD Primary Care Provider Active Start: December 15, 2024 End: December 15, 2024 Dr. Harper Genao MD Attending Provider Active Start: December 15, 2024 End: December 15, 2024 Dr. Harper Genao MD Referring Provider Active Start: December 15, 2024 End: December 15, 2024 Goals (unrecognized section and content) Goals may be documented in a n alternate sectionGoals may be documented in an alternate sectionGoals may be documented in an alternate sectionGoals may be documented in an alternate sectionGoals may be documented in an alternate sectionGoals may be documented in an alternate sectionGoals may be documented in an alternate sectionGoals may be documented in an alternate sectionGoals may be documented in an alternate sectionGoals may be documented in an alternate sectionGoals may be documented in an alternate section INFORMATION SOURCE (unrecogn ized section and content) DATE CREATED AUTHOR 11/12/2024 [facility] DATE CREATED AUTHOR 'S KEVIN PRESCOTT 12/26/2024 [facility] FOR RECORDS PERTAINING TO PATIENTS WHO ARE [...] BE BASED ON THE PRIMARY CLINICAL RECORDS. [facility] [employer] [facility]. provides no warranty or guarantee of the accuracy or completeness of information in this document.
--- OUTSIDE RECORDS SUMMARY | 2025-01-14 19:58 | XMS RPT_ITS | CCD ---
Author Organization [facility] Care Team Providers Care Machine Crater Name Role Phone Arun Stringer DO Primary Care Provider Dr. Arun Stringer Primary Care Provider Dr. Arun Stringer Referring Provider [phone] Fernandez Zabala Attending Provider [phone] Harper Genao Attending Provider [phone] [...] DEINE] Drug Allergy 4 Other: See Comments [facility] (11 sources) Acetaminophen Drug Allergy [address] [facility] (11 sources) Codeine Drug Allergy 2 [facility] (1 source) Acetaminophen Drug Allergy 5 [facility] (1 source) Codeine Drug Allergy 5 [facility] Medications Current Medications Medication Drug Class(es) [...] 1 tablet by mouth twice daily calcium [id number]-copy and print associate-enrique (CALCIUM CITRATE PLUS) 250 mg-40 mg- 125 [...] 12:00am Start: 04-15-[address] [facility] every week cholecalciferol, Vitamin D3, (VITAMIN D3) [...] 22, 2022 1:00am October 08, 2024 10:36am [id number] 200 actuat albuterol 0.09 mg/actuat metered dose [...] (1 source) Drug therapy finding; Translations: [Other supervisor long goods (current) drug therapy] 09-30-2024 Episodic Other bone [...] Auto (Unsp spec) [#/Vol] 2.51 10*3/uL 0.83-4.51 [facility] Absolute neutrophil countOrd ered By: venessa Genao on 12-15-2024 Neutrophils (Bld) [#/Vol] 3.4 10*3/uL 2.0-7.7 [facility] Anion gap in Serum or Plasma Ordered By: Harper Genao on 12-15-2024 Anion gap [Moles/Vol] 15 mmol/L 5-15 [facility] Automated lymphocyte count a s percentage of total leukocytesOrdered By: Harper Genao on 12-15-2024 Lymphocytes/100 WBC Auto (Unsp spec) 34.4 % 19-41 [facility] BUN/creatinine ratioOrdered By: venessa Genao on 12-15-2024 Urea nitrogen/Creatinine [Mass ratio] 18.2 mg/mg 10-20 [facility] Basophil percentageOrdered B y: Harper Genao on 12-15-2024 Basophils/100 WBC (Bld) 0.4 % 0-1 [facility] Bilirubin, totalOrdered By: Harper Genao on 12-15-2024 Bilirubin [Mass/Vol] 0.30 mg/dL 0.00-1.30 [facility] CBC W/Diff, Automatedon Absolute Lymph 2.51 X10 3/uL Normal 0.83-4.51 [facility] Comment on above: Performed By: #### L 506.1001, L100.0100, L501.9520, L500.4050, L500.4100 #### [facility] [address] [place], [place], [id number] Absolute Neut 3.4 X10 3/uL Normal 2.0-7.7 [facility] Comment on above: Performed By: #### L 506.1001, L100.0100, L501.9520, L500.4050, L500.4100 #### [facility] [address] [place], [address] Basophils/100 WBC (Bld) 0.4 % Normal 0-1 [facility] Comment on above: Performed By: #### L 506.1001, L100.0100, L501.9520, L500.4050, L500.4100 #### [facility] [address] [place], [address] Eosinophils/100 WBC (Bld) 8.0 % High 0-5 [facility] Comment on above: Performed By: #### L 506.1001, L100.0100, L501.9520, L500.4050, L500.4100 #### [facility] [address] [place], [address] Erythrocyte distribution width (RBC) [Ratio] 13.9 % Normal 11.6-14.6 [facility] Comment on above: Performed By: #### L 506.1001, L100.0100, L501.9520, L500.4050, L500.4100 #### [facility] [address] [place], [address] Hematocrit (Bld) [Volume fraction] 35.8 % Low 37-47 [facility] Comment on above: Performed By: #### L 506.1001, L100.0100, L501.9520, L500.4050, L500.4100 #### [facility] [address] [place], [address] Hemoglobin (Bld) [Mass/Vol] 11.8 g/dL Low 12.0-15.0 [facility] Comment on above: Performed By: #### L 506.1001, L100.0100, L501.9520, L500.4050, L500.4100 #### [facility] [address] [place], [address] IG% 0.300 Normal 0.0-0.9 [facility] Comment on above: Result Comment: IG% - Immature Granulocytes (promyelocytes, myelocytes and metamyelocytes) > 1% indicates that a LEFT SHIFT is Present. Performed By: #### L 506.1001, L100.0100, L501.9520, L500.4050, L500.4100 #### [facility] [address] [place], [address] Lymphocytes/100 WBC (Bld) 34.4 % Normal 19-41 [facility] Comment on above: Performed By: #### L 506.1001, L100.0100, L501.9520, L500.4050, L500.4100 #### [facility] [address] [place], [address] MCH (RBC) [Entitic mass] 30.3 pg Normal 27.0-32.0 [facility] Comment on above: Performed By: #### L 506.1001, L100.0100, L501.9520, L500.4050, L500.4100 #### [facility] [address] [place], [address] MCHC (RBC) [Mass/Vol] 33.0 g/dL Normal 32-36 [facility] Comment on above: Performed By: #### L 506.1001, L100.0100, L501.9520, L500.4050, L500.4100 #### [facility] [address] [place], [address] MCV (RBC) [Entitic vol] 92.0 fL Normal 81-99 [facility] Comment on above: Performed By: #### L 506.1001, L100.0100, L501.9520, L500.4050, L500.4100 #### [facility] [address] [place], [address] Monocytes/100 WBC (Bld) 10.8 % High 0-10 [facility] Comment on above: Performed By: #### L 506.1001, L100.0100, L501.9520, L500.4050, L500.4100 #### [facility] [address] [place], [address] Neutrophils/100 WBC (Bld) 46.1 % Low 47-70 [facility] Comment on above: Performed By: #### L 506.1001, L100.0100, L501.9520, L500.4050, L500.4100 #### [facility] [address] [place], [address] Nucleated RBC (Bld) [#/Vol] 0 10*3/uL Normal 0-5 [facility] Comment on above: Performed By: #### L 506.1001, L100.0100, L501.9520, L500.4050, L500.4100 #### [facility] [address] [place], [address] Platelet mean volume (Bld) [Entitic vol] 10.3 fL Normal 6.2-12.0 [facility] Comment on above: Performed By: #### L 506.1001, L100.0100, L501.9520, L500.4050, L500.4100 #### [facility] [address] [place], [address] Platelets (Bld) [#/Vol] 303 10*3/uL Normal 150-450 [facility] Comment on above: Performed By: #### L 506.1001, L100.0100, L501.9520, L500.4050, L500.4100 #### [facility] [address] [place], [address] RBC (Bld) [#/Vol] 3.89 10*6/uL Low 4.2-5.4 [facility] Comment on above: Performed By: #### L 506.1001, L100.0100, L501.9520, L500.4050, L500.4100 #### [facility] [address] [place], [place], [id number] RDW SD 47.6 fl High 35.1-43.9 [facility] Comment on above: Performed By: #### L 506.1001, L100.0100, L501.9520, L500.4050, L500.4100 #### [facility] [address] [place], [place], [address] WBC (Bld) [#/Vol] 7.3 10*3/uL Normal 4.4-11.0 [facility] Comment on above: Performed By: #### L 506.1001, L100.0100, L501.9520, L500.4050, L500.4100 #### [facility] [address] [place], [place], [address] Calculated very low density lipoprotein (VLDL) cholesterol measurementOrdered By: Harper Genao on 12-15-2024 Calculated very low density lipoprotein (VLDL) cholesterol measurement 10 mg/dL 5-40 [facility] Carbon dioxide, total [Moles /volume] in Central venous bloodOrdered By: Harper Genao on 12-15-2024 CO2 [Moles/Vol] 19.9 mmol/L Low 21.0-32.0 [facility] Chloride assayOrdered By: Crystal Genao on 12-15-2024 Chloride [Moles/Vol] 105 mmol/L 98-108 [facility] Comprehensive Metabolic Prof ilon 12-15-2024 Albumin [Mass/Vol] 3.8 g/dL Normal 3.4-4.8 [facility] Comment on above: Performed By: #### L 506.1001, L100.0100, L501.9520, L500.4050, L500.4100 ####[facility] [address] [place], [address] Albumin/Globulin [Mass ratio] 0.9 {ratio} Normal 0.9-2.4 [facility] Comment on above: Performed By: #### L 506.1001, L100.0100, L501.9520, L500.4050, L500.4100 ####[facility] [address] [place], [address] ALK PHOS 82 U/L Normal 35-104 [facility] Comment on above: Performed By: #### L 506.1001, L100.0100, L501.9520, L500.4050, L500.4100 ####[facility] [address] [place], [address] ALT [Catalytic activity/Vol] 20 U/L Normal <=34 [facility] Comment on above: Performed By: #### L 506.1001, L100.0100, L501.9520, L500.4050, L500.4100 ####[facility] [address] [place], [address] AST [Catalytic activity/Vol] 25 U/L Normal <=31 [facility] Comment on above: Performed By: #### L 506.1001, L100.0100, L501.9520, L500.4050, L500.4100 ####[facility] [address] [place], [address] Bilirubin [Mass/Vol] 0.30 mg/dL Normal 0.00-1.30 [facility] Comment on above: Performed By: #### L 506.1001, L100.0100, L501.9520, L500.4050, L500.4100 ####[facility] [address] [place], [address] BUN/CRE 18.2 RATIO Normal 10-20 [facility] Comment on above: Performed By: #### L 506.1001, L100.0100, L501.9520, L500.4050, L500.4100 ####[facility] [address] [place], [address] Calcium [Mass/Vol] 9.4 mg/dL Normal 7.6-11.0 [facility] Comment on above: Performed By: #### L 506.1001, L100.0100, L501.9520, L500.4050, L500.4100 ####[facility] [address] [place], [address] Chloride [Moles/Vol] 105 mmol/L Normal 98-108 [facility] Comment on above: Performed By: #### L 506.1001, L100.0100, L501.9520, L500.4050, L500.4100 ####[facility] [address] [place], [address] CO2 [Moles/Vol] 19.9 mmol/L Low 21.0-32.0 [facility] Comment on above: Performed By: #### L 506.1001, L100.0100, L501.9520, L500.4050, L500.4100 ####[facility] [address] [place], [address] Creatinine [Mass/Vol] 1.11 mg/dL Normal 0.70-1.20 [facility] Comment on above: Performed By: #### L 506.1001, L100.0100, L501.9520, L500.4050, L500.4100 ####[facility] [address] [place], [address] GAP 15 Normal 5-15 [facility] Comment on above: Performed By: #### L 506.1001, L100.0100, L501.9520, L500.4050, L500.4100 ####[facility] [address] [place], [address] GFR/1.73 sq M.predicted among non-blacks MDRD (S/P/Bld) [Vol rate/Area] 57 mL/min/{1.73_m2} Low >60 [facility] Comment on above: Result Comment: mL/m in/1.73m2 CKD-EPI Creatinine Equation (2020) Performed By: #### L 506.1001, L100.0100, L501.9520, L500.4050, L500.4100 ####[facility] [address] [place], [address] Globulin (S) [Mass/Vol] 4.3 g/dL High 2.2-4.2 [facility] Comment on above: Performed By: #### L 506.1001, L100.0100, L501.9520, L500.4050, L500.4100 ####[facility] [address] [place], [address] Glucose [Mass/Vol] 76 mg/dL Normal 70-99 [facility] Comment on above: Performed By: #### L 506.1001, L100.0100, L501.9520, L500.4050, L500.4100 ####[facility] [address] [place], [address] Potassium [Moles/Vol] 4.5 mmol/L Normal 3.3-5.1 [facility] Comment on above: Performed By: #### L 506.1001, L100.0100, L501.9520, L500.4050, L500.4100 ####[facility] [address] [place], [address] Sodium [Moles/Vol] 140 mmol/L Normal 133-145 [facility] Comment on above: Performed By: #### L 506.1001, L100.0100, L501.9520, L500.4050, L500.4100 ####[facility] [address] [place], [place], [id number] T PROT 8.1 g/dL Normal 5.9-8.4 [facility] Comment on above: Performed By: #### L 506.1001, L100.0100, L501.9520, L500.4050, L500.4100 ####[facility] [address] [place], [address] Urea nitrogen [Mass/Vol] 20 mg/dL High 4-19 [facility] Comment on above: Performed By: #### L 506.1001, L100.0100, L501.9520, L500.4050, L500.4100 ####[facility] [address] [place], [place], [id number] Eosinophil percentageOrdered By: Harper Genao on 12-15-2024 Eosinophils/100 WBC (Bld) 8.0 % High 0-5 [facility] Erythrocyte distribution wid th ratioOrdered By: Harper Genao on 12-15-2024 Erythrocyte distribution width (RBC) [Ratio] 13.9 % 11.6-14.6 [facility] Erythrocyte distribution wid th standard deviationOrdered By: Harper Genao on 12-15-2024 Erythrocyte distribution width (RBC) [Ratio] 47.6 fl High 35.1-43.9 [facility] Glomerular filtration rate ( GFR) estimation/1.73 sq m using serum, plasma, or whole bOrdered By: Harper Genao on 12-15-2024 GFR/1.73 sq M.predicted among non-blacks MDRD (S/P/Bld) [Vol rate/Area] 57 mL/min/{1.73_m2} Low >60 [facility] Comment on above: mL/min/1.73m2 CKD-EP I Creatinine Equation (2020) Hematocrit Auto (Bld) [Volum e fraction]Ordered By: Harper Genao on 12-15-2024 Hematocrit (Bld) [Volume fraction] 35.8 % Low 37-47 [facility] Hemoglobin measurementOrdere d By: Harper Genao on 12-15-2024 Hemoglobin (Bld) [Mass/Vol] 11.8 g/dL Low 12.0-15.0 [facility] Immature granulocytes/100 WB C Auto (Bld)Ordered By: Harper Genao on 12-15-2024 Immature granulocytes/100 WBC (Bld) 0.300 % 0.0-0.9 [facility] Comment on above: IG% - Immature Granu locytes (promyelocytes, myelocytes and metamyelocytes) > 1% indicates that a LEFT SHIFT is Present. Internal Medicine Office Vis itoelliot 12-15-2024 Internal Medicine Office Visit [facility] [address] [place] [address] [place] [address] OFFICE VISIT Date of Service: 12/15/24 MR#: [id number] Acct: [id number] Name: RONALD HUTCHINS Rep #: [id number] : 1965 Provider: Dr. Harper rubin MD Age/Sex: 59/F Location: [facility] Status: Signed Intake Vital Signs 07/19/24 09:34 [...] FOLLOW UP Chief Complaint: Follow-up chronic conditions Automation Tender Required: No Accompanied by: Is patient in [...] Mother Diabetes Daughter ADHD Social History housing: residential Smoking Status: Never smoker alcohol intake: never [...] supported u (more content not included)... Normal [facility] LDL calc ser/plasOrdered By: Harper Genao on 12-15-2024 Cholesterol in LDL [Mass/Vol] 78 mg/dL [facility] Comment on above: Ksixpgpzhf=928-831 m g/dL & Higher Mutt=830 mg/dL or greaterFriedwald Equation for LDL-C Laboratory - Chemistry and C hemistry - challengeOrdered By: Harper Genao on 12-15-2024 AST [Catalytic activity/Vol] 25 U/L <32 [facility] Lipid Profileon 12-15-2024 CHOL:HDL 3.10 Normal [facility] Comment on above: Performed By: #### L 506.1001, L100.0100, L501.9520, L500.4050, L500.4100 #### [facility] [address] [place], [address] Cholesterol [Mass/Vol] 130 mg/dL Normal <=200 [facility] Comment on above: Result Comment: Chol esterol level, Desirable <200 mg/dL Borderline high cholesterol 200-239 mg/dL High cholesterol >=240 mg/dL Recommendations of the NCEP Adult Treatment Panel for the following risk-cutoff thresholds for the [place] population. Performed By: #### L 506.1001, L100.0100, L501.9520, L500.4050, L500.4100 #### [facility] [address] [place], [address] Cholesterol in HDL [Mass/Vol] 42 mg/dL Normal [facility] Comment on above: Result Comment: Natalie onal Cholesterol Education Program (NCEP) guidelines: <40 mg/dL: Low HDL-cholesterol (major risk factor for CHD) >= 60 mg/dL: High HDL-cholesterol (negative risk factor for CHD) HDL-cholesterol is affected by a number of factors, e.g. smoking, exercise, hormones, sex and age. Performed By: #### L 506.1001, L100.0100, L501.9520, L500.4050, L500.4100 #### [facility] [address] [place], [address] Cholesterol in LDL [Mass/Vol] 78 mg/dL Normal [facility] Comment on above: Result Comment: Bord zyiirf=292-390 mg/dL Higher Uvwr=929 mg/dL or greater Friedwald Equation for LDL-C Performed By: #### L 506.1001, L100.0100, L501.9520, L500.4050, L500.4100 #### [facility] [address] [place], [address] Cholesterol in VLDL [Mass/Vol] 10 mg/dL Normal 5-40 [facility] Comment on above: Performed By: #### L 506.1001, L100.0100, L501.9520, L500.4050, L500.4100 #### [facility] [address] [place], [place], [address] Triglyceride [Mass/Vol] 48 mg/dL Normal [facility] Comment on above: Result Comment: The drugs N-Acetylcysteine and Metamizole may falsely depress this assay. Normal range: <150 mg/dL Borderline High: 150-199 mg/dL High: 200-499 mg/dL Very High: >500 mg/dL Performed By: #### L 506.1001, L100.0100, L501.9520, L500.4050, L500.4100 #### [facility] [address] [place], [place], [address] MCV (mean corpuscular volume ) determinationOrdered By: Harper Genao on 12-15-2024 MCV (RBC) [Entitic vol] 92.0 fL 81-99 [facility] Mean corpuscular hemoglobin (MCH) determinationOrdered By: Harper Genao on 12-15-2024 MCH (RBC) [Entitic mass] 30.3 pg 27.0-32.0 [facility] Mean corpuscular hemoglobin concentration (MCHC) determinationOrdered By: Harper Genao on 12-15-2024 MCHC (RBC) [Mass/Vol] 33.0 g/dL 32-36 [facility] Mean platelet volume determi nationOrdered By: Harper Genao on 12-15-2024 Platelet mean volume (Bld) [Entitic vol] 10.3 fL 6.2-12.0 [facility] Monocyte percentageOrdered B y: Efvenessa Genao on 12-15-2024 Monocytes/100 WBC (Bld) 10.8 % High 0-10 [facility] Neutrophil percentageOrdered By: Harper Genao on 12-15-2024 Neutrophils/100 WBC (Bld) 46.1 % Low 47-70 [facility] Nucleated red blood cell per centageOrdered By: Harper Genao on 12-15-2024 Nucleated RBC/100 WBC (Bld) [Ratio] 0 % 0-5 [facility] Platelet countOrdered By: Crystal Genao on 12-15-2024 Platelets (Bld) [#/Vol] 303 10*3/uL 150-450 [facility] Potassium measurement (mass/ volume)Ordered By: Harper Genao on 12-15-2024 Potassium (Unsp spec) [Mass/Vol] 4.5 mmol/L 3.3-5.1 [facility] RBC Auto (Bld) [#/Vol]Ordere d By: Harper Genao on 12-15-2024 RBC (Bld) [#/Vol] 3.89 10*6/uL Low 4.2-5.4 [facility] Screening total cholesterol/ high density lipoprotein (HDL) cholesterol ratioOrdered By: Harper Genao on 12-15-2024 Cholesterol.total/Choles terol in HDL [Mass ratio] 3.10 {ratio} [facility] Serum creatinine measurement (mass/volume)Ordered By: Harper Genao on 12-15-2024 Creatinine [Mass/Vol] 1.11 mg/dL 0.70-1.20 [facility] Serum globulin measurementOr dered By: Harper Genao on 12-15-2024 Globulin (S) [Mass/Vol] 4.3 g/dL High 2.2-4.2 [facility] Serum glucose measurement (m ass/volume)Ordered By: Harper Genao on 12-15-2024 Glucose [Mass/Vol] 76 mg/dL 70-99 [facility] Serum or plasma alanine parker otransferase (ALT) measurementOrdered By: Harper Genao on 12-15-2024 ALT [Catalytic activity/Vol] 20 U/L <35 [facility] Serum or plasma albumin rachael urement (mass/volume)Ordered By: Harper Genao on 12-15-2024 Albumin [Mass/Vol] 3.8 g/dL 3.4-4.8 [facility] Serum or plasma albumin/glob ulin mass ratioOrdered By: Harper Genao on 12-15-2024 Albumin/Globulin [Mass ratio] 0.9 {ratio} 0.9-2.4 [facility] Serum or plasma alkaline stephie sphatase measurementOrdered By: Harper Genao on 12-15-2024 ALP [Catalytic activity/Vol] 82 U/L 35-104 [facility] Serum or plasma calcium rachael urement (mass/volume)Ordered By: Harper Genao on 12-15-2024 Calcium [Mass/Vol] 9.4 mg/dL 7.6-11.0 [facility] Serum or plasma cholesterol in HDL measurement (mass/volume)Ordered By: Harper Genao on 12-15-2024 Cholesterol in HDL [Mass/Vol] 42 mg/dL >40 [facility] Comment on above: National Cholesterol Education Program (NCEP) guidelines:<40 mg/dL: Low HDL-cholesterol (major risk factor for CHD)>= 60 mg/dL: High HDL-cholesterol (negative risk factor for CHD)HDL-cholesterol is affected by a number of factors, e.g. smoking, exercise, hormones, sex and age. Serum or plasma cholesterol measurement (mass/volume)Ordered By: Harper Genao on 12-15-2024 Cholesterol [Mass/Vol] 130 mg/dL <201 [facility] Comment on above: Cholesterol level, D esirable <200 mg/dLBorderline high cholesterol 200-239 mg/dLHigh cholesterol >=240 mg/dLRecommendations of the NCEP Adult Treatment Panel for the following risk-cutoff thresholds for the [place] population. Serum or plasma urea nitroge n measurement (mass/volume)Ordered By: Harper Genao on 12-15-2024 Urea nitrogen [Mass/Vol] 20 mg/dL High 4-19 [facility] Sodium levelOrdered By: Michael Genao on 12-15-2024 Sodium [Moles/Vol] 140 mmol/L 133-145 [facility] TSH DL <= 0.005 mIU/L QnOrde red By: Harper Genao on 12-15-2024 TSH Qn 3.790 uIU/mL 0.300-4.200 [facility] Thyroid Stim Hormone (TSH)on 12-15-2024 TSH 3.790 uIU/mL Normal 0.300-4.200 [facility] Comment on above: Performed By: #### L 506.1001, L100.0100, L501.9520, L500.4050, L500.4100 #### [facility] [address] [place], [place], [address] Total proteinOrdered By: Isaac joelpeggy Genao on 12-15-2024 Protein [Mass/Vol] 8.1 g/dL 5.9-8.4 [facility] Triglycerides measurementOrd ered By: Harper Genao on 12-15-2024 Triglyceride [Mass/Vol] 48 mg/dL <199 [facility] Comment on above: The drugs N-Acetylcy steine and Metamizole may falsely depress this assay. Normal range: <150 mg/dLBorderline High: 150-199 mg/dLHigh: 200-499 mg/dLVery High: >500 mg/dL Vitamin D,25 Hydroxyon 12-15 Vitamin D 25-OH 23.1 ng/mL Low 30-100 [facility] Comment on above: Result Comment: Aster min D Status Deficiency: <20 ng/mL (50nmol/L) Insufficiency: 20-30 ng/mL (50-75 nmol/L) Sufficiency: 30-100 ng/mL (75-250 nmol/L) Toxicity: >100 ng/mL (>250 nmol/L) Performed By: #### L 506.1001, L100.0100, L501.9520, L500.4050, L500.4100 #### [facility] [address] [place], [place], [id number] White blood cell (WBC) count Ordered By: Harper Genao on 12-15-2024 WBC (Bld) [#/Vol] 7.3 10*3/uL 4.4-11.0 [facility] CNOVon 11-05-2024 [facility] Office [facility] ) RONALD HUTCHINS ([id number]) 1965 F Date Time Provider Department 11/05/24 [...] if additional intervention is needed. Recording using [employer] software for draft documentation of the visit was discussed with the patient/authorized appliance service representative; all questions welcomed and answered. Patient/authorized appliance service representative agreed to proceed Referring Provider: BABS ARTHUR [[id number]] Allergies As of Date: 11/05/2024 Noted Allergy [...] mouth two times a day. - calcium qne-ure-E3-Zn-copy and print associate-enrique (CALCIUM CITRATE PLUS) 250 mg-40 mg- 125 [...] 07/07/2013 OA (osteoarthritis) [M19.90] 07/07/2013 NO SHOW [[id number]] 08/03/2013 Routine gynecological examination [Z01.419] 11/08/2013 Dyslipidemia [...] as needed. Encounter Status:Closed by JOSE C COSME V on 11/05/24 [facility] XR KNEE 2V AP/LAT LTon 11-05 XR [...] fracture. No acute fracture or joint effusion. Pool Lifeguard: ULISESB Transcribe Date/Time: Nov 10 2024 10:00A Dictated by : ANDRES ALFRED MD This examination was interpreted and the report reviewed and electronically signed by: ANDRES ALFRED MD on Nov 10 2024 10:02AM EST [id number] [facility] CNPSteffi 10-11-2024 CNPN Telephone (ORTHWS) RONALD HUTCHINS ([id number]) 1965 F Date Time Provider Department 10/11/24 JOSE C COSME V ORTHWS During your visit today, we recorded the following information about you: Mary Goyal MA 10/11/2024 1:54 PM Signed Andreas, Pharmacist calling from [facility] pharmacy and wanting to know if you could change patient's Rx to Calcium and Vitamin D instead of the Calcium Citrate? Jose C Cosme V, DO 10/11/2024 2:47 PM Signed Rx sent to [facility] pharmacy Jose C Cosme DO Allergies As of Date: 10/11/2024 Noted Allergy Reaction ACETAMINOPHEN-CODEINE 07/07/2013 14 - Other: See Comments Comments: Ears ring Date Reviewed: 10/05/2024 Reviewed by: Mary Goyal MA - Fully Assessed Reason for Visit: Med Change Request [3823] Prescriptions as of 10/11/2024 - calcium mff-qlr-S2-Zn-copy and print associate-enrique (CALCIUM CITRATE PLUS) 250 mg-40 mg- 125 [...] 07/07/2013 OA (osteoarthritis) [M19.90] 07/07/2013 NO SHOW [[id number]] 08/03/2013 Routine gynecological examination [Z01.419] 11/08/2013 Dyslipidemia [E78.5] 11/08/2013 Morbid obesity (HCC) [E66.01] 11/08/2013 Pes planus of both feet [M21.41, M21.42] 01/25/2015 Encounter Status:Closed by JOSE C COSME V on 10/11/24 Normal [facility] Internal Medicine Office Vis it[facility]iot 10-08-2024 Internal Medicine Office Visit [facility] [address] [place], [place] [address] OFFICE VISIT Date of Service: 10/08/24 MR#: [id number] Acct: [id number] Name: RONALD HUTCHINS Rep #: [id number] : 1965 Provider: BRYCE ordonez Age/Sex: 59/F Location: [facility] Status: Signed Intake Vital Signs 07/19/24 09:34 [...] was told to seek tx with PCP [facility] Medical History Hypersomnolence History of thyroid [...] 10/08/24 @ 10:39 by YEVGENIY Alfaro housing: residential Smoking Status: Never smoker alcohol intake: never [...] in bowel (more content not included)... Normal [facility] 10-05-2024 [facility] Office Visit (FRWS ) LISETRONALD Aquino ([id number]) 1965 F Date Time Provider Department 10/05/24 10:00 AM JOSE C COSME V [facility] During your visit today, we recorded [...] Citrate with Vitamin D sent to [facility] in [place]. - Discussed the synergistic role of Vitamin D and calcium in bone health. - Magnesium supplementation discussed; advised that additional magnesium intake is safe and may be beneficial. 3. Morbid obesity (HCC) (E66.01) - Significant impact on joint health and fracture healing. - Discussed the benefits of weight reduction on joint stress and overall health. - Referral note to Dr. Zabala, cans vacuum tester, for evaluation and management of weight loss medication. 4. Presence of artificial knee joint, bilateral (Z96.653) - Bilateral total knee arthroplasties performed approximately 5 years ago; current hardware remains intact and stable. - No signs of loosening or malfunction in the prosthetic components. Recording using [employer] software for draft documentation of the visit was discussed with the patient/authorized appliance service representative; all questions welcomed and answered. Patient/authorized appliance service representative agreed to proceed Referring Provider: BABS ARTHUR [[id number]] Allergies As of Date: 10/05/2024 Noted Allergy Reaction ACETAMINOPHEN-CODEINE 07/07/2013 14 - Other: See Comments Comments: Ears ring Date Reviewed: 10/05/2024 Reviewed by: Mayr Goyal MA - Fully Assessed Reason for Visit: Left Knee Pain [1208] Cmt: Referred by Babs Arthur Primary Visit Diagnosis:Vitamin D deficiency [E55.9] Other Visit Diagnoses:History of patellar fracture [Z87.81] Morbid obesity (HCC) [E66.01] Presence of artificial knee joint, bilateral [Z96.653] Order(s):CONSULT TO ORTHOPAEDICS [9018] Order #: [id number]: 1 calcium qmp-ynw-U8-Zn-copy and print associate-enrique (CALCIUM CITRATE PLUS) 250 mg-40 mg- 125 unit-3.75mg tabTake 1 tablet by mouth two times a day.Disp: 60 tabletRfl: 3 Prescriptions as of 10/05/2024 - calcium eek-iok-A1-Zn-copy and print associate-enrique (CALCIUM CITRATE PLUS) 250 mg-40 mg- 125 [...] For Th (more content not included)... Normal [facility] C3 COMPLEMENTon 10-01-2024 Complement C3 [Mass/Vol] 168 mg/dL High 86 - 166 mg/dL [facility] C4 COMPLEMENTon 10-01-2024 Complement C4 [Mass/Vol] 30 mg/dL 13 - 46 mg/dL [facility] Complement C3 [Mass/Vol]on 0 10-01-2024 Interpretation and review of laboratory results Abnormal [facility] Complement C4 [Mass/Vol]on 0 10-01-2024 Interpretation and review of laboratory results Normal [facility] No Panel Informationon 10-01 [facility] C3 SerPl-mCncon 09-30-2024 Complement C3 [Mass/Vol] 168 mg/dL High 86-166 [facility] Comment on above: Order Comment: Speci men Type: BLOOD SPECIMENOrdering Facility: [facility] Address: [address] [place] [address] Performed By: #### 4 485-9, 4498-2 ####[facility] [id number] [address] [place] C4 SerPl-mCncon 09-30-2024 Complement C4 [Mass/Vol] 30 mg/dL Normal 13-46 [facility] Comment on above: Order Comment: Speci men Type: BLOOD SPECIMENOrdering Facility: [facility] Address: [address] [place] [address] Performed By: #### 4 485-9, 4498-2 ####[facility] [id number] [address] [place] CNOVon 09-30-2024 CNOV Office Visit (RHWSTR ) LISETRONALD M ([id number]) 1965 F Date Time Provider Department 09/30/24 [...] treat symptoms short term, but not good fpc. Get Eye exam for hydroxychloroquine - please have them fax it to our office. [phone] Schedule follow up in 2 months. BONE [...] Service: 09/30/2024 Patient: Ronald Hutchins Medical Record: [id number] Primary Care Physician: Harper Genao MD Last Rheumatology visit: None at [facility] History of Present Illness Ronald Hutchins is [...] REPLACEMENT Bilateral (more content not included)... Normal [facility] RONALD HUTCHINS ([id number]) 1965 F Date Time Provider Department 09/30/24 BABS ARTHUR [facility] During your visit today, we recorded [...] 07/07/2013 OA (osteoarthritis) [M19.90] 07/07/2013 NO SHOW [[id number]] 08/03/2013 Routine gynecological examination [Z01.419] 11/08/2013 Dyslipidemia [E78.5] 11/08/2013 Morbid obesity (HCC) [E66.01] 11/08/2013 Pes planus of both feet [M21.41, M21.42] 01/25/2015 Encounter Status:Closed by ROSA ISELA GASCA on 09/30/24 Normal [facility] PROTEIN / CREATININE RATIOon 09-30-2024 Protein/Creatinine (U) [Mass ratio] 0.1 mg/mg NINF - 0.15 mg/mg [facility] Comment on above: Adult Proteinuria Ca tegories: [...] (U) [Mass ratio] 0.10 mg/mg Normal <0.15 [facility] Comment on above: Order Comment: Speci men Type: URINE SPECIMENOrdering Facility: [facility] Address: [address] [place] [address] Result Comment: Adul t Proteinuria Categories: <0.15 mg/mg is considered normal to mildly increased 0.15 - 0.50 mg/mg is considered moderately increased >0.50 mg/mg is considered severely increased KDIGO. (2013). KDIGO 2012 Clinical Practice Guideline for the Evaluation and Management of Chronic Kidney Disease. Official Journal of the International Society of Nephrology, 3(1), 1-150. Performed By: #### 2 890-2 ####[facility] LABIA [id number] [place] [address] [place] Protein/Creatinine (U) [Mass ratio]on 09-30-2024 Creatinine (U) [Mass/Vol] 125.4 mg/dL 20.0 - 300.0 mg/dL [facility] Interpretation and review of laboratory results Normal [facility] Protein (U) [Mass/Vol] 13 mg/dL 0 - 20 mg/dL [facility] Creatinine (U) [Mass/Vol] 125.4 mg/dL Normal 20.0-300.0 [facility] Comment on above: Order Comment: Speci men Type: URINE SPECIMENOrdering Facility: [facility] Address: [address] [place] [address] Performed By: #### 2 890-2 ####[facility] LABIA [id number] [place] [id number] [place] Protein (U) [Mass/Vol] 13 mg/dL Normal 0-20 [facility] Comment on above: Order Comment: Speci men Type: URINE SPECIMENOrdering Facility: [facility] Address: [address] [place] [address] Performed By: #### 2 890-2 ####[facility] LABCLIA [id number] [place] [address] [place] Urinalysis complete panel (U )on 09-30-2024 Bacteria uL 7413.4 uL High - 941 uL [facility] Bilirubin Ql (U) Negative Negative [facility] Clarity (Unsp spec) Cloudy Abnormal Clear [facility] Color (U) Yellow Yellow [facility] Epithelial cells LM.HPF (Urine sed) [#/Area] Few /HPF [facility] Glucose Test strip (U) [Mass/Vol] Negative Negative [facility] Hemoglobin Ql (U) Negative Negative [facility] Hyaline casts (Urine sed) [#/Area] 4-10 /LPF Abnormal 0 /LPF [facility] Interpretation and review of laboratory results Abnormal [facility] Ketones Ql (U) Negative Negative [facility] Leukocyte esterase Test strip Ql (U) 2+ Abnormal Negative [facility] Nitrite Ql (U) Negative Negative [facility] pH (U) 6 [pH] NINF - 8.5 [facility] Protein (U) [Mass/Vol] Negative Negative [facility] RBC LM.HPF (Urine sed) [#/Area] 0-2 /HPF 0-2 /HPF [facility] Specific gravity (U) [Rel density] 1.017 1.005 - 1.030 [facility] Urobilinogen Ql (U) 0.2 EU/dL 0.2-1.0 EU/dL [facility] WBC LM.HPF (Urine sed) [#/Area] /[HPF] Abnormal 0-5 /HPF [facility] Rechecked by light microscopy Result rechecked This test was developed and its performance characteristics determined by [facility]'s [facility] Pathology and Laboratory Medicine [place] (RT-PLMI). It has not been cleared or approved by the FDA. RT-[facility]OR is regulated under CLIA as qualified to perform high-complexity testing. This test is used for clinical purposes. It should not be regarded as investigational or for research. [facility] BACTERIA UL 7413.4 uL High Negative [facility] Comment on above: Order Comment: Speci men Type: URINE SPECIMENOrdering Facility: [facility] Address: [address] [place] [address] Performed By: #### 2 4356-8 ####[facility] LABCLIA [id number] [address], [facility]95 [place] Bilirubin Ql (U) Negative Normal Negative [facility] Comment on above: Order Comment: Speci men Type: URINE SPECIMENOrdering Facility: [facility] Address: [address] [place] [address] Performed By: #### 2 4356-8 ####[facility] LABCLIA [id number] [address], [place]95 [place] Clarity (Unsp spec) Cloudy Abnormal Clear [facility] Comment on above: Order Comment: Speci men Type: URINE SPECIMENOrdering Facility: [facility] Address: [address] [place] [address] Performed By: #### 2 4356-8 ####[facility] LABCLIA [id number] [address], [place] [facility]95 [place] [facility] Color (U) Yellow Normal Yellow [facility] Comment on above: Order Comment: Speci men Type: URINE SPECIMENOrdering Facility: [facility] Address: [address] [place] [address] Performed By: #### 2 4356-8 ####[facility] LABCLIA [id number] [place] [id number] [place] Epithelial cells LM.HPF (Urine sed) [#/Area] Few Normal [facility] Comment on above: Order Comment: Speci men Type: URINE SPECIMENOrdering Facility: [facility] Address: [address] [place] [address] Performed By: #### 2 4356-8 ####[facility] LABCLIA [id number] [address], [facility]95 [place] Glucose Test strip (U) [Mass/Vol] Negative Normal Negative [facility] Comment on above: Order Comment: Speci men Type: URINE SPECIMENOrdering Facility: [facility] Address: [address] [place] [address] Performed By: #### 2 4356-8 ####[facility] LABCLIA [id number] [address] [place] [address] [place] Hemoglobin Ql (U) Negative Normal Negative [facility] Comment on above: Order Comment: Speci men Type: URINE SPECIMENOrdering Facility: [facility] Address: [address] [place] [address] Performed By: #### 2 4356-8 ####[facility] LABCLIA [id number] [place] [address] [place] Hyaline casts (Urine sed) [#/Area] 4-10 /LPF Abnormal 0 /LPF [facility] Comment on above: Order Comment: Speci men Type: URINE SPECIMENOrdering Facility: [facility] Address: [address] [place] [address] Performed By: #### 2 4356-8 ####[facility] LABCLIA [id number] [place] [address] [place] Ketones Ql (U) Negative Normal Negative [facility] Comment on above: Order Comment: Speci men Type: URINE SPECIMENOrdering Facility: [facility] Address: [address] [place] [address] Performed By: #### 2 4356-8 ####[facility] LABCLIA [id number] [place] [address] [place] Leukocyte esterase Test strip Ql (U) 2+ Abnormal Negative [facility] Comment on above: Order Comment: Speci men Type: URINE SPECIMENOrdering Facility: [facility] Address: [address] [place] [address] Performed By: #### 2 4356-8 ####[facility] LABCLIA [id number] [place] [address] [place] Nitrite Ql (U) Negative Normal Negative [facility] Comment on above: Order Comment: Speci men Type: URINE SPECIMENOrdering Facility: [facility] Address: [address] [place] [address] Performed By: #### 2 4356-8 ####[facility] LABIA [id number] [place] [address] [place] pH (U) 6.0 [pH] Normal <8.5 [facility] Comment on above: Order Comment: Speci men Type: URINE SPECIMENOrdering Facility: [facility] Address: [address] [place] [address] Performed By: #### 2 4356-8 ####[facility] LABIA [id number] [place] [address] [place] Protein (U) [Mass/Vol] Negative Normal Negative [facility] Comment on above: Order Comment: Speci men Type: URINE SPECIMENOrdering Facility: [facility] Address: [address] [place] [address] Performed By: #### 2 4356-8 ####[facility] LABIA [id number] [place] [address] [place] RBC LM.HPF (Urine sed) [#/Area] 0-2 /HPF Normal 0-2 /HPF [facility] Comment on above: Order Comment: Speci men Type: URINE SPECIMENOrdering Facility: [facility] Address: [address] [place] [address] Performed By: #### 2 4356-8 ####[facility] LABIA [id number] [place] [id number] [place] Specific gravity (U) [Rel density] 1.017 Normal 1.005-1.030 [facility] Comment on above: Order Comment: Speci men Type: URINE SPECIMENOrdering Facility: [facility] Address: [address] [place] [address] Performed By: #### 2 4356-8 ####[facility] LABIA [id number] [place] [address] [place] Urobilinogen Ql (U) 0.2 EU/dL Normal 0.2-1.0 EU/dL [facility] Comment on above: Order Comment: Speci men Type: URINE SPECIMENOrdering Facility: [facility] Address: [address] [place] [address] Performed By: #### 2 4356-8 ####[facility] LABIA [id number] [place] [address] [place] WBC LM.HPF (Urine sed) [#/Area] /[HPF] Abnormal 0-5 /HPF [facility] Comment on above: Order Comment: Speci men Type: URINE SPECIMENOrdering Facility: [facility] Address: [address] [place] [address] Performed By: #### 2 4356-8 ####[facility] LABIA [id number] [address] [place] CNPNon 09-28-2024 CNPN Telephone (WSTR) RONALD HUTCHINS ([id number]) 1965 F Date Time Provider Department 09/28/24 BABS ARTHUR [facility] During your visit today, we recorded the following information about you: Brigitte Gonzales MA 09/28/2024 9:13 AM Signed Patient called in stating she is having increased pain in her ankles. She is currently using ice and ibuprofen with a small amount of relief. She is asking if there is something that can be prescribed to help with her pain? Confirmed [facility] in [place]. Babs Arthur PA-C 09/28/2024 2:13 PM Signed [...] x 1 week. At our follow up, supervisor long goods meds can be discussed in more detail. [...] Visit Diagnosis:Hypermobilit y syndrome [M35.7] Order(s):C3 COMPLEMENT [[id number]] Order #: [id number] FUTURE C4 COMPLEMENT [[id number]] Order #: [id number] FUTURE URINALYSIS, WITH MICROSCOPIC [SQUAWMIC] Order #: [id number] FUTURE PROTEIN / CREATININE RATIO [SQPRATIO] Order #: [id number] FUTURE Prescriptions as of 10/13/2024 - calcium twh-oun-W4-Zn-copy and print associate-enrique (CALCIUM CITRATE PLUS) 250 mg-40 mg- 125 [...] 07/07/2013 OA (osteoarthritis) [M19.90] 07/07/2013 NO SHOW [[id number]] 08/03/2013 Routine gynecological examination [Z01.419] 11/08/2013 Dyslipidemia [...] Status:Closed by BRIGITTE GONZALES on 10/13/24 Normal [facility] 25(OH)D3 SerPl-mCncon 2024 25-hydroxyvitamin D3 [Mass/Vol] 25.5 ng/mL Low 31.0-80.0 [facility] Comment on above: Order Comment: Speci men Type: BLOOD SPECIMENOrdering Facility: [facility] Address: [address] [place] [address] Result Comment: Clas sification of 25 [place] Vitamin D status: Deficiency/Insufficiency: < or = 30 ng/ml. Sufficiency/Optimal Levels: 31-80 ng/mL Toxicity: > 100 ng/mL. Test performed by chemiluminescent immunoassay. Performed By: #### 1 989-3 ####[facility] LABCLIA [id number] [place] [address] [place] 25-hydroxyvitamin D3 [Mass/V ol]on 09-23-2024 Interpretation and review of laboratory results Abnormal [facility] The reference range interval was based on an analysis of samples from healthy adults and may not pertain to children from 0-18 years old. [facility] UDAY BY IFA WITH REFLEXon UDAY PATTERN 2 Nuclear fine speckled Normal [facility] Comment on above: Order Comment: Terry forbes Type: BLOOD SPECIMENOrdering Facility: [facility] Address: [address] [place] [address] Performed By: #### 2 9374-6, 66212-7, 25630-6, 41245-2, 14301-1, 35356-0, 60885-8, 71823-9, 02088-3, ANAIFR ####[facility] LABIA [id number] [place] [address] [place] UDAY TITER 2 1:160 Normal [facility] Comment on above: Order Comment: Terry forbes Type: BLOOD SPECIMENOrdering Facility: [facility] Address: [address] [place] [address] Performed By: #### 2 9374-6, 18934-7, 30133-7, 99468-1, 08348-0, 38583-0, 69408-0, 37365-3, 36770-0, ANAIFR ####[facility] LABCLIA [id number] [place] [address] [place] Nuclear Ab pattern (S) [Interp] Cytoplasmic fine speckled Normal [facility] Comment on above: Order Comment: Speci men Type: BLOOD SPECIMENOrdering Facility: [facility] Address: [address] [place] [address] Performed By: #### 2 9374-6, 40842-7, 23307-6, 54697-9, 18432-4, 75425-6, 35964-1, 80162-1, 66138-9, ANAIFR ####[facility] [id number] [place] [address] [place] Nuclear Ab Ql (S) Positive Abnormal Negative [facility] Comment on above: Order Comment: Speci men Type: BLOOD SPECIMENOrdering Facility: [facility] Address: [address] [place] [address] Result Comment: Anti -nuclear antibody test is used as an aid in diagnosis of systemic autoimmune diseases. Where positive and clinically warranted, follow-up using disease-specific testing is recommended. Low positive titers are not uncommon with advanced age, certain chronic infections, and malignancies among others. Test methodology: Indirect fluorescence immunoassay (IFA) using HEp-2 cells. 1:1280 Performed By: #### 2 9374-6, 05457-3, 93300-8, 02620-8, 29981-4, 13851-6, 92444-0, 16509-1, 48326-7, ANAIFR ####[facility] LABIA [id number] [address] [address] [place] CBC W Auto Differential pane l (Bld)on 09-23-2024 Basophils (Bld) [#/Vol] 0.03 10*3/uL [facility] Basophils/100 WBC (Bld) 0.4 % [facility] Differential cell count method Nom (Bld) Auto [facility] Eosinophils (Bld) [#/Vol] 0.74 10*3/uL High [facility] Eosinophils/100 WBC (Bld) 10.3 % [facility] Erythrocyte distribution width (RBC) [Ratio] 14.6 % 11.5 - 15.0 % [facility] Hematocrit (Bld) [Volume fraction] 37.4 % 36.0 - 46.0 % [facility] Hemoglobin (Bld) [Mass/Vol] 12.1 g/dL 11.5 - 15.5 g/dL [facility] Immature granulocytes (Bld) [#/Vol] [facility] Immature granulocytes/100 WBC (Bld) 0 % [facility] Interpretation and review of laboratory results Abnormal [facility] Lymphocytes (Bld) [#/Vol] 2.43 10*3/uL [facility] Lymphocytes/100 WBC (Bld) 33.9 % [facility] MCH (RBC) [Entitic mass] 29.7 pg 26. 0 - 34.0 pg [facility] MCHC (RBC) [Mass/Vol] 32.4 g/dL 30.5 - 36.0 g/dL [facility] MCV (RBC) [Entitic vol] 91.9 fL 80.0 - 100.0 fL [facility] Monocytes (Bld) [#/Vol] 0.72 10*3/uL [facility] Monocytes/100 WBC (Bld) 10.1 % [facility] Neutrophils (Bld) [#/Vol] 3.24 10*3/uL [facility] Neutrophils/100 WBC (Bld) 45.3 % [facility] Nucleated RBC (Bld) [#/Vol] [facility] Nucleated RBC/100 WBC (Bld) [Ratio] 0 % /100 WBC [facility] Platelet mean volume (Bld) [Entitic vol] 9.9 fL 9.0 - 12.7 fL [facility] Platelets (Bld) [#/Vol] 290 10*3/uL [facility] RBC (Bld) [#/Vol] 4.07 10*6/uL 3.90 - 5.2 0 m/uL [facility] WBC (Bld) [#/Vol] 7.16 10*3/uL [facility] Basophils (Bld) [#/Vol] 0.03 10*3/uL Normal <0.11 [facility] Comment on above: Order Comment: Speci men Type: BLOOD SPECIMENOrdering Facility: [facility] Address: [address] [place] [address] Performed By: #### 5 7021-8 ####[facility]EN[facility]ZLIA [id number] [place] [address] [place] Basophils/100 WBC (Bld) 0.4 % Normal [facility] Comment on above: Order Comment: Speci men Type: BLOOD SPECIMENOrdering Facility: [facility] Address: [address] [place] [address] Performed By: #### 5 7021-8 ####[facility] [id number] [place] [address] [place] Differential cell count method Nom (Bld) Auto Normal [facility] Comment on above: Order Comment: Speci men Type: BLOOD SPECIMENOrdering Facility: [facility] Address: [address] [place] [address] Performed By: #### 5 7021-8 ####[facility] HOSPITALLIA [id number] [place] [address] [place] Eosinophils (Bld) [#/Vol] 0.74 10*3/uL High <0.46 [facility] Comment on above: Order Comment: Speci men Type: BLOOD SPECIMENOrdering Facility: [facility] Address: [address] [place] [address] Performed By: #### 5 7021-8 ####[facility]ERNCLIA [id number] [place] [address] [place] Eosinophils/100 WBC (Bld) 10.3 % Normal [facility] Comment on above: Order Comment: Speci men Type: BLOOD SPECIMENOrdering Facility: [facility] Address: [address] [place] [address] Performed By: #### 5 7021-8 ####[facility] ARMANDONCMARY KAY [id number] [place] [address] [place] Erythrocyte distribution width (RBC) [Ratio] 14.6 % Normal 11.5-15.0 [facility] Comment on above: Order Comment: Speci men Type: BLOOD SPECIMENOrdering Facility: [facility] Address: [address] [place] [address] Performed By: #### 5 7021-8 ####[facility]ERNCLIA [id number] [place] [address] [place] Hematocrit (Bld) [Volume fraction] 37.4 % Normal 36.0-46.0 [facility] Comment on above: Order Comment: Speci men Type: BLOOD SPECIMENOrdering Facility: [facility] Address: [address] [place] [address] Performed By: #### 5 7021-8 ####[facility] H[facility]PITALLIA [id number] [place] [address] [place] Hemoglobin (Bld) [Mass/Vol] 12.1 g/dL Normal 11.5-15.5 [facility] Comment on above: Order Comment: Speci men Type: BLOOD SPECIMENOrdering Facility: [facility] Address: [address] [place] [address] Performed By: #### 5 7021-8 ####[facility]ERNCLIA [id number] [place] [address] [place] Immature granulocytes (Bld) [#/Vol] 10*3/uL Normal <0.10 [facility] Comment on above: Order Comment: Speci men Type: BLOOD SPECIMENOrdering Facility: [facility] Address: [address] [place] [address] Performed By: #### 5 7021-8 ####[facility] MARITATUCSONAUGUSTUSLIA [id number] [address] STATES [facility] Immature granulocytes/100 WBC (Bld) 0.0 % Normal [facility] Comment on above: Order Comment: Speci men Type: BLOOD SPECIMENOrdering Facility: [facility] Address: [address] [place] [address] Performed By: #### 5 7021-8 ####[facility] [id number] [place] [address] [place] Lymphocytes (Bld) [#/Vol] 2.43 10*3/uL Normal 1.00-4.00 [facility] Comment on above: Order Comment: Speci men Type: BLOOD SPECIMENOrdering Facility: [facility] Address: [address] [place] [address] Performed By: #### 5 7021-8 ####[facility] [id number] [place] [address] [place] Lymphocytes/100 WBC (Bld) 33.9 % Normal [facility] Comment on above: Order Comment: Speci men Type: BLOOD SPECIMENOrdering Facility: [facility] Address: [address] [place] [address] Performed By: #### 5 7021-8 ####[facility] HOSPITALLIA [id number] [place] [address] [place] MCH (RBC) [Entitic mass] 29.7 pg Normal 26.0-34.0 [facility] Comment on above: Order Comment: Speci men Type: BLOOD SPECIMENOrdering Facility: [facility] Address: [address] [place] [address] Performed By: #### 5 7021-8 ####[facility] [id number] [place] [address] [place] MCHC (RBC) [Mass/Vol] 32.4 g/dL Normal 30.5-36.0 [facility] Comment on above: Order Comment: Speci men Type: BLOOD SPECIMENOrdering Facility: [facility] Address: [address] [place] [address] Performed By: #### 5 7021-8 ####[facility] MARITATUCSONAUGUSTUSLIA [id number] [place] [address] [place] MCV (RBC) [Entitic vol] 91.9 fL Normal 80.0-100.0 [facility] Comment on above: Order Comment: Speci men Type: BLOOD SPECIMENOrdering Facility: [facility] Address: [address] [place] [address] Performed By: #### 5 7021-8 ####[facility] CENTERNCATIFA [id number] [place] [address] [place] Monocytes (Bld) [#/Vol] 0.72 10*3/uL Normal <0.87 [facility] Comment on above: Order Comment: Speci men Type: BLOOD SPECIMENOrdering Facility: [facility] Address: [address] [place] [address] Performed By: #### 5 7021-8 ####[facility] CENTERAUGUSTUSLIA [id number] [place] [address] [place] Monocytes/100 WBC (Bld) 10.1 % Normal [facility] Comment on above: Order Comment: Speci men Type: BLOOD SPECIMENOrdering Facility: [facility] Address: [address] [place] [address] Performed By: #### 5 7021-8 ####[facility]ENTERNCLIA [id number] [place] [address] [place] Neutrophils (Bld) [#/Vol] 3.24 10*3/uL Normal 1.45-7.50 [facility] Comment on above: Order Comment: Speci men Type: BLOOD SPECIMENOrdering Facility: [facility] Address: [address] [place] [address] Performed By: #### 5 7021-8 ####[facility] [id number] [place] [address] [place] Neutrophils/100 WBC (Bld) 45.3 % Normal [facility] Comment on above: Order Comment: Speci men Type: BLOOD SPECIMENOrdering Facility: [facility] Address: [address] [place] [address] Performed By: #### 5 7021-8 ####[facility]ENTERNCTIMPANOGOS [facility] [id number] [place] [address] [place] Nucleated RBC (Bld) [#/Vol] 10*3/uL Normal <0.01 [facility] Comment on above: Order Comment: Speci men Type: BLOOD SPECIMENOrdering Facility: [facility] Address: [address] [place] [address] Performed By: #### 5 7021-8 ####[facility] [id number] [place] [address] [place] Nucleated RBC/100 WBC (Bld) [Ratio] 0.0 /100 WBC Normal [facility] Comment on above: Order Comment: Speci men Type: BLOOD SPECIMENOrdering Facility: [facility] Address: [address] [place] [address] Performed By: #### 5 7021-8 ####[facility] [id number] [place] [address] [place] Platelet mean volume (Bld) [Entitic vol] 9.9 fL Normal 9.0-12.7 [facility] Comment on above: Order Comment: Speci men Type: BLOOD SPECIMENOrdering Facility: [facility] Address: [address] [place] [address] Performed By: #### 5 7021-8 ####[facility] TRANGWNCLIA [id number] [place] [address] [place] Platelets (Bld) [#/Vol] 290 10*3/uL Normal 150-400 [facility] Comment on above: Order Comment: Speci men Type: BLOOD SPECIMENOrdering Facility: [facility] Address: [address] [place], [place] [address] [id number] Performed By: #### 5 7021-8 ####[facility]ENTERNCLIA [id number] [address] RBC (Bld) [#/Vol] 4.07 10*6/uL Normal 3.90-5.20 [facility] Comment on above: Order Comment: Speci men Type: BLOOD SPECIMENOrdering Facility: [facility] Address: [address] [place], [place] [address] Performed By: #### 5 7021-8 ####[facility]ERNCLIA [id number] [place] [address] [place] [facility] [place] WBC (Bld) [#/Vol] 7.16 10*3/uL Normal 3.70-11.00 [facility] Comment on above: Order Comment: Speci men Type: BLOOD SPECIMENOrdering Facility: [facility] Address: [address] [place], [place] [address] Performed By: #### 5 7021-8 ####[facility]ENTERNCLIA [id number] [address] [place] CNOVon 09-23-2024 CNOV Office Visit (WSTR ) RONALD HUTCHINS ([id number]) 1965 F Date Time Provider Department 09/23/24 9:00 AM BABS ARTHUR During your visit today, we recorded the following information about you: Pulse Blood pressure Weight Height 96/minute 134/86 148.9 kg 1.651 mo Babs Arthur PA-C 09/23/2024 4:34 PM Signed Rheumatology CONSULTATION Date of Service: 09/23/2024 Patient: Ronald Hutchins Medical Record: [id number] Primary Care Physician: Arun Stringer DO Last Rheumatology visit: None at [facility] Referring Provider: Dr. Genao Ronald Hutchins is here today at request of Dr. Genao specifically for consultation of my opinion in regards to the chief complaint listed below. Correspondence will be shared today via the [employer] electronic health record or through regular mail, where applicable. Recording using [employer] software for draft documentation of the visit was discussed with the patient/authorized appliance service representative; all questions welcomed and answered. Patient/authorized appliance service representative agreed to proceed History of Present [...] knee, which was replaced in [address] [facility]. The right knee, also replaced, feels normal [...] Trouble swallowing (more content not included)... Normal [facility] CRP SerPl-mCncon 09-23-2024 CRP [Mass/Vol] 0.6 mg/dL Normal <0.9 [facility] Comment on above: Order Comment: Speci men Type: BLOOD SPECIMENOrdering Facility: [facility] Address: [address] [place] [address] Performed By: #### 1 988-5, 78121-2 ####[facility] LABCLIA [id number] [place] [address] [place] Calcium.ionized [Moles/Vol]o n 09-23-2024 Calcium.ionized (Bld) [Mass/Vol] 1.24 mmol/L 1.08 - 1.30 mmol/L [facility] Calcium.ionized adjusted to pH 7.4 (Bld) [Moles/Vol] 1.21 mmol/L 1.08 - 1.30 mmol/L [facility] Interpretation and review of laboratory results Normal [facility] Calcium.ionized (Bld) [Mass/Vol] 1.24 mmol/L Normal 1.08-1.30 [facility] Comment on above: Order Comment: Speci men Type: BLOOD SPECIMENOrdering Facility: [facility] Address: [address] [place] [address] Performed By: #### 1 995-0 ####[facility] LABCLIA [id number] [address] [place] Calcium.ionized adjusted to pH 7.4 (Bld) [Moles/Vol] 1.21 mmol/L Normal 1.08-1.30 [facility] Comment on above: Order Comment: Speci men Type: BLOOD SPECIMENOrdering Facility: [facility] Address: [address] [place] [address] Performed By: #### 1 995-0 ####[facility] LABCLIA [id number] [address] [place] Centromere Ab IF Ql (S)on Centromere Ab Qn (S) <0.2 Normal <1.0 [facility] Comment on above: Order Comment: Terry forbes Type: BLOOD SPECIMENOrdering Facility: [facility] Address: [address] [place] [address] Result Comment: Anti -centromere antibody is used as in aid in diagnosis of systemic sclerosis. Clinical correlation is required. Test Methodology: Multiplex flow immunoassay. Performed By: #### 2 9374-6, 51892-1, 84282-2, 88342-5, 61011-4, 16507-8, 65353-9, 42612-7, 64619-1, ANAIFR ####[facility] LABCLIA [id number] [address] STATES [facility] CENTROMERE AB QUAL Negative Normal Negative [facility] Comment on above: Order Comment: Terry forbes Type: BLOOD SPECIMENOrdering Facility: [facility] Address: [address] [place] [address] Performed By: #### 2 9374-6, 87626-8, 66932-0, 27681-7, 38768-8, 09057-1, 31710-1, 42564-0, 37012-1, ANAIFR ####[facility] LABCLIA [id number] [place] [id number] [place] Chromatin Ab Qnon 09-23-2024 CHROMATIN AB QUAL Negative Normal Negative [facility] Comment on above: Order Comment: Speci andrei Type: BLOOD SPECIMENOrdering Facility: [facility] Address: [address] [place] [address] Performed By: #### 2 9374-6, 47269-4, 87318-1, 14685-5, 34224-7, 07075-0, 45053-2, 26487-1, 89639-3, ANAIFR ####[facility] LABCLIA [id number] [address] [address] [place] Chromatin Ab SerPl-aCncon Chromatin Ab Qn 0.4 AI Normal <1.0 [facility] Comment on above: Order Comment: Speci men Type: BLOOD SPECIMENOrdering Facility: [facility] Address: [address] [place] [address] Result Comment: Test Methodology: Multiplex flow immunoassay. Performed By: #### 2 9374-6, 23463-4, 73501-8, 13450-9, 24283-5, 64425-0, 58021-8, 73730-8, 06190-7, ANAIFR ####[facility] LABCLIA [id number] [address] Comprehensive metabolic 2000 panelon 09-23-2024 Albumin [Mass/Vol] 3.8 g/dL Low 3.9 - 4.9 g/dL [facility] ALP [Catalytic activity/Vol] 83 U/L 34 - 123 U/L [facility] ALT [Catalytic activity/Vol] 10 U/L 7 - 38 U/L [facility] Anion gap [Moles/Vol] 16 mmol/L High 8 - 15 mmol/L [facility] AST [Catalytic activity/Vol] 15 U/L 13 - 35 U/L [facility] Bilirubin [Mass/Vol] 0.3 mg/dL 0.2 - 1 .3 mg/dL [facility] Calcium [Mass/Vol] 8.8 mg/dL 8.5 - 10. 2 mg/dL [facility] Chloride [Moles/Vol] 104 mmol/L 98 - 10 7 mmol/L [facility] CO2 [Moles/Vol] 19 mmol/L Low 22 - 30 mmol/L [facility] Creatinine [Mass/Vol] 1.01 mg/dL High 0.58 - 0.96 mg/dL [facility] GFR/1.73 sq M.predicted among non-blacks MDRD (S/P/Bld) [Vol rate/Area] 63 mL/min/{1.73_m2} - PINF [facility] Comment on above: Estimated Glomerular Filtration Rate [...] [Mass/Vol] 94 mg/dL 74 - 99 mg/dL [facility] Comment on above: The [place] Diabete s Association (ADA) provides guidance for [...] Standards of Medical Care in Diabetes 2016, [place] Diabetes Association. Diabetes Care. 2016.39(Suppl 1). Potassium [Moles/Vol] 3.9 mmol/L 3.7 - 5.1 mmol/L [facility] Protein [Mass/Vol] 7.7 g/dL 6.3 - 8.0 g/dL [facility] Sodium [Moles/Vol] 139 mmol/L 136 - 144 mmol/L [facility] Urea nitrogen [Mass/Vol] 18 mg/dL 7 - 21 mg/d L [facility] Albumin [Mass/Vol] 3.8 g/dL Low 3.9-4.9 [facility] Comment on above: Order Comment: Abbiei andrei Type: BLOOD SPECIMENOrdering Facility: [facility] Address: [address] [place] [address] Performed By: #### 2 4323-8, 3083-04 ####[facility] [id number] [place] [address] [place] ALP [Catalytic activity/Vol] 83 U/L Normal 34-123 [facility] Comment on above: Order Comment: Abbiei men Type: BLOOD SPECIMENOrdering Facility: [facility] Address: [address] [place] [address] Performed By: #### 2 4323-8, 3083-04 ####[facility] MILLTOWNCLIA [id number] [place] [address] [place] ALT [Catalytic activity/Vol] 10 U/L Normal 7-38 [facility] Comment on above: Order Comment: Speci men Type: BLOOD SPECIMENOrdering Facility: [facility] Address: [address] [place] [address] Performed By: #### 2 4323-8, 3083-04 ####[facility] MILLTOWNCLIA [id number] [place] [address] [place] Anion gap [Moles/Vol] 16 mmol/L High 8-15 [facility] Comment on above: Order Comment: Speci men Type: BLOOD SPECIMENOrdering Facility: [facility] Address: [address] [place] [address] Performed By: #### 2 4328, 3083-04 ####[facility] HOSPITALLIA [id number] [place] [address] [place] AST [Catalytic activity/Vol] 15 U/L Normal 13-35 [facility] Comment on above: Order Comment: Speci men Type: BLOOD SPECIMENOrdering Facility: [facility] Address: [address] [place] [address] Performed By: #### 2 4323-8, 3083-04 ####[facility] MILLTOWNCLIA [id number] [place] [address] [place] Bilirubin [Mass/Vol] 0.3 mg/dL Normal 0.2-1.3 [facility] Comment on above: Order Comment: Speci men Type: BLOOD SPECIMENOrdering Facility: [facility] Address: [address] [place] [address] Performed By: #### 2 4323-8, 3083-04 ####[facility] MILLTUCSONAUGUSTUSLIA [id number] [place] [address] [place] Calcium [Mass/Vol] 8.8 mg/dL Normal 8.5-10.2 [facility] Comment on above: Order Comment: Speci men Type: BLOOD SPECIMENOrdering Facility: [facility] Address: [address] [place] [address] Performed By: #### 2 4323-8, 3084-1 ####[facility] MILLWJESSENIAA [id number] [place] [address] [place] Chloride [Moles/Vol] 104 mmol/L Normal 98-107 [facility] Comment on above: Order Comment: Speci men Type: BLOOD SPECIMENOrdering Facility: [facility] Address: [address] [place] [address] Performed By: #### 2 4323-8, 308-1 ####[facility] CENTERELDA [id number] [place] [address] [place] CO2 [Moles/Vol] 19 mmol/L Low 22-30 [facility] Comment on above: Order Comment: Speci men Type: BLOOD SPECIMENOrdering Facility: [facility] Address: [address] [place] [address] Performed By: #### 2 4323-8, 3083-1 ####[facility] G[facility]ENWAUGUSTUSLIA [id number] [place] [address] [place] Creatinine [Mass/Vol] 1.01 mg/dL High 0.58-0.96 [facility] Comment on above: Order Comment: Speci men Type: BLOOD SPECIMENOrdering Facility: [facility] Address: [address] [place] [address] Performed By: #### 2 4323-8, 3084-1 ####[facility] MILLWNCLIA [id number] [place] [address] [place] Creatinine and Glomerular filtration rate.predicted panel (S/P/Bld) 63 mL/min/1.73m??? Normal >=60 [facility] Comment on above: Order Comment: Terry forbes Type: BLOOD SPECIMENOrdering Facility: [facility] Address: [address] [place] [address] Result Comment: Ida mated Glomerular Filtration Rate (eGFR) is calculated [...] GFR. Performed By: #### 2 4323-8, 308-1 ####[facility] [id number] [place] [address] [place] Glucose [Mass/Vol] 94 mg/dL Normal 74-99 [facility] Comment on above: Order Comment: Terry forbes Type: BLOOD SPECIMENOrdering Facility: [facility] Address: [address] [place] [address] Result Comment: The [place] Diabetes Association (ADA) provides guidance for cutoff [...] Standards of Medical Care in Diabetes 2016, [place] Diabetes Association. Diabetes Care. 2016.39(Suppl 1). Performed By: #### 2 4323-8, 308-1 ####[facility]ITALA [id number] [place] [address] [place] Potassium [Moles/Vol] 3.9 mmol/L Normal 3.7-5.1 [facility] Comment on above: Order Comment: Speci men Type: BLOOD SPECIMENOrdering Facility: [facility] Address: [address] [place] [address] Performed By: #### 2 4323-8, 3083- ####[facility] ARMANDONCATIFA [id number] [place] [address] [place] Protein [Mass/Vol] 7.7 g/dL Normal 6.3-8.0 [facility] Comment on above: Order Comment: Speci men Type: BLOOD SPECIMENOrdering Facility: [facility] Address: [address] [place] [address] Performed By: #### 2 4323-8, 3083-04 ####[facility]ENTERNCATIFA [id number] [place] [address] [place] Sodium [Moles/Vol] 139 mmol/L Normal 136-144 [facility] Comment on above: Order Comment: Speci men Type: BLOOD SPECIMENOrdering Facility: [facility] Address: [address] [place] [address] Performed By: #### 2 4323-8, 3083-04 ####[facility]ENTERNCATIFA [id number] [place] [address] [place] Urea nitrogen [Mass/Vol] 18 mg/dL Normal 7-21 [facility] Comment on above: Order Comment: Speci men Type: BLOOD SPECIMENOrdering Facility: [facility] Address: [address] [place] [address] Performed By: #### 2 4323-8, 3083-04 ####[facility]ENTERNCLIA [id number] [place] [address] [place] Cyclic citrullinated peptide IgG Qnon 09-23-2024 CCP ANTIBODY IGG QUALITATIVE Positive Abnormal Negative [facility] Comment on above: Order Comment: Speci men Type: BLOOD SPECIMENOrdering Facility: [facility] Address: [address] [place] [address] Performed By: #### 3 3935-8 ####[facility] LABIA [id number] [place] [address] [place] DNA double strand Ab IA Qn ( S)on 09-23-2024 DNA ANTIBODY 61 IU/mL Normal <=200 [facility] Comment on above: Order Comment: Speci men Type: BLOOD SPECIMENOrdering Facility: [facility] Address: [address] [place] [address] Result Comment: Nega tive: <200 IU/mL Equivocal: 201-300 IU/mL Moderate Positive: 301-800 IU/mL Strong Positive: >801 IU/mL Performed By: #### 2 9374-6, 06818-5, 07615-0, 48875-8, 18150-8, 47209-1, 75202-6, 52815-6, 48033-1, ANAIFR ####[facility]ITAL[facility] [id number] [place] [address] [place] DNA ANTIBODY QUALITATIVE INTERPRETATION Negative Normal Negative [facility] Comment on above: Order Comment: Speci men Type: BLOOD SPECIMENOrdering Facility: [facility] Address: [address] [place] [address] Performed By: #### 2 9374-6, 86860-8, 68476-8, 82303-9, 29125-0, 67306-6, 50294-1, 29161-5, 97776-0, ANAIFR ####[facility] LABIA [id number] [place] [address] [place] SARAH Jo1 Ab Ser-aCncon 2024 Shivani-1 extractable nuclear Ab Qn (S) <0.2 Normal <1.0 [facility] Comment on above: Order Comment: Speci men Type: BLOOD SPECIMENOrdering Facility: [facility] Address: [address] [place] [address] Performed By: #### 2 9374-6, 14332-1, 60350-7, 49725-1, 80210-0, 27024-8, 35073-0, 19563-3, 14263-6, ANAIFR ####[facility] LABIA [id number] [place] [address] [place] SARAH TRAINING AND DOCUMENTATION SPECIALIST Ab Ser-aCncon 2024 Ribonucleoprotein extractable nuclear Ab Qn (S) <0.2 Normal <1.0 [facility] Comment on above: Order Comment: Speci men Type: BLOOD SPECIMENOrdering Facility: [facility] Address: [address] [place] [address] Performed By: #### 2 9374-6, 50660-2, 03292-0, 20617-2, 71346-2, 13313-0, 38780-9, 72718-0, 22505-0, ANAIFR ####[facility] [id number] [place] [address] [place] Ribonucleoprotein extractable nuclear Ab Qn (S) 0.3 AI Normal <1.0 [facility] Comment on above: Order Comment: Speci men Type: BLOOD SPECIMENOrdering Facility: [facility] Address: [address] [place] [address] Performed By: #### 2 9374-6, 58361-6, 07681-0, 03842-6, 48330-5, 81515-7, 11151-6, 52346-8, 08670-3, ANAIFR ####[facility] [id number] [place] [address] [place] SARAH SM IgG Ser-aCncon 2024 Estrella extractable nuclear IgG Qn (S) <0.2 Normal <1.0 [facility] Comment on above: Order Comment: Speci men Type: BLOOD SPECIMENOrdering Facility: [facility] Address: [address] [place] [address] Performed By: #### 2 9374-6, 82124-9, 64899-2, 05508-6, 38128-0, 66325-9, 18292-8, 62289-1, 26161-5, ANAIFR ####[facility] LABCLIA [id number] [address] [place] SARAH SS-A Ab Ser-aCncon 09-23 Sjogrens syndrome-A extractable nuclear Ab Qn (S) 0.3 AI Normal <1.0 [facility] Comment on above: Order Comment: Speci men Type: BLOOD SPECIMENOrdering Facility: [facility] Address: [address] [place] [address] Result Comment: Test Methodology: Multiplex flow immunoassay. Performed By: #### 2 9374-6, 22778-2, 00054-8, 34257-6, 58056-7, 11109-7, 98876-4, 41500-5, 76333-0, ANAIFR ####[facility] LABCLIA [id number] [address] [place] SARAH SS-B Ab Ser-aCncon 09-23 Sjogrens syndrome-B extractable nuclear Ab Qn (S) <0.2 Normal <1.0 [facility] Comment on above: Order Comment: Speci men Type: BLOOD SPECIMENOrdering Facility: [facility] Address: [address] [place] [address] Result Comment: Anti -SSB (anti-La) antibody is used as an aid in diagnosis of a variety of systemic autoimmune diseases, especially for Sjogren's syndrome and systemic lupus erythematosus. Clinical correlation is required. Test Methodology: Multiplex flow immunoassay. Performed By: #### 2 9374-6, 00304-5, 90481-1, 41658-4, 06427-4, 29088-3, 64286-2, 36420-3, 56551-8, ANAIFR ####[facility] LABCLIA [id number] [place] [address] [place] ESR Westergren method (Bld) [Velocity]on 09-23-2024 ESR (Bld) [Velocity] 69 mm/h High [facility] Interpretation and review of laboratory results Abnormal [facility] ESR (Bld) [Velocity] 69 mm/h High 0-20 [facility] Comment on above: Order Comment: Speci men Type: BLOOD SPECIMENOrdering Facility: [facility] Address: [address] [place] [address] Performed By: #### 4 537-7 ####[facility] LABIA [id number] [place] [address] [place] Shivani-1 extractable nuclear Ab Qn (S)on 09-23-2024 SHIVANI 1 ANTIBODY QUAL Negative Normal Negative [facility] Comment on above: Order Comment: Speci men Type: BLOOD SPECIMENOrdering Facility: [facility] Address: [address] [place] [address] Result Comment: Anti -SHIVANI-1 antibody is used as an aid in diagnosis of polymyositis and dermatomyositis especially with pulmonary involvement. A negative result cannot rule out polymyositis or dermatomyositis. Clinical correlation is required. Test Methodology: Multiplex flow immunoassay. Performed By: #### 2 9374-6, 89830-9, 22339-0, 15709-9, 69946-9, 29557-6, 53272-9, 85972-2, 68025-5, ANAIFR ####[facility] LABCLIA [id number] [place] [address] [place] No Panel InformationOrdered By: Isatu Arenas on 09-23-2024 Interpretation and review of laboratory results Abnormal [facility] Rheumatoid fact SerPl-aCncon 09-23-2024 Rheumatoid factor Qn [IU]/mL High <16 [facility] Comment on above: Order Comment: Speci men Type: BLOOD SPECIMENOrdering Facility: [facility] Address: [address] [place] [address] Performed By: #### 1 988-5, 08071-3 ####[facility] LABCLIA [id number] [place] [address] [place] Ribonucleoprotein extractabl e nuclear Ab Qn (S)on 09-23-2024 ANTI-TRAINING AND DOCUMENTATION SPECIALIST QUAL Negative Normal Negative [facility] Comment on above: Order Comment: Speci men Type: BLOOD SPECIMENOrdering Facility: [facility] Address: [address] [place] [address] Performed By: #### 2 9374-6, 96059-0, 94903-5, 76783-6, 91370-2, 15634-9, 98400-6, 15091-4, 39519-6, ANAIFR ####[facility] LABIA [id number] [place] [address] [place] RIBOSOMAL TRAINING AND DOCUMENTATION SPECIALIST QUAL Negative Normal Negative [facility] Comment on above: Order Comment: Speci andrei Type: BLOOD SPECIMENOrdering Facility: [facility] Address: [address] [place] [address] Result Comment: Anti -Ribosomal RNA (Ribosomal P) antibody is used as an aid in diagnosis of systemic autoimmune diseases especially systemic lupus erythematosus and mixed connective tissue disease. Cross-reactivity with Anti-estrella antibody is not uncommon. Clinical correlation is required. Test Methodology: Multiplex flow immunoassay. Performed By: #### 2 9374-6, 61994-8, 86378-6, 35755-6, 39883-8, 62670-8, 72297-3, 46706-5, 28298-7, ANAIFR ####[facility] LABIA [id number] [place] [id number] [place] SCL-70 extractable nuclear I gG IA Qn (S)on 09-23-2024 SCLERODERMA AB QUAL Negative Normal Negative [facility] Comment on above: Order Comment: Speci men Type: BLOOD SPECIMENOrdering Facility: [facility] Address: [address] [place] [address] Performed By: #### 2 9374-6, 04146-9, 02505-7, 14086-9, 82251-9, 26150-3, 63564-8, 47717-6, 81095-8, ANAIFR ####[facility] LABIA [id number] [place] [address] [place] SCLERODERMA IGG AB <0.2 Normal <1.0 [facility] Comment on above: Order Comment: Speci men Type: BLOOD SPECIMENOrdering Facility: [facility] Address: [address] [place] [address] Result Comment: Scl- 70/Scleroderma antibody test is used as an aid in diagnosis of systemic sclerosis especially the diffuse cutaneous form. A negative result cannot rule out systemic sclerosis. The final interpretation should consider clinical picture and other test results such as anti-centromere antibody. Test Methodology: Multiplex flow immunoassay. Performed By: #### 2 9374-6, 00512-2, 49465-6, 66001-5, 77066-7, 11585-2, 53241-6, 90297-7, 80076-3, ANAIFR ####[facility] LABIA [id number] [place] [address] [place] Sjogrens syndrome-A extracta ble nuclear Ab Qn (S)on 09-23-2024 SSA ANTIBODY QUAL Negative Normal Negative [facility] Comment on above: Order Comment: Speci men Type: BLOOD SPECIMENOrdering Facility: [facility] Address: [address] [place] [address] Performed By: #### 2 9374-6, 19856-3, 01248-4, 00618-4, 71200-2, 22235-5, 51669-1, 99796-0, 41689-1, ANAIFR ####[facility] LABIA [id number] [place] [address] [place] Sjogrens syndrome-B extracta ble nuclear Ab Qn (S)on 09-23-2024 SSB ANTIBODY QUAL Negative Normal Negative [facility] Comment on above: Order Comment: Speci men Type: BLOOD SPECIMENOrdering Facility: [facility] Address: [address] [place] [address] Performed By: #### 2 9374-6, 09481-4, 68595-5, 24174-2, 45887-4, 95009-9, 91467-2, 80326-5, 08879-0, ANAIFR ####[facility] LABCLIA [id number] [address] [address] [place] Estrella extractable nuclear Ig G Qn (S)on 09-23-2024 SM ANTIBODY QUAL Negative Normal Negative [facility] Comment on above: Order Comment: Speci men Type: BLOOD SPECIMENOrdering Facility: [facility] Address: [address] [place] [address] Result Comment: Anti -Sm (Estrella) antibody is used as an aid in diagnosis of systemic lupus erythematosus and its presence is associated with renal disease. A negative result cannot rule out systemic lupus erythematosus. Clinical correlation is required. Test Methodology: Multiplex flow immunoassay. Performed By: #### 2 9374-6, 05412-0, 77634-1, 83943-1, 50444-2, 93288-4, 46287-2, 80695-6, 82853-0, ANAIFR ####[facility] LABCLIA [id number] [place] [id number] [place] URIC ACIDOrdered By: Danuta Arenas on 09-23-2024 Urate [Mass/Vol] 8.1 mg/dL High 2.5 - 6.6 mg/dL [facility] U[facility] [Mass/Vol] 8.1 mg/dL High 2.5-6.6 [facility] Comment on above: Order Comment: Abbiei men Type: BLOOD SPECIMENOrdering Facility: [facility] Address: [address] [place] [id number] Performed By: #### 2 4323-8, 3084-1 ####[facility] [id number] [place] [address] [place] VITAMIN D 25 HYDROXYon 09-23 25-hydroxyvitamin D3 [Mass/Vol] 25.5 ng/mL Low 31.0 - 80.0 ng/mL [facility] Comment on above: Classification of 25 [place] [...] joint. IMPRESSION: Severe degenerative changes as described. Pool Lifeguard: NIR Transcribe Date/Time: Sep 29 2024 10:48A Dictated by : NAA ESCALANTE DO This examination was interpreted and the report reviewed and electronically signed by: NAA ESCALANTE DO on Sep 29 2024 11:08AM EST [id number] Normal [facility] XR ELBOW 2V AP/LAT LTon 09-12 XR [...] joint. IMPRESSION: Severe degenerative changes as described. Pool Lifeguard: NIR Transcribe Date/Time: Sep 29 2024 10:48A Dictated by : NAA ESCALANTE DO This examination was interpreted and the report reviewed and electronically signed by: NAA ESCALANTE DO on Sep 29 2024 11:08AM EST [id number] Normal [facility] XR ELBOW 2V AP/LAT RTon 09-12 XR [...] joint. IMPRESSION: Severe degenerative changes as described. Pool Lifeguard: NIR Transcribe Date/Time: Sep 29 2024 10:48A Dictated by : NAA ESCALANTE DO This examination was interpreted and the report reviewed and electronically signed by: NAA ESCALANTE DO on Sep 29 2024 11:08AM EST [id number] Normal [facility] XR FOOT 3V AP/LAT/OBL BILon 09-23-2024 XR [...] joint. IMPRESSION: Severe degenerative changes as described. Pool Lifeguard: NIR Transcribe Date/Time: Sep 29 2024 10:48A Dictated by : NAA ESCALANTE DO This examination was interpreted and the report reviewed and electronically signed by: NAA ESCALANTE DO on Sep 29 2024 11:08AM EST [id number] Normal [facility] XR KNEE 3V AP/LAT/MERCHANT L Ton 09-23-2024 [...] arthroplasty with probable subacute-chronic healing patellar fracture. Pool Lifeguard: PSCB Transcribe Date/Time: Sep 29 2024 10:00A Dictated by : NAA ESCALANTE DO This examination was interpreted and the report reviewed and electronically signed by: NAA ESCALANTE DO on Sep 29 2024 10:04AM EST [id number] Normal [facility] cCP IgG SerPl-aCncon 025 Cyclic citrullinated peptide IgG Qn >250 High <20 [facility] Comment on above: Order Comment: Speci men Type: BLOOD SPECIMENOrdering Facility: [facility] Address: [address] [place] [address] Performed By: #### 3 3935-8 ####[facility] LABCLIA [id number] [address] Breast imaging reportOrdered By: Tamiko Perez on 07-26-2024 Study report [facility] Imaging Services [address] [place], [place] [address] SCRN MAMM (CAD)W/ED BILAT MR#: [id number] Acct: [id number] Name: RONALD HUTCHINS Rep #: [id number] : 1965 F 59 From: Josse Perez DO PCP: Dr. Harper Genao MD Status: R EG CLI Study:SCRN MAMM (CAD)W/ED BILAT Date of Exa m: 07/26/24 Exam# [id number] Ordering Dr: Melchor Genao MD EXAM: SCRN [...] be mailed to the patient. Reading Location: KMO-[id number] CC: Dr. Harper Genao MD ~ Pool Lifeguard: Signed [facility] SCRN MAMM (CAD)W/ED BILATo n 07-26-2024 SCRN MAMM (CAD)W/ED BILAT [facility] Imaging Services [address] [place] [address] SCRN MAMM (CAD)W/ED BILAT MR#: [id number] Acct: [id number] Name: RONALD HUTCHINS Rep #: [id number] : 1965 F 59 From: Tamiko Glover PCP: Dr. Harper Genao MD Status: [facility] Study: SCRN MAMM (CAD)W/ED BILAT Date of Exam: 07/13 08/06 Exam# [id number] Ordering Dr: Harper Genao MD EXAM: SCRN [...] be mailed to the patient. Reading Location: TKH-HUIJR-OS CC: Dr. Harper Genao MD Pool Lifeguard: Signed Normal [facility] Endocrinology Visit Reporton 07-19-2024 Endocrinology Visit Report [facility] [address] [place] [address] OFFICE VISIT Date of Service: 07/19/24 MR#: [id number] Acct: [id number] Name: RONALD HUTCHINS Rep #: [id number] : 1965 Provider: Mo Quezada Age/Sex: 59/F [facility]: Signed Intake Vital Signs 10/27/23 14:57 [...] Mother Diabetes Daughter ADHD Social History housing: residential Smoking Status: Never smoker alcohol intake: never [...] normal respirat (more content not included)... Normal [facility] Absolute neutrophil countOrd ered By: Harper Genao on 04-30-2024 Neutrophils (Bld) [#/Vol] 3.1 10*3/uL 2.0-7.7 [facility] Albumin to globulin ratioOrd ered By: Harper Genao on 04-30-2024 Albumin/Globulin [Mass ratio] 0.7 {ratio} Low 0.9-2.4 [facility] Basophil percentageOrdered B y: Harper Genao on 04-30-2024 Basophils/100 WBC (Bld) 0.4 % 0-1 [facility] Bilirubin, totalOrdered By: Harper Genao on 04-30-2024 Bilirubin [Mass/Vol] 0.40 mg/dL 0.20-1.00 [facility] Comment on above: For patients on eltr ombopag therapy, use of Dimension Palisade TBIL is not recommended. Blood urea nitrogen (BUN)/cr eatinine ratioOrdered By: Harper Genao on 04-30-2024 Urea nitrogen/Creatinine [Mass ratio] 16.4 mg/mg 10-20 [facility] CBC W/Diff, Automatedon - Absolute Lymph 2.33 X10 3/uL Normal 0.83-4.51 [facility] Comment on above: Performed By: #### L 100.0100, L501.9520, L500.4050 #### [facility] [address] [place], [address] Absolute Neut 3.1 X10 3/uL Normal 2.0-7.7 [facility] Comment on above: Performed By: #### L 100.0100, L501.9520, L500.4050 #### [facility] [address] [place], [address] Basophils/100 WBC (Bld) 0.4 % Normal 0-1 [facility] Comment on above: Performed By: #### L 100.0100, L501.9520, L500.4050 #### [facility] [address] [place], [address] Eosinophils/100 WBC (Bld) 14.7 % High 0-5 [facility] Comment on above: Performed By: #### L 100.0100, L501.9520, L500.4050 #### [facility] [address] [place], [address] Erythrocyte distribution width (RBC) [Ratio] 15.3 % High 11.6-14.6 [facility] Comment on above: Performed By: #### L 100.0100, L501.9520, L500.4050 #### [facility] [address] [place], [address] Hematocrit (Bld) [Volume fraction] 40.2 % Normal 37-47 [facility] Comment on above: Performed By: #### L 100.0100, L501.9520, L500.4050 #### [facility] [address] [place], [address] Hemoglobin (Bld) [Mass/Vol] 12.6 g/dL Normal 12.0-15.0 [facility] Comment on above: Performed By: #### L 100.0100, L501.9520, L500.4050 #### [facility] [address] [place], [address] IG% 0.100 Normal 0.0-0.9 [facility] Comment on above: Result Comment: IG% - Immature Granulocytes (promyelocytes, myelocytes and metamyelocytes) > 1% indicates that a LEFT SHIFT is Present. Performed By: #### L 100.0100, L501.9520, L500.4050 #### [facility] [address] [place], [address] Lymphocytes/100 WBC (Bld) 31.9 % Normal 19-41 [facility] Comment on above: Performed By: #### L 100.0100, L501.9520, L500.4050 #### [facility] [address] [place], [address] MCH (RBC) [Entitic mass] 29.2 pg Normal 27.0-32.0 [facility] Comment on above: Performed By: #### L 100.0100, L501.9520, L500.4050 #### [facility] [address] [place], [address] MCHC (RBC) [Mass/Vol] 31.3 g/dL Low 32-36 [facility] Comment on above: Performed By: #### L 100.0100, L501.9520, L500.4050 #### [facility] [address] [place], [address] MCV (RBC) [Entitic vol] 93.3 fL Normal 81-99 [facility] Comment on above: Performed By: #### L 100.0100, L501.9520, L500.4050 #### [facility] [address] [place], [address] Monocytes/100 WBC (Bld) 10.1 % High 0-10 [facility] Comment on above: Performed By: #### L 100.0100, L501.9520, L500.4050 #### [facility] [address] [place], [address] Neutrophils/100 WBC (Bld) 42.8 % Low 47-70 [facility] Comment on above: Performed By: #### L 100.0100, L501.9520, L500.4050 #### [facility] [address] [place], [address] Nucleated RBC (Bld) [#/Vol] 0 10*3/uL Normal 0-5 [facility] Comment on above: Performed By: #### L 100.0100, L501.9520, L500.4050 #### [facility] [address] [place], [address] Platelet mean volume (Bld) [Entitic vol] 10.2 fL Normal 6.2-12.0 [facility] Comment on above: Performed By: #### L 100.0100, L501.9520, L500.4050 #### [facility] [address] [place], [address] Platelets (Bld) [#/Vol] 338 10*3/uL Normal 150-450 [facility] Comment on above: Performed By: #### L 100.0100, L501.9520, L500.4050 #### [facility] [address] [place], [address] RBC (Bld) [#/Vol] 4.31 10*6/uL Normal 4.2-5.4 [facility] Comment on above: Performed By: #### L 100.0100, L501.9520, L500.4050 #### [facility] [address] [place], [address] RDW SD 52.5 fl High 35.1-43.9 [facility] Comment on above: Performed By: #### L 100.0100, L501.9520, L500.4050 #### [facility] [address] [place], [address] WBC (Bld) [#/Vol] 7.3 10*3/uL Normal 4.4-11.0 [facility] Comment on above: Performed By: #### L 100.0100, L501.9520, L500.4050 #### [facility] [address] [place], [address] Carbon dioxide measurementOr dered By: Harper Genao on 04-30-2024 CO2 [Moles/Vol] 22.0 mmol/L 21.0-32.0 [facility] Chloride measurementOrdered By: Harper Genao on 04-30-2024 Chloride [Moles/Vol] 109 mmol/L High 98-107 [facility] Comprehensive Metabolic Prof ilon 04-30-2024 Albumin [Mass/Vol] 3.4 g/dL Normal 3.2-5.0 [facility] Comment on above: Performed By: #### L 100.0100, L501.9520, L500.4050 #### [facility] [address] [place], [address] Albumin/Globulin [Mass ratio] 0.7 {ratio} Low 0.9-2.4 [facility] Comment on above: Performed By: #### L 100.0100, L501.9520, L500.4050 #### [facility] [address] [place], [address] ALK P 93 U/L Normal 45-117 [facility] Comment on above: Performed By: #### L 100.0100, L501.9520, L500.4050 #### [facility] [address] [place], [address] ALT [Catalytic activity/Vol] 17 U/L Normal 13-56 [facility] Comment on above: Performed By: #### L 100.0100, L501.9520, L500.4050 #### [facility] [address] [place], [address] AST [Catalytic activity/Vol] 20 U/L Normal 15-37 [facility] Comment on above: Performed By: #### L 100.0100, L501.9520, L500.4050 #### [facility] [address] [place], [address] Bilirubin [Mass/Vol] 0.40 mg/dL Normal 0.20-1.00 [facility] Comment on above: Result Comment: For patients on eltrombopag therapy, use of Dimension Palisade TBIL is not recommended. Performed By: #### L 100.0100, L501.9520, L500.4050 #### [facility] [address] [place], [address] BUN/CRE 16.4 RATIO Normal 10-20 [facility] Comment on above: Performed By: #### L 100.0100, L501.9520, L500.4050 #### [facility] [address] [place], [address] CA,Total 9.5 mg/dL Normal 8.5-10.1 [facility] Comment on above: Performed By: #### L 100.0100, L501.9520, L500.4050 #### [facility] [address] [place], [address] Chloride [Moles/Vol] 109 mmol/L High 98-107 [facility] Comment on above: Performed By: #### L 100.0100, L501.9520, L500.4050 #### [facility] [address] [place], [address] CO2 [Moles/Vol] 22.0 mmol/L Normal 21.0-32.0 [facility] Comment on above: Performed By: #### L 100.0100, L501.9520, L500.4050 #### [facility] [address] [place], [address] Creatinine [Mass/Vol] 1.28 mg/dL High 0.55-1.02 [facility] Comment on above: Result Comment: The validity of the calculated GFR GFRAA in patients over 70 years has not been determined. Clinical correlation is essential. Performed By: #### L 100.0100, L501.9520, L500.4050 #### [facility] [address] [place], [address] EST GFR - AA 55 mL/min Low >60 [facility] Comment on above: Result Comment: Afri can Moldovan GFR Calc Performed By: #### L 100.0100, L501.9520, L500.4050 #### [facility] [address] [place], [address] GAP 9 Normal 5-15 [facility] Comment on above: Performed By: #### L 100.0100, L501.9520, L500.4050 #### [facility] [address] [place], [address] GFR/1.73 sq M.predicted among non-blacks MDRD (S/P/Bld) [Vol rate/Area] 45 mL/min/{1.73_m2} Low >60 [facility] Comment on above: Result Comment: Non- GFR Calc Performed By: #### L 100.0100, L501.9520, L500.4050 #### [facility] [address] [place], [address] Globulin (S) [Mass/Vol] 5.1 g/dL High 2.2-4.2 [facility] Comment on above: Performed By: #### L 100.0100, L501.9520, L500.4050 #### [facility] [address] [place], [address] Glucose [Mass/Vol] 95 mg/dL Normal 74-106 [facility] Comment on above: Performed By: #### L 100.0100, L501.9520, L500.4050 #### [facility] [address] [place], [address] Potassium [Moles/Vol] 4.3 mmol/L Normal 3.5-5.1 [facility] Comment on above: Performed By: #### L 100.0100, L501.9520, L500.4050 #### [facility] [address] [place], [address] Sodium [Moles/Vol] 140 mmol/L Normal 136-145 [facility] Comment on above: Performed By: #### L 100.0100, L501.9520, L500.4050 #### [facility] [address] [place], [address] T PROT 8.5 g/dL High 6.4-8.2 [facility] Comment on above: Performed By: #### L 100.0100, L501.9520, L500.4050 #### [facility] [address] [place], [address] Urea nitrogen [Mass/Vol] 21 mg/dL High 7-18 [facility] Comment on above: Performed By: #### L 100.0100, L501.9520, L500.4050 #### [facility] [address] [place], [address] Eosinophil percentageOrdered By: Harper Genao on 04-30-2024 Eosinophils/100 WBC (Bld) 14.7 % High 0-5 [facility] Erythrocyte distribution wid th (RBC) [Ratio]Ordered By: Crystalmilliejohnpeggy Echolsstarrmelchor on 04-30-2024 Erythrocyte distribution width (RBC) [Entitic vol] 52.5 fL High 35.1-43.9 [facility] Erythrocyte distribution wid th ratioOrdered By: milliejohnpeggy Echolsstarrmelchor on 04-30-2024 Erythrocyte distribution width (RBC) [Ratio] 15.3 % High 11.6-14.6 [facility] Estimated glomerular filtrat ion rate (GFR) AmericanOrdered By: venessa Genao on 04-30-2024 Estimated GFR (MDRD) Amer 55 mL/min Low >60 [facility] Comment on above: GFR Calc Glomerular filtration rate ( GFR) estimationOrdered By: venessa Genao on 04-30-2024 Estimated GFR (MDRD) Non-Af Amer 45 mL/min Low >60 [facility] Comment on above: Non- GFR Calc Glucose measurementOrdered B y: Crystalmilliejohnpeggy Genao on 04-30-2024 Glucose [Mass/Vol] 95 mg/dL 74-106 [facility] Hematocrit Auto (Bld) [Volum e fraction]Ordered By: Harper Genao on 04-30-2024 Hematocrit (Bld) [Volume fraction] 40.2 % 37-47 [facility] Hemoglobin measurementOrdere d By: Harper Geano on 04-30-2024 Hemoglobin (Bld) [Mass/Vol] 12.6 g/dL 12.0-15.0 [facility] Immature granulocytes/100 WB C Auto (Bld)Ordered By: millieberlinpeggy Genao on 04-30-2024 Immature granulocytes/100 WBC (Bld) 0.100 % 0.0-0.9 [facility] Comment on above: IG% - Immature Granu locytes (promyelocytes, myelocytes and metamyelocytes) > 1% indicates that a LEFT SHIFT is Present. Internal Medicine Office Vis haris 04-30-2024 Internal Medicine Office Visit [facility] [address] [place] [address] [address] [place], [place] [id number] OFFICE VISIT Date of Service: 04/30/24 MR#: [id number] Acct: [id number] Name: RONALD HUTCHINS Rep #: [id number] : 1965 Provider: Dr. Harper rubin MD Age/Sex: 59/F Location: [facility] Status: Signed Intake Vital Signs 01/26/24 09:48 [...] 3 m fu Chief Complaint: 3m f/u Automation Tender Required: No Accompanied by: Is patient in [...] Mother Diabetes Daughter ADHD Social History housing: residential Smoking Status: Never smoker alcohol intake: never [...] exertion, lightheadednes (more content not included)... Normal [facility] - Chemistry and C hemistry - challengeOrdered By: Harper Genao on 04-30-2024 AST [Catalytic activity/Vol] 20 U/L 15-37 [facility] Lymphocytes Auto (Unsp spec) [#/Vol]Ordered By: Harper Genao on 04-30-2024 Lymphocytes (Bld) [#/Vol] 2.33 10*3/uL 0.83-4.51 [facility] Lymphocytes/100 WBC Auto (Un sp spec)Ordered By: Harper Genao on 04-30-2024 Lymphocytes/100 WBC (Bld) 31.9 % 19-41 [facility] MCV (mean corpuscular volume ) determinationOrdered By: Harper Genao on 04-30-2024 MCV (RBC) [Entitic vol] 93.3 fL 81-99 [facility] Mean corpuscular hemoglobin (MCH) determinationOrdered By: Harper Genao on 04-30-2024 MCH (RBC) [Entitic mass] 29.2 pg 27.0-32.0 [facility] Mean corpuscular hemoglobin concentration (MCHC) determinationOrdered By: Harper Genao on 04-30-2024 MCHC (RBC) [Mass/Vol] 31.3 g/dL Low 32-36 [facility] Mean platelet volume determi nationOrdered By: Harper Genao on 04-30-2024 Platelet mean volume (Bld) [Entitic vol] 10.2 fL 6.2-12.0 [facility] Monocyte percentageOrdered B y: Harper Genao on 04-30-2024 Monocytes/100 WBC (Bld) 10.1 % High 0-10 [facility] Neutrophil percentageOrdered By: Harper Genao on 04-30-2024 Neutrophils/100 WBC (Bld) 42.8 % Low 47-70 [facility] Nucleated red blood cell per centageOrdered By: Harper Genao on 04-30-2024 Nucleated RBC/100 WBC (Bld) [Ratio] 0 % 0-5 [facility] Platelet countOrdered By: Crystal Genao on 04-30-2024 Platelets (Bld) [#/Vol] 338 10*3/uL 150-450 [facility] Potassium measurementOrdered By: Harper Genao on 04-30-2024 Potassium [Moles/Vol] 4.3 mmol/L 3.5-5.1 [facility] RBC Auto (Bld) [#/Vol]Ordere d By: Harper Genao on 04-30-2024 RBC (Bld) [#/Vol] 4.31 10*6/uL 4.2-5.4 [facility] Serum anion gap measurementO rdered By: Harper Genao on 04-30-2024 Anion gap [Moles/Vol] 9 mmol/L 5-15 [facility] Serum globulin measurementOr dered By: Harper Genao on 04-30-2024 Globulin (S) [Mass/Vol] 5.1 g/dL High 2.2-4.2 [facility] Serum or plasma alanine parker otransferase (ALT) measurementOrdered By: Harper Genao on 04-30-2024 ALT [Catalytic activity/Vol] 17 U/L 13-56 [facility] Serum or plasma albumin rachael urement (mass/volume)Ordered By: Harper Genao on 04-30-2024 Albumin [Mass/Vol] 3.4 g/dL 3.2-5.0 [facility] Serum or plasma alkaline stephie sphatase measurementOrdered By: Harper Genao on 04-30-2024 ALP [Catalytic activity/Vol] 93 U/L 45-117 [facility] Serum or plasma calcium rachael urement (mass/volume)Ordered By: Harper Genao on 04-30-2024 Calcium [Mass/Vol] 9.5 mg/dL 8.5-10.1 [facility] Serum or plasma creatinine m easurement (mass/volume)Ordered By: Harper Genao on 04-30-2024 Creatinine [Mass/Vol] 1.28 mg/dL High 0.55-1.02 [facility] Comment on above: The validity of the calculated GFR & GFRAA in patients over 70 years has not been determined. Clinical correlation is essential. Serum or plasma urea nitroge n measurement (mass/volume)Ordered By: Harper Genao on 04-30-2024 Urea nitrogen [Mass/Vol] 21 mg/dL High 7-18 [facility] Sodium levelOrdered By: Michael Genao on 04-30-2024 Sodium [Moles/Vol] 140 mmol/L 136-145 [facility] TSH QnOrdered By: Harper Genao on 04-30-2024 Thyroid Stimulating Hormone (TSH) 1.990 uIU/mL 0.358-3.740 [facility] Thyroid Stim Hormone (TSH)on 04-30-2024 TSH 1.990 uIU/mL Normal 0.358-3.740 [facility] Comment on above: Performed By: #### L 100.0100, L501.9520, L500.4050 #### [facility] [address] [place], [address] Total proteinOrdered By: Isaac Genao on 04-30-2024 Protein [Mass/Vol] 8.5 g/dL High 6.4-8.2 [facility] White blood cell (WBC) count Ordered By: Harper Genao on 04-30-2024 WBC (Bld) [#/Vol] 7.3 10*3/uL 4.4-11.0 [facility] Plastic Surgery Visit Report on 02-06-2024 Plastic Surgery Visit Report [facility] Plastic Reconstructive Surgery [address], [address] [place] [address] OFFICE VISIT Date of Service: 02/06/24 MR#: [id number] Acct: [id number] Name: RONALD HUTCHINS Rep #: [id number] : 1965 Provider: Dr. Kilo Dubois MD Age/Sex: 58/F Location: [facility] Status: Signed Intake Vital Signs 3 01/02/24 [...] Mother Diabetes Daughter ADHD Social History housing: residential Smoking Status: Never smoker alcohol intake: never [...] a walke (more content not included)... Normal [facility] Internal Medicine Office Vis haris 01-26-2024 Internal Medicine Office Visit [facility] [address] [place], [place] [address] OFFICE VISIT Date of Service: 01/26/24 MR#: [id number] Acct: [id number] Name: RONALD HUTCHINS Rep #: [id number] : 1965 Provider: Dr. Harper rubin MD Age/Sex: 58/F Location: [facility] Status: Signed Intake Vital Signs 10/27/23 14:57 [...] M FU Chief Complaint: Follow-up chronic conditions Automation Tender Required: No Accompanied by: Is patient in [...] skin, redness (more content not included)... Normal [facility] OT General Evaluationon 12-14 OT General Evaluation [facility] Occupational Therapy Health[address] [place] [id number] / REHABILITATION SERVICES INITIAL EVALUATION MR#: [id number] Acct: [id number] Name: RONALD HUTCHINS Rep #: [id number] : 1965 58 From: Joy SAMUELS/MAGDALENO Jaeger Referring Dr.: YOCASTA Juarez Status: [facility] Insurance: [facility] Date: SELF PAY INSURANCE Patient's Visit Information [...] to be FAXED BACK to us at [phone] for Medicare purposes. Please let me know if there are questions or concerns regarding this plan of care. Physician Signature: Date:__ 01/05/24 1848 CC: YOCASTA Juarez; Dr. Harper Genao MD MK Signed For Medicare only, by signing this I certify the plan of care. Physicians Signature Date Normal [facility] /Norma 01-02-2024 /SANDER [facility] Vascular Surgery [facility] [address] [place] [address] OFFICE VISIT Date of Service: 01/02/24 MR#: [id number] Acct: [id number] Name: RONALD HUTCHINS Rep #: [id number] : 1965 Provider: YOCASTA Juarez Age/Sex: 58/F Location: [facility] Status: Signed Intake Vital Signs 10/27/23 14:57 [...] denosumab 60 mg/mL subcutaneous 60 mg subcut [id number] #1 mL 10/27/23 01/02/24 Rx syringe (Prolia) [...] (3 wk ago rolled out of bed) [facility] Osteopenia Elevated serum globulin [...] No n (more content not included)... Normal [facility] Venous Duplex US, Unilateral on 12-29-2023 Venous Duplex US, Unilateral [facility] Cardiovascular Services [address] [place] [address] Venous Duplex US, Unilateral 12/29/23 1040 MR#: [id number] Acct: [id number] Name: RONALD HUTCHINS Rep #: [id number] : 1965 58 From: Harrison Leiva MD [...] Dictated: 12/29/23 1040 Date Transcribed: 12/29/23 1313 Pool Lifeguard: Signed Normal [facility] Absolute lymphocyte countOrd ered By: Harper Genao on 06-16-2023 Lymphocytes Auto (Unsp spec) [#/Vol] 2.64 10*3/uL 0.83-4.51 [facility] Automated lymphocyte count a s percentage of total leukocytesOrdered By: Harper Genao on 06-16-2023 Lymphocytes/100 WBC Auto (Unsp spec) 34.6 % 19-41 [facility] Basophil percentageOrdered B y: Harper Genao on 06-16-2023 Basophils/100 WBC (Bld) 0.4 % 0-1 [facility] Bilirubin [Mass/Vol] 0.50 mg/dL 0.20-1.00 [facility] Comment on above: For patients on eltr ombopag therapy, use of Dimension Palisade TBIL is not recommended. Chloride [Moles/Vol] 107 mmol/L 98-107 [facility] Cholesterol [Mass/Vol] 164 mg/dL <200 [facility] Comment on above: <200 mg/dL Desirable 200-240 mg/dL Borderline >240 mg/dL High Risk Eosinophils/100 WBC (Bld) 9.6 % 0-5 [facility] Glucose [Mass/Vol] 96 mg/dL 74-106 [facility] Hemoglobin (Bld) [Mass/Vol] 13.1 g/dL 12.0-15.0 [facility] Monocytes/100 WBC (Bld) 8.3 % 0-10 [facility] Neutrophils (Bld) [#/Vol] 3.6 10*3/uL 2.0-7.7 [facility] Neutrophils/100 WBC (Bld) 46.8 % 47-70 [facility] Potassium [Moles/Vol] 4.2 mmol/L 3.5-5.1 [facility] Protein [Mass/Vol] 9.0 g/dL 6.4-8.2 [facility] Sodium [Moles/Vol] 138 mmol/L 136-145 [facility] Triglyceride [Mass/Vol] 72 mg/dL <199 [facility] Comment on above: The drugs N-Acetylcy steine and Metamizole may falsely depress this assay.Serum Triglycerides Reference Interval Normal <150 mg/dL Borderline high 150 - 199 mg/dL High 200 - 499 mg/dL Very High > or = 500 mg/dL WBC (Bld) [#/Vol] 7.6 10*3/uL 4.4-11.0 [facility] Determination of erythrocyte mean corpuscular volume (MCV)Ordered By: Harper Genao on 06-16-2023 MCV (RBC) [Entitic vol] 91.0 fL 81-99 [facility] Erythrocyte distribution wid th ratioOrdered By: [facility] on 06-16-2023 Erythrocyte distribution width (RBC) [Ratio] 14.3 % 11.6-14.6 [facility] Erythrocyte distribution wid th standard deviationOrdered By: [facility] Onesimomelchor on 06-16-2023 Erythrocyte distribution width (RBC) [Entitic vol] 48.2 fL 35.1-43.9 [facility] Hematocrit Auto (Bld) [Volum e fraction]Ordered By: Harper Genao on 06-16-2023 Hematocrit (Bld) [Volume fraction] 40.6 % 37-47 [facility] Immature granulocytes/100 WB C Auto (Bld)Ordered By: [facility] on 06-16-2023 Immature granulocytes/100 WBC (Bld) 0.300 % 0.0-0.9 [facility] Comment on above: IG% - Immature Granu locytes (promyelocytes, myelocytes and metamyelocytes) > 1% indicates that a LEFT SHIFT is Present. Laboratory - Chemistry and C hemistry - challengeOrdered By: Harper Genao on 06-16-2023 Albumin/Globulin [Mass ratio] 0.6 {ratio} 0.9-2.4 [facility] ALP [Catalytic activity/Vol] 107 U/L 45-117 [facility] ALT [Catalytic activity/Vol] 19 U/L 13-56 [facility] Cholesterol in HDL [Mass/Vol] 45 mg/dL >40 [facility] Comment on above: The drugs N-Acetylcy steine and Metamizole may falsely depress this assay. Reference Range HDL <40 mg/dL Low HDL Cholesterol HDL >or= 60 mg/dL High HDL Cholesterol Cholesterol in LDL [Mass/Vol] 105 mg/dL 0-130 [facility] CO2 [Moles/Vol] 24.0 mmol/L 21.0-32.0 [facility] Globulin (S) [Mass/Vol] 5.5 g/dL 2.2-4.2 [facility] Urea nitrogen/Creatinine [Mass ratio] 18.3 mg/mg 10-20 [facility] Laboratory - Hematology and Cell countsOrdered By: Harper Genao on 06-16-2023 MCH (RBC) [Entitic mass] 29.4 pg 27.0-32.0 [facility] MCHC (RBC) [Mass/Vol] 32.3 g/dL 32-36 [facility] Nucleated RBC/100 WBC (Bld) [Ratio] 0 % 0-5 [facility] Platelet mean volume (Bld) [Entitic vol] 10.2 fL 6.2-12.0 [facility] Platelets (Bld) [#/Vol] 358 10*3/uL 150-450 [facility] No Panel InformationOrdered By: Harper Genao on 06-16-2023 Estimated GFR (MDRD) Amer 62 mL/min >60 [facility] Comment on above: GFR Calc Estimated GFR (MDRD) Non-Af Amer 51 mL/min >60 [facility] Comment on above: Non- GFR Calc VLDL Cholesterol 14 mg/dL 5-40 [facility] RBC Auto (Bld) [#/Vol]Ordere d By: Harper Genao on 06-16-2023 RBC (Bld) [#/Vol] 4.46 10*6/uL 4.2-5.4 [facility] Serum or plasma calcium rachael urement (mass/volume)Ordered By: Harper Genao on 06-16-2023 Calcium [Mass/Vol] 9.5 mg/dL 8.5-10.1 [facility] Serum or plasma creatinine m easurement (mass/volume)Ordered By: Harper Genao on 06-16-2023 Creatinine [Mass/Vol] 1.15 mg/dL 0.55-1.02 [facility] Comment on above: The validity of the calculated GFR & GFRAA in patients over 70 years has not been determined. Clinical correlation is essential. Serum or plasma thyroid stim ulating hormone (TSH) measurement (units/volume)Ordered By: Harper Genao on 06-16-2023 TSH Qn 2.50 uIU/mL 0.358-3.74 [facility] Serum or plasma urea nitroge n measurement (mass/volume)Ordered By: Harper Genao on 06-16-2023 Urea nitrogen [Mass/Vol] 21 mg/dL 7-18 [facility] Thin prep Papanicolaou smear with manual screeningOrdered By: Harper Genao on 06-16-2023 Thin prep Papanicolaou smear with manual screening 3.5 g/dL 3.2-5.0 [facility] Thin prep Papanicolaou smear with manual screening 17 U/L 15-37 [facility] Thin prep Papanicolaou smear with manual screening 7 5-15 [facility] Absolute lymphocyte countOrd ered By: Dr. Genao on 09-13-2022 Lymphocytes Auto (Unsp spec) [#/Vol] 2.46 10*3/uL 0.83-4.51 [facility] Basophil percentageOrdered B y: Dr. Genao on 09-13-2022 Basophils/100 WBC (Bld) 0.3 % 0-1 [facility] Bilirubin [Mass/Vol] 0.40 mg/dL 0.20-1.00 [facility] Comment on above: For patients on eltr ombopag therapy, use of Dimension Palisade TBIL is not recommended. Chloride [Moles/Vol] 108 mmol/L 98-107 [facility] Cholesterol [Mass/Vol] 132 mg/dL <200 [facility] Comment on above: <200 mg/dL Desirable 200-240 mg/dL Borderline >240 mg/dL High Risk Eosinophils/100 WBC (Bld) 9.4 % 0-5 [facility] Glucose [Mass/Vol] 104 mg/dL 74-106 [facility] Comment on above: Fasting Glucose resu lt from 100 to 125 mg/dL suggests IMPAIRED HOMEOSTASIS per A.D.A. criteria. Neutrophils (Bld) [#/Vol] 3.9 10*3/uL 2.0-7.7 [facility] Neutrophils/100 WBC (Bld) 49.9 % 47-70 [facility] Potassium [Moles/Vol] 4.0 mmol/L 3.5-5.1 [facility] Protein [Mass/Vol] 8.6 g/dL 6.4-8.2 [facility] Sodium [Moles/Vol] 139 mmol/L 136-145 [facility] Triglyceride [Mass/Vol] 65 mg/dL <199 [facility] Comment on above: The drugs N-Acetylcy steine and Metamizole may falsely depress this assay.Serum Triglycerides Reference Interval Normal <150 mg/dL Borderline high 150 - 199 mg/dL High 200 - 499 mg/dL Very High > or = 500 mg/dL WBC (Bld) [#/Vol] 7.9 10*3/uL 4.4-11.0 [facility] Blood erythrocytes count (nu mber/volume)Ordered By: Dr. Genao on 09-13-2022 RBC (Bld) [#/Vol] 4.19 10*6/uL 4.2-5.4 [facility] Blood hemoglobin measurement (mass/volume)Ordered By: Dr. Genao on 09-13-2022 Hemoglobin (Bld) [Mass/Vol] 12.4 g/dL 12.0-15.0 [facility] Blood lymphocytes/100 leukoc ytesOrdered By: Dr. Genao on 09-13-2022 Lymphocytes/100 WBC (Bld) 31.3 % 19-41 [facility] Blood monocytes/100 leukocyt esOrdered By: Dr. Genao on 09-13-2022 Monocytes/100 WBC (Bld) 9.0 % 0-10 [facility] Blood platelet mean volumeOr dered By: Dr. Genao on 09-13-2022 Platelet mean volume (Bld) [Entitic vol] 10.4 fL 6.2-12.0 [facility] Determination of erythrocyte mean corpuscular volume (MCV)Ordered By: Dr. Genao on 09-13-2022 MCV (RBC) [Entitic vol] 94.5 fL 81-99 [facility] Hematocrit Auto (Bld) [Volum e fraction]Ordered By: Dr. Genao on 09-13-2022 Hematocrit (Bld) [Volume fraction] 39.6 % 37-47 [facility] Laboratory - Chemistry and C hemistry - challengeOrdered By: Dr. Genao on 09-13-2022 ALP [Catalytic activity/Vol] 90 U/L 45-117 [facility] ALT [Catalytic activity/Vol] 27 U/L 13-56 [facility] CO2 [Moles/Vol] 23.0 mmol/L 21.0-32.0 [facility] Globulin (S) [Mass/Vol] 5.5 g/dL 2.2-4.2 [facility] Urea nitrogen/Creatinine [Mass ratio] 10.5 mg/mg 10-20 [facility] Laboratory - Hematology and Cell countsOrdered By: Dr. Genao on 09-13-2022 Erythrocyte distribution width (RBC) [Entitic vol] 49.3 fL 35.1-43.9 [facility] Erythrocyte distribution width (RBC) [Ratio] 14.2 % 11.6-14.6 [facility] Immature granulocytes/100 WBC (Bld) 0.100 % 0.0-0.9 [facility] Comment on above: IG% - Immature Granu locytes (promyelocytes, myelocytes and metamyelocytes) > 1% indicates that a LEFT SHIFT is Present. MCH (RBC) [Entitic mass] 29.6 pg 27.0-32.0 [facility] Nucleated RBC/100 WBC (Bld) [Ratio] 0 % 0-[facility] Auto (RBC) [Mass/Vol]Or dered By: Dr. Genao on 09-13-2022 MCHC (RBC) [Mass/Vol] 31.3 g/dL 32-36 [facility] No Panel InformationOrdered By: Dr. Genao on 09-13-2022 Estimated GFR (MDRD) Amer 63 mL/min >60 [facility] Comment on above: GFR Calc Estimated GFR (MDRD) Non-Af Amer 52 mL/min >60 [facility] Comment on above: Non- GFR Calc Thyroid Stimulating Hormone (TSH) 1.90 uIU/mL 0.358-3.74 [facility] Platelets bldOrdered By: Dr. Genao on 09-13-2022 Platelets (Bld) [#/Vol] 300 10*3/uL 150-450 [facility] Serum or plasma albumin rachael urement (mass/volume)Ordered By: Dr. Genao on 09-13-2022 Albumin [Mass/Vol] 3.1 g/dL 3.2-5.0 [facility] Serum or plasma albumin/glob ulin mass ratioOrdered By: Dr. Genao on 09-13-2022 Albumin/Globulin [Mass ratio] 0.6 {ratio} 0.9-2.4 [facility] Serum or plasma calcium rachael urement (mass/volume)Ordered By: Dr. Genao on 09-13-2022 Calcium [Mass/Vol] 9.3 mg/dL 8.5-10.1 [facility] Serum or plasma cholesterol in HDL measurement (mass/volume)Ordered By: Dr. Genao on 09-13-2022 Cholesterol in HDL [Mass/Vol] 39 mg/dL >40 [facility] Comment on above: The drugs N-Acetylcy steine and Metamizole may falsely depress this assay. Reference Range HDL <40 mg/dL Low HDL Cholesterol HDL >or= 60 mg/dL High HDL Cholesterol Serum or plasma cholesterol in VLDL measurement (mass/volume)Ordered By: Dr. Genao on 09-13-2022 Cholesterol in VLDL [Mass/Vol] 13 mg/dL 5-40 [facility] Serum or plasma creatinine m easurement (mass/volume)Ordered By: Dr. Genao on 09-13-2022 Creatinine [Mass/Vol] 1.14 mg/dL 0.55-1.02 [facility] Comment on above: The validity of the calculated GFR & GFRAA in patients over 70 years has not been determined. Clinical correlation is essential. Serum or plasma low density lipoprotein (LDL) cholesterol measurement (mass/volume)Ordered By: Dr. Genao on 09-13-2022 Cholesterol in LDL [Mass/Vol] 80 mg/dL 0-130 [facility] Serum or plasma urea nitroge n measurement (mass/volume)Ordered By: Dr. Genao on 09-13-2022 Urea nitrogen [Mass/Vol] 12 mg/dL 7-18 [facility] Thin prep Papanicolaou smear with manual screeningOrdered By: Dr. Genao on 09-13-2022 Thin prep Papanicolaou smear with manual screening 23 U/L 15-37 [facility] Thin prep Papanicolaou smear with manual screening 8 5-15 [facility] Absolute lymphocyte counton 12-04-2021 Lymphocytes Auto (Unsp spec) [#/Vol] 2.73 10*3/uL 0.83-4.51 [facility] Work Phone: Basophil percentageon 2021 Basophils/100 WBC (Bld) 0.2 % 0-1 [facility] Work Phone: Bilirubin [Mass/Vol] 0.40 mg/dL 0.20-1.00 [facility] Work Phone: Comment on above: For patients on eltr ombopag therapy, use of Dimension Palisade TBIL is not recommended. Chloride [Moles/Vol] 109 mmol/L 98-107 [facility] Work Phone: Cholesterol [Mass/Vol] 156 mg/dL <200 [facility] Work Phone: Comment on above: <200 mg/dL Desirable 200-240 mg/dL Borderline >240 mg/dL High Risk Eosinophils/100 WBC (Bld) 13.4 % 0-5 [facility] Work Phone: Glucose [Mass/Vol] 92 mg/dL 74-106 [facility] Work Phone: Neutrophils (Bld) [#/Vol] 3.8 10*3/uL 2.0-7.7 [facility] Work Phone: Neutrophils/100 WBC (Bld) 46.1 % 47-70 [facility] Work Phone: Potassium [Moles/Vol] 4.1 mmol/L 3.5-5.1 [facility] Work Phone: Protein [Mass/Vol] 8.6 g/dL 6.4-8.2 [facility] Work Phone: Sodium [Moles/Vol] 141 mmol/L 136-145 [facility] Work Phone: Triglyceride [Mass/Vol] 68 mg/dL <199 [facility] Work Phone: Comment on above: The drugs N-Acetylcy steine and Metamizole may falsely depress this assay.Serum Triglycerides Reference Interval Normal <150 mg/dL Borderline high 150 - 199 mg/dL High 200 - 499 mg/dL Very High > or = 500 mg/dL WBC (Bld) [#/Vol] 8.3 10*3/uL 4.4-11.0 [facility] Work Phone: Blood erythrocytes count (nu mber/volume)on 12-04-2021 RBC (Bld) [#/Vol] 4.10 10*6/uL 4.2-5.4 [facility] Work Phone: Blood hemoglobin measurement (mass/volume)on 12-04-2021 Hemoglobin (Bld) [Mass/Vol] 12.7 g/dL 12.0-15.0 [facility] Work Phone: Blood lymphocytes/100 leukoc yteson 12-04-2021 Lymphocytes/100 WBC (Bld) 33.0 % 19-41 [facility] Work Phone: Blood monocytes/100 leukocyt eson 12-04-2021 Monocytes/100 WBC (Bld) 7.1 % 0-10 [facility] Work Phone: [phone] Blood platelet mean volumeon 12-04-2021 Platelet mean volume (Bld) [Entitic vol] 10.5 fL 6.2-12.0 [facility] Work Phone: [phone] Determination of erythrocyte mean corpuscular volume (MCV)on 12-04-2021 MCV (RBC) [Entitic vol] 95.1 fL 81-99 [facility] Work Phone: [phone] Hematocrit Auto (Bld) [Volum e fraction]on 12-04-2021 Hematocrit (Bld) [Volume fraction] 39.0 % 37-47 [facility] Work Phone: [phone] Laboratory - Chemistry and C hemistry - challengeon 12-04-2021 ALP [Catalytic activity/Vol] 98 U/L 45-117 [facility] Work Phone: [phone] ALT [Catalytic activity/Vol] 21 U/L 13-56 [facility] Work Phone: [phone] CO2 [Moles/Vol] 26.0 mmol/L 21.0-32.0 [facility] Work Phone: [phone] Globulin (S) [Mass/Vol] 5.1 g/dL 2.2-4.2 [facility] Work Phone: [phone] Urea nitrogen/Creatinine [Mass ratio] 14.8 mg/mg 10-20 [facility] Work Phone: [phone] Laboratory - Hematology and Cell countson 12-04-2021 Erythrocyte distribution width (RBC) [Entitic vol] 50.2 fL 35.1-43.9 [facility] Work Phone: [phone] Erythrocyte distribution width (RBC) [Ratio] 14.3 % 11.6-14.6 [facility] Work Phone: [phone] Immature granulocytes/100 WBC (Bld) 0.200 % 0.0-0.9 [facility] Work Phone: [phone] Comment on above: IG% - Immature Granu locytes (promyelocytes, myelocytes and metamyelocytes) > 1% indicates that a LEFT SHIFT is Present. MCH (RBC) [Entitic mass] 31.0 pg 27.0-32.0 [facility] Work Phone: [phone] Nucleated RBC/100 WBC (Bld) [Ratio] 0 % 0-5 [facility] Work Phone: [phone] MCHC Auto (RBC) [Mass/Vol]on 12-04-2021 MCHC (RBC) [Mass/Vol] 32.6 g/dL 32-36 [facility] Work Phone: No Panel Informationon 12-04 Estimated GFR (MDRD) Amer 62 mL/min >60 [facility] Work Phone: Comment on above: GFR Calc Estimated GFR (MDRD) Non-Af Amer 51 mL/min >60 [facility] Work Phone: [phone] Comment on above: Non- GFR Calc Platelets bldon 12-04-2021 Platelets (Bld) [#/Vol] 298 10*3/uL 150-450 [facility] Work Phone: [phone] Serum or plasma albumin rachael urement (mass/volume)on 12-04-2021 Albumin [Mass/Vol] 3.5 g/dL 3.2-5.0 [facility] Work Phone: [phone] Serum or plasma albumin/glob ulin mass ratioon 12-04-2021 Albumin/Globulin [Mass ratio] 0.7 {ratio} 0.9-2.4 [facility] Work Phone: [phone] Serum or plasma calcium rachael urement (mass/volume)on 12-04-2021 Calcium [Mass/Vol] 9.6 mg/dL 8.5-10.1 [facility] Work Phone: [phone] Serum or plasma cholesterol in HDL measurement (mass/volume)on 12-04-2021 Cholesterol in HDL [Mass/Vol] 44 mg/dL >40 [facility] Work Phone: [phone] Comment on above: The drugs N-Acetylcy steine and Metamizole may falsely depress this assay. Reference Range HDL <40 mg/dL Low HDL Cholesterol HDL >or= 60 mg/dL High HDL Cholesterol Serum or plasma cholesterol in VLDL measurement (mass/volume)on 12-04-2021 Cholesterol in VLDL [Mass/Vol] 14 mg/dL 5-40 [facility] Work Phone: Serum or plasma creatinine m easurement (mass/volume)on 12-04-2021 Creatinine [Mass/Vol] 1.15 mg/dL 0.55-1.02 [facility] Work Phone: Comment on above: The validity of the calculated GFR & GFRAA in patients over 70 years has not been determined. Clinical correlation is essential. Serum or plasma low density lipoprotein (LDL) cholesterol measurement (mass/volume)on 12-04-2021 Cholesterol in LDL [Mass/Vol] 98 mg/dL 0-130 [facility] Work Phone: Serum or plasma urea nitroge n measurement (mass/volume)on 12-04-2021 Urea nitrogen [Mass/Vol] 17 mg/dL 7-18 [facility] Work Phone: Thin prep Papanicolaou smear with manual screeningon 12-04-2021 Thin prep Papanicolaou smear with manual screening 17 U/L 15-37 [facility] Work Phone: Thin prep Papanicolaou smear with manual screening 6 5-15 [facility] Work Phone: Laboratory - Chemistry and C hemistry - challengeon 10-30-2021 Free T4 [Mass/Vol] 1.34 ng/dL 0.76-1.46 [facility] Work Phone: No Panel Informationon 10-30 Thyroid Stimulating Hormone (TSH) 3.16 uIU/mL 0.358-3.74 [facility] Work Phone: Vital Signs Date Time Vital Sign Value Performing Clinician Arsenio barragan 12-15-2024 10:40-0400 Body height 160.[address] Harper Genao MD Work Phone: [facility] 12-15-2024 10:40-0400 Body mass index (BMI) [Ratio] 57.9 kg/m2 Dr. Harper Genao MD Work Phone: [facility] 12-15-2024 10:40-0400 Body temperature 99.9 [degF] Dr. Harper Genao MD Work Phone: [facility] 12-15-2024 10:40-0400 Body weight 148.[address] Harper Genao MD Work Phone: [facility] 12-15-2024 10:40-0400 Diastolic blood pressure 82 mm[Hg] Dr. Harper Genao MD Work Phone: [facility] 12-15-2024 10:40-0400 Heart rate 76 /min Dr. Harper Genao MD Work Phone: [facility] 12-15-2024 10:40-0400 Respiratory rate 16 /min Dr. Harper Genao MD Work Phone: [facility] 12-15-2024 10:40-0400 SaO2% (BldA) [Mass fraction] 95 % Dr. Harper Genao MD Work Phone: [facility] 12-15-2024 10:40-0400 Systolic blood pressure 128 mm[Hg] Dr. Harper Genao MD Work Phone: [facility] 10-08-2024 10:30-0400 Body height 160.[address] Harper Genao MD Work Phone: [facility] 10-08-2024 10:30-0400 Body temperature 97.8 [degF] Dr. Harper Genao MD Work Phone: [facility] 10-08-2024 10:30-0400 Diastolic blood pressure 78 mm[Hg] Dr. Harper Genao MD Work Phone: [facility] 10-08-2024 10:30-0400 Heart rate 83 /min Dr. Harper Genao MD Work Phone: [facility] 10-08-2024 10:30-0400 Respiratory rate 18 /min Dr. Harper Genao MD Work Phone: [facility] 10-08-2024 10:30-0400 SaO2% (BldA) [Mass fraction] 94 % Dr. Harper Genao MD Work Phone: [facility] 10-08-2024 10:30-0400 Systolic blood pressure 143 mm[Hg] Dr. Harper Genao MD Work Phone: [facility] 09-30-2024 13:58-0400 Diastolic blood pressure 78 mm[Hg] Babs Sandhya PA-C Work Phone: [facility] 09-30-2024 13:58-0400 Heart rate 81 /min Babs Sandhya PA-C Work Phone: [facility] 09-30-2024 13:58-0400 Respiratory rate 17 /min Babs Sandhya PA-C Work Phone: [facility] 09-30-2024 13:58-0400 SaO2% (BldA) [Mass fraction] 99 % Babs Sandhya PA-C Work Phone: [facility] 09-30-2024 13:58-0400 Systolic blood pressure 132 mm[Hg] Babs Sandhya PA-C Work Phone: [facility] 09-23-2024 09:23-0400 Body height 165.1 cm Babs Sandhya PA-C Work Phone: [facility] 09-23-2024 09:23-0400 Body mass index (BMI) [Ratio] 54.62 kg/m2 Babs Sandhya PA-C Work Phone: [facility] 09-23-2024 09:23-0400 Body weight 148.87 kg Babs Sandhya PA-C Work Phone: [facility] 09-23-2024 09:23-0400 Diastolic blood pressure 86 mm[Hg] Babs Sandhya PA-C Work Phone: [facility] 09-23-2024 09:23-0400 Heart rate 96 /min Babs Sandhya PA-C Work Phone: [facility] 09-23-2024 09:23-0400 SaO2% (BldA) [Mass fraction] 100 % Babs Sandhya PA-C Work Phone: [facility] 09-23-2024 09:23-0400 Systolic blood pressure 134 mm[Hg] Babs Sandhya PA-C Work Phone: [facility] 07-19-2024 09:34-0400 Body height 160.[address] Harper Genao MD Work Phone: [facility] 07-19-2024 09:34-0400 Body mass index (BMI) [Ratio] 59.3 kg/m2 Dr. Harper Genao MD Work Phone: [facility] 07-19-2024 09:34-0400 Body weight 151.[address] Harper Genao MD Work Phone: [facility] 07-19-2024 09:34-0400 Diastolic blood pressure 76 mm[Hg] Dr. Harper Genao MD Work Phone: [facility] 07-19-2024 09:34-0400 Heart rate 83 /min Dr. Harper Genao MD Work Phone: [facility] 07-19-2024 09:34-0400 SaO2% (BldA) [Mass fraction] 96 % Dr. Harper Genao MD Work Phone: [facility] 07-19-2024 09:34-0400 Systolic blood pressure 135 mm[Hg] Dr. Harper Genao MD Work Phone: [facility] 04-30-2024 09:51-0500 Body mass index (BMI) [Ratio] 58.8 kg/m2 Dr. Harper Genao MD Work Phone: [facility] 04-30-2024 09:51-0500 Body temperature 97.6 [degF] Dr. Harper Genao MD Work Phone: [facility] 04-30-2024 09:51-0500 Body weight 150.[address] Harper Genao MD Work Phone: [facility] 04-30-2024 09:51-0500 Diastolic blood pressure 62 mm[Hg] Dr. Harper Genao MD Work Phone: [facility] 04-30-2024 09:51-0500 Heart rate 108 /min Dr. Harper Genao MD Work Phone: [facility] 04-30-2024 09:51-0500 Respiratory rate 16 /min Dr. Harper Genao MD Work Phone: [facility] 04-30-2024 09:51-0500 SaO2% (BldA) [Mass fraction] 98 % Dr. Harper Genao MD Work Phone: [facility] 04-30-2024 09:51-0500 Systolic blood pressure 128 mm[Hg] Dr. Harper Genao MD Work Phone: [facility] 06-24-2023 10:54-0400 Body height 160.[address] Harper Genao Work Phone: [facility] 06-24-2023 10:54-0400 Body mass index (BMI) [Ratio] 56.8 kg/m2 Dr. Harper Genao Work Phone: [facility] 06-24-2023 10:54-0400 Body temperature 98.4 [degF] Dr. Harper Genao Work Phone: [facility] 06-24-2023 10:54-0400 Body weight 145.[address] Harper Genao Work Phone: [facility] 06-24-2023 10:54-0400 Diastolic blood pressure 72 mm[Hg] Dr. Harper Genao Work Phone: [facility] 06-24-2023 10:54-0400 Heart rate 70 /min Dr. Harper Genao Work Phone: [facility] 06-24-2023 10:54-0400 Respiratory rate 16 /min Dr. Harper Genao Work Phone: [facility] 06-24-2023 10:54-0400 SaO2% (BldA) [Mass fraction] 96 % Dr. Harper Genao Work Phone: [facility] 06-24-2023 10:54-0400 Systolic blood pressure 118 mm[Hg] Dr. Harper Genao Work Phone: [facility] 06-16-2023 10:55-0500 Body height 160.[address] Harper Genao Work Phone: [facility] 06-16-2023 10:55-0500 Body mass index (BMI) [Ratio] 56.3 kg/m2 Dr. Harper Genao Work Phone: [facility] 06-16-2023 10:55-0500 Body temperature 97 [degF] Dr. Harper Genao Work Phone: [facility] 06-16-2023 10:55-0500 Body weight 144.[address] Harper Genao Work Phone: [facility] 06-16-2023 10:55-0500 Diastolic blood pressure 80 mm[Hg] Dr. Harper Genao Work Phone: [facility] 06-16-2023 10:55-0500 Heart rate 95 /min Dr. Harper Genao Work Phone: [facility] 06-16-2023 10:55-0500 Respiratory rate 16 /min Dr. Harper Genao Work Phone: [facility] 06-16-2023 10:55-0500 SaO2% (BldA) [Mass fraction] 97 % Dr. Harper Genao Work Phone: [facility] 06-16-2023 10:55-0500 Systolic blood pressure 136 mm[Hg] Dr. Harper Genao Work Phone: [facility] 09-13-2022 09:18-0400 Body height 160.[address] Harper Genao Work Phone: [facility] 09-13-2022 09:18-0400 Body mass index (BMI) [Ratio] 61 kg/m2 Dr. Harper Genao Work Phone: [facility] 09-13-2022 09:18-0400 Body temperature 95.1 [degF] Dr. Harper Genao Work Phone: [facility] 09-13-2022 09:18-0400 Body weight 156.[address] Harper Genao Work Phone: [facility] 09-13-2022 09:18-0400 Diastolic blood pressure 76 mm[Hg] Dr. Harper Genao Work Phone: [facility] 09-13-2022 09:18-0400 Heart rate 97 /min Dr. Harper Genao Work Phone: [facility] 09-13-2022 09:18-0400 Respiratory rate 18 /min Dr. Harper Genao Work Phone: [facility] 09-13-2022 09:18-0400 SaO2% (BldA) [Mass fraction] 95 % Dr. Harper Genao Work Phone: [facility] 09-13-2022 09:18-0400 Systolic blood pressure 138 mm[Hg] Dr. Harper Genao Work Phone: [facility] 04-22-2022 09:25-0500 Body height 160.[address] Harper Genao Work Phone: [facility] 04-22-2022 09:25-0500 Body mass index (BMI) [Ratio] 43.5 kg/m2 Dr. Harper Genao Work Phone: [facility] 04-22-2022 09:25-0500 Body temperature 97.6 [degF] Dr. Harper Genao Work Phone: [facility] 04-22-2022 09:25-0500 Body weight 111.[address] Harper Genao Work Phone: [facility] 04-22-2022 09:25-0500 Diastolic blood pressure 84 mm[Hg] Dr. Harper Genao Work Phone: [facility] 04-22-2022 09:25-0500 Heart rate 88 /min Dr. Harper Genao Work Phone: [facility] 04-22-2022 09:25-0500 Respiratory rate 14 /min Dr. Harper Genao Work Phone: [facility] 04-22-2022 09:25-0500 SaO2% (BldA) [Mass fraction] 97 % Dr. Harper Genao Work Phone: [facility] 04-22-2022 09:25-0500 Systolic blood pressure 146 mm[Hg] Dr. Harper Genao Work Phone: [facility] 12-04-2021 09:13-0400 Body height 160.[address] Arun Stringer Work Phone: [facility] Work Phone: 12-04-2021 09:13-0400 Body mass index (BMI) [Ratio] 60.4 kg/m2 Dr. Arun Stringer Work Phone: [facility] Work Phone: 12-04-2021 09:13-0400 Body temperature 98.3 [degF] Dr. Arun Stringer Work Phone: [facility] Work Phone: 12-04-2021 09:13-0400 Body weight 154.[address] Arun Stringer Work Phone: [facility] Work Phone: 12-04-2021 09:13-0400 Diastolic blood pressure 80 mm[Hg] Dr. Arun Stringer Work Phone: [facility] Work Phone: 12-04-2021 09:13-0400 Heart rate 85 /min Dr. Arun Stringer Work Phone: [facility] Work Phone: 12-04-2021 09:13-0400 Respiratory rate 18 /min Dr. Arun Stringer Work Phone: [facility] Work Phone: 12-04-2021 09:13-0400 SaO2% (BldA) [Mass fraction] 100 % Dr. Arun Stringer Work Phone: [facility] Work Phone: 12-04-2021 09:13-0400 Systolic blood pressure 130 mm[Hg] Dr. Arun Stringer Work Phone: [facility] Work Phone: 10-30-2021 10:13-0400 Body height 160.[address] Arun Stringer Work Phone: [facility] Work Phone: 10-30-2021 10:13-0400 Body mass index (BMI) [Ratio] 60.7 kg/m2 Dr. Arun Stringer Work Phone: [facility] Work Phone: 10-30-2021 10:13-0400 Body temperature 96.5 [degF] Dr. Arun Stringer Work Phone: [facility] Work Phone: 10-30-2021 10:13-0400 Body weight 155.[address] Arun Stringer Work Phone: [facility] Work Phone: 10-30-2021 10:13-0400 Diastolic blood pressure 92 mm[Hg] Dr. Arun Stringer Work Phone: [facility] Work Phone: 10-30-2021 10:13-0400 Heart rate 84 /min Dr. Arun Stringer Work Phone: [facility] Work Phone: 10-30-2021 10:13-0400 Respiratory rate 18 /min Dr. Arun Stringer Work Phone: [facility] Work Phone: 10-30-2021 10:13-0400 SaO2% (BldA) [Mass fraction] 97 % Dr. Arun Stringer Work Phone: [facility] Work Phone: 10-30-2021 10:13-0400 Systolic blood pressure 160 mm[Hg] Dr. Arun Stringer Work Phone: [facility] Work Phone: Encounters Encounter Date Encounter Type Care Provider Facility Start: 12-15-2024 End: 12-15-[address] Harper Genao MD Work Phone: -Laboratory Start: 12-15-2024 End: 12-15-[address] Harper Genao MD -Laboratory Work Phone: Start: 12-15-2024 End: 12-15-[address] Harper Genao MD -[facility] Work Phone: Start: 12-15-2024 End: 12-15-[address] Harper Genao MD Work Phone: [facility] Start: 12-15-2024 End: 12-15-2024 ambulatory Harper Genao Facility:[facility] Start: 11-05-2024 End: 11-05-2024 Patient encounter procedure Jose C Ba SPICER Work Phone: [facility] Comment on above: History of patellar fracture (Primary Dx) Start: 11-05-2024 End: 11-05-2024 ambulatory JOSE C COSME Facility:[facility] Start: 11-05-2024 End: 11-05-2024 Subsequent hospital visit by physician [facility] Work Phone: Radiology Comment on above: History of patellar fracture [Z87.81] Start: 11-02-2024 End: 11-02-2024 Orders Only Jose C Cosme Work Phone: Orthopaedics Comment on above: History of patellar fracture (Primary Dx) Start: 10-11-2024 End: 10-11-2024 Telephone encounter Jose C Ba SPICER Work Phone: Orthopaedics Comment on above: Med Change Request Start: 10-08-2024 End: 10-08-2024 Patient encounter procedure Mckenna WU -[facility] Work Phone: Start: 10-08-2024 End: 10-08-[address] Harper Genao MD Work Phone: [facility] Start: 10-07-2024 End: 10-07-2024 Follow-up encounter Babs Arthur PA-C Work Phone: Rheumatology Comment on above: Results Start: 10-05-2024 End: 10-05-2024 Patient encounter procedure Jose C Ba SPICER Work Phone: [facility] Comment on above: Vitamin D deficiency (Primary Dx); History of patellar fracture; Morbid obesity (HCC); Presence of artificial knee joint, bilateral Start: 10-05-2024 End: 10-05-2024 ambulatory JOSE C COSME Facility:[facility] Start: 09-30-2024 End: 09-30-2024 ambulatory BABS ARTHUR Facility:[facility] Start: 09-30-2024 End: 09-30-2024 Patient encounter procedure [...] Start: 09-30-2024 End: 09-30-2024 ambulatory BABS KINGSER Facility:[facility] Start: 09-28-2024 End: 10-13-2024 Telephone encounter Babs Kingser PA-C Work Phone: Rheumatology Comment on above: Patient Question Start: 09-23-2024 End: 09-23-2024 ambulatory BABS ARTHUR Facility:[facility] Start: 09-23-2024 End: 09-23-2024 Subsequent hospital visit by physician Kendall [facility] Joshua Subramanian Work Phone: Radiology Comment on above: Pain in joint, multi ple sites [M25.50] Start: 09-23-2024 End: 09-23-2024 ambulatory BABS KINGSER Facility:[facility] Start: 09-23-2024 End: 09-23-2024 Patient encounter procedure Babs Sandhya PA-C Work Phone: Rheumatology Comment on above: Pain in joint, multi ple sites (Primary Dx); Hypermobility syndrome; Osteoporosis, unspecified osteoporosis type, unspecified pathological fracture presence; Dry eye of left side; Morbid obesity (HCC) Start: 07-26-2024 End: 07-26-[address] Harper Genao MD Work Phone: [facility] Work Phone: Start: 07-26-2024 End: 07-26-[address] Harper Genao MD -Outpatient Breast Imaging Work Phone: Start: 07-26-2024 End: 07-26-2024 ambulatory Efewongbe Oleghe Facility:[facility] Start: 07-19-2024 End: 07-19-[address] Fernandez Zabala MD -[facility] Work Phone: Start: 07-19-2024 End: 07-19-2024 ambulatory Efewongbe Oleghe Facility:[facility] Start: 04-30-2024 End: 04-30-[address] Harper Genao MD -[facility] Work Phone: Start: 04-30-2024 End: 04-30-2024 ambulatory Efewongbe Oleghe Facility:[facility] Start: 04-30-2024 End: 04-30-2024 ambulatory Efewberlinbe Oleghe Facility:[facility] Start: 03-09-2024 ambulatory Efewongbe Oleghe Facili ty:[facility] Start: 02-06-2024 End: 02-06-2024 ambulatory Efewongbe Oleghe Facility:[facility] Start: 01-26-2024 End: 01-26-2024 ambulatory Efewongbe Oleghe Facility:[facility] Start: 01-05-2024 End: 01-05-2024 [facility] Start: 01-02-2024 End: 01-02-2024 ambulatory Efewongbe Oleghe Facility:[facility] Start: 12-29-2023 ambulatory Efewongbe Oleghe Facili ty:[facility] Start: 12-29-2023 End: 12-29-2023 ambulatory Efewongbe Olee Facility:[facility] Start: 07-17-2023 End: 07-17-[address] Harper Genao Work Phone: [facility] Work Phone: Start: 07-17-2023 End: 07-17-[address] Harper Genao Work Phone: [facility]-Outpatient Bone Densitometry Work Phone: Start: 06-24-2023 End: 06-24-[address] Harper Genao Work Phone: [facility] Work Phone: Start: 06-16-2023 End: 06-16-[address] Harper Genao Work Phone: [facility] Work Phone: Start: 06-16-2023 End: 06-16-2023 Encounter for general adult medical examination without abnormal findings Dr. aHrper Genao Work Phone: [facility] Start: 06-16-2023 End: 06-16-[address] Harper Genao Work Phone: [facility] Internal Medicine Work Phone: Start: 09-13-2022 End: 09-13-[address] Harper Genao Work Phone: [facility] Work Phone: Start: 09-13-2022 End: 09-13-[address] Harper Genao Work Phone: [facility] Internal Medicine Start: 05-17-2022 End: 05-17-[address] Harper Genao Work Phone: [facility] Work Phone: Start: 05-17-2022 End: 05-17-2022 Patient encounter procedure Dr. Harper Genao Work Phone: [facility]-Outpatient Breast Imaging Start: 04-22-[address] Melchor Genao Work Phone: [facility] Start: 04-22-2022 End: 04-22-2022 Encounter for general adult medical examination without abnormal findings Dr. Harper Genao Work Phone: [facility] Start: 04-22-2022 End: 04-22-[address] Harper Genao Work Phone: [facility] Internal Medicine Start: 12-24-2021 End: 12-24-[address] Arun Stringer Work Phone: [facility] Work Phone: Start: 12-24-2021 End: 12-24-[address] Arun Stringer Work Phone: [facility]-Ultrasound, [facility] Start: 12-04-2021 End: 12-04-[address] Arun Stringer Work Phone: [facility] Work Phone: Start: 12-04-2021 End: 12-04-[address] Arun Stringer Work Phone: [facility]-Laboratory, [facility] Start: 12-04-2021 End: 12-04-[address] Arun Stringer Work Phone: [facility] Internal Medicine Start: 10-30-2021 End: 10-30-[address] [facility] Start: 10-30-2021 End: 10-30-[address] Arun Stringer Work Phone: [facility] Endocrinology Start: 09-26-2021 End: 09-26-2021 Patient encounter procedure Kenneth Hubbard Work Phone: Podiatry Comment on above: Pes planus of both f eet (Primary Dx); Hammer toes of both feet; Venous insufficiency Start: 11-08-2013 Patient encounter status Vern Hubbard Work Phone: [facility] Work Phone: Procedures Date Procedure Procedure Detail [...] Work Phone: Start: 05-17-2022 Screening mammography Velma Genao Work Phone: Start: 12-24-2021 Ultrasonography of limb [...] Start: 09-24-2027 Diabetes Screening Diabetes Screenin g [facility] Start: 12-13-2024 Influenza vaccination [facility] Start: 11-24-2024 End: 11-24-2024 Patient encounter procedure 11/24/2024 10:00 AM EDT Office Visit Rheumatology [address] [place] [address] Babs Arthur PA-C [address] [place] [address] 2 MONTH FOLLOW UP Rheumatology Comment on above: 2 MONTH FOLLOW UP Start: 11-05-2024 End: 11-05-2024 Patient encounter procedure 11/05/2024 10:30 AM EDT Office Visit [facility] [place] [address] [place] [address] Jose C Cosme V, DO [address] [facility] [place] [address] Left knee pain [facility] [place] Comment on above: Left knee pain Start: 10-14-2024 End: 10-14-2024 Patient encounter procedure 10/14/2024 10:00 AM EDT Office Visit Rheumatology [address] [place] [address] Babs Arthur PA-C [address] [place] [address] 2 week follow up Rheumatology Comment on above: 2 week follow up Start: 09-23-2024 End: 12-23-2024 UDAY BY IFA WITH REFLEX [facility] Comment on above: Expected: 09/23/2024 , Expires: 12/23/2024 Start: 09-23-2024 End: 12-23-2024 C reactive protein [Mass/volume] in Serum or Plasma [facility] Comment on above: Expected: 09/23/2024 , Expires: 12/23/2024 Start: 09-23-2024 End: 12-23-2024 Cyclic citrullinated peptide IgG Ab [Units/volume] in Serum or Plasma [facility] Comment on above: Expected: 09/23/2024 , Expires: 12/23/2024 Start: 09-23-2024 End: 12-23-2024 Rheumatoid factor [Units/volume] in Serum or Plasma [facility] Comment on above: Expected: 09/23/2024 , Expires: 12/23/2024 Start: 12-14-2023 Covid-19 Vaccine ( season) Covid-19 Vaccine () [facility] Start: 06-16-2023 Patient referral [facility] Work Phone: Start: 2023 RSV Vaccine (1 - Ris k 60-74 years 1-dose series) RSV Vaccine (1 - Risk 60-74 years 1-dose series) [facility] Start: 09-13-2022 Patient referral [facility] Work Phone: Start: 04-22-2022 Patient referral [facility] Work Phone: Start: 12-13-2021 Influenza vaccination INFLUENZ A (Season Ended) [facility] Start: 12-04-2021 Patient referral [facility] Work Phone: Start: 07-14-2021 COVID-19 VACCINE (4 - Booster for Moderna series) COVID-19 VACCINE (4 - Booster for Moderna series) [facility] Start: 11-08-2018 Lipid panel Lipid Screening [facility] Start: 11-08-2018 LIPID SCREEN LIPID SCREEN [facility] Start: 07-09-2016 DIABETES SCREEN DIABETES SCREEN [facility] Start: 2013 Pneumococcal Vaccine : 50+ (1 of 1 - PCV) Pneumococcal Vaccine: 50+ (1 of 1 - PCV) [facility] Start: 2013 SHINGRIX VACCINE (1 of 2) PADILLA GRIX VACCINE (1 of 2) [facility] Start: 03-09-2009 PAP TESTING PAP TESTING [facility] Start: 2008 COLOGUARD (FIT-DNA) COLOGUARD (FIT-D NA) [facility] Start: 2008 Colonoscopy COLONOSCOPY [facility] Start: 2008 COLORECTAL CANCER SCREENING COLORECTAL CANCER SCREENING [facility] Start: [address] COLONOGRAPHY [facility] Start: 2008 FECAL OCCULT BLOOD FECAL OCCULT BLOO D [facility] Start: 2008 Screening for malign ant neoplasm of colon [facility] Start: 2008 SIGMOIDOSCOPY SIGMOIDOSCOPY [facility] Start: 03-09-2007 Screening for malign ant neoplasm of cervix Cervical Cancer Screening [facility] Start: 2003 Mammography MAMMOGRAM [facility] Start: 2003 Screening for malign ant neoplasm of breast Mammogram Screening [facility] Start: 1993 HPV TESTING HPV TESTING [facility] Start: 1982 Urine microalbumin profile [facility] Start: 1981 ANNUAL PCP TEAM TRACTION POWER ENGINEER BARTOLOME DISEASE VISIT ANNUAL PCP TEAM CHRONIC DISEASE VISIT [facility] Start: 1981 BP CONTROLLED (<130/80) BP CON TROLLED (<130/80) [facility] Start: 1981 Depression Screening Depression Scre ening [facility] Start: 1981 HEPATITIS C SCREENING HEPATITIS C [facility] Start: 1981 Hepatitis C screening Hepatitis C [facility] Start: 1981 HIV SCREENING HIV SCREENING [facility] Start: 1981 HIV screening HIV Screening [facility] Start: 1975 Adult depression screening assessment [facility] CBC W Auto Different ial panel - Blood [facility] Comprehensive metabo lic 1999 panel - Serum or Plasma [facility] DXA Bone [Mass/Area] Bone density [facility] Lipid 1996 panel - S rajwinder or Plasma [facility] MG Breast - bilatera l Screening [facility] Patient referral [facility] Work Phone: Polysomnography [facility] Thyroid stimulating hormone measurement [facility] Vitamin D, 25-hydrox y measurement [facility] End: 10-23-2025 XR Ankle - right AP and Lateral and oblique XR ANKLE GENERAL 3V AP/LAT/OBL RIGHT Radiology Routine Pain in joint, multiple sites Osteoporosis, unspecified osteoporosis type, unspecified pathological fracture presence 1 Occurrences starting 09/23/2024 until 10/23/2025 [facility] Work Phone: Comment on above: 1 Occurrences starti ng 09/23/2024 until 10/23/2025 XR Ankle - right AP and Lateral and oblique XR ANKLE GENERAL 3V AP/LAT/OBL RIGHT Radiology Routine Pain in joint, multiple sites Osteoporosis, unspecified osteoporosis type, unspecified pathological fracture presence 09/23/2024 11:02 AM T [facility] End: 10-23-2025 XR Elbow - left AP and Lateral XR ELBOW GENERAL 2V AP/LAT LEFT Radiology Routine Pain in joint, multiple sites Osteoporosis, unspecified osteoporosis type, unspecified pathological fracture presence 1 Occurrences starting 09/23/2024 until 10/23/2025 [facility] Comment on above: 1 Occurrences starti ng 09/23/2024 until 10/23/2025 XR Elbow - left AP a nd Lateral XR ELBOW GENERAL 2V AP/LAT LEFT Radiology Routine Pain in joint, multiple sites Osteoporosis, unspecified osteoporosis type, unspecified pathological fracture presence 09/23/2024 11:02 AM T [facility] End: 10-23-2025 XR Elbow - right AP and Lateral XR ELBOW GENERAL 2V AP/LAT RIGHT Radiology Routine Pain in joint, multiple sites Osteoporosis, unspecified osteoporosis type, unspecified pathological fracture presence 1 Occurrences starting 09/23/2024 until 10/23/2025 [facility] Comment on above: 1 Occurrences starti ng 09/23/2024 until 10/23/2025 XR Elbow - right AP and Lateral XR ELBOW GENERAL 2V AP/LAT RIGHT Radiology Routine Pain in joint, multiple sites Osteoporosis, unspecified osteoporosis type, unspecified pathological fracture presence 09/23/2024 11:02 AM [facility] End: 10-23-2025 XR Foot - bilateral AP and Lateral and oblique XR FOOT GENERAL 3V AP/LAT/OBL BILATERAL Radiology Routine Pain in joint, multiple sites Osteoporosis, unspecified osteoporosis type, unspecified pathological fracture presence 1 Occurrences starting 09/23/2024 until 10/23/2025 [facility] Comment on above: 1 Occurrences starti ng 09/23/2024 until 10/23/2025 XR Foot - bilateral AP and Lateral and oblique XR FOOT GENERAL 3V AP/LAT/OBL BILATERAL Radiology Routine Pain in joint, multiple sites Osteoporosis, unspecified osteoporosis type, unspecified pathological fracture presence 09/23/2024 11:02 AM [facility] End: 12-02-2025 XR Knee - left AP and Lateral XR KNEE LIMITED 2V AP/LAT LEFT Radiology Routine History of patellar fracture 1 Occurrences starting 11/02/2024 until 12/02/2025 [facility] Work Phone: Comment on above: 1 Occurrences starti ng 11/02/2024 until 12/02/2025 XR Knee - left AP an d Lateral XR KNEE LIMITED 2V AP/LAT LEFT Radiology Routine History of patellar fracture 11/05/2024 10:13 AM EDT [facility] Work Phone: End: 10-23-2025 XR Knee AP and Lateral and Merchants XR KNEE POST OP 3V AP/LAT/MERCHANT LEFT Radiology Routine Pain in joint, multiple sites Osteoporosis, unspecified osteoporosis type, unspecified pathological fracture presence 1 Occurrences starting 09/23/2024 until 10/23/2025 [facility] Comment on above: 1 Occurrences starti ng 09/23/2024 until 10/23/2025 XR Knee AP and Later al and Merchants XR KNEE POST OP 3V AP/LAT/MERCHANT LEFT Radiology Routine Pain in joint, multiple sites Osteoporosis, unspecified osteoporosis type, unspecified pathological fracture presence 09/23/2024 11:02 AM EDT [facility] Payers Date Payer Category Payer Self-pay [id number] 2023 Medicaid [facility] MEDIC AID [id number] 2021 Medicaid MEDICAID [facility] MEDICAID [id number] 2021-Present [phone] [address] [place] [address] Medicaid [id number] 2016 Medicaid [id number] Unknown [id number] Unknown [id number] Unknown [id number] Unknown [id number] Unknown [id number] Unknown [id number] Unknown [id number] Unknown [id number] Unknown [id number] Unknown [id number] Unknown [id number] Unknown [id number] Unknown [id number] Unknown [id number] Unknown [id number] Social History Date Type Detail Facility Start: 02-06-2024 End: 10-08-2024 Tobacco smoking status [facility] Never smoked tobacco [facility] Start: 09-26-2021 End: 11-05-2024 Alcohol intake Current non-drinker of alcohol (finding) [facility] Start: 1965 Sex Assigned At Not on file [facility] Start: 09-16-2021 End: 09-26-2021 Exposure to SARS-CoV-2 (event) Not sure [facility] Start: 1965 Sex Assigned At Female [facility] Start: 12-04-2021 End: 06-24-2023 Tobacco smoking status NHIS Unknown if ever smoked [facility] Start: 07-30-2024 Sex Female (finding) [facility] Start: 09-27-2014 Tobacco use and exposure Smokeless tobacco non-user [facility] Start: 09-23-2024 End: 11-05-2024 History of Social function [facility] Start: 09-23-2024 End: 11-05-2024 Tobacco use panel [facility] National Score (1-100), lower number is lower risk 60 [facility] Functional Status Date Assessment Result Facility 09-27-2014 Are you deaf, or do you have serious difficulty hearing No 09/27/2014 11:03 AM Brigitte Vidal MA No [facility] 09-27-2014 Are you blind, or do you have serious difficulty seeing, even when wearing glasses No 09/27/2014 11:03 AM Brigitte Vidal MA No [facility] 09-27-2014 Do you have serious difficulty walking or climbing stairs Yes 09/27/2014 11:03 AM Brigitte Vidal MA Yes [facility] 09-27-2014 Do you have difficul ty dressing or bathing No 09/27/2014 11:03 AM Brigitte Vidal MA No [facility] 09-27-2014 Because of a physica l, mental, or emotional condition, do you have difficulty doing errands alone such as visiting a physician's office or shopping No 09/27/2014 11:03 AM Brigitte Vidal MA No [facility] Mental Status Date Assessment Result Facility 09-27-2014 Because of a physica l, mental, or emotional condition, do you have serious difficulty concentrating, remembering, or making decisions No 09/27/2014 11:03 AM EDT Brigitte Gonzales MA No [facility] Clinical Notes 09-26-2021 to 11-05-2024 Jose C Cosme V, DO - 11/05/2024 10:34 AM Brigitte Hadley MA - 11/05/2024 10:13 AM EDTTelephone Encounter - Jose C Cosme V, DO - 10/11/2024 2:47 PM EDT Note Date & Type Note Facility 11-05-2024 Note HNO ID: [id number] Author: JOSE C COSME DO Service: ? [...] additional intervention is needed. Recording using ambient [employer] software for draft documentation of the visit was discussed with the patient/authorized appliance service representative; all questions welcomed and answered. Patient/authorized appliance service representative agreed to proceed [facility] [...] if additional intervention is needed. Recording using [employer] software for draft documentation of the visit was discussed with the patient/authorized appliance service representative; all questions welcomed and answered. Patient/authorized appliance service representative agreed to proceed AMB ROOMING INTAKE FLOWSHEET DATA Pain Pain Level: 6 Pain Location: Knee-Left Description: Sharp Duration Amount of Time: (ongoing) Frequency: Intermittent Intervention/Comfort measure: Medication documented in this encounter [facility] 11-05-2024 Note HNO ID: [id number] Author: BRIGITTE GONZALES MA Service: ? Author Type: Thermoforming Machine Operator Type: Progress Notes Filed: 11/05/2024 10:34 Note Text: AMB ROOMING INTAKE FLOWSHEET DATA Pain Pain Level: 6 Pain Location: Knee-Left Description: Sharp Duration Amount of Time: (ongoing) Frequency: Intermittent Intervention/Comfort measure: Medication [facility] 10-11-2024 Telephone encount er Note Rx sent to [email or web address] Jose C Cosme DO [facility] 10-11-2024 Miscellaneous Notes Formattin g of this note might be different from the original. Rx sent to [facility] Jose C Cosme DO Andreas, Pharmacist calling from [facility] and wanting to know if you could change patient's Rx to Calcium and Vitamin D instead of the Calcium Citrate? documented in this encounter [facility] 10-11-2024 Telephone encount er Note Andreas, Pharmacist calling from [facility] and wanting to know if you could change patient's Rx to Calcium and Vitamin D instead of the Calcium Citrate? [facility] 10-08-2024 Evaluation note Diagnosis Onset Date Resolution Vulvovaginal candidiasis acute October 08, 2024 10:25am [facility] Work Phone: [phone] Evaluation note* Diagnosis Onset Date Resolution Status Admit Date Vulvovaginal candidiasis acute October 08, 2024 10:25am Hypersomnolence acute December 15, 2024 9:53am Generalized anxiety disorder chronic December 15, 2024 9:53am Hypertension chronic December 9:53am Hypothyroidism (acquired) chronic December 15, 2024 9:53am Morbid obesity chronic December 15, 2024 9:53am [facility] Work Phone: [phone] Telephone encounter Note* Telephone Encounter - Rosa Isela Gasca RN - 10/07/2024 3:16 PM EDT Patient called and given the below results and recommendations. Rosa Isela Gasca RN [facility]06-26-2025 Miscellaneous Notes* Telephone Encounter - Rosa Isela [...] additional testing and management. [facility] Telephone encounter Note * Telephone Encounter - [...] PCP/Urgent care for additional testing and management. [facility]06-24-2025 NoteHNO ID: [id number] Author: JOSE C COSME, DO Service: ? [...] Calcium Citrate with Vitamin D sent to [facility] in [place]. - Discussed the synergistic role of Vitamin D and calcium in bone health. - Magnesium supplementation discussed; advised that additional magnesium intake is safe and may be beneficial. 3. Morbid obesity (HCC) (E66.01) - Significant impact on joint health and fracture healing. - Discussed the benefits of weight reduction on joint stress and overall health. - Referral note to Dr. Zabala, cans vacuum tester, for evaluation and management of weight loss medication. 4. Presence of artificial knee joint, bilateral (Z96.653) - Bilateral total knee arthroplasties performed approximately 5 years ago; current hardware remains intact and stable. - No signs of loosening or malfunction in the prosthetic components. Recording using [employer] software for draft documentation of the visit was discussed with the patient/authorized appliance service representative; all questions welcomed and answered. Patient/authorized appliance service representative [facility] History of Present illness Narrative* Jose C [...] Vitamin D sent to [facility] in [place]. - Discussed the synergistic role of Vitamin D and calcium in bone health. - Magnesium supplementation discussed; advised that additional magnesium intake is safe and may be beneficial. 3. Morbid obesity (HCC) (E66.01) - Significant impact on joint health and fracture healing. - Discussed the benefits of weight reduction on joint stress and overall health. - Referral note to Dr. Zabala, cans vacuum tester, for evaluation and management of weight loss medication. 4. Presence of artificial knee joint, bilateral (Z96.653) - Bilateral total knee arthroplasties performed approximately 5 years ago; current hardware remainsintact and stable. - No signs of loosening or malfunction in the prosthetic components. Recording using [employer] software for draft documentation of the visit was discussed with the patient/authorized appliance service representative; all questions welcomed and answered. Patient/authorized appliance service representative agreed to proceed * Mary Goyal MA - 10/05/2024 10:08 AM EDT Patient presents with: Left Knee Pain: Referred by Babs Arthur AMB ROOMING INTAKE FLOWSHEET DATA Patient denies any pain today. Currently on Prednisone given by Babs Arthur documented [facility]25 NoteHNO ID: [id number] Author: MARY GOYAL MA Service: ? Author Type: Thermoforming Machine Operator Type: Progress Notes Filed: 10/05/2024 10:34 Note Text: Patient presents with: Left Knee Pain: Referred by Babs Arthur AMB ROOMING INTAKE FLOWSHEET DATA Patient denies any pain today. Currently on Prednisone given by Babs Arthur [facility]06-19-2025 Telephone encounter Note* Telephone Encounter - Rosa Isela Gasca RN - 09/30/2024 4:59 PM EDT Patient returning phone call by Babs. Per Babs Patient informed of fracture in knee and that ortho consult is ordered. Patient states that she wasnever aware of fracture. Patient reports understanding for reason of consult and will call to schedule. Rosa Isela Gasca RN [facility]06-19-2025 Miscellaneous Notes* Telephone Encounter - Rosa Isela Gasca RN - 09/30/2024 4:59 PM EDT Patient returning phone call by Babs. Per Babs Patient informed of fracture in knee and that ortho consult is ordered. Patient states that she wasnever aware of fracture. Patient reports understanding for reason of consult and will call to schedule. Rosa Isela Gasca RN documented in this encounterWilson [facility] Hospital06-19-2025 NoteHNO ID: [id number] Author: BABS ARTHUR PA-C Service: ? Author Type: Physician Biomedical Engineering Supervisor Type: Progress Notes Filed: 09/30/2024 16:51 Note Text: Rheumatology FOLLOW UP VISIT Date of Service: 09/30/2024 Patient: Ronald Hutchins Medical Record: [id number] Primary Care Physician: Harper Genao MD Last Rheumatology visit: None at [facility] History of Present Illness Ronald Hutchins is [...] 11.5 - 15.5 g/dL 12.7 12.1 Hemoglobin, [place] 12.0 - 16.0 g/dL 12.7 Hematocrit 36.0 - 46.0 % 39.5 37.4 Platelet Count 150 - 400 k/uL 327 290 Abs Neut (ANC) 1.45 - (more content not included)...[facility] 09-30-2024 History of Present illness Narrative* Babs Arthur PA-C - 09/30/2024 4:16 PM EDT Images from the original note were not included. Rheumatology FOLLOW UP VISIT Date of Service: 09/30/2024 Patient: Ronald Hutchins Medical Record: [id number] Primary Care Physician: Harper Genao MD Last Rheumatology visit: None at [facility] History of Present Illness Ronald Hutchins is [...] 11.5 - 15.5 g/dL 12.7 12.1 Hemoglobin, [place] 12.0 - 16.0 g/dL 12.7 Hematocrit 36.0 - 46.0 % 39.5 37.4 Platelet Count 150 - 400 k/uL 327 290 Abs Neut (ANC) 1.45 - 7.50 k/uL 2.72 3.24 Abs Neut, [place] 2.0 - 8.1 k/uL 5.1 Abs Lymp, [...] 0.58 - 0.96 mg/dL 1.03 1.01 Creatinine, [place] 0.7 - 1.4 mg/dL 0.9 1.0 Calcium, [...] AI <0.2 Sm Antibody Negative Negative Ribosomal TRAINING AND DOCUMENTATION SPECIALIST Ab <1.0 AI <0.2 Ribosomal TRAINING AND DOCUMENTATION SPECIALIST Qualitative Negative Negative Chromatin Ab <1.0 AI 0.4 Chromatin Ab Qual Negative Negative SSA Antibody Qual Negative Negative Anti-SSA <1.0 AI 0.3 Anti-SSB <1.0 AI <0.2 TRAINING AND DOCUMENTATION SPECIALIST Antibody QUAL Negative Negative Scleroderma Ab Qual [...] Impression: IMPRESSION: Severe degenerative changes as described. Pool Lifeguard: NIR Transcribe Date/Time: Sep 29 2024 10:48A [...] EYES: PERRL, EOMI MUSCULOSKELETAL EXAMINATION: Hands: Reducible Jackson neck and boutonniere deformties noted in hands. [...] which included preparing to see the patient, [id number] patient care, completing clinical documentation, obtaining and/or reviewing separately obtained history, performing a medically appropriate examination, counseling and educating the pat ient/family/caregiver, ordering medications, tests, or procedures, and communicating results to thepatient/family/caregiver. Babs Arthur PA-C Rheumatology Date: September 30, 2024 Time: 4:17 PM documented in this encounterWilson [facility]06-19-2025 Instructions* Patient Instructions* Babs Arthur PA-C - [...] treat symptoms short term, but not good supervisor long goods. Get Eye exam for hydroxychloroquine - please have them fax it to our office. [phone] Schedule follow up in 2 months. BONE [...] your usual activities immediately. [facility] Telephone encounter Note * Telephone Encounter - Babs Arthur PA-C - 09/29/2024 2:29 PM EDT Prescription sent, but prefer labs and urine to be done prior to starting the med. Babs Arthur PA-C [facility] Miscellaneous Notes* Telephone Encounter - Babs Arthur [...] x 1 week. At our follow up, fpc meds can be discussed in more detail. [...] prescribed to help with her pain? Confirmed [facility] in [place]. documented in this encounterWilson [facility] Hospital06-[facility] Telephone encounter Note * Telephone Encounter - Rosa Isela Gasca RN - 09/29/2024 9:01 AM EDT Patient rescheduled for 09/30/24. Patient aware of urine and blood orders and to have them done. Rosa Isela Gasca, RN [facility]06-17-2025 Telephone encounter Note* Telephone Encounter - Brigitte Gonzales MA - 09/28/2024 3:41 PM EDT I called and spoke with the patient. Message from provider given. The patient verbalized understanding and will have lab work completed tomorrow. No sooner appointments available before where patient is already scheduled on 10/14/2024. Patient was added to wait list for sooner appointment should one become available. [facility] Telephone encounter Note* Telephone Encounter - Babs [...] x 1 week. At our follow up, supervisor long goods meds can be discussed in more detail. Vitamin D is also low. Have her start 1000 international unit(s) daily OTC. Babs Arthur PA-C [facility] Telephone encounter Note* Telephone Encounter - Brigitte Gonzales MA - 09/28/2024 9:10 AM EDT Patient called in stating she is having increased pain in her ankles. She is currently using ice and ibuprofen with a small amount of relief. She is asking if there is something that can be prescribed to help with her pain? Confirmed [facility] in [place]. [facility]06[facility] History of Present illness Narrative* Radha Cardenas [...] PATIENT PRESENTS WITH AN IMPLANTABLE OR ATTACHED ADMINISTRATIVE OFFICE ASSISTANT: No RADIOLOGY DEPARTMENT: General X-ray: Exam(s) Completed: Lower Extremity X- Ray(s): Knee, AP / Lat / Merchant Left, Ankle, Right, and Foot, Bilateral Upper Extremity X-Ray(s): Elbow, bilateral PERIPHERAL IV DATA: Not applicable SIGNED BY: Ray Haro September 23, 2024 10:10 AM documented in this encounterWilson [facility] Hospital06-12-2025 NoteHNO ID: [id number] Author: RADHA CARDENAS Tech Service: ? Author [...] PATIENT PRESENTS WITH AN IMPLANTABLE OR ATTACHED ADMINISTRATIVE OFFICE ASSISTANT: No RADIOLOGY DEPARTMENT: General X-ray: Exam(s) Completed: Lower Extremity X-Ray(s): Knee, AP / Lat / Merchant Left, Ankle, Right, and Foot, Bilateral Upper Extremity X-Ray(s): Elbow, bilateral PERIPHERAL IV DATA: Not applicable SIGNED BY: Ray Haro September 23, 2024 10:[address] [facility]06-12-2025 NoteHNO ID: [id number] Author: BABS ARTHUR PA-C Service: ? Author Type: Physician Biomedical Engineering Supervisor Type: Progress Notes Filed: 09/23/2024 16:34 Note Text: Rheumatology CONSULTATION Date of Service: 09/23/2024 Patient: Ronald Hutchins Medical Record: [id number] Primary Care Physician: Arun Stringer DO Last Rhe[facility]ology visit: [facility] Referring Provider: Dr. Genao Ronald Huthcins is here today at request of Dr. Genao specifically for consultation of my opinion in regards to the chief complaint listed below. Correspondence will be shared today via the [employer] electronic health record or through regular mail, where applicable. Recording using [employer] software for draft documentation of the visit was discussed with the patient/authorized appliance service representative; all questions welcomed and answered. Patient/authorized appliance service representative agreed to proceed History of Present [...] knee, which was replaced in [address] [facility]. The right knee, also replaced, feels normal [...] for: Muscle weakne (more content not included)... [facility]06-12-2025 History of Present illness Narrative* Babs Arthur PA-C - 09/23/2024 9:11 AM EDT Images from the original note were not included. Rheumatology CONSULTATION Date of Service: 09/23/2024 Patient: Ronald Hutchins Medical Record: [id number] Primary Care Physician: Arun Stringer DO Last Rheumatology visit: None [facility] Referring Provider: Dr. Genao Ronald Hutchins is here today at request of Dr. Genao specifically for consultation of my opinion in regards to the chief complaint listed below. Correspondence will be shared today via the [employer] electronic health record or through regular mail, where applicable. Recording using [employer] software for draft documentation of the visit was discussed with the patient/authorized appliance service representative; all questions welcomed and answered. Patient/authorized appliance service representative agreed to proceed History of Present [...] knee, which was replaced in [address] [facility]. The right knee, also replaced, feels normal [...] 11.5 - 15.5 g/dL 12.7 12.1 Hemoglobin, [place] 12.0 - 16.0 g/dL 12.7 Hematocrit 36.0 [...] 3.7 - 5.1 mmol/L 3.9 3.9 Potassium, [place] 3.5 - 5.0 mmol/L 4.0 4.0 Chloride 98 - 107 mmol/L 104 104 Chloride, [place] 98 - 110 mmol/L 103 105 CO2 22 - 30 mmol/L 23 19 CO2, [place] 23.0 - 32.0 mmol/L 27.4 23.5 Glucose 74 - 99 mg/dL 82 94 Glucose, [place] 65 - 100 mg/dL 87 91 BUN 7 - 21 mg/dL 16 18 BUN, [place] 10 - 25 mg/dL 11 14 Creatinine 0.58 - 0.96 mg/dL 1.03 1.01 Creatinine, [place] 0.7 - 1.4 mg/dL 0.9 1.0 Calcium, [place] 8.5 - 10.5 mg/dL 9.0 9.1 Calcium 8.5 - 10.2 mg/dL 9.4 8.8 AST 13 - 35 U/L 26 15 AST, [place] 7 - 40 U/L 26 23 ALT 7 - 38 U/L 28 10 ALT, [place] 0 - 45 U/L 24 23 Alkaline [...] full ROM in flexion and extension. 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 No swelling or synovitis along the [...] which included preparing to see the patient, [id number] patient care, completing clinical documentation, obtaining and/or reviewing separately obtained history, performing a medically appropriate examination, counseling and educating the pat ient/family/caregiver, ordering medications, tests, or procedures. Babs Arthur PA-C Rheumatology Date: September 23, 2024 Time: 4:33 PM documented in this encounterWilson [facility] Hospital04-07-[facility]25 Evaluation note* Diagnosis Onset Date Resolution Status Admit Date Hypothyroidism (acquired) chronic July 19, 2024 9:32am Morbid obesity chronic July 19, 2024 9:32am [facility] Work Phone: 1(988) 433-849701-17-2025 Evaluation note* Diagnosis Onset Date Resolution Status Admit Date Hypersomnolence acute April 142024 9:30am Arthritis chronic April 30, 2024 9:30am Hypertension chronic April 9:30am Hypothyroidism (acquired) chronic April 30, 2024 9:30am Hypothyroidism (acquired) chronic July 19, 2024 9:32am Morbid obesity chronic July 19, 2024 9:32am [facility] Work Phone: 1(126) 752-595106-15-2022 History of Present illness Narrative* Kenneth Hubbard [...] Hubbard DPM Podiatry [address] [facility] [address] Dept: [phone] Dept * Wendy Zhao RN - 09/26/2021 [...] to B/L 2nd toes. [facility]* Diagnosis Pes planus of both feet- Primary Hammer toes of both feet Venous insufficiency Unspecified venous (peripheral) insufficiency documented in this encounter [facility]* Diagnosis Onset Date Resolution Status Hypothyroidism (acquired) ch ronic [facility] Work Phone: Evaluation note* Diagnosis Onset Date Resolution Status Hypothyroidism (acquired) ch ronic Localized swelling of left upper extremity acute Generalized anxiety disorder chronic Hypertension chronic Hypothyroidism (acquired) ch ronic Morbid obesity chronic Venous insufficiency of both lower extremities chronic [facility] Work Phone: Evaluation note* Diagnosis Onset Date Resolution Status Health care maintenance acut e Generalized anxiety disorder chronic Hypertension chronic [facility] Work Phone: Evaluation note* Diagnosis Onset Date Resolution Status Bronchitis acute Sinusitis acute Anxiety chronic Hypertension chronic Osteoarthritis of knees, bilateral chronic [facility] Work Phone: Evaluation note* Diagnosis Onset Date Resolution Status Health care maintenance acut e Generalized anxiety disorder chronic Hemorrhoids chronic Hypertension chronic Hypothyroidism (acquired) ch ronic Left ankle pain chronic [facility] Work Phone: Evaluation note* Diagnosis Onset Date Resolution Status Health care maintenance acut e Generalized anxiety disorder chronic Hemorrhoids chronic Hypertension chronic Hypothyroidism (acquired) ch ronic Left ankle pain chronic Hypothyroidism (acquired) ch ronic [facility] Work Phone: Evaluation note* Diagnosis Pain in joint, multiple sites- Primary Hypermobility syndrome Osteoporosis, unspecified osteoporosis type, unspecified pathological fracture presence Dry eye of left side Morbid obesity (HCC) Morbid obesity documented in this encounter [facility]* Diagnosis Pain in joint, multiple sites Osteoporosis, unspecified osteoporosis type, unspecified pathological fracture presence documented in this encounter [facility]* Diagnosis Lupus erythematosus overlap syndrome (HCC)- Primary Rheumatoid factor positive Other and unspecified nonspecific immunological findings Cyclic citrullinated peptide (CCP) antibody positive Jaccoud's arthropathy (HCC) History of patellar fracture Personal history of traumatic fracture Asymptomatic age-related postmenopausal state Osteoporosis, unspecified osteoporosis type, unspecified pathological fracture presence Long-term use of Plaquenil Encounter for long-term (current) use of other medications documented in this encounter [facility]* Diagnosis Vitamin D deficiency- Primary Unspecified vitamin D deficiency History of patellar fracture Personal history of traumatic fracture Morbid obesity (HCC) Morbid obesity Presence of artificial knee joint, bilateral documented in this encounter [facility]* Diagnosis Pain in joint, multiple sites- Primary Hypermobility syndrome documented in this encounter [facility]* Diagnosis History of patellar fracture- Primary Personal history of traumatic fracture documented in this encounter [facility]* Diagnosis History of patellar fracture- Primary Personal history of traumatic fracture documented in this encounter [facility]* Diagnosis History of patellar fracture Personal history of traumatic fracture documented in this encounter [facility] Discharge instructionsAmbulatory Orders* General Surgery Location: None Selected [facility] Work Phone: Rebbrl for referral (narrative)No reason for referral information availableWOhioHealth [facility] Work Phone: Reason for visit Narrative* Diagnostic Procedure Only (Routine) - Closed Specialty Diagnoses / Procedures Referred By Contac t Referred To Contact XR IMAGING Diagnoses Pain in joint, multiple sites Osteoporosis, unspecified osteoporosis type, unspecified pathological fracture presence Procedures XR FOOT GENERAL 3V AP/LAT/OBL BILATERAL RADEX FOOT COMPLETE MINIMUM 3 VIEWS Babs Arthur PA-C [address] [place] [address] Phone: tel: fax: [place] [address] Referral ID Status Reason Start Date Expiration Date V isits Requested Visits Authorized [id number] Closed Auto-Generate d Referral 09/23/2024 10/23/2025 1 1 [facility] for visit Narrative* Diagnostic Procedure Only (Routine) - Closed Specialty Diagnoses / Procedures Referred By Contac t Referred To Contact XR IMAGING Diagnoses History of patellar fracture Procedures XR KNEE LIMITED 2V AP/LAT LEFT RADIOLOGIC EXAMINATION KNEE 1/2 VIEWS Jose C Cosme V DO [address] [place] [address] Phone: tel: fax: [place] [address] Referral ID Status Reason Start Date Expiration Date V isits Requested Visits Authorized [id number] Closed Auto-Generate d Referral 11/02/2024 12/02/2025 1 1 [facility] Chief Complaint and Reason for Visit Chief Complaint 2+ YEAR FU Reason for Visit Hypothyroidism (acqu ired) Chief Complaint 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 LEFT UPPER LIMB [...] or prosecute any alcohol or drug abuse patient.[facility] HospitalIn the event this information is protected by the Federal Confidentiality of Alcohol and Drug Abuse Patient Records regulations: The Federal rules restrict any use of the information to criminally investigate or prosecute any alcohol or drug abuse patient.[facility] HospitalIn the event this information is protected by the Federal Confidentiality of Alcohol and Drug Abuse Patient Records regulations: The Federal rules restrict any use of the information to criminally investigate or prosecute any alcohol or drug abuse patient.[facility] HospitalIn the event this information is protected by the Federal Confidentiality of Alcohol and Drug Abuse Patient Records regulations: The Federal rules restrict any use of the information to criminally investigate or prosecute any alcohol or drug abuse patient.[facility] HospitalIn the event this information is protected by the Federal Confidentiality of Alcohol and Drug Abuse Patient Records regulations: The Federal rules restrict any use of the information to criminally investigate or prosecute any alcohol or drug abuse patient.[facility] HospitalIn the event this information is protected by the Federal Confidentiality of Alcohol and Drug Abuse Patient Records regulations: The Federal rules restrict any use of the information to criminally investigate or prosecute any alcohol or drug abuse patient.[facility] HospitalIn the event this information is protected by the Federal Confidentiality of Alcohol and Drug Abuse Patient Records regulations: The Federal rules restrict any use of the information to criminally investigate or prosecute any alcohol or drug abuse patient.[facility] HospitalIn the event this information is protected by the Federal Confidentiality of Alcohol and Drug Abuse Patient Records regulations: The Federal rules restrict any use of the information to criminally investigate or prosecute any alcohol or drug abuse patient.[facility] HospitalIn the event this information is protected by the Federal Confidentiality of Alcohol and Drug Abuse Patient Records regulations: The Federal rules restrict any use of the information to criminally investigate or prosecute any alcohol or drug abuse patient.[facility] HospitalIn the event this information is protected by the Federal Confidentiality of Alcohol and Drug Abuse Patient Records regulations: The Federal rules restrict any use of the information to criminally investigate or prosecute any alcohol or drug abuse patient.[facility] HospitalIn the event this information is protected by the Federal Confidentiality of Alcohol and Drug Abuse Patient Records regulations: The Federal rules restrict any use of the information to criminally investigate or prosecute any alcohol or drug abuse patient.[facility] HospitalIn the event this information is protected by the Federal Confidentiality of Alcohol and Drug Abuse Patient Records regulations: The Federal rules restrict any use of the information to criminally investigate or prosecute any alcohol or drug abuse patient.[facility] Reason for Visit (unrecogniz ed section and [...] PA-C [address] [place] [address] Phone: tel: fax: Referral ID Status Reason Start Date Expiration Date V isits Requested Visits Authorized [id number] Closed PCP Requested Referral 09/30/2024 09/30/2025 1 1 Reason Onset Date Comments Results 10/07/2024 Reason Comments Med Change Request Reason Comments Patient Question Reason Comments follw up left patella fx Care Teams (unrecognized sec tion and content) Machine Crater Relationship Specialty Start Date End Date Arun Stringer DO [address] [place] [id number] PCP - General Family Practice 01/25/15 Team Status: Active Member Role Status Dates Dr. Arun Stringer DO Family Provider Active Dr. Harper Genao MD Primary Care Provider Active Team Status: Inactive Member Role Status Dates Dr. Harper Genao MD Primary Care P rosarhader, Attending Provider, Referring Provider Active Team Status: [...] July 26, 2024 End: July 26, 2024 Machine Crater Relationship Specialty Start Date End Date Harper Genao MD [address] [place] [address] PCP - General Internal Medicine 09/23/24 Kilo Dubois MD [address] [place] [address] Referring Plastic Surgery 07/19/24 Machine Crater Relationship Specialty Start Date End Date Harper Genao MD [address] [place] [address] PCP - General Internal Medicine 09/23/24 Kilo Dubois MD [address] [place] [address] Referring Plastic Surgery 07/19/24 Machine Crater Relationship Specialty Start Date End Date Harper Genao MD [address] [place] [address] PCP - General Internal Medicine 09/23/24 Kilo Dubois MD [address] [place] [address] Referring Plastic Surgery 07/19/24 Machine Crater Relationship Specialty Start Date End Date Harper Genao MD [address] [place] [address] PCP - General Internal Medicine 09/23/24 Kilo Dubois MD [address] [place] [address] Referring Plastic Surgery 07/19/24 Machine Crater Relationship Specialty Start Date End Date Harper Genao MD [address] [place] [address] PCP - General Internal Medicine 09/23/24 Kilo Dubois MD [address] [place] [address] Referring Plastic Surgery 07/19/24 Machine Crater Relationship Specialty Start Date End Date Harper Genao MD [address] [place] [address] PCP - General Internal Medicine 09/23/24 Kiol Dubois MD [address] [place] [address] Referring Plastic Surgery 07/19/24 Team Status: Active [...] October 08, 2024 End: October 08, 2024 Machine Crater Relationship Specialty Start Date End Date Harper Genao MD [address] [place] [address] PCP - General Internal Medicine 09/23/24 Kilo Dubois MD [address] [place] [address] Referring Plastic Surgery 07/19/24 Machine Crater Relationship Specialty Start Date End Date Harper Genao MD [address] [place] [address] PCP - General Internal Medicine 09/23/24 Kilo Dubois MD [address] [place] [address] Referring Plastic Surgery 07/19/24 Machine Crater Relationship Specialty Start Date End Date Harper Genao MD [address] [place] [address] PCP - General Internal Medicine 09/23/24 Kilo Dubois MD [address] [place] [address] Referring Plastic Surgery 07/19/24 Team Status: Inactive [...] section and content) DATE CREATED AUTHOR 11/12/2024 [facility] DATE CREATED AUTHOR 'S KEVIN PRESCOTT 12/26/2024 [facility] FOR RECORDS PERTAINING TO PATIENTS WHO ARE [...] BE BASED ON THE PRIMARY CLINICAL RECORDS. [facility] [employer] [facility]. provides no warranty or guarantee of the accuracy or completeness of information in this document.
== END | disposition home or self-care (01) ==
LOC: SL 19:56
PROVIDERS: PCP Internal Medicine; Referring Provider Internal Medicine; Visit Provider Internal Medicine
DX: G47.10 Hypersomnia, unspecified (principal)
CPT/HCPCS: 95811